=== PATIENT | male | born 1955 | race Caucasian/White ===

== ENCOUNTER 2018-11-05 06:09 | Day surgery (SDC) | payer MEDICARE ==
[2018-11-05] MEDS ORDERED: Ketamine HCl 50 MG/ML IJ ONE (06:10)
[2018-11-05] MEDS ORDERED: DIPRIVAN 200 MG/20 ML IV ONE (06:10)
[2018-11-05] MEDS ORDERED: Lactated Ringers 1,000 ML IV SCH (06:30)
--- NOTE | 2018-11-05 09:03 | OP ---
SURGERY DATE/TIME: 11/05/2018 0800 PREOPERATIVE DIAGNOSIS: Positive Cologuard and intermittent rectal bleeding. POSTOPERATIVE DIAGNOSIS: Normal colon. PROCEDURE: Colonoscopy. SURGEON: Dr. Gomez. ANESTHESIA: MAC. Medications given by anesthesia department. HISTORY: The patient is a 63 year-old white male patient presenting now for colonoscopy. He was appraised of the risks of the procedure including the risk of perforation, phlebitis, untoward reaction to medication, bleeding and missed lesions. The patient verbalized his understanding and desired to have the procedure performed. DESCRIPTION OF PROCEDURE: The patient was given the medications by the anesthesia department. He had continuous pulse oximetry, ECG monitoring, intermittent blood pressure monitoring and tidal CO2 monitoring during the examination. He was placed in the left lateral decubitus position. A digital rectal examination was performed and revealed normal anal sphincter tone, no masses and normal prostate and absence of hemorrhoids was noted. The flexible Olympus pediatric colonoscope was used to intubate the rectum. A view of the colon was developed sequentially to the cecum. Upon insertion and withdrawal, including a retroflex view in the rectum, no mucosal lesions were encountered. The scope was removed from the patient who tolerated the procedure well and was sent back to OP recovery in good condition. The prep was noted to be fair to good.
[2018-11-05 09:15] VITALS: PULSE 69
[2018-11-05 09:27] VITALS: BP 128/78; O2SAT 94
== END 2018-11-05 09:45 | disposition home or self-care (01) ==
LOC: SDC 06:09
PROVIDERS: ATTEND Family Medicine
DX: K62.5 Hemorrhage of anus and rectum (principal); R19.5 Other fecal abnormalities
CPT/HCPCS: J2704

== ENCOUNTER 2018-11-23 10:30 | Emergency (ER) | payer MEDICARE ==
[2018-11-23] MEDS ORDERED: Adacel Vial IM ONE ×2 (11:00→11:02)
[2018-11-23] MEDS ORDERED: KEFLEX 500 MG PO ONE (11:01)
[2018-11-23] MEDS ORDERED: KEFLEX 500 MG ONE (11:05)
--- NOTE | 2018-11-23 11:19 | ERPHSYRPT ---
- History of Present Illness Time Seen by Provider: 11/23/18 10:50 Source: patient, family Exam Limitations: clinical condition Patient Subjective Stated Complaint: tripped and hit right pinky toe on a box with an air fryer in it, thinks he broke his toe Triage Nursing Assessment: Pt c/o of getting out of bed and tripping on a box and his right pinky toe was bent outward, son wrapped foot and placed in an ankle brace, toe now appears to be straight but has an abrasion to it and also to the right great toe, has an open wound to the right mitchell but stated that was all ready there, reports that he has neuropathy in his feet so he does not feel any pain Physician History: PATIENT WITH A HISTORY OF PERIPHERAL NEUROPATHY, ATRIAL FIBRILLATION, CONGESTIVE HEART FAILURE, COPD, HYPERTENSION, WHILE GETTING OUT OF BED TRIPPED OVER A BOX CONTAINING A AIR FRYER THIS MORNING SUSTAINED INJURY TO SMALL TOE OF HIS RIGHT FOOT. DENIES PAIN BUT SUSTAINED ABRASIONS TO SMALL TOE. Method of Injury: direct blow Occurred: this morning Quality: other (DENIES PAIN DISCOMFORT) Severity of Pain-Max: none Severity of Pain-Current: none Lower Extremities Pain: 5th toe: right Modifying Factors: Improves With: nothing Associated Symptoms: none Allergies/Adverse Reactions: pregabalin [From Lyrica] Allergy (Verified 11/23/18 10:47) zinc Allergy (Verified 11/23/18 10:47) Blisters moxifloxacin HCl [From Avelox] Adverse Reaction (Mild, Verified 11/23/18 10:47) vancomycin Adverse Reaction (Verified 11/23/18 10:47) Elevated Levels / Increased CRCL patient had significant increase in Serum CR and decreased creatinine clearence. Wetch Closely Home Medications: Magnesium Oxide 400 mg [Mag-Ox 400] 400 mg PO BID 01/02/15 [History] Metoprolol Succinate 25 mg Xl* [Toprol-Xl 25MG Tablets] 25 mg PO BID [History] Omeprazole 20 MG [Prilosec 20 mg] 1 tab PO DAILY 11/30/15 [History] Atorvastatin Calcium [Lipitor 40Mg] 40 mg PO DAILY 04/08/16 [History] Cholecalciferol (Vitamin D3) [Vitamin D3] 50,000 unit PO WEEKLY 04/08/16 [ History] Potassium Chloride 20 meq PO 5XD 04/08/16 [History] Bumetanide [Bumex] 2 mg PO BID 01/19/17 [History] Colchicine [Colcrys] 0.6 mg PO BID 01/19/17 [History] Famotidine [Pepcid] 40 mg PO DAILY 01/19/17 [History] Gabapentin [Neurontin] 800 mg PO QID 01/19/17 [History] Spironolactone 25 mg [Aldactone 25 MG] 25 mg PO DAILY 01/19/17 [History] Oxycodone HCl/Acetaminophen [Oxycodon-Acetaminophen 7.5-325] 1 each PO Q6H PRN PRN 02/05/18 [History] Amitriptyline HCl 25 mg PO HS 11/23/18 [History] Apixaban [Eliquis] 5 mg PO BID 11/23/18 [History] Hx Tetanus, Diphtheria Vaccination/Date Given: Yes (unknown) Hx Influenza Vaccination/Date Given: Yes (unknown) Hx Pneumococcal Vaccination/Date Given: Yes (unknown) - Review of Systems Constitutional: No Symptoms Ears, Nose, & Throat: No Symptoms Respiratory: No Symptoms Abdominal/Gastrointestinal: No Symptoms Genitourinary Symptoms: No Symptoms Musculoskeletal: Injury, Other (ABRASIONS SMALL TOE) Neurological: Other (NEUROPATHY LOWER EXTREMITIES) Endocrine: No Symptoms Hematologic/Lymphatic: No Symptoms Immunological/Allergic: Pollen Allergy - Past Medical History Pertinent Past Medical History: Yes Neurological History: Peripheral Neuropathy ENT History: No Pertinent History Cardiac History: Arrhythmia, Congenital Heart Disease, Congestive Heart Failure , Hypertension Respiratory History: COPD, Pneumonia, Tuberculosis, Other Endocrine Medical History: Liver Disease Musculoskeletal History: Arthritis GI Medical History: GERD History: Renal Disease Psycho-Social History: Depression Male Reproductive Disorders: No Pertinent History Other Medical History: Partial R lung removal - Past Surgical History Past Surgical History: Yes Neuro Surgical History: No Pertinent History Cardiac: No Pertinent History Respiratory: Lobectomy Gastrointestinal: No Pertinent History Genitourinary: No Pertinent History Musculoskeletal: No Pertinent History Male Surgical History: Vasectomy Other Surgical History: RIGHT UPPER LOBECTOMY, leg vein cautery with skin graft - Social History Smoking Status: Former smoker How long have you smoked: 38 yrs Exposure to second hand smoke: Yes Drug Use: none Patient Lives Alone: Yes - Nursing Vital Signs Nursing Vital Signs: Initial Vital Signs Temperature 97.2 F 02/01/19 10:35 Pulse Rate 68 11/23/18 10:35 Blood Pressure 142/85 11/23/18 10:35 O2 Sat by Pulse Oximetry 92 L 11/23/18 10:35 Pain Scale Pain Intensity 0 - Physical Exam General Appearance: alert Neck Exam: normal inspection Cardiovascular/Respiratory Exam: chest non-tender Gastrointestinal/Abdominal Exam: non-tender Legs Exam: right leg: soft tissue tenderness (THERE IS A 1.5CM LACERATION DORSUM SMALL TOE EXTEND TO RADIAL ASPECT NO EVIDENCE OF TENDON LACERATION OR FOREIGN BODY. FULL RANGE OF MOTION ALL DIGITS.), swelling (BILATERAL PRETIBIAL EDEMA 1+, THERE IS A 2CM X 1CM ABRASION MID RIGHT MITCHELL, NONTENDER, NO SURROUNDING SWELLING OR ECCHYMOSIS) Foot Exam: right foot: soft tissue tenderness (ABRASIONS DISTAL PHALANGX OF SMALL TOE OF RIGHT FOOT) Neuro/Tendon Exam: normal sensation, normal motor functions Mental Status Exam: alert, oriented x 3, cooperative Skin Exam: normal color, warm, dry SpO2 Interpretation: normal SpO2: 92 Procedures - Laceration/Wound Repair Right Toe Wound Location: Right (5TH TOE) Wound Length (cm): 1.5 Wound's Depth, Shape: linear Wound Explored: clean Irrigated: Yes Hibiclens Prep: Yes Anesthesia: 2% Lidocaine Volume Anesthetic (ccs): 5 Suture Size/Type: 4-0 Number of Sutures: 9 Layer Closure?: No Sterile Dressing Applied?: Yes - Radiology Exams Right Foot X-ray Interpretation: Discussed w/ radiologist (NEW NONDISPLACED HEAD OF THE 5TH PROXIMAL PHALANX WITH SOFT TISSUES SWELLING. STABLE OSTEOPENIA) Ordered Tests: Active Orders 24 hr Category Date Time Status Wound Care STAT Care 11/23/18 11:19 Active FOOT (MINIMUM 3 VIEWS) Stat Exams 11/23/18 11:00 Completed Medication Summary Discontinued Medications Generic Name Dose Route Start Last Admin Trade Name Christy PRN Reason Stop Dose Admin Cephalexin HCl 500 mg 11/23/18 11:01 11/23/18 11:11 Keflex 500 Mg PO 11/23/18 11:02 500 mg STAT ONE Administration Cephalexin HCl Confirm 11/23/18 11:05 Keflex 500 Mg Administered 11/23/18 11:06 Dose 500 mg .ROUTE .STK-MED ONE Diphtheria/Tetanus/Acell Pertussis 0.5 ml 11/23/18 11:00 11/23/18 11:04 Adacel Vial IM 11/23/18 11:01 0.5 ml .ONCE ONE Administration Diphtheria/Tetanus/Acell Pertussis Confirm 11/23/18 11:02 Adacel Vial Administered 11/23/18 11:03 Dose 0.5 ml IM .STK-MED ONE Lidocaine HCl Confirm 11/23/18 11:58 Xylocaine 2% Hcl 20 Ml Mdv Administered 11/23/18 11:59 Dose 1 ml .ROUTE .STK-MED ONE - Progress Progress Note: 11/23/18 11:52 KAREEM TAPE RIGHT 4TH-5TH TOE Counseled pt/family regarding: diagnosis, rad results - Departure Time of Disposition: 12:40 Departure Disposition: Home Clinical Impression: FRACTURE RIGHT 5TH TOE, LACERATION RIGHT 5TH TOE Condition: Stable Critical Care Time: No Referrals: KRIS PADGETT [Primary Care Provider] - Additional Instructions: ANTIBIOTIC KEFLEX 500MG EVERY 6 HOURS FOR 10 DAYS. HAVE STITCHES REMOVED AT 10 DAYS. WATCH FOR SIGNS OF INFECTION, REDNESS, SWELLING OR DRAINAGE. CLEANSE WOUND SOAP AND WATER TWICE DAILY FOLLOWED BY APPLICATION OF BACITRACIN OINTMENT. Prescriptions: Cephalexin Mh 500 mg [Keflex 500 mg] 500 mg PO QID #40 capsule
--- NOTE | 2018-11-23 11:37 | XRAY ---
Indication: Fifth toe pain. Comparison: April 08, 2016. 3 nonweightbearing views of the right foot demonstrates new nondisplaced corner fracture head of the 5th proximal phalanx with soft tissue swelling. Stable osteopenia, midfoot degenerative changes, chronic 5th metatarsal head deformity, and plantar metallic foreign body adjacent to 2nd MTP.
[2018-11-23] MEDS ORDERED: XYLOCAINE 2% HCL 20 ML MDV ONE (11:58)
[2018-11-23 13:49] VITALS: BP 130/63; PULSE 67; O2SAT 95
== END 2018-11-23 13:25 | disposition home or self-care (01) ==
LOC: ED 10:30
DX: S92.501A Displaced unspecified fracture of right lesser toe(s), initial encounter for closed fracture (principal); S91.114A Laceration without foreign body of right lesser toe(s) without damage to nail, initial encounter; S90.414A Abrasion, right lesser toe(s), initial encounter; S91.101A Unspecified open wound of right great toe without damage to nail, initial encounter; W22.8XXA Striking against or struck by other objects, initial encounter; G62.9 Polyneuropathy, unspecified; I48.91 Unspecified atrial fibrillation; I50.9 Heart failure, unspecified; J44.9 Chronic obstructive pulmonary disease, unspecified; I10 Essential (primary) hypertension; K76.9 Liver disease, unspecified; M85.871 Other specified disorders of bone density and structure, right ankle and foot; Z79.899 Other long term (current) drug therapy
CPT/HCPCS: 12001; 73630; 90471; 90715; 99284; A9270-GY

== ENCOUNTER 2018-12-03 13:15 | Emergency (ER) | payer MEDICARE ==
[2018-12-03 13:27] VITALS: PULSE 71; O2SAT 92
--- NOTE | 2018-12-03 13:44 | ERPHSYRPT ---
- History of Present Illness Time Seen by Provider: 12/03/18 13:36 Source: patient Exam Limitations: no limitations Patient Subjective Stated Complaint: suture removal Triage Nursing Assessment: Pt is here for suture removal of the right little toe Physician History: The patient is a 63-year-old male with a friend coming in wanting suture removal from his right toe after having it repaired in this ER on 11/23/18. He is not having any problems with the wound healing Occurred: days ago (11) Allergies/Adverse Reactions: pregabalin [From Lyrica] Allergy (Verified 12/03/18 13:27) zinc Allergy (Verified 12/03/18 13:27) Blisters moxifloxacin HCl [From Avelox] Adverse Reaction (Mild, Verified 12/03/18 13:27) vancomycin Adverse Reaction (Verified 12/03/18 13:27) Elevated Levels / Increased CRCL patient had significant increase in Serum CR and decreased creatinine clearence. Wetch Closely Home Medications: Magnesium Oxide 400 mg [Mag-Ox 400] 400 mg PO BID 01/02/15 [History] Metoprolol Succinate 25 mg Xl* [Toprol-Xl 25MG Tablets] 25 mg PO BID [History] Omeprazole 20 MG [Prilosec 20 mg] 1 tab PO DAILY 11/30/15 [History] Atorvastatin Calcium [Lipitor 40Mg] 40 mg PO DAILY 04/08/16 [History] Cholecalciferol (Vitamin D3) [Vitamin D3] 50,000 unit PO WEEKLY 04/08/16 [ History] Potassium Chloride 20 meq PO 5XD 04/08/16 [History] Bumetanide [Bumex] 2 mg PO BID 01/19/17 [History] Colchicine [Colcrys] 0.6 mg PO BID 01/19/17 [History] Famotidine [Pepcid] 40 mg PO DAILY 01/19/17 [History] Gabapentin [Neurontin] 800 mg PO QID 01/19/17 [History] Spironolactone 25 mg [Aldactone 25 MG] 25 mg PO DAILY 01/19/17 [History] Oxycodone HCl/Acetaminophen [Oxycodon-Acetaminophen 7.5-325] 1 each PO Q6H PRN PRN 02/05/18 [History] Amitriptyline HCl 25 mg PO HS 11/23/18 [History] Apixaban [Eliquis] 5 mg PO BID 11/23/18 [History] Hx Tetanus, Diphtheria Vaccination/Date Given: Yes (unknown) Hx Influenza Vaccination/Date Given: Yes (unknown) Hx Pneumococcal Vaccination/Date Given: Yes (unknown) - Past Medical History Pertinent Past Medical History: Yes Neurological History: Peripheral Neuropathy ENT History: No Pertinent History Cardiac History: Arrhythmia, Congenital Heart Disease, Congestive Heart Failure , Hypertension Respiratory History: COPD, Pneumonia, Tuberculosis, Other Endocrine Medical History: Liver Disease Musculoskeletal History: Arthritis GI Medical History: GERD History: Renal Disease Psycho-Social History: Depression Male Reproductive Disorders: No Pertinent History Other Medical History: Partial R lung removal - Past Surgical History Past Surgical History: Yes Neuro Surgical History: No Pertinent History Cardiac: No Pertinent History Respiratory: Lobectomy Gastrointestinal: No Pertinent History Genitourinary: No Pertinent History Musculoskeletal: No Pertinent History Male Surgical History: Vasectomy Other Surgical History: RIGHT UPPER LOBECTOMY, leg vein cautery with skin graft - Social History Smoking Status: Former smoker How long have you smoked: 38 yrs Exposure to second hand smoke: Yes Drug Use: none Patient Lives Alone: Yes - Nursing Vital Signs Nursing Vital Signs: Initial Vital Signs Temperature 97.5 F 12/03/18 13:19 Pulse Rate 71 12/03/18 13:19 O2 Sat by Pulse Oximetry 92 L 12/03/18 13:19 Pain Scale Pain Intensity 0 - Physical Exam SpO2: 92 - Departure Referrals: KRIS PADGETT [Primary Care Provider] -
--- NOTE | 2018-12-03 13:59 | ERPHSYRPT ---
- History of Present Illness Time Seen by Provider: 12/03/18 13:36 Source: patient Exam Limitations: no limitations Patient Subjective Stated Complaint: suture removal Triage Nursing Assessment: Pt is here for suture removal of the right little toe Physician History: The patient is a 63-year-old male with a friend complaining of wanting to have his sutures removed on his right little toe that were placed in this ER for laceration on to 119. His past medical history is significant for COPD, renal insufficiency, HTN, GERD, A. fib, and high cholesterol. Timing/Duration: day(s) (11), sudden Severity: mild Location: feet (right) Possible Causes: other (lac) Allergies/Adverse Reactions: pregabalin [From Lyrica] Allergy (Verified 12/03/18 13:27) zinc Allergy (Verified 12/03/18 13:27) Blisters moxifloxacin HCl [From Avelox] Adverse Reaction (Mild, Verified 12/03/18 13:27) vancomycin Adverse Reaction (Verified 12/03/18 13:27) Elevated Levels / Increased CRCL patient had significant increase in Serum CR and decreased creatinine clearence. Wetch Closely Home Medications: Magnesium Oxide 400 mg [Mag-Ox 400] 400 mg PO BID 01/02/15 [History] Metoprolol Succinate 25 mg Xl* [Toprol-Xl 25MG Tablets] 25 mg PO BID [History] Omeprazole 20 MG [Prilosec 20 mg] 1 tab PO DAILY 11/30/15 [History] Atorvastatin Calcium [Lipitor 40Mg] 40 mg PO DAILY 04/08/16 [History] Cholecalciferol (Vitamin D3) [Vitamin D3] 50,000 unit PO WEEKLY 04/08/16 [ History] Potassium Chloride 20 meq PO 5XD 04/08/16 [History] Bumetanide [Bumex] 2 mg PO BID 01/19/17 [History] Colchicine [Colcrys] 0.6 mg PO BID 01/19/17 [History] Famotidine [Pepcid] 40 mg PO DAILY 01/19/17 [History] Gabapentin [Neurontin] 800 mg PO QID 01/19/17 [History] Spironolactone 25 mg [Aldactone 25 MG] 25 mg PO DAILY 01/19/17 [History] Oxycodone HCl/Acetaminophen [Oxycodon-Acetaminophen 7.5-325] 1 each PO Q6H PRN PRN 02/05/18 [History] Amitriptyline HCl 25 mg PO HS 11/23/18 [History] Apixaban [Eliquis] 5 mg PO BID 11/23/18 [History] Hx Tetanus, Diphtheria Vaccination/Date Given: Yes (unknown) Hx Influenza Vaccination/Date Given: Yes (unknown) Hx Pneumococcal Vaccination/Date Given: Yes (unknown) - Review of Systems Constitutional: No Fever, No Chills Eyes: No Symptoms Ears, Nose, & Throat: No Symptoms Respiratory: No Cough, No Dyspnea Cardiac: No Chest Pain, No Edema, No Syncope Abdominal/Gastrointestinal: No Abdominal Pain, No Nausea, No Vomiting, No Diarrhea Genitourinary Symptoms: No Dysuria Musculoskeletal: No Back Pain, No Neck Pain Skin: Other (lac) Neurological: No Dizziness, No Focal Weakness, No Sensory Changes Psychological: No Symptoms Endocrine: No Symptoms Hematologic/Lymphatic: No Symptoms Immunological/Allergic: No Symptoms All Other Systems: Reviewed and Negative - Past Medical History Pertinent Past Medical History: Yes Neurological History: Peripheral Neuropathy ENT History: No Pertinent History Cardiac History: Arrhythmia, Congenital Heart Disease, Congestive Heart Failure , Hypertension Respiratory History: COPD, Pneumonia, Tuberculosis, Other Endocrine Medical History: Liver Disease Musculoskeletal History: Arthritis GI Medical History: GERD History: Renal Disease Psycho-Social History: Depression Male Reproductive Disorders: No Pertinent History Other Medical History: Partial R lung removal - Past Surgical History Past Surgical History: Yes Neuro Surgical History: No Pertinent History Cardiac: No Pertinent History Respiratory: Lobectomy Gastrointestinal: No Pertinent History Genitourinary: No Pertinent History Musculoskeletal: No Pertinent History Male Surgical History: Vasectomy Other Surgical History: RIGHT UPPER LOBECTOMY, leg vein cautery with skin graft - Social History Smoking Status: Former smoker How long have you smoked: 38 yrs Exposure to second hand smoke: Yes Drug Use: none Patient Lives Alone: Yes - Nursing Vital Signs Nursing Vital Signs: Initial Vital Signs Temperature 97.5 F 12/03/18 13:19 Pulse Rate 71 12/03/18 13:19 O2 Sat by Pulse Oximetry 92 L 12/03/18 13:19 Pain Scale Pain Intensity 0 - Physical Exam General Appearance: no apparent distress, alert Eye Exam: PERRL/EOMI, eyes nml inspection Ears, Nose, Throat Exam: normal ENT inspection, pharynx normal, moist mucous membranes Neck Exam: normal inspection, non-tender, supple, full range of motion Respiratory Exam: normal breath sounds, lungs clear, No respiratory distress Cardiovascular Exam: regular rate/rhythm, normal heart sounds Gastrointestinal/Abdomen Exam: soft, mass, No tenderness Rectal Exam: not done Back Exam: normal inspection, normal range of motion, No CVA tenderness, No vertebral tenderness Extremity Exam: normal inspection, normal range of motion Neurologic Exam: alert, oriented x 3, cooperative, normal mood/affect, sensation nml, No motor deficits Skin Exam: laceration (Examination of the wound after the sutures were removed shows friable and macerated tissue on the medial aspect of the right little toe. He has chronic venous stasis and poor circulation of the right lower extremity. The little toe is also red and mildly warm.) SpO2 Interpretation: normal SpO2: 92 O2 Delivery: Room Air - Departure Time of Disposition: 14:01 Departure Disposition: Home Clinical Impression: Visit for suture removal, Cellulitis Condition: Stable Critical Care Time: No Referrals: KRIS PADGETT [Primary Care Provider] - Additional Instructions: You had 9 sutures removed from her right little toe. The toe looks mildly infected. Discontinue Keflex. Begin Augmentin 875 one tablet 2 times a day for 10 days. Follow-up with Dr. Gomez in 2-3 days. Prescriptions: Amoxicillin/Potassium Clav [Augmentin 875-125 Tablet] 875 mg PO BID #20 tablet
== END 2018-12-03 14:19 | disposition home or self-care (01) ==
LOC: ED 13:15
DX: Z48.02 Encounter for removal of sutures (principal); L03.031 Cellulitis of right toe; J44.9 Chronic obstructive pulmonary disease, unspecified; N28.9 Disorder of kidney and ureter, unspecified; I10 Essential (primary) hypertension; K21.9 Gastro-esophageal reflux disease without esophagitis; I48.91 Unspecified atrial fibrillation; E78.00 Pure hypercholesterolemia, unspecified; M19.90 Unspecified osteoarthritis, unspecified site; F32.9 Major depressive disorder, single episode, unspecified
CPT/HCPCS: 99283

== ENCOUNTER 2019-01-14 14:17 | Emergency (ER) | payer MEDICARE ==
[2019-01-14] MEDS ORDERED: BUMEX 1 MG IV ONE (14:51)
[2019-01-14] MEDS ORDERED: Maxipime 2 GM IV ONE (14:54)
[2019-01-14 15:05] LABS: INR 2.92 (0.8-3.0); PROTIME 34.3 SECONDS (8.83-12.87)
--- NOTE | 2019-01-14 15:14 | XRAY ---
Indication: Dyspnea. Comparison: April 08, 2016. Portable chest demonstrates new right mid to lower lung infiltrate versus atelectasis. Elsewhere stable chronic lung markings, calcified granulomas, and cardiomegaly. Bony thorax intact.
[2019-01-14] MEDS ORDERED: BUMEX 1 MG ONE (16:04)
[2019-01-14] MEDS ORDERED: MAXIPIME IV STA (16:14)
[2019-01-14] MEDS ORDERED: SODIUM CHLORIDE 0.9% IV STA (16:14)
[2019-01-14 17:20] VITALS: BP 115/61; PULSE 83; O2SAT 99
--- NOTE | 2019-01-14 17:44 | ERPHSYRPT ---
- History of Present Illness Time Seen by Provider: 01/14/19 14:35 Source: patient, EMS Exam Limitations: clinical condition Patient Subjective Stated Complaint: pt arrives from [facility], staff reports that pt has chronic bilat lower extremity cellulitis but it seems to be worse today. staff also reports pt picc line appears to be infected. staff report skin to picc site shows new bruising as well as being hot to touch. Triage Nursing Assessment: pt is aox3, pupils perrl, pt has low grade temp of 99.8, resps easy and non labored, radial pulses strong and equal, cap refill < 3 seconds, picc line noted to the right upper arm, bruising noted around site, site is hot to touch. pt has severe edema to the upper and lower legs, pt lower legs are covered in honey colored crusts, drainage present, pt bilat upper legs are red, hot to the touch and edematous, that skin is intact. pt is bedridden. Physician History: PATIENT WITH A HISTORY OF COPD, ANASARCA, ATRIA FIBRILLAITION, BILATERAL LOWER EXTREMITY CELLULITIS AND SWELLING, TRANSFERRED FROM THE SENIOR LIVING FOR INCREASING SWELLING IN LOWER EXTREMITIES POSSIBLE INFECTED PICC LINE. HAS BEEN TREATED WITH ANTIBIOTICS MAXIPINE 2GM INRAVENOUS TWICE DAILY. PATIENT DENIES SHORTNESS OF BREATH DIFFICULTY BREATHING OR CHEST PAIN. Timing/Duration: day(s) Severity: severe Allergies/Adverse Reactions: pregabalin [From Lyrica] Allergy (Verified 12/03/18 13:27) zinc Allergy (Verified 12/03/18 13:27) Blisters moxifloxacin HCl [From Avelox] Adverse Reaction (Mild, Verified 12/03/18 13:27) vancomycin Adverse Reaction (Verified 12/03/18 13:27) Elevated Levels / Increased CRCL patient had significant increase in Serum CR and decreased creatinine clearence. [place] Closely Home Medications: Magnesium Oxide 400 mg [Mag-Ox 400] 400 mg PO BID 01/02/15 [History] Metoprolol Succinate 25 mg Xl* [Toprol-Xl 25MG Tablets] 25 mg PO BID [History] Omeprazole 20 MG [Prilosec 20 mg] 1 tab PO DAILY 11/30/15 [History] Atorvastatin Calcium [Lipitor 40Mg] 40 mg PO DAILY 04/08/16 [History] Cholecalciferol (Vitamin D3) [Vitamin D3] 50,000 unit PO WEEKLY 04/08/16 [ History] Potassium Chloride 20 meq PO 5XD 04/08/16 [History] Bumetanide [Bumex] 2 mg PO BID 01/19/17 [History] Colchicine [Colcrys] 0.6 mg PO BID 01/19/17 [History] Famotidine [Pepcid] 40 mg PO DAILY 01/19/17 [History] Gabapentin [Neurontin] 800 mg PO QID 01/19/17 [History] Spironolactone 25 mg [Aldactone 25 MG] 25 mg PO DAILY 01/19/17 [History] Oxycodone HCl/Acetaminophen [Oxycodon-Acetaminophen 7.5-325] 1 each PO Q6H PRN PRN 02/05/18 [History] Amitriptyline HCl 25 mg PO HS 11/23/18 [History] Apixaban [Eliquis] 5 mg PO BID 11/23/18 [History] Hx Tetanus, Diphtheria Vaccination/Date Given: Yes Hx Influenza Vaccination/Date Given: Yes Hx Pneumococcal Vaccination/Date Given: Yes Immunizations Up to Date: Yes - Review of Systems Constitutional: No Fever, No Chills Eyes: No Symptoms Ears, Nose, & Throat: No Symptoms Respiratory: No Symptoms, No Cough, No Dyspnea Cardiac: No Symptoms, No Chest Pain, No Edema, No Syncope Abdominal/Gastrointestinal: No Symptoms, No Abdominal Pain, No Nausea, No Vomiting, No Diarrhea Genitourinary Symptoms: No Symptoms, No Dysuria Musculoskeletal: Other (LOWER EXTREMITY SWELLING), No Back Pain, No Neck Pain Skin: No Rash Neurological: No Symptoms, No Dizziness, No Focal Weakness, No Sensory Changes Psychological: No Symptoms Endocrine: No Symptoms All Other Systems: Reviewed and Negative - Past Medical History Pertinent Past Medical History: Yes Neurological History: Peripheral Neuropathy ENT History: No Pertinent History Cardiac History: Arrhythmia, Congenital Heart Disease, Congestive Heart Failure , Hypertension Respiratory History: COPD, Pneumonia, Tuberculosis, Other Endocrine Medical History: Liver Disease Musculoskeletal History: Arthritis GI Medical History: GERD History: Renal Disease Psycho-Social History: Depression Male Reproductive Disorders: No Pertinent History Other Medical History: Partial R lung removal - Past Surgical History Past Surgical History: Yes Neuro Surgical History: No Pertinent History Cardiac: No Pertinent History Respiratory: Lobectomy Gastrointestinal: No Pertinent History Genitourinary: No Pertinent History Musculoskeletal: No Pertinent History Male Surgical History: Vasectomy Other Surgical History: RIGHT UPPER LOBECTOMY, leg vein cautery with skin graft - Social History Smoking Status: Never smoker How long have you smoked: 38 yrs Exposure to second hand smoke: Yes Drug Use: none Patient Lives Alone: No - Nursing Vital Signs Nursing Vital Signs: Initial Vital Signs Temperature 99.8 F 01/14/19 14:23 Pulse Rate 82 01/14/19 14:23 Respiratory Rate 24 01/14/19 14:23 Blood Pressure 129/56 01/14/19 14:23 O2 Sat by Pulse Oximetry 100 01/14/19 14:23 Pain Scale Pain Intensity 0 - Physical Exam General Appearance: no apparent distress, alert Eye Exam: PERRL/EOMI, eyes nml inspection Ears, Nose, Throat Exam: normal ENT inspection, TMs normal, pharynx normal, moist mucous membranes Neck Exam: normal inspection, non-tender, supple, full range of motion Respiratory Exam: diminished breath sounds, crackles/rales, No respiratory distress Cardiovascular Exam: regular rate/rhythm, normal heart sounds, normal peripheral pulses Gastrointestinal/Abdomen Exam: soft, normal bowel sounds, No tenderness, No mass Back Exam: normal inspection, normal range of motion, No CVA tenderness, No vertebral tenderness Extremity Exam: other (MARKED 3+ PITTING EDEMA ANKLE TO MID ABDOMINAL WALL.) Neurologic Exam: alert, oriented x 3, cooperative, normal mood/affect, nml cerebellar function, nml station & gait, sensation nml, No motor deficits Skin Exam: normal color, warm, dry, No rash Lymphatic Exam: No adenopathy SpO2 Interpretation: normal SpO2: 99 O2 Delivery: Nasal Cannula - Course EKG Interpreted by Me: A-fib, Right [place] Deviation, NORMAL ST-T - Radiology Exams Chest X-ray Interpretation: Discussed w/ radiologist (CARDIOMEGALY, RIGHT MID TO LOWER LOW INFILTRATE) Ordered Tests: Active Orders 24 hr Category Date Time Status Senior Support Engineer STAT Care 01/14/19 14:52 Active EKG-ER Only STAT Care 01/14/19 14:52 Active IV Insertion STAT Care 01/14/19 14:52 Active Oxygen-ED Only Nasal Cannula 2 lpm Care 01/14/19 14:52 Active CHEST 1 VIEW (PORTABLE) Stat Exams 01/14/19 14:52 Completed PROTIME WITH INR Stat Lab 01/14/19 14:56 Completed TROPONIN Q3H Lab 01/14/19 15:45 Completed TROPONIN Q3H Lab 01/14/19 18:00 Ordered TROPONIN Q3H Lab 01/14/19 21:00 Ordered TROPONIN Q3H Lab 01/15/19 00:00 Ordered TROPONIN Q3H Lab 01/15/19 03:00 Ordered Medication Summary Discontinued Medications Generic Name Dose Route Start Last Admin Trade Name Christy PRN Reason Stop Dose Admin Bumetanide 1 mg 01/14/19 14:51 01/14/19 17:06 Bumex 1 Mg IV 01/14/19 14:52 1 mg STAT ONE Administration Bumetanide Confirm 01/14/19 16:04 Bumex 1 Mg Administered 01/14/19 16:05 Dose 1 mg .ROUTE .STK-MED ONE Cefepime HCl 2 g/ Sodium 100 mls @ 200 mls/hr 01/14/19 16:14 01/14/19 17:07 Chloride IV 01/14/19 16:43 200 mls/hr STAT STA Administration Lab/Rad Data: Laboratory Results 01/14/19 01/14/19 Range/Units 15:45 14:56 PT 34.3 H (8.83-12.87) SECONDS INR 2.92 (0.8-3.0) Troponin I 0.020 (0.000-0.034) ng/mL - Progress Progress Note: 01/14/19 17:58 IV MAXIPINE 2GM IVPB, DUONEB AEROSOL [place] Discussed with Dr.: Other (DISCUSSED WITH DR HUGO AT 1800 ACCEPTS TRANSFER TO [facility]IA [facility]) - Departure Time of Disposition: 18:05 Departure Disposition: Transfer Clinical Impression: ANASARCA, LOWER EXTREMITY CELLULITIS, PNEUMONIA Condition: Stable Critical Care Time: No Referrals: RADHA KRISHNAN [Primary Care Provider] -
== END 2019-01-14 18:10 | disposition short-term general hospital (02) ==
LOC: ED 14:17
DX: L03.116 Cellulitis of left lower limb (principal); L03.115 Cellulitis of right lower limb; J44.9 Chronic obstructive pulmonary disease, unspecified; I48.91 Unspecified atrial fibrillation; Z79.899 Other long term (current) drug therapy; G62.9 Polyneuropathy, unspecified; I50.9 Heart failure, unspecified; I10 Essential (primary) hypertension; K76.9 Liver disease, unspecified; M19.90 Unspecified osteoarthritis, unspecified site; K21.9 Gastro-esophageal reflux disease without esophagitis; F32.9 Major depressive disorder, single episode, unspecified
CPT/HCPCS: 36000; 36415; 71045; 80053; 82272; 83605; 83880; 84484; 85025; 85610; 93005; 93041; 96365; 96374; 96375; 99285; J0692

== ENCOUNTER 2019-02-11 08:15 | Inpatient (IN) | payer MEDICARE ==
[2019-02-11] MEDS ORDERED: BUMEX 1 MG ONE (08:22)
[2019-02-11] MEDS ORDERED: BUMEX 1 MG IV ONE (08:26)
--- NOTE | 2019-02-11 08:33 | ERPHSYRPT ---
- History of Present Illness Time Seen by Provider: 02/11/19 08:20 Source: patient Exam Limitations: no limitations Patient Subjective Stated Complaint: PT states "I was released from [facility] a couple of days ago for the same thing and I am I am having a really hard time breathing." Triage Nursing Assessment: Pt presented via scat and placed in room 4. PT is very warm to touch, pt presented with duff in place, a slight pressure ulcer on buttock, audible rhales, able to speak in clear full sentences. Pt tachypniec. weak non productive cough. Physician History: 63-year-old white male with history of peripheral neuropathy, arrhythmia, atrial fibrillation, congenital heart disease, congestive heart failure, high blood pressure, COPD, pneumonia, tuberculosis Patient arrives with complaint of shortness of breath for several days he states he was recently at [facility] for the same he states she's been short of breath for several days he states that he has worse shortness of breath this morning is [facility]. He denies any chest pain he does state that he's had a sore throat. Patient remained received a DuoNeb treatment at the retirement and then another one per medics prior to arrival also received 125 of Solu-Medrol by medics. Past medical history includes peripheral neuropathy, arrhythmia, atrial fibrillation, congenital heart disease, congestive heart failure, high blood pressure, COPD, pneumonia, tuberculosis, liver disease, partial right lung removal. Past surgical history includes right upper lobectomy, leg vein cautery. Timing/Duration: other (short of breath for several days worse past day) Activities at Onset: none Severity of Dyspnea-Max: moderate Severity of Dyspnea-Current: moderate Possible Cause: frequent episodes Modifying Factors: Improves With: other (patient received a DuoNeb treatment at retirement and by medics prior to arrival.) Associated Symptoms: cough, wheezing, No chest pain/discomfort, No edema, No insomnia, No lightheadedness, No weakness, No ankle swelling, No chills, No dizziness, No heaviness, No heart racing, No lightheadedness, No leg swelling, No muscle spasms hands, No painful breathing, No productive cough, No sweating, No tightness, No tingling face International travel in last 2 weeks: No Allergies/Adverse Reactions: pregabalin [From Lyrica] Allergy (Verified 12/03/18 13:27) zinc Allergy (Verified 12/03/18 13:27) Blisters moxifloxacin HCl [From Avelox] Adverse Reaction (Mild, Verified 12/03/18 13:27) vancomycin Adverse Reaction (Verified 12/03/18 13:27) Elevated Levels / Increased CRCL patient had significant increase in Serum CR and decreased creatinine clearence. Wetch Closely Home Medications: Magnesium Oxide 400 mg [Mag-Ox 400] 400 mg PO BID 01/02/15 [History] Metoprolol Succinate 25 mg Xl* [Toprol-Xl 25MG Tablets] 25 mg PO BID [History] Omeprazole 20 MG [Prilosec 20 mg] 1 tab PO DAILY 11/30/15 [History] Atorvastatin Calcium [Lipitor 40Mg] 40 mg PO DAILY 04/08/16 [History] Cholecalciferol (Vitamin D3) [Vitamin D3] 50,000 unit PO WEEKLY 04/08/16 [ History] Potassium Chloride 20 meq PO 5XD 04/08/16 [History] Bumetanide [Bumex] 2 mg PO BID 01/19/17 [History] Colchicine [Colcrys] 0.6 mg PO BID 01/19/17 [History] Famotidine [Pepcid] 40 mg PO DAILY 01/19/17 [History] Gabapentin [Neurontin] 800 mg PO QID 01/19/17 [History] Spironolactone 25 mg [Aldactone 25 MG] 25 mg PO DAILY 01/19/17 [History] Oxycodone HCl/Acetaminophen [Oxycodon-Acetaminophen 7.5-325] 1 each PO Q6H PRN PRN 02/05/18 [History] Amitriptyline HCl 25 mg PO HS 11/23/18 [History] Apixaban [Eliquis] 5 mg PO BID 11/23/18 [History] Hx Tetanus, Diphtheria Vaccination/Date Given: Yes Hx Influenza Vaccination/Date Given: Yes Hx Pneumococcal Vaccination/Date Given: Yes Immunizations Up to Date: Yes - Review of Systems Constitutional: No Fever, No Chills Eyes: No Symptoms Ears, Nose, & Throat: No Symptoms, Throat Pain, No Ear Pain, No Ear Discharge, No Hearing Changes, No Tinnitus, No Nose Pain, No Nose Congestion, No Nose Discharge, No Sinus Drainage, No Epistaxis, No Mouth Swelling, No Loose Teeth, No Throat Swelling, No Hoarse, No Painful Swallowing, No Snoring Respiratory: Cough, Dyspnea, Wheezing Cardiac: No Chest Pain, No Edema, No Syncope Abdominal/Gastrointestinal: No Abdominal Pain, No Nausea, No Vomiting, No Diarrhea Genitourinary Symptoms: No Dysuria Musculoskeletal: No Back Pain, No Neck Pain Skin: No Rash Neurological: No Dizziness, No Focal Weakness, No Sensory Changes Psychological: No Symptoms Endocrine: No Symptoms All Other Systems: Reviewed and Negative - Past Medical History Pertinent Past Medical History: Yes Neurological History: Peripheral Neuropathy ENT History: No Pertinent History Cardiac History: Arrhythmia, Congenital Heart Disease, Congestive Heart Failure , Hypertension Respiratory History: COPD, Pneumonia, Tuberculosis, Other Endocrine Medical History: Liver Disease Musculoskeletal History: Arthritis GI Medical History: GERD History: Renal Disease Psycho-Social History: Depression Male Reproductive Disorders: No Pertinent History Other Medical History: Partial R lung removal - Past Surgical History Past Surgical History: Yes Neuro Surgical History: No Pertinent History Cardiac: No Pertinent History Respiratory: Lobectomy Gastrointestinal: No Pertinent History Genitourinary: No Pertinent History Musculoskeletal: No Pertinent History Male Surgical History: Vasectomy Other Surgical History: RIGHT UPPER LOBECTOMY, leg vein cautery with skin graft - Social History Smoking Status: Former smoker How long have you smoked: 38 yrs Exposure to second hand smoke: Yes Drug Use: none Patient Lives Alone: No - Nursing Vital Signs Nursing Vital Signs: Initial Vital Signs Temperature 103.2 F 02/11/19 08:15 Pulse Rate 107 H 02/11/19 08:15 Respiratory Rate 26 H 02/11/19 08:15 Blood Pressure 117/58 02/11/19 08:15 O2 Sat by Pulse Oximetry 96 02/11/19 08:15 Pain Scale Pain Intensity 4 - Physical Exam General Appearance: moderate distress, alert, other (well-developed well- nourished white male audible rhonchi (wet)) Eye Exam: PERRL/EOMI Ears, Nose, Throat Exam: hearing grossly normal Neck Exam: normal inspection, supple Respiratory Exam: rhonchi (audible wet rhonchi throughout) Cardiovascular/Chest Exam: normal heart sounds, regular rate/rhythm Abdominal/Gastrointestinal Exam: soft, No tenderness, No distention, No mass Extremity Exam: non-tender, normal range of motion, no calf tenderness, no pedal edema, No normal inspection (bilateral lower extremities erythematous) Peripheral Pulses Exam: dorsalis-pedis (R): 1+, dorsalis-pedis (L): 1+ Neurologic Exam: alert, oriented x 3, cooperative, flexographic press set up operator II-XII nml as tested, sensation nml, No motor deficits Skin Exam: dry (what), No normal color (Bilateral lower extremies erythematous) SpO2 Interpretation: borderline oxygenation (%) SpO2: 96 - Course Nursing assessment & vital signs reviewed: Yes EKG Interpreted by Me: RATE (111 bpm), A-fib, Other (EKG: Atrial fibrillation with PVCs, 111 bpm, indeterminate axis,no acute ST or T wave changes) - Radiology Exams Chest X-ray Interpretation: Discussed w/ radiologist (chest x-ray: Right lung base infiltrate/atelectasis with new focus in the left baseand new bibasilar effusions. elsewhere stable cardiomegaly, right mid lung suture material and scattered calcified granulomas.) Ordered Tests: Active Orders 24 hr Category Date Time Status Smoke Control Supervisor STAT Care 02/11/19 08:25 Active EKG-ER Only STAT Care 02/11/19 08:24 Active IV Insertion STAT Care 02/11/19 08:24 Active CHEST 1 VIEW (PORTABLE) Stat Exams 02/11/19 08:25 Completed BLOOD CULTURE Stat Lab 02/11/19 08:35 Received CBC W DIFF Stat Lab 02/11/19 08:35 Completed CMP Stat Lab 02/11/19 08:35 Completed CULTURE,SPUTUM Stat Lab 02/11/19 08:25 Uncollected CULTURE,URINE Stat Lab 02/11/19 08:56 Received D-DIMER QUANTITATION Stat Lab 02/11/19 08:35 Completed Lactic Acid Stat Lab 02/11/19 08:40 Completed Manual Differential NC Stat Lab 02/11/19 08:35 Completed NT PRO BNP Stat Lab 02/11/19 08:35 Completed PROTIME WITH INR Stat Lab 02/11/19 08:35 Completed PTT Stat Lab 02/11/19 08:35 Completed TROPONIN Q3H Lab 02/11/19 08:35 Completed TROPONIN Q3H Lab 02/11/19 11:30 Ordered TROPONIN Q3H Lab 02/11/19 14:30 Ordered TROPONIN Q3H Lab 02/11/19 17:30 Ordered TROPONIN Q3H Lab 02/11/19 20:30 Ordered UA W/RFX UR CULTURE Stat Lab 02/11/19 08:56 Completed VENOUS BLOOD GAS Stat Lab 02/11/19 08:40 Completed Medication Summary Discontinued Medications Generic Name Dose Route Start Last Admin Trade Name Christy PRN Reason Stop Dose Admin Acetaminophen 975 mg 02/11/19 08:47 02/11/19 08:49 Tylenol 325 Mg PO 02/11/19 08:48 975 mg STAT ONE Administration Acetaminophen Confirm 02/11/19 08:48 Tylenol 325 Mg Administered 02/11/19 08:49 Dose 975 mg .ROUTE .STK-MED ONE Acetaminophen Confirm 02/11/19 08:51 Tylenol 325 Mg Administered 02/11/19 08:52 Dose 650 mg .ROUTE .STK-MED ONE Bumetanide Confirm 02/11/19 08:22 Bumex 1 Mg Administered 02/11/19 08:23 Dose 1 mg .ROUTE .STK-MED ONE Bumetanide 1 mg 02/11/19 08:26 02/11/19 08:32 Bumex 1 Mg IV 02/11/19 08:27 1 mg STAT ONE Administration Ceftriaxone Sodium/Dextrose 1 g in 50 mls @ 100 mls/hr 02/11/19 08:38 08:43 Rocephin 1 Gm-D5w 50 Ml Bag IV 02/11/19 09:07 Not Given STAT STA Ampicillin Sodium/Sulbactam Sodium 3 gm in 100 mls @ 200 mls/hr 02/11/19 08: 41 02/11/19 08:42 Unasyn 3gm / Nacl 100ml IV 02/11/19 09:10 Not Given STAT STA Ceftriaxone Sodium/Dextrose 1 g in 50 mls @ 100 mls/hr 02/11/19 08:42 09:23 Rocephin 1 Gm-D5w 50 Ml Bag IV 02/11/19 09:11 Infused STAT STA Infusion Ceftriaxone Sodium/Dextrose Confirm 02/11/19 08:42 Rocephin 1 Gm-D5w 50 Ml Bag Administered 02/11/19 08:43 Dose 1 g in 50 mls @ ud IV .STK-MED ONE Lab/Rad Data: Laboratory Result Diagrams 02/11/19 08:35 02/11/19 08:35 Laboratory Results 02/11/19 02/11/19 02/11/19 Range/Units 08:56 08:40 08:35 WBC (4.0-10.5) K/mm3 RBC (4.1-5.6) M/mm3 Hgb (12.5-18.0) gm/dl Hct (42-50) % MCV (78-100) fl MCH (26-32) pg MCHC (32-36) g/dl RDW (11.5-14.0) % Plt Count (150-450) K/mm3 Segmented Neutrophils (36.-66.) % Band Neutrophils (0.0-2.0) % Lymphocytes (Manual) (24-44) % Eosinophils (Manual) (0.00-3.0) % Platelet Estimate (NORMAL) RBC Morphology PT (8.83-12.87) SECONDS INR (0.8-3.0) APTT (24.1-36.1) SECONDS D-Dimer (215-500) ng/mL pO2/FiO2 Ratio 100.0 % VBG pH 7.40 (7.32-7.42) VBG pCO2 at Pat Temp 60 H (42-55) mm/Hg VBG pO2 at Pat Temp 53 H (25-40) mm/Hg VBG HCO3 37.2 H* (22-28) meq/L VBG O2 Sat (Mike) 90.9 L (95-100) VBG Base Excess 10.4 H (-2.0-2.0) VBG Hemoglobin 11.5 VBG Carboxyhemoglobin 3.2 (0.0-6.9) % T HGB POC Potassium 3.8 (3.5-5.1) Sodium (137-145) mmol/L Potassium (3.5-5.1) mmol/L Chloride (98-107) mmol/L Carbon Dioxide (22-30) mmol/L Anion Gap (5-15) MEQ/L BUN (9-20) mg/dL Creatinine (0.66-1.25) mg/dL Estimated GFR ML/MIN Glucose (74-106) mg/dL Lactic Acid 1.4 (0.4-2.0) Calcium (8.4-10.2) mg/dL Total Bilirubin (0.2-1.3) mg/dL AST (17-59) U/L ALT (0-50) U/L Alkaline Phosphatase (38-126) U/L Troponin I (0.000-0.034) ng/mL NT-Pro-B Natriuret Pep (0-900) pg/mL Serum Total Protein (6.3-8.2) g/dL Albumin (3.5-5.0) g/dL Urine Color CARSON (YELLOW) Urine Appearance SLIGHTLY CLOUDY (CLEAR) Urine pH 6.0 (5-6) Ur Specific [place] 1.015 (1.005-1.025) Urine Protein 100 (Negative) Urine Ketones NEGATIVE (NEGATIVE) Urine Blood LARGE (0-5) Jordan/ul Urine Nitrite POSITIVE (NEGATIVE) Urine Bilirubin NEGATIVE (NEGATIVE) Urine Urobilinogen 2 (0-1) mg/dL Ur Leukocyte Esterase LARGE (NEGATIVE) Urine WBC (Auto) >100 (0-5) /HPF Urine RBC (Auto) >101 (0-2) /HPF U Epithel Cells (Auto) RARE (FEW) /HPF Urine Bacteria (Auto) MODERATE (NEGATIVE) /HPF Urine Mucus (Auto) SLIGHT (NEGATIVE) /HPF Urine Culture Reflexed YES (NO) Urine Glucose NEGATIVE (NEGATIVE) mg/dL Influenza Type A Ag NEGATIVE (NEGATIVE) Influenza Type B Ag NEGATIVE (NEGATIVE) RSV (PCR) NEGATIVE (Negative) Group A Strep Antibody NEGATIVE (NEGATIVE) 02/11/19 02/11/19 02/11/19 Range/Units 08:35 08:35 08:35 WBC (4.0-10.5) K/mm3 RBC (4.1-5.6) M/mm3 Hgb (12.5-18.0) gm/dl Hct (42-50) % MCV (78-100) fl MCH (26-32) pg MCHC (32-36) g/dl RDW (11.5-14.0) % Plt Count (150-450) K/mm3 Segmented Neutrophils (36.-66.) % Band Neutrophils (0.0-2.0) % Lymphocytes (Manual) (24-44) % Eosinophils (Manual) (0.00-3.0) % Platelet Estimate (NORMAL) RBC Morphology PT 23.9 H (8.83-12.87) SECONDS INR 2.04 (0.8-3.0) APTT 34.7 (24.1-36.1) SECONDS D-Dimer 483 (215-500) ng/mL pO2/FiO2 Ratio % VBG pH (7.32-7.42) VBG pCO2 at Pat Temp (42-55) mm/Hg VBG pO2 at Pat Temp (25-40) mm/Hg VBG HCO3 (22-28) meq/L VBG O2 Sat (Mike) (95-100) VBG Base Excess (-2.0-2.0) VBG Hemoglobin VBG Carboxyhemoglobin (0.0-6.9) % T HGB POC Potassium (3.5-5.1) Sodium 139 (137-145) mmol/L Potassium 4.0 (3.5-5.1) mmol/L Chloride 94 L (98-107) mmol/L Carbon Dioxide 35 H (22-30) mmol/L Anion Gap 13.4 (5-15) MEQ/L BUN 8 L (9-20) mg/dL Creatinine 0.62 L (0.66-1.25) mg/dL Estimated GFR > 60.0 ML/MIN Glucose 91 (74-106) mg/dL Lactic Acid (0.4-2.0) Calcium 8.9 (8.4-10.2) mg/dL Total Bilirubin 2.00 H (0.2-1.3) mg/dL AST 32 (17-59) U/L ALT 24 (0-50) U/L Alkaline Phosphatase 274 H (38-126) U/L Troponin I 0.020 (0.000-0.034) ng/mL NT-Pro-B Natriuret Pep 1830 H (0-900) pg/mL Serum Total Protein 7.0 (6.3-8.2) g/dL Albumin 3.7 (3.5-5.0) g/dL Urine Color (YELLOW) Urine Appearance (CLEAR) Urine pH (5-6) Ur Specific [place] (1.005-1.025) Urine Protein (Negative) Urine Ketones (NEGATIVE) Urine Blood (0-5) Jordan/ul Urine Nitrite (NEGATIVE) Urine Bilirubin (NEGATIVE) Urine Urobilinogen (0-1) mg/dL Ur Leukocyte Esterase (NEGATIVE) Urine WBC (Auto) (0-5) /HPF Urine RBC (Auto) (0-2) /HPF U Epithel Cells (Auto) (FEW) /HPF Urine Bacteria (Auto) (NEGATIVE) /HPF Urine Mucus (Auto) (NEGATIVE) /HPF Urine Culture Reflexed (NO) Urine Glucose (NEGATIVE) mg/dL Influenza Type A Ag (NEGATIVE) Influenza Type B Ag (NEGATIVE) RSV (PCR) (Negative) Group A Strep Antibody (NEGATIVE) 02/11/19 Range/Units 08:35 WBC 10.9 H (4.0-10.5) K/mm3 RBC 4.48 (4.1-5.6) M/mm3 Hgb 10.7 L (12.5-18.0) gm/dl Hct 36.9 L (42-50) % MCV 82.4 (78-100) fl MCH 23.8 L (26-32) pg MCHC 29.0 L (32-36) g/dl RDW 26.4 H (11.5-14.0) % Plt Count 148 L (150-450) K/mm3 Segmented Neutrophils 76 H (36.-66.) % Band Neutrophils 2 (0.0-2.0) % Lymphocytes (Manual) 20 L (24-44) % Eosinophils (Manual) 2 (0.00-3.0) % Platelet Estimate NORMAL (NORMAL) RBC Morphology NORMAL PT (8.83-12.87) SECONDS INR (0.8-3.0) APTT (24.1-36.1) SECONDS D-Dimer (215-500) ng/mL pO2/FiO2 Ratio % VBG pH (7.32-7.42) VBG pCO2 at Pat Temp (42-55) mm/Hg VBG pO2 at Pat Temp (25-40) mm/Hg VBG HCO3 (22-28) meq/L VBG O2 Sat (Mike) (95-100) VBG Base Excess (-2.0-2.0) VBG Hemoglobin VBG Carboxyhemoglobin (0.0-6.9) % T HGB POC Potassium (3.5-5.1) Sodium (137-145) mmol/L Potassium (3.5-5.1) mmol/L Chloride (98-107) mmol/L Carbon Dioxide (22-30) mmol/L Anion Gap (5-15) MEQ/L BUN (9-20) mg/dL Creatinine (0.66-1.25) mg/dL Estimated GFR ML/MIN Glucose (74-106) mg/dL Lactic Acid (0.4-2.0) Calcium (8.4-10.2) mg/dL Total Bilirubin (0.2-1.3) mg/dL AST (17-59) U/L ALT (0-50) U/L Alkaline Phosphatase (38-126) U/L Troponin I (0.000-0.034) ng/mL NT-Pro-B Natriuret Pep (0-900) pg/mL Serum Total Protein (6.3-8.2) g/dL Albumin (3.5-5.0) g/dL Urine Color (YELLOW) Urine Appearance (CLEAR) Urine pH (5-6) Ur Specific [place] (1.005-1.025) Urine Protein (Negative) Urine Ketones (NEGATIVE) Urine Blood (0-5) Jordan/ul Urine Nitrite (NEGATIVE) Urine Bilirubin (NEGATIVE) Urine Urobilinogen (0-1) mg/dL Ur Leukocyte Esterase (NEGATIVE) Urine WBC (Auto) (0-5) /HPF Urine RBC (Auto) (0-2) /HPF U Epithel Cells (Auto) (FEW) /HPF Urine Bacteria (Auto) (NEGATIVE) /HPF Urine Mucus (Auto) (NEGATIVE) /HPF Urine Culture Reflexed (NO) Urine Glucose (NEGATIVE) mg/dL Influenza Type A Ag (NEGATIVE) Influenza Type B Ag (NEGATIVE) RSV (PCR) (Negative) Group A Strep Antibody (NEGATIVE) - Progress Progress: improved Air Movement: fair Progress Note: 02/11/19 08:35 63-year-old white male with history of peripheral neuropathy, atrial fibrillation, congenital heart disease, CHF, Patient has recently been admitted to [facility] with complaint of shortness of breath he apparently the last couple of days has been complaining of shortness of breath which is worse this morning he denies any chest pain. On arrival patient has increased temperature he has audible wet rhonchi. His lower extremities are erythematous and somewhat warm to touch. Patient was given DuoNeb treatment at [facility] prior to arrival DuoNeb treatment by medics also Solu-Medrol 125 by medics. Here in the emergency room patient is given Bumex 1 mg IV. He is refusing BiPAP. He does state that he has a sore throat. 02/11/19 09:50 Patient is feeling better after Bumex in the emergency room he had already received DuoNeb treatments 2 and Solu-Medrol Patient does show pneumonia on chest x-ray as well as bilateral effusions. Patient was initially taken off of nonrebreather and placed on 7 L of oxygen nasal cannula his oxygen saturations were dropping down into the 80s he was placed on Oxymizer at 7 L now keeping sats 94% Patient was given Bumex 1 mg and Rocephin 1 g IV in the emergency room. I've discussed the case with Dr. Lafleur will place patient on telemetry observation Diagnosis COPD, congestive heart failure, pneumonia. - Departure Departure Disposition: Observation Clinical Impression: SOB (shortness of breath), Hypoxia Pneumonia Qualifiers: Pneumonia type: due to unspecified organism Laterality: bilateral Lung location : lower lobe of lung Qualified Code(s): J18.1 - Lobar pneumonia, unspecified organism CHF (congestive heart failure) Qualifiers: Heart failure type: unspecified Heart failure chronicity: unspecified Qualified Code(s): I50.9 - Heart failure, unspecified COPD (chronic obstructive pulmonary disease) Qualifiers: COPD type: unspecified COPD Qualified Code(s): J44.9 - Chronic obstructive pulmonary disease, unspecified Condition: Fair Critical Care Time: No Referrals: RADAH KRISHNAN [Primary Care Provider] - Instructions: Heart Failure, Chronic Obstructive Pulmonary Disease
[2019-02-11] MEDS ORDERED: ROCEPHIN 1 Gm-D5w 50 ml Bag** 1 G/50 ML IVPB IV STA ×2 (08:38→08:42)
[2019-02-11] MEDS ORDERED: Unasyn 3GM / NaCl 100ML 3 GM/100 ML IVPB IV STA (08:41)
[2019-02-11] MEDS ORDERED: ROCEPHIN 1 Gm-D5w 50 ml Bag** 1 G/50 ML IVPB IV ONE (08:42)
[2019-02-11 08:44] LABS: Lactic Acid 1.4 (0.4-2.0); VBG BASE EXCESS 10.4 (-2.0-2.0); VBG CARBOXYHEMOGLOBIN 3.2 % T HGB (0.0-6.9); VBG HCO3- 37.2 meq/L (22-28); VBG HEMOGLOBIN 11.5; VBG O2 SATURATION 90.9 (95-100); VBG POTASSIUM 3.8 (3.5-5.1); VBG pH 7.4 (7.32-7.42)
[2019-02-11] MEDS ORDERED: TYLENOL 325 MG PO ONE (08:47)
[2019-02-11] MEDS ORDERED: TYLENOL 325 MG ONE ×2 (08:48→08:51)
[2019-02-11 08:53] LABS: Hematocrit 36.9 % (42-50); Hemoglobin 10.7 gm/dl (12.5-18.0); Mean Cell Volume 82.4 fl (78-100); Platelet Count 148 K/mm3 (150-450); Red Blood Count 4.48 M/mm3 (4.1-5.6); Red Cell Distribution Width 26.4 % (11.5-14.0); White Blood Count 10.9 K/mm3 (4.0-10.5)
[2019-02-11 08:58] LABS: Mean Corpuscular Hemoglobin 23.8 pg (26-32)
--- NOTE | 2019-02-11 08:59 | XRAY ---
Indication: Short of breath. Comparison: January 14, 2019. Portable chest again demonstrates right base lung infiltrate/atelectasis with new focus in the left base and new bibasilar effusions. Elsewhere stable cardiomegaly, right mid lung suture material and scattered calcified granulomas.
[2019-02-11 09:01] LABS: INR 2.04 (0.8-3.0); PROTIME 23.9 SECONDS (8.83-12.87)
[2019-02-11 09:03] LABS: PTT 34.7 SECONDS (24.1-36.1)
[2019-02-11 09:16] LABS: ALBUMIN 3.7 g/dL (3.5-5.0); ALKALINE PHOSPHATASE 274 U/L (38-126); ANION GAP 13.4 MEQ/L (5-15); BLOOD UREA NITROGEN 8 mg/dL (9-20); CHLORIDE 94 mmol/L (98-107); Calcium 8.9 mg/dL (8.4-10.2); Carbon Dioxide 35 mmol/L (22-30); Creatinine 1 0.62 mg/dL (0.66-1.25); Glucose 91 mg/dL (74-106); NT PRO BNP 1830 pg/mL (0-900); SGOT/AST 32 U/L (17-59); SGPT/ALT 24 U/L (0-50); SODIUM 139 mmol/L (137-145)
[2019-02-11 09:19] LABS: BAND 2 % (0.0-2.0); Eosinophil 2 % (0.00-3.0); Lymphocytes 20 % (24-44); Neutrophils 76 % (36.-66.); Platelet Estimate NORMAL (NORMAL); Total Cells Counted 100
[2019-02-11 09:28] LABS: Group A Strep NEGATIVE (NEGATIVE)
[2019-02-11 09:38] LABS: INFLUENZA A NEGATIVE (NEGATIVE); INFLUENZA B NEGATIVE (NEGATIVE); RESPIRATORY SYNCTIAL VIRUS NEGATIVE (Negative)
[2019-02-11 09:42] LABS: Appearance SLIGHTLY CLOUDY (CLEAR); Bacteria MODERATE /HPF (NEGATIVE); Bilirubin NEGATIVE (NEGATIVE); Blood LARGE Ery/ul (0-5); Epithelial Cells RARE /HPF (FEW); Glucose NEGATIVE (NEGATIVE); Ketones NEGATIVE (NEGATIVE); Leukocyte Esterase LARGE (NEGATIVE); Mucus SLIGHT /HPF (NEGATIVE); Nitrite POSITIVE (NEGATIVE); Protein,Urine Dip 100 (Negative); Specific Gravity 1.015 (1.005-1.025); Urobilinogen 2 mg/dL (0-1); WBC >100 /HPF (0-5)
[2019-02-11 09:43] LABS: RBC >101 /HPF (0-2)
[2019-02-11] MEDS ORDERED: DUONEB 0.5-3 MG/3 ml Neb IH PRN (10:38)
[2019-02-11] MEDS ORDERED: TYLENOL 325 MG PO PRN (10:38)
[2019-02-11] MEDS ORDERED: PROVENTIL 2.5 MG/3 ML NEB IH ONE (10:59)
[2019-02-11] MEDS: PROVENTIL 2.5 MG/3 ML NEB IH SCH ×3 (10:59→19:09)
[2019-02-11] MEDS: solu-MEDROL 125 MG IV SCH ×3 (12:08→23:57)
[2019-02-11] MEDS ORDERED: Zofran 4 MG/2 ML VIAL IV PRN (15:55)
--- NOTE | 2019-02-11 15:56 | PCM.HP ---
History of Present Illness - Chief Complaint Chief Complaint: pneumonia History of Present Illness: is a 63 year old male who was recently admitted to [facility], he has a history of chronic lymphedema to lower extremities with recurrent cellulitis and chf. he became very short of breath today and was sent for evaluation. found to have pneumonia and chf exacerbation. - Review of Systems Constitutional: No Fever, No Chills Respiratory: Cough, Short Of Breath Cardiac: Edema Abdominal/Gastrointestinal: No Abdominal Pain, No Nausea, No Vomiting, No Diarrhea Genitourinary Symptoms: No Dysuria Skin: No Rash All Other Systems: Reviewed and Negative Medications & Allergies Home Medications: Home Medication List Magnesium Oxide 400 mg [Mag-Ox 400] 400 mg PO BID 01/02/15 [History Confirmed 02/11/19] Metoprolol Succinate 25 mg Xl* [Toprol-Xl 25MG Tablets] 25 mg PO BID [History Confirmed 02/11/19] Omeprazole 20 MG [Prilosec 20 mg] 1 tab PO DAILY 11/30/15 [History Confirmed ] Atorvastatin Calcium [Lipitor 40Mg] 40 mg PO HS 04/08/16 [History Confirmed ] Potassium Chloride 20 meq PO QID 04/08/16 [History Confirmed 02/11/19] Bumetanide [Bumex] 2 mg PO BID 01/19/17 [History Confirmed 02/11/19] Colchicine [Colcrys] 0.6 mg PO BID 01/19/17 [History Confirmed 02/11/19] Famotidine [Pepcid] 40 mg PO DAILY 01/19/17 [History Confirmed 02/11/19] Gabapentin [Neurontin] 800 mg PO QID 01/19/17 [History Confirmed 02/11/19] Spironolactone 25 mg [Aldactone 25 MG] 25 mg PO DAILY 01/19/17 [History Confirmed 02/11/19] Oxycodone HCl/Acetaminophen [Oxycodon-Acetaminophen 7.5-325] 1 each PO Q4H PRN PRN 02/05/18 [History Confirmed 02/11/19] Amitriptyline HCl 25 mg PO HS 11/23/18 [History Confirmed 02/11/19] Apixaban [Eliquis] 5 mg PO BID 11/23/18 [History Confirmed 02/11/19] Ergocalciferol (Vitamin D2) [Drisdol] 50,000 unit PO UD 02/11/19 [History Confirmed 02/11/19] Levothyroxine Sodium [Synthroid] 50 mcg PO DAILY 02/11/19 [History Confirmed ] Allergies/Adverse Reactions: Allergies Allergy/AdvReac Type Severity Reaction Status Date / Time pregabalin [From Lyrica] Allergy Verified 12/03/18 13:27 zinc Allergy Blisters Verified 12/03/18 13:27 moxifloxacin HCl AdvReac Mild Verified 12/03/18 13:27 [From Avelox] vancomycin AdvReac Elevated Verified 12/03/18 13:27 Levels / Increased CRCL - Past Medical History Past Medical History: Yes Neurological History: Peripheral Neuropathy ENT History: No Pertinent History Cardiac History: Arrhythmia, Congenital Heart Disease, Congestive Heart Failure , Hypertension Respiratory History: COPD, Pneumonia, Tuberculosis, Other Endocrine Medical History: Liver Disease Musculoskelatal History: Arthritis GI Medical History: GERD History: Renal Disease Pyscho-Social History: Depression Male Reproductive Disorders: No Pertinent History Comment: Partial R lung removal. Afib. - Past Surgical History Past Surgical History: Yes Neuro Surgical History: No Pertinent History Cardiac History: No Pertinent History Respiratory Surgery: Lobectomy GI Surgical History: No Pertinent History Genitourinary Surgical Hx: No Pertinent History Musculskeletal Surgical Hx: No Pertinent History Male Surgical History: Vasectomy Other Surgical History: RIGHT UPPER LOBECTOMY, leg vein cautery with skin graft - Social History Smoking Status: Former smoker How long have you smoked: 38 yrs Exposure to second hand smoke: Yes Alcohol: None Drug Use: none - Physical Exam Vital Signs: Vital Signs - 24 hr Temp Pulse Resp BP Pulse Ox 02/11/19 14:24 94 H 22 93 L 02/11/19 11:02 104 H 26 H 94 L 02/11/19 10:41 99.2 F 103 H 27 H 115/57 94 L 02/11/19 09:54 106 H 26 H 113/55 94 L 02/11/19 09:53 96 02/11/19 09:09 111 H 28 H 111/57 96 02/11/19 08:26 26 H 86 L 02/11/19 08:15 103.2 F 107 H 26 H 117/58 96 Oxygen-Last 24 hours O2 Percentage 6 Liters = 44% O2 Percentage 6 Liters = 44% General Appearance: no apparent distress, alert Eye Exam: PERRL/EOMI, eyes nml inspection Respiratory Exam: crackles/rales Cardiovascular Exam: regular rate/rhythm, normal heart sounds, normal peripheral pulses Gastrointestinal/Abdomen Exam: soft, normal bowel sounds, No tenderness, No mass Extremity Exam: pedal edema, other (venous stasis/lymphedema changes. slight redness, no warmth or active drainage) Results - Labs Lab/Micro Results: Lab Results-Last 24 Hours 02/11/19 02/11/19 02/11/19 Range/Units 08:35 08:35 08:35 WBC 10.9 H (4.0-10.5) K/mm3 RBC 4.48 (4.1-5.6) M/mm3 Hgb 10.7 L (12.5-18.0) gm/dl Hct 36.9 L (42-50) % MCV 82.4 (78-100) fl MCH 23.8 L (26-32) pg MCHC 29.0 L (32-36) g/dl RDW 26.4 H (11.5-14.0) % Plt Count 148 L (150-450) K/mm3 Segmented Neutrophils 76 H (36.-66.) % Band Neutrophils 2 (0.0-2.0) % Lymphocytes (Manual) 20 L (24-44) % Eosinophils (Manual) 2 (0.00-3.0) % Platelet Estimate NORMAL (NORMAL) RBC Morphology NORMAL PT 23.9 H (8.83-12.87) SECONDS INR 2.04 (0.8-3.0) APTT 34.7 (24.1-36.1) SECONDS D-Dimer 483 (215-500) ng/mL pO2/FiO2 Ratio % VBG pH (7.32-7.42) VBG pCO2 at Pat Temp (42-55) mm/Hg VBG pO2 at Pat Temp (25-40) mm/Hg VBG HCO3 (22-28) meq/L VBG O2 Sat (Mike) (95-100) VBG Base Excess (-2.0-2.0) VBG Hemoglobin VBG Carboxyhemoglobin (0.0-6.9) % T HGB POC Potassium (3.5-5.1) Sodium 139 (137-145) mmol/L Potassium 4.0 (3.5-5.1) mmol/L Chloride 94 L (98-107) mmol/L Carbon Dioxide 35 H (22-30) mmol/L Anion Gap 13.4 (5-15) MEQ/L BUN 8 L (9-20) mg/dL Creatinine 0.62 L (0.66-1.25) mg/dL Estimated GFR > 60.0 ML/MIN Glucose 91 (74-106) mg/dL Lactic Acid (0.4-2.0) Calcium 8.9 (8.4-10.2) mg/dL Total Bilirubin 2.00 H (0.2-1.3) mg/dL AST 32 (17-59) U/L ALT 24 (0-50) U/L Alkaline Phosphatase 274 H (38-126) U/L Troponin I (0.000-0.034) ng/mL NT-Pro-B Natriuret Pep 1830 H (0-900) pg/mL Serum Total Protein 7.0 (6.3-8.2) g/dL Albumin 3.7 (3.5-5.0) g/dL Urine Color (YELLOW) Urine Appearance (CLEAR) Urine pH (5-6) Ur Specific [place] (1.005-1.025) Urine Protein (Negative) Urine Ketones (NEGATIVE) Urine Blood (0-5) Jordan/ul Urine Nitrite (NEGATIVE) Urine Bilirubin (NEGATIVE) Urine Urobilinogen (0-1) mg/dL Ur Leukocyte Esterase (NEGATIVE) Urine WBC (Auto) (0-5) /HPF Urine RBC (Auto) (0-2) /HPF U Epithel Cells (Auto) (FEW) /HPF Urine Bacteria (Auto) (NEGATIVE) /HPF Urine Mucus (Auto) (NEGATIVE) /HPF Urine Culture Reflexed (NO) Urine Glucose (NEGATIVE) mg/dL Influenza Type A Ag (NEGATIVE) Influenza Type B Ag (NEGATIVE) RSV (PCR) (Negative) Group A Strep Antibody (NEGATIVE) 02/11/19 02/11/19 02/11/19 Range/Units 08:35 08:35 08:40 WBC (4.0-10.5) K/mm3 RBC (4.1-5.6) M/mm3 Hgb (12.5-18.0) gm/dl Hct (42-50) % MCV (78-100) fl MCH (26-32) pg MCHC (32-36) g/dl RDW (11.5-14.0) % Plt Count (150-450) K/mm3 Segmented Neutrophils (36.-66.) % Band Neutrophils (0.0-2.0) % Lymphocytes (Manual) (24-44) % Eosinophils (Manual) (0.00-3.0) % Platelet Estimate (NORMAL) RBC Morphology PT (8.83-12.87) SECONDS INR (0.8-3.0) APTT (24.1-36.1) SECONDS D-Dimer (215-500) ng/mL pO2/FiO2 Ratio 100.0 % VBG pH 7.40 (7.32-7.42) VBG pCO2 at Pat Temp 60 H (42-55) mm/Hg VBG pO2 at Pat Temp 53 H (25-40) mm/Hg VBG HCO3 37.2 H* (22-28) meq/L VBG O2 Sat (Mike) 90.9 L (95-100) VBG Base Excess 10.4 H (-2.0-2.0) VBG Hemoglobin 11.5 VBG Carboxyhemoglobin 3.2 (0.0-6.9) % T HGB POC Potassium 3.8 (3.5-5.1) Sodium (137-145) mmol/L Potassium (3.5-5.1) mmol/L Chloride (98-107) mmol/L Carbon Dioxide (22-30) mmol/L Anion Gap (5-15) MEQ/L BUN (9-20) mg/dL Creatinine (0.66-1.25) mg/dL Estimated GFR ML/MIN Glucose (74-106) mg/dL Lactic Acid 1.4 (0.4-2.0) Calcium (8.4-10.2) mg/dL Total Bilirubin (0.2-1.3) mg/dL AST (17-59) U/L ALT (0-50) U/L Alkaline Phosphatase (38-126) U/L Troponin I 0.020 (0.000-0.034) ng/mL NT-Pro-B Natriuret Pep (0-900) pg/mL Serum Total Protein (6.3-8.2) g/dL Albumin (3.5-5.0) g/dL Urine Color (YELLOW) Urine Appearance (CLEAR) Urine pH (5-6) Ur Specific [place] (1.005-1.025) Urine Protein (Negative) Urine Ketones (NEGATIVE) Urine Blood (0-5) Jordan/ul Urine Nitrite (NEGATIVE) Urine Bilirubin (NEGATIVE) Urine Urobilinogen (0-1) mg/dL Ur Leukocyte Esterase (NEGATIVE) Urine WBC (Auto) (0-5) /HPF Urine RBC (Auto) (0-2) /HPF U Epithel Cells (Auto) (FEW) /HPF Urine Bacteria (Auto) (NEGATIVE) /HPF Urine Mucus (Auto) (NEGATIVE) /HPF Urine Culture Reflexed (NO) Urine Glucose (NEGATIVE) mg/dL Influenza Type A Ag NEGATIVE (NEGATIVE) Influenza Type B Ag NEGATIVE (NEGATIVE) RSV (PCR) NEGATIVE (Negative) Group A Strep Antibody NEGATIVE (NEGATIVE) 02/11/19 02/11/19 02/11/19 Range/Units 08:56 11:23 14:25 WBC (4.0-10.5) K/mm3 RBC (4.1-5.6) M/mm3 Hgb (12.5-18.0) gm/dl Hct (42-50) % MCV (78-100) fl MCH (26-32) pg MCHC (32-36) g/dl RDW (11.5-14.0) % Plt Count (150-450) K/mm3 Segmented Neutrophils (36.-66.) % Band Neutrophils (0.0-2.0) % Lymphocytes (Manual) (24-44) % Eosinophils (Manual) (0.00-3.0) % Platelet Estimate (NORMAL) RBC Morphology PT (8.83-12.87) SECONDS INR (0.8-3.0) APTT (24.1-36.1) SECONDS D-Dimer (215-500) ng/mL pO2/FiO2 Ratio % VBG pH (7.32-7.42) VBG pCO2 at Pat Temp (42-55) mm/Hg VBG pO2 at Pat Temp (25-40) mm/Hg VBG HCO3 (22-28) meq/L VBG O2 Sat (Mike) (95-100) VBG Base Excess (-2.0-2.0) VBG Hemoglobin VBG Carboxyhemoglobin (0.0-6.9) % T HGB POC Potassium (3.5-5.1) Sodium (137-145) mmol/L Potassium (3.5-5.1) mmol/L Chloride (98-107) mmol/L Carbon Dioxide (22-30) mmol/L Anion Gap (5-15) MEQ/L BUN (9-20) mg/dL Creatinine (0.66-1.25) mg/dL Estimated GFR ML/MIN Glucose (74-106) mg/dL Lactic Acid (0.4-2.0) Calcium (8.4-10.2) mg/dL Total Bilirubin (0.2-1.3) mg/dL AST (17-59) U/L ALT (0-50) U/L Alkaline Phosphatase (38-126) U/L Troponin I 0.030 0.022 (0.000-0.034) ng/mL NT-Pro-B Natriuret Pep (0-900) pg/mL Serum Total Protein (6.3-8.2) g/dL Albumin (3.5-5.0) g/dL Urine Color CARSON (YELLOW) Urine Appearance SLIGHTLY CLOUDY (CLEAR) Urine pH 6.0 (5-6) Ur Specific [place] 1.015 (1.005-1.025) Urine Protein 100 (Negative) Urine Ketones NEGATIVE (NEGATIVE) Urine Blood LARGE (0-5) Jordan/ul Urine Nitrite POSITIVE (NEGATIVE) Urine Bilirubin NEGATIVE (NEGATIVE) Urine Urobilinogen 2 (0-1) mg/dL Ur Leukocyte Esterase LARGE (NEGATIVE) Urine WBC (Auto) >100 (0-5) /HPF Urine RBC (Auto) >101 (0-2) /HPF U Epithel Cells (Auto) RARE (FEW) /HPF Urine Bacteria (Auto) MODERATE (NEGATIVE) /HPF Urine Mucus (Auto) SLIGHT (NEGATIVE) /HPF Urine Culture Reflexed YES (NO) Urine Glucose NEGATIVE (NEGATIVE) mg/dL Influenza Type A Ag (NEGATIVE) Influenza Type B Ag (NEGATIVE) RSV (PCR) (Negative) Group A Strep Antibody (NEGATIVE) - Radiology Impressions Radiology Exams & Impressions: Radiology Procedures Category Date Time Status CHEST 1 VIEW (PORTABLE) Stat Exams 02/11/19 08:25 Completed - Other Procedures and Tests Respiratory Therapy 02/11/19 10:38 Oxygen Oxymizer LPM 7% 02/11/19 11:02 Respiratory Therapy Assessment DAILY Assessment/Plan (1) CHF (congestive heart failure) Current Visit: Yes Status: Acute Qualifiers: Heart failure type: unspecified Heart failure chronicity: unspecified Qualified Code(s): I50.9 - Heart failure, unspecified Assessment & Plan: acute on chronic systolic heart failure, will diurese and monitor output closely at this time. bumex 1mg IV bid Code(s): I50.9 - HEART FAILURE, UNSPECIFIED (2) Pneumonia Current Visit: Yes Status: Acute Qualifiers: Pneumonia type: due to unspecified organism Laterality: bilateral Lung location: lower lobe of lung Qualified Code(s): J18.1 - Lobar pneumonia, unspecified organism Assessment & Plan: rocephin and zithromax Code(s): J18.9 - PNEUMONIA, UNSPECIFIED ORGANISM (3) UTI (urinary tract infection) Current Visit: Yes Status: Acute Assessment & Plan: on rocephin, culture pending. Code(s): N39.0 - URINARY TRACT INFECTION, SITE NOT SPECIFIED (4) Lymphedema Current Visit: No Status: Acute Assessment & Plan: stable currently Code(s): I89.0 - LYMPHEDEMA, NOT ELSEWHERE CLASSIFIED
[2019-02-11] MEDS ORDERED: NON-FORMULARY ITEM (Oxycodone Hcl/Acetaminophen [Oxycodon-Acetaminophen 7.5-325] 1 EACH) PO PRN (16:35)
[2019-02-11] MEDS ORDERED: MEDICATION INTERVENTION PO SCH (16:45)
[2019-02-11] MEDS ORDERED: NON-FORMULARY ITEM (Gabapentin [Neurontin] 800 MG) PO SCH (17:00)
[2019-02-11] MEDS ORDERED: NON-FORMULARY ITEM (Potassium Chloride [Potassium Chloride] 20 MEQ) PO SCH (17:00)
[2019-02-11] MEDS: Neurontin 400 MG PO SCH ×2 (17:18→22:08)
[2019-02-11] MEDS: Klor Con 10 MEQ PO SCH ×2 (17:18→22:08)
[2019-02-11] MEDS: Zithromax 500 MG/ 250 ML NaCl Premix 500 MG/250 ML IVPB IV SCH (17:18)
[2019-02-11] MEDS: BUMEX 1 MG IV SCH (17:19)
[2019-02-11] MEDS: PERCOCET TABLET 5/325MG PO PRN ×2 (17:24→22:22)
[2019-02-11] MEDS ORDERED: COLCHICINE 0.6 MG PO SCH (22:00)
[2019-02-11] MEDS ORDERED: NON-FORMULARY ITEM (Apixaban [Eliquis] 5 MG) PO SCH (22:00)
[2019-02-11] MEDS: MAG-OX 400 PO SCH (22:08)
[2019-02-11] MEDS: ELAVIL 25 MG PO SCH (22:08)
[2019-02-11] MEDS: Toprol-Xl 25MG Tablets PO SCH (22:08)
[2019-02-11] MEDS: ELIQUIS 2.5 MG TABLET PO SCH (22:08)
[2019-02-12 06:20] LABS: Basophil (Absolute #) 0 (0-0.4); Eosinophil % 0.2 % (0.00-5.0); Eosinophil (Absolute #) 0.03 (0-0.5); Granulocyte Absolute (ANC) 11.22 (1.4-6.9); Granulocytes % 89.4 % (36.0-66.0); Hematocrit 35.7 % (42-50); Hemoglobin 10.1 gm/dl (12.5-18.0); Lymphocyte (Absolute #) 0.56 (1.0-4.6); Lymphocytes % 4.5 % (24.0-44.0); Mean Cell Volume 85.4 fl (78-100); Mean Corpuscular Hgb Concent. 28.3 g/dl (32-36); Monocyte (Absolute #) 0.74 (0.0-1.3); Monocytes % 5.9 % (0.0-12.0); Platelet Count 133 K/mm3 (150-450); Red Blood Count 4.18 M/mm3 (4.1-5.6); Red Cell Distribution Width 25.9 % (11.5-14.0); White Blood Count 12.6 K/mm3 (4.0-10.5)
[2019-02-12 06:33] LABS: ALBUMIN 3.5 g/dL (3.5-5.0); ALKALINE PHOSPHATASE 190 U/L (38-126); BLOOD UREA NITROGEN 16 mg/dL (9-20); CHLORIDE 93 mmol/L (98-107); Calcium 8.5 mg/dL (8.4-10.2); Carbon Dioxide 32 mmol/L (22-30); Creatinine 1 0.75 mg/dL (0.66-1.25); Glucose 156 mg/dL (74-106); SGOT/AST 36 U/L (17-59); SGPT/ALT 26 U/L (0-50); SODIUM 137 mmol/L (137-145); Total Protein 6.7 g/dL (6.3-8.2)
[2019-02-12 06:34] LABS: Potassium 5.3 mmol/L (3.5-5.1)
[2019-02-12 06:39] LABS: Mean Corpuscular Hemoglobin 24.1 pg (26-32)
[2019-02-12] MEDS: solu-MEDROL 125 MG IV SCH ×3 (06:48→21:53)
[2019-02-12 06:57] LABS: Slide Review 1 YES
[2019-02-12 07:00] LABS: ANION GAP 17.3 MEQ/L (5-15)
[2019-02-12] MEDS: PROVENTIL 2.5 MG/3 ML NEB IH SCH ×4 (07:40→19:29)
[2019-02-12] MEDS: Advair Hfa 115/21 Common canister IH SCH ×2 (07:42→19:30)
--- NOTE | 2019-02-12 09:23 | PCM.NOTE ---
Date and Time: 02/12/19917 Subjective Assessment: Pt coughed up sputum last night and is breathing better, feeling less wheezy. Saúl po well. Legs treated by PT with barrier cream - he thinks they are looking better. Since admission has been afebrile. - Review of Systems Constitutional: No Fever Respiratory: Cough, Short Of Breath Objective Exam General Appearance: no apparent distress, alert Neurologic Exam: oriented x 3, cooperative Skin Exam: normal color, warm, dry, No rash Respiratory Exam: diminished breath sounds, prolonged expirations, wheezing ( faint scattered), No crackles/rales, No rhonchi Cardiovascular Exam: regular rate/rhythm, normal heart sounds, No murmur Gastrointestinal/Abdomen Exam: soft, normal bowel sounds, No tenderness, No distention, No mass, No guarding, No rebound Extremity Exam: other (chronic edema; there is erythema of lower legs throughout with scattered yellow plaqueing.) Back Exam: normal inspection, No rash OBJECTIVE DATA Vital Signs: Vital Signs - 24 hr Temp Pulse Resp BP Pulse Ox 02/12/19 07:44 73 18 93 L 02/12/19 07:21 98.5 F 78 18 118/59 94 L 02/12/19 04:00 98 F 79 17 127/67 96 02/12/19 00:00 98.1 F 83 20 118/57 98 02/11/19 20:00 98.4 F 81 18 117/57 98 02/11/19 19:11 86 20 99 02/11/19 16:52 97 02/11/19 16:00 98.7 F 88 20 110/67 97 02/11/19 14:24 94 H 22 93 L 02/11/19 11:02 104 H 26 H 94 L 02/11/19 10:41 99.2 F 103 H 27 H 115/57 94 L 02/11/19 09:54 106 H 26 H 113/55 94 L 02/11/19 09:53 96 Oxygen-Last 24 hours O2 Percentage 6 Liters = 44% O2 Percentage 6 Liters = 44% O2 Percentage 6 Liters = 44% O2 Percentage 6 Liters = 44% O2 Percentage 6 Liters = 44% Oxygen Flowrate (L/min)-RT 7 Pain Assessment - Last Documented Pain Intensity 6 Pain Scale Used FLACC Intake and Output: Intake & Output 04/02/10/19 02/11/19 02/12/19 11:59 11:59 11:59 11:59 Intake Total 820 Output Total 900 Balance -80 Weight 135.6 kg 137.4 kg Lab Results: Lab Results-Last 24 Hours 02/11/19 02/11/19 02/11/19 Range/Units 08:35 08:35 08:35 WBC (4.0-10.5) K/mm3 RBC (4.1-5.6) M/mm3 Hgb (12.5-18.0) gm/dl Hct (42-50) % MCV (78-100) fl MCH (26-32) pg MCHC (32-36) g/dl RDW (11.5-14.0) % Plt Count (150-450) K/mm3 Gran % (36.0-66.0) % Eos # (Auto) (0-0.5) Absolute Lymphs (auto) (1.0-4.6) Absolute Monos (auto) (0.0-1.3) Lymphocytes % (24.0-44.0) % Monocytes % (0.0-12.0) % Eosinophils % (0.00-5.0) % Basophils % (0.0-0.4) % Absolute Granulocytes (1.4-6.9) Segmented Neutrophils 76 H (36.-66.) % Band Neutrophils 2 (0.0-2.0) % Lymphocytes (Manual) 20 L (24-44) % Eosinophils (Manual) 2 (0.00-3.0) % Basophils # (0-0.4) Platelet Estimate NORMAL (NORMAL) RBC Morphology NORMAL Sodium 139 (137-145) mmol/L Potassium 4.0 (3.5-5.1) mmol/L Chloride 94 L (98-107) mmol/L Carbon Dioxide 35 H (22-30) mmol/L Anion Gap 13.4 (5-15) MEQ/L BUN 8 L (9-20) mg/dL Creatinine 0.62 L (0.66-1.25) mg/dL Estimated GFR > 60.0 ML/MIN Glucose 91 (74-106) mg/dL Calcium 8.9 (8.4-10.2) mg/dL Total Bilirubin 2.00 H (0.2-1.3) mg/dL AST 32 (17-59) U/L ALT 24 (0-50) U/L Alkaline Phosphatase 274 H (38-126) U/L Troponin I 0.020 (0.000-0.034) ng/mL NT-Pro-B Natriuret Pep 1830 H (0-900) pg/mL Serum Total Protein 7.0 (6.3-8.2) g/dL Albumin 3.7 (3.5-5.0) g/dL Urine Color (YELLOW) Urine Appearance (CLEAR) Urine pH (5-6) Ur Specific [place] (1.005-1.025) Urine Protein (Negative) Urine Ketones (NEGATIVE) Urine Blood (0-5) Jordan/ul Urine Nitrite (NEGATIVE) Urine Bilirubin (NEGATIVE) Urine Urobilinogen (0-1) mg/dL Ur Leukocyte Esterase (NEGATIVE) Urine WBC (Auto) (0-5) /HPF Urine RBC (Auto) (0-2) /HPF U Epithel Cells (Auto) (FEW) /HPF Urine Bacteria (Auto) (NEGATIVE) /HPF Urine Mucus (Auto) (NEGATIVE) /HPF Urine Culture Reflexed (NO) Urine Glucose (NEGATIVE) mg/dL Influenza Type A Ag (NEGATIVE) Influenza Type B Ag (NEGATIVE) RSV (PCR) (Negative) Group A Strep Antibody (NEGATIVE) Slides for Path Review 02/11/19 02/11/19 02/11/19 Range/Units 08:35 08:56 11:23 WBC (4.0-10.5) K/mm3 RBC (4.1-5.6) M/mm3 Hgb (12.5-18.0) gm/dl Hct (42-50) % MCV (78-100) fl MCH (26-32) pg MCHC (32-36) g/dl RDW (11.5-14.0) % Plt Count (150-450) K/mm3 Gran % (36.0-66.0) % Eos # (Auto) (0-0.5) Absolute Lymphs (auto) (1.0-4.6) Absolute Monos (auto) (0.0-1.3) Lymphocytes % (24.0-44.0) % Monocytes % (0.0-12.0) % Eosinophils % (0.00-5.0) % Basophils % (0.0-0.4) % Absolute Granulocytes (1.4-6.9) Segmented Neutrophils (36.-66.) % Band Neutrophils (0.0-2.0) % Lymphocytes (Manual) (24-44) % Eosinophils (Manual) (0.00-3.0) % Basophils # (0-0.4) Platelet Estimate (NORMAL) RBC Morphology Sodium (137-145) mmol/L Potassium (3.5-5.1) mmol/L Chloride (98-107) mmol/L Carbon Dioxide (22-30) mmol/L Anion Gap (5-15) MEQ/L BUN (9-20) mg/dL Creatinine (0.66-1.25) mg/dL Estimated GFR ML/MIN Glucose (74-106) mg/dL Calcium (8.4-10.2) mg/dL Total Bilirubin (0.2-1.3) mg/dL AST (17-59) U/L ALT (0-50) U/L Alkaline Phosphatase (38-126) U/L Troponin I 0.030 (0.000-0.034) ng/mL NT-Pro-B Natriuret Pep (0-900) pg/mL Serum Total Protein (6.3-8.2) g/dL Albumin (3.5-5.0) g/dL Urine Color CARSON (YELLOW) Urine Appearance SLIGHTLY CLOUDY (CLEAR) Urine pH 6.0 (5-6) Ur Specific [place] 1.015 (1.005-1.025) Urine Protein 100 (Negative) Urine Ketones NEGATIVE (NEGATIVE) Urine Blood LARGE (0-5) Jordan/ul Urine Nitrite POSITIVE (NEGATIVE) Urine Bilirubin NEGATIVE (NEGATIVE) Urine Urobilinogen 2 (0-1) mg/dL Ur Leukocyte Esterase LARGE (NEGATIVE) Urine WBC (Auto) >100 (0-5) /HPF Urine RBC (Auto) >101 (0-2) /HPF U Epithel Cells (Auto) RARE (FEW) /HPF Urine Bacteria (Auto) MODERATE (NEGATIVE) /HPF Urine Mucus (Auto) SLIGHT (NEGATIVE) /HPF Urine Culture Reflexed YES (NO) Urine Glucose NEGATIVE (NEGATIVE) mg/dL Influenza Type A Ag NEGATIVE (NEGATIVE) Influenza Type B Ag NEGATIVE (NEGATIVE) RSV (PCR) NEGATIVE (Negative) Group A Strep Antibody NEGATIVE (NEGATIVE) Slides for Path Review 02/11/19 02/11/19 02/11/19 Range/Units 14:25 17:53 20:35 WBC (4.0-10.5) K/mm3 RBC (4.1-5.6) M/mm3 Hgb (12.5-18.0) gm/dl Hct (42-50) % MCV (78-100) fl MCH (26-32) pg MCHC (32-36) g/dl RDW (11.5-14.0) % Plt Count (150-450) K/mm3 Gran % (36.0-66.0) % Eos # (Auto) (0-0.5) Absolute Lymphs (auto) (1.0-4.6) Absolute Monos (auto) (0.0-1.3) Lymphocytes % (24.0-44.0) % Monocytes % (0.0-12.0) % Eosinophils % (0.00-5.0) % Basophils % (0.0-0.4) % Absolute Granulocytes (1.4-6.9) Segmented Neutrophils (36.-66.) % Band Neutrophils (0.0-2.0) % Lymphocytes (Manual) (24-44) % Eosinophils (Manual) (0.00-3.0) % Basophils # (0-0.4) Platelet Estimate (NORMAL) RBC Morphology Sodium (137-145) mmol/L Potassium (3.5-5.1) mmol/L Chloride (98-107) mmol/L Carbon Dioxide (22-30) mmol/L Anion Gap (5-15) MEQ/L BUN (9-20) mg/dL Creatinine (0.66-1.25) mg/dL Estimated GFR ML/MIN Glucose (74-106) mg/dL Calcium (8.4-10.2) mg/dL Total Bilirubin (0.2-1.3) mg/dL AST (17-59) U/L ALT (0-50) U/L Alkaline Phosphatase (38-126) U/L Troponin I 0.022 0.015 0.013 (0.000-0.034) ng/mL NT-Pro-B Natriuret Pep (0-900) pg/mL Serum Total Protein (6.3-8.2) g/dL Albumin (3.5-5.0) g/dL Urine Color (YELLOW) Urine Appearance (CLEAR) Urine pH (5-6) Ur Specific [place] (1.005-1.025) Urine Protein (Negative) Urine Ketones (NEGATIVE) Urine Blood (0-5) Jordan/ul Urine Nitrite (NEGATIVE) Urine Bilirubin (NEGATIVE) Urine Urobilinogen (0-1) mg/dL Ur Leukocyte Esterase (NEGATIVE) Urine WBC (Auto) (0-5) /HPF Urine RBC (Auto) (0-2) /HPF U Epithel Cells (Auto) (FEW) /HPF Urine Bacteria (Auto) (NEGATIVE) /HPF Urine Mucus (Auto) (NEGATIVE) /HPF Urine Culture Reflexed (NO) Urine Glucose (NEGATIVE) mg/dL Influenza Type A Ag (NEGATIVE) Influenza Type B Ag (NEGATIVE) RSV (PCR) (Negative) Group A Strep Antibody (NEGATIVE) Slides for Path Review 02/12/19 02/12/19 02/12/19 Range/Units 05:36 05:36 05:36 WBC 12.6 H (4.0-10.5) K/mm3 RBC 4.18 (4.1-5.6) M/mm3 Hgb 10.1 L (12.5-18.0) gm/dl Hct 35.7 L (42-50) % MCV 85.4 (78-100) fl MCH 24.1 L (26-32) pg MCHC 28.3 L (32-36) g/dl RDW 25.9 H (11.5-14.0) % Plt Count 133 L (150-450) K/mm3 Gran % 89.4 H (36.0-66.0) % Eos # (Auto) 0.03 (0-0.5) Absolute Lymphs (auto) 0.56 L (1.0-4.6) Absolute Monos (auto) 0.74 (0.0-1.3) Lymphocytes % 4.5 L (24.0-44.0) % Monocytes % 5.9 (0.0-12.0) % Eosinophils % 0.2 (0.00-5.0) % Basophils % 0.0 (0.0-0.4) % Absolute Granulocytes 11.22 H (1.4-6.9) Segmented Neutrophils (36.-66.) % Band Neutrophils (0.0-2.0) % Lymphocytes (Manual) (24-44) % Eosinophils (Manual) (0.00-3.0) % Basophils # 0 (0-0.4) Platelet Estimate (NORMAL) RBC Morphology Sodium 137 (137-145) mmol/L Potassium 5.3 H D (3.5-5.1) mmol/L Chloride 93 L (98-107) mmol/L Carbon Dioxide 32 H (22-30) mmol/L Anion Gap 17.3 H (5-15) MEQ/L BUN 16 (9-20) mg/dL Creatinine 0.75 (0.66-1.25) mg/dL Estimated GFR > 60.0 ML/MIN Glucose 156 H (74-106) mg/dL Calcium 8.5 (8.4-10.2) mg/dL Total Bilirubin 1.20 (0.2-1.3) mg/dL AST 36 (17-59) U/L ALT 26 (0-50) U/L Alkaline Phosphatase 190 H (38-126) U/L Troponin I (0.000-0.034) ng/mL NT-Pro-B Natriuret Pep 5140 H (0-900) pg/mL Serum Total Protein 6.7 (6.3-8.2) g/dL Albumin 3.5 (3.5-5.0) g/dL Urine Color (YELLOW) Urine Appearance (CLEAR) Urine pH (5-6) Ur Specific [place] (1.005-1.025) Urine Protein (Negative) Urine Ketones (NEGATIVE) Urine Blood (0-5) [place]/ul Urine Nitrite (NEGATIVE) Urine Bilirubin (NEGATIVE) Urine Urobilinogen (0-1) mg/dL Ur Leukocyte Esterase (NEGATIVE) Urine WBC (Auto) (0-5) /HPF Urine RBC (Auto) (0-2) /HPF U Epithel Cells (Auto) (FEW) /HPF Urine Bacteria (Auto) (NEGATIVE) /HPF Urine Mucus (Auto) (NEGATIVE) /HPF Urine Culture Reflexed (NO) Urine Glucose (NEGATIVE) mg/dL Influenza Type A Ag (NEGATIVE) Influenza Type B Ag (NEGATIVE) RSV (PCR) (Negative) Group A Strep Antibody (NEGATIVE) Slides for Path Review YES Radiology Exams: Radiology Procedures Category Date Time Status CHEST 1 VIEW (PORTABLE) Stat Exams 02/11/19 08:25 Completed Assessment/Plan (1) CHF (congestive heart failure) Current Visit: Yes Status: Acute Qualifiers: Heart failure type: unspecified Heart failure chronicity: unspecified Qualified Code(s): I50.9 - Heart failure, unspecified Assessment & Plan: BNP is elevated (5140; was 1830 on admission) but pt is breathing better. Will stay on bumex 1mg IV BID for now. Code(s): I50.9 - HEART FAILURE, UNSPECIFIED (2) Pneumonia Current Visit: Yes Status: Acute Qualifiers: Pneumonia type: due to unspecified organism Laterality: bilateral Lung location: lower lobe of lung Qualified Code(s): J18.1 - Lobar pneumonia, unspecified organism Assessment & Plan: On rocephin and zithromax IV, day #2. Improved. Sputum culture pending. Code(s): J18.9 - PNEUMONIA, UNSPECIFIED ORGANISM (3) COPD (chronic obstructive pulmonary disease) Current Visit: Yes Status: Chronic Qualifiers: COPD type: unspecified COPD Qualified Code(s): J44.9 - Chronic obstructive pulmonary disease, unspecified Assessment & Plan: Sees Dr. Bauer. (4) UTI (urinary tract infection) Current Visit: Yes Status: Acute Qualifiers: Urinary tract infection type: acute cystitis Hematuria presence: without hematuria Qualified Code(s): N30.00 - Acute cystitis without hematuria Assessment & Plan: On IV rocephin. Urine culture pending. Code(s): N39.0 - URINARY TRACT INFECTION, SITE NOT SPECIFIED (5) Atrial fibrillation Current Visit: No Status: Chronic Assessment & Plan: On eliquis. Code(s): I48.91 - UNSPECIFIED ATRIAL FIBRILLATION (6) Cellulitis Current Visit: No Status: Acute Qualifiers: Site of cellulitis: extremity Laterality: unspecified laterality Assessment & Plan: Legs, has chronic issues. Better - whether due to pt having legs elevated, being tx by PT, or on abx, I am unsure. Code(s): L03.90 - CELLULITIS, UNSPECIFIED (7) Hyperkalemia Current Visit: No Status: Acute Assessment & Plan: mild; recheck in a.m. Code(s): E87.5 - HYPERKALEMIA (8) Leukocytosis Current Visit: Yes Status: Acute Qualifiers: Leukocytosis type: unspecified Qualified Code(s): D72.829 - Elevated white blood cell count, unspecified Assessment & Plan: mild, likely due to steroids. Code(s): D72.829 - ELEVATED WHITE BLOOD CELL COUNT, UNSPECIFIED
[2019-02-12] MEDS: Toprol-Xl 25MG Tablets PO SCH ×2 (09:53→21:54)
[2019-02-12] MEDS: Aldactone 25 MG PO SCH (09:53)
[2019-02-12] MEDS: Klor Con 10 MEQ PO SCH ×4 (09:53→21:54)
[2019-02-12] MEDS: BUMEX 1 MG IV SCH ×2 (09:53→16:03)
[2019-02-12] MEDS: Neurontin 400 MG PO SCH ×4 (09:53→21:54)
[2019-02-12] MEDS: Protonix 40MG Tablet PO SCH (09:53)
[2019-02-12] MEDS: SYNTHROID 50 MCG PO SCH (09:53)
[2019-02-12] MEDS: ELIQUIS 2.5 MG TABLET PO SCH ×2 (09:53→21:54)
[2019-02-12] MEDS: Pepcid 20 MG PO SCH (09:53)
[2019-02-12] MEDS: MAG-OX 400 PO SCH ×2 (09:53→21:53)
[2019-02-12] MEDS: Zithromax 500 MG/ 250 ML NaCl Premix 500 MG/250 ML IVPB IV SCH (09:54)
[2019-02-12] MEDS ORDERED: NON-FORMULARY ITEM (Omeprazole 20 Mg [Prilosec 20 Mg] 1 TAB) PO SCH (10:00)
[2019-02-12] MEDS ORDERED: ROCEPHIN 1 Gm-D5w 50 ml Bag** 1 G/50 ML IVPB IV SCH (10:00)
[2019-02-12] MEDS ORDERED: NON-FORMULARY ITEM (Famotidine [Pepcid] 40 MG) PO SCH (10:00)
[2019-02-12] MEDS: PERCOCET TABLET 5/325MG PO PRN ×2 (16:20→22:12)
[2019-02-12] MEDS: ELAVIL 25 MG PO SCH (21:54)
[2019-02-13 05:57] LABS: Hematocrit 35.6 % (42-50); Hemoglobin 9.8 gm/dl (12.5-18.0); Mean Cell Volume 86.8 fl (78-100); Mean Corpuscular Hemoglobin 23.9 pg (26-32); Mean Corpuscular Hgb Concent. 27.5 g/dl (32-36); Platelet Count 116 K/mm3 (150-450); Red Cell Distribution Width 25.6 % (11.5-14.0); White Blood Count 11.3 K/mm3 (4.0-10.5)
[2019-02-13] MEDS: solu-MEDROL 125 MG IV SCH (06:03)
[2019-02-13 06:12] LABS: ANION GAP 15.6 MEQ/L (5-15); BLOOD UREA NITROGEN 23 mg/dL (9-20); CHLORIDE 92 mmol/L (98-107); Calcium 8.8 mg/dL (8.4-10.2); Carbon Dioxide 36 mmol/L (22-30); Creatinine 1 0.62 mg/dL (0.66-1.25); Glucose 159 mg/dL (74-106); SODIUM 137 mmol/L (137-145)
[2019-02-13 06:24] LABS: Potassium 6.2 mmol/L (3.5-5.1)
[2019-02-13] MEDS ORDERED: Kayexylate 15 GM/60 ML PO ONE (06:45)
[2019-02-13] MEDS: PROVENTIL 2.5 MG/3 ML NEB IH SCH ×4 (06:45→19:11)
[2019-02-13] MEDS: Advair Hfa 115/21 Common canister IH SCH ×2 (06:45→19:12)
--- NOTE | 2019-02-13 09:11 | PCM.NOTE ---
Date and Time: 02/13/19905 Subjective Assessment: patient continues to have a productive cough and feels poorly. he is tolerating po intake and currently on oxymizer. Objective Exam General Appearance: no apparent distress Neurologic Exam: alert, oriented x 3, cooperative Skin Exam: normal color, dry Respiratory Exam: rhonchi Cardiovascular Exam: regular rate/rhythm, normal heart sounds Gastrointestinal/Abdomen Exam: soft, No tenderness, No mass Extremity Exam: other (chronic lymphedemia changes present) OBJECTIVE DATA Vital Signs: Vital Signs - 24 hr Temp Pulse Resp BP Pulse Ox 02/13/19 08:00 16 02/13/19 07:46 93 L 02/13/19 07:35 97.8 F 71 16 133/80 98 02/13/19 06:51 71 16 98 02/13/19 04:00 18 02/13/19 03:52 98.3 F 72 19 122/71 98 02/12/19 23:58 17 02/12/19 23:55 98.5 F 97 H 17 130/77 97 02/12/19 20:00 98.3 F 85 20 110/62 98 02/12/19 19:58 97 02/12/19 19:29 92 H 18 97 02/12/19 16:00 99.0 F 77 18 133/62 95 02/12/19 15:10 81 18 98 02/12/19 11:56 98.8 F 83 18 129/68 93 L 02/12/19 11:15 88 18 97 Oxygen-Last 24 hours O2 Percentage 5 Liters = 40% O2 Percentage 5 Liters = 40% O2 Percentage 6 Liters = 44% O2 Percentage 6 Liters = 44% Pain Assessment - Last Documented Pain Intensity 5 Pain Scale Used FLACC Intake and Output: Intake & Output 02/10/19 02/11/19 02/12/19 02/13/19 11:59 11:59 11:59 11:59 Intake Total 820 970 Output Total 900 600 Balance -80 370 Weight 135.6 kg 137.4 kg 137.8 kg Lab Results: Lab Results-Last 24 Hours 02/13/19 02/13/19 Range/Units 05:23 05:23 WBC 11.3 H (4.0-10.5) K/mm3 RBC 4.10 (4.1-5.6) M/mm3 Hgb 9.8 L (12.5-18.0) gm/dl Hct 35.6 L (42-50) % MCV 86.8 (78-100) fl MCH 23.9 L (26-32) pg MCHC 27.5 L (32-36) g/dl RDW 25.6 H (11.5-14.0) % Plt Count 116 L (150-450) K/mm3 Sodium 137 (137-145) mmol/L Potassium 6.2 H* (3.5-5.1) mmol/L Chloride 92 L (98-107) mmol/L Carbon Dioxide 36 H (22-30) mmol/L Anion Gap 15.6 H (5-15) MEQ/L BUN 23 H (9-20) mg/dL Creatinine 0.62 L (0.66-1.25) mg/dL Estimated GFR > 60.0 ML/MIN Glucose 159 H (74-106) mg/dL Calcium 8.8 (8.4-10.2) mg/dL Radiology Exams: Radiology Procedures Category Date Time Status CHEST 1 VIEW (PORTABLE) Stat Exams 02/11/19 08:25 Completed Assessment/Plan (1) Pneumonia Current Visit: Yes Status: Acute Qualifiers: Pneumonia type: due to unspecified organism Laterality: bilateral Lung location: lower lobe of lung Qualified Code(s): J18.1 - Lobar pneumonia, unspecified organism Assessment & Plan: due to severity of illness, recent hospitalization at [facility] and coming from [facility] will change to zosyn at this time to cover nosocomial pathogens and will add aztreonam Code(s): J18.9 - PNEUMONIA, UNSPECIFIED ORGANISM (2) CHF (congestive heart failure) Current Visit: Yes Status: Acute Qualifiers: Heart failure type: unspecified Heart failure chronicity: unspecified Qualified Code(s): I50.9 - Heart failure, unspecified Assessment & Plan: bun increasing, lungs sounds are improved so will decrease bumex to once daily Code(s): I50.9 - HEART FAILURE, UNSPECIFIED (3) UTI (urinary tract infection) Current Visit: Yes Status: Acute Qualifiers: Urinary tract infection type: acute cystitis Hematuria presence: without hematuria Qualified Code(s): N30.00 - Acute cystitis without hematuria Assessment & Plan: pseudomonas sens to zosyn in urine Code(s): N39.0 - URINARY TRACT INFECTION, SITE NOT SPECIFIED (4) Lymphedema Current Visit: No Status: Acute Code(s): I89.0 - LYMPHEDEMA, NOT ELSEWHERE CLASSIFIED
[2019-02-13] MEDS: ELIQUIS 2.5 MG TABLET PO SCH ×2 (09:32→22:54)
[2019-02-13] MEDS: Neurontin 400 MG PO SCH ×4 (09:33→22:53)
[2019-02-13] MEDS: Pepcid 20 MG PO SCH (09:33)
[2019-02-13] MEDS: Protonix 40MG Tablet PO SCH (09:33)
[2019-02-13] MEDS: MAG-OX 400 PO SCH ×2 (09:33→22:54)
[2019-02-13] MEDS: BUMEX 1 MG IV SCH (09:34)
[2019-02-13] MEDS: Toprol-Xl 25MG Tablets PO SCH ×2 (09:34→22:54)
[2019-02-13] MEDS: Aldactone 25 MG PO SCH (09:40)
[2019-02-13] MEDS: SYNTHROID 50 MCG PO SCH (09:40)
[2019-02-13] MEDS: PERCOCET TABLET 5/325MG PO PRN (09:40)
[2019-02-13] MEDS: AZACTAM IV SCH ×2 (09:50→23:38)
[2019-02-13] MEDS: D5W MINI IV SCH ×2 (09:50→23:38)
[2019-02-13] MEDS: Zosyn 3.375GM/100 Ml D5W 3.375 GM/100 ML IVPB IV SCH ×2 (12:00→17:51)
[2019-02-13] MEDS: ELAVIL 25 MG PO SCH (22:54)
[2019-02-14] MEDS: Zosyn 3.375GM/100 Ml D5W 3.375 GM/100 ML IVPB IV SCH ×5 (00:34→23:34)
[2019-02-14 06:10] LABS: Basophil (Absolute #) 0 (0-0.4); Eosinophil % 0.3 % (0.00-5.0); Eosinophil (Absolute #) 0.03 (0-0.5); Granulocyte Absolute (ANC) 7.75 (1.4-6.9); Hematocrit 34.4 % (42-50); Hemoglobin 9.4 gm/dl (12.5-18.0); Lymphocyte (Absolute #) 0.62 (1.0-4.6); Lymphocytes % 6.7 % (24.0-44.0); Mean Cell Volume 86.9 fl (78-100); Mean Corpuscular Hemoglobin 23.7 pg (26-32); Mean Corpuscular Hgb Concent. 27.3 g/dl (32-36); Monocyte (Absolute #) 0.83 (0.0-1.3); Platelet Count 124 K/mm3 (150-450); Red Blood Count 3.96 M/mm3 (4.1-5.6); Red Cell Distribution Width 25.6 % (11.5-14.0); White Blood Count 9.2 K/mm3 (4.0-10.5)
[2019-02-14 06:32] LABS: ANION GAP 14.6 MEQ/L (5-15); BLOOD UREA NITROGEN 23 mg/dL (9-20); CHLORIDE 88 mmol/L (98-107); Calcium 8.8 mg/dL (8.4-10.2); Carbon Dioxide 38 mmol/L (22-30); Creatinine 1 0.66 mg/dL (0.66-1.25); Glucose 153 mg/dL (74-106); MAGNESIUM 2.3 mg/dL (1.6-2.3); NT PRO BNP 2850 pg/mL (0-900); Potassium 4.7 mmol/L (3.5-5.1); SODIUM 136 mmol/L (137-145)
[2019-02-14] MEDS: Advair Hfa 115/21 Common canister IH SCH ×2 (06:35→18:55)
[2019-02-14] MEDS: PROVENTIL 2.5 MG/3 ML NEB IH SCH ×4 (06:35→18:55)
[2019-02-14] MEDS: D5W MINI IV SCH ×3 (06:43→21:09)
[2019-02-14] MEDS: AZACTAM IV SCH ×3 (06:43→21:09)
[2019-02-14] MEDS: PERCOCET TABLET 5/325MG PO PRN ×3 (07:49→17:26)
--- NOTE | 2019-02-14 08:07 | PCM.NOTE ---
Date and Time: 02/14/19805 Subjective Assessment: patient c/o leg pain, thinks his cough is improving. no other complaints today Objective Exam General Appearance: no apparent distress Neurologic Exam: alert, oriented x 3 Skin Exam: normal color, warm, dry Respiratory Exam: crackles/rales Cardiovascular Exam: regular rate/rhythm, normal heart sounds Gastrointestinal/Abdomen Exam: soft, No tenderness, No mass OBJECTIVE DATA Vital Signs: Vital Signs - 24 hr Temp Pulse Resp BP Pulse Ox 02/14/19 07:25 97.8 F 65 20 130/62 95 02/14/19 06:57 54 L 18 99 02/14/19 04:00 97.9 F 109 H 14 135/77 100 02/14/19 00:00 98.0 F 74 18 146/75 96 02/13/19 20:00 97.7 F 66 21 114/64 93 L 02/13/19 19:16 77 20 97 02/13/19 16:00 98.6 F 67 16 127/64 98 02/13/19 15:07 88 20 97 02/13/19 12:00 98.6 F 80 18 137/66 97 02/13/19 10:47 80 24 94 L Oxygen-Last 24 hours O2 Percentage 3 Liters = 32% O2 Percentage 3 Liters = 32% O2 Percentage 3 Liters = 32% Oxygen Flowrate (L/min)-RT 3 Oxygen Flowrate (L/min)-RT 3 Oxygen Flowrate (L/min)-RT 3 Oxygen Flowrate (L/min)-RT 3 Pain Assessment - Last Documented Pain Intensity 3 Pain Scale Used [facility] Intake and Output: Intake & Output 02/11/19 02/12/19 02/13/19 02/14/19 11:59 11:59 11:59 11:59 Intake Total 346 310 3693 Output Total 050 808 6250 Balance -80 370 492 Weight 135.6 kg 137.4 kg 137.8 kg 137.4 kg Lab Results: Lab Results-Last 24 Hours 02/14/19 02/14/19 Range/Units 05:34 05:34 WBC 9.2 (4.0-10.5) K/mm3 RBC 3.96 L (4.1-5.6) M/mm3 Hgb 9.4 L (12.5-18.0) gm/dl Hct 34.4 L (42-50) % MCV 86.9 (78-100) fl MCH 23.7 L (26-32) pg MCHC 27.3 L (32-36) g/dl RDW 25.6 H (11.5-14.0) % Plt Count 124 L (150-450) K/mm3 Gran % 84.0 H (36.0-66.0) % Eos # (Auto) 0.03 (0-0.5) Absolute Lymphs (auto) 0.62 L (1.0-4.6) Absolute Monos (auto) 0.83 (0.0-1.3) Lymphocytes % 6.7 L (24.0-44.0) % Monocytes % 9.0 (0.0-12.0) % Eosinophils % 0.3 (0.00-5.0) % Basophils % 0.0 (0.0-0.4) % Absolute Granulocytes 7.75 H (1.4-6.9) Basophils # 0 (0-0.4) Sodium 136 L (137-145) mmol/L Potassium 4.7 D (3.5-5.1) mmol/L Chloride 88 L (98-107) mmol/L Carbon Dioxide 38 H (22-30) mmol/L Anion Gap 14.6 (5-15) MEQ/L BUN 23 H (9-20) mg/dL Creatinine 0.66 (0.66-1.25) mg/dL Estimated GFR > 60.0 ML/MIN Glucose 153 H (74-106) mg/dL Calcium 8.8 (8.4-10.2) mg/dL Magnesium 2.3 (1.6-2.3) mg/dL NT-Pro-B Natriuret Pep 2850 H (0-900) pg/mL Assessment/Plan (1) Pneumonia Current Visit: Yes Status: Acute Qualifiers: Pneumonia type: due to unspecified organism Laterality: bilateral Lung location: lower lobe of lung Qualified Code(s): J18.1 - Lobar pneumonia, unspecified organism Assessment & Plan: on zosyn/azactam for pseudomonas coverage Code(s): J18.9 - PNEUMONIA, UNSPECIFIED ORGANISM (2) CHF (congestive heart failure) Current Visit: Yes Status: Acute Qualifiers: Heart failure type: unspecified Heart failure chronicity: unspecified Qualified Code(s): I50.9 - Heart failure, unspecified Code(s): I50.9 - HEART FAILURE, UNSPECIFIED (3) UTI (urinary tract infection) Current Visit: Yes Status: Acute Qualifiers: Urinary tract infection type: acute cystitis Hematuria presence: without hematuria Qualified Code(s): N30.00 - Acute cystitis without hematuria Assessment & Plan: pseudomonas sens to zosyn Code(s): N39.0 - URINARY TRACT INFECTION, SITE NOT SPECIFIED (4) Lymphedema Current Visit: No Status: Acute Code(s): I89.0 - LYMPHEDEMA, NOT ELSEWHERE CLASSIFIED
[2019-02-14 08:14] LABS: Slide Review 1 YES
[2019-02-14] MEDS: Protonix 40MG Tablet PO SCH (09:17)
[2019-02-14] MEDS: MAG-OX 400 PO SCH ×2 (09:18→21:09)
[2019-02-14] MEDS: ELIQUIS 2.5 MG TABLET PO SCH ×2 (09:18→21:09)
[2019-02-14] MEDS: SYNTHROID 50 MCG PO SCH (09:19)
[2019-02-14] MEDS: Aldactone 25 MG PO SCH (09:19)
[2019-02-14] MEDS: Pepcid 20 MG PO SCH (09:20)
[2019-02-14] MEDS: Neurontin 400 MG PO SCH ×4 (09:20→21:09)
[2019-02-14] MEDS: Toprol-Xl 25MG Tablets PO SCH ×2 (09:21→21:09)
[2019-02-14] MEDS: BUMEX 1 MG IV SCH (09:22)
[2019-02-14] MEDS: ELAVIL 25 MG PO SCH (21:09)
[2019-02-15] MEDS: PERCOCET TABLET 5/325MG PO PRN ×3 (03:22→17:19)
[2019-02-15] MEDS: AZACTAM IV SCH ×3 (05:16→21:44)
[2019-02-15] MEDS: D5W MINI IV SCH ×3 (05:16→21:44)
[2019-02-15 05:38] LABS: BASOPHIL % 0.1 % (0.0-0.4); Basophil (Absolute #) 0.01 (0-0.4); Eosinophil (Absolute #) 0.08 (0-0.5); Granulocyte Absolute (ANC) 5.85 (1.4-6.9); Hematocrit 34.3 % (42-50); Hemoglobin 9.8 gm/dl (12.5-18.0); Lymphocyte (Absolute #) 1.24 (1.0-4.6); Lymphocytes % 15.3 % (24.0-44.0); Mean Cell Volume 84.5 fl (78-100); Mean Corpuscular Hemoglobin 24.1 pg (26-32); Mean Corpuscular Hgb Concent. 28.6 g/dl (32-36); Monocyte (Absolute #) 0.94 (0.0-1.3); Monocytes % 11.6 % (0.0-12.0); Platelet Count 118 K/mm3 (150-450); Red Blood Count 4.06 M/mm3 (4.1-5.6); Red Cell Distribution Width 25.8 % (11.5-14.0); White Blood Count 8.1 K/mm3 (4.0-10.5)
[2019-02-15] MEDS: Zosyn 3.375GM/100 Ml D5W 3.375 GM/100 ML IVPB IV SCH ×4 (05:51→23:53)
[2019-02-15 05:56] LABS: ANION GAP 14.6 MEQ/L (5-15); BLOOD UREA NITROGEN 24 mg/dL (9-20); CHLORIDE 88 mmol/L (98-107); Calcium 8.8 mg/dL (8.4-10.2); Carbon Dioxide 37 mmol/L (22-30); Creatinine 1 0.65 mg/dL (0.66-1.25); Glucose 115 mg/dL (74-106); Potassium 4.6 mmol/L (3.5-5.1); SODIUM 134 mmol/L (137-145)
[2019-02-15] MEDS: Advair Hfa 115/21 Common canister IH SCH ×2 (06:36→20:32)
[2019-02-15] MEDS: PROVENTIL 2.5 MG/3 ML NEB IH SCH ×4 (06:37→20:13)
--- NOTE | 2019-02-15 08:17 | PCM.NOTE ---
Date and Time: 02/15/19807 Subjective Assessment: patient reports he is improving, he is currently on 2L nasal cannula and tolerating po intake. Objective Exam General Appearance: no apparent distress, obese Neurologic Exam: alert, oriented x 3 Skin Exam: normal color, warm, dry Respiratory Exam: rhonchi (mostly clear, minimal rhonchi in bases, overall much improved), No respiratory distress, No accessory muscle use, No prolonged expirations Cardiovascular Exam: regular rate/rhythm, normal heart sounds Gastrointestinal/Abdomen Exam: soft, No tenderness, No mass Extremity Exam: pedal edema, swelling, other (chronic lymphedema changes) OBJECTIVE DATA Vital Signs: Vital Signs - 24 hr Temp Pulse Resp BP Pulse Ox 02/15/19 07:50 97.6 F 67 20 122/67 95 02/15/19 07:34 18 02/15/19 06:38 69 18 98 02/15/19 05:49 97 02/15/19 04:00 98.5 F 64 20 133/81 95 02/15/19 03:30 16 02/15/19 00:00 16 02/14/19 23:33 97.9 F 70 16 115/63 94 L 02/14/19 20:00 19 02/14/19 19:39 97.7 F 80 19 132/70 94 L 02/14/19 18:56 71 18 95 02/14/19 16:07 98.2 F 80 20 128/70 93 L 02/14/19 16:00 16 02/14/19 14:52 71 20 95 02/14/19 12:00 20 02/14/19 10:51 97.8 F 80 20 136/74 95 02/14/19 10:48 55 L 18 94 L Oxygen-Last 24 hours O2 Percentage 3 Liters = 32% O2 Percentage 3 Liters = 32% O2 Percentage 3 Liters = 32% O2 Percentage 3 Liters = 32% O2 Percentage 2 Liters = 28% O2 Percentage 3 Liters = 32% Pain Assessment - Last Documented Pain Intensity 8 Pain Scale Used 0-10 Pain Scale Intake and Output: Intake & Output 02/12/19 02/13/19 02/14/19 02/15/19 11:59 11:59 11:59 11:59 Intake Total 727 809 7147 600 Output Total 074 609 2340 1200 Balance -80 370 -408 -600 Weight 137.4 kg 137.8 kg 137.4 kg 138.6 kg Lab Results: Lab Results-Last 24 Hours 02/14/19 02/15/19 02/15/19 Range/Units 05:34 05:15 05:15 WBC 8.1 (4.0-10.5) K/mm3 RBC 4.06 L (4.1-5.6) M/mm3 Hgb 9.8 L (12.5-18.0) gm/dl Hct 34.3 L (42-50) % MCV 84.5 (78-100) fl MCH 24.1 L (26-32) pg MCHC 28.6 L (32-36) g/dl RDW 25.8 H (11.5-14.0) % Plt Count 118 L (150-450) K/mm3 Gran % 72.0 H (36.0-66.0) % Eos # (Auto) 0.08 (0-0.5) Absolute Lymphs (auto) 1.24 (1.0-4.6) Absolute Monos (auto) 0.94 (0.0-1.3) Lymphocytes % 15.3 L (24.0-44.0) % Monocytes % 11.6 (0.0-12.0) % Eosinophils % 1.0 (0.00-5.0) % Basophils % 0.1 (0.0-0.4) % Absolute Granulocytes 5.85 (1.4-6.9) Basophils # 0.01 (0-0.4) Sodium 134 L (137-145) mmol/L Potassium 4.6 (3.5-5.1) mmol/L Chloride 88 L (98-107) mmol/L Carbon Dioxide 37 H (22-30) mmol/L Anion Gap 14.6 (5-15) MEQ/L BUN 24 H (9-20) mg/dL Creatinine 0.65 L (0.66-1.25) mg/dL Estimated GFR > 60.0 ML/MIN Glucose 115 H (74-106) mg/dL Calcium 8.8 (8.4-10.2) mg/dL Slides for Path Review YES Assessment/Plan (1) Pneumonia Current Visit: Yes Status: Acute Qualifiers: Pneumonia type: due to unspecified organism Laterality: bilateral Lung location: lower lobe of lung Qualified Code(s): J18.1 - Lobar pneumonia, unspecified organism Assessment & Plan: continue zosyn and aztreonam, day #3 today. plan to keep him here until Monday due to severity of illness and need for IV antibiotics to cover pseudomonas, continue double coverage Code(s): J18.9 - PNEUMONIA, UNSPECIFIED ORGANISM (2) CHF (congestive heart failure) Current Visit: Yes Status: Acute Qualifiers: Heart failure type: unspecified Heart failure chronicity: unspecified Qualified Code(s): I50.9 - Heart failure, unspecified Code(s): I50.9 - HEART FAILURE, UNSPECIFIED (3) UTI (urinary tract infection) Current Visit: Yes Status: Acute Qualifiers: Urinary tract infection type: acute cystitis Hematuria presence: without hematuria Qualified Code(s): N30.00 - Acute cystitis without hematuria Assessment & Plan: pseudomonas, sens to zosyn. day #3 today Code(s): N39.0 - URINARY TRACT INFECTION, SITE NOT SPECIFIED (4) Lymphedema Current Visit: No Status: Acute Code(s): I89.0 - LYMPHEDEMA, NOT ELSEWHERE CLASSIFIED
[2019-02-15] MEDS: BUMEX 1 MG IV SCH (09:43)
[2019-02-15] MEDS: Toprol-Xl 25MG Tablets PO SCH ×2 (09:56→21:45)
[2019-02-15] MEDS: MAG-OX 400 PO SCH ×2 (09:56→21:45)
[2019-02-15] MEDS: Aldactone 25 MG PO SCH (09:57)
[2019-02-15] MEDS: Pepcid 20 MG PO SCH (09:57)
[2019-02-15] MEDS: SYNTHROID 50 MCG PO SCH (09:57)
[2019-02-15] MEDS: Protonix 40MG Tablet PO SCH (09:58)
[2019-02-15] MEDS: Neurontin 400 MG PO SCH ×4 (09:58→23:58)
[2019-02-15] MEDS: ELIQUIS 2.5 MG TABLET PO SCH ×2 (09:58→21:44)
[2019-02-15] MEDS: ELAVIL 25 MG PO SCH (21:44)
[2019-02-16 06:03] LABS: Hematocrit 34.5 % (42-50); Hemoglobin 9.9 gm/dl (12.5-18.0); Mean Cell Volume 84.8 fl (78-100); Mean Corpuscular Hemoglobin 24.3 pg (26-32); Mean Corpuscular Hgb Concent. 28.7 g/dl (32-36); Platelet Count 114 K/mm3 (150-450); Red Blood Count 4.07 M/mm3 (4.1-5.6); Red Cell Distribution Width 25.6 % (11.5-14.0); White Blood Count 6.9 K/mm3 (4.0-10.5)
[2019-02-16 06:09] LABS: A-aADO2 51; ABG HEMOGLOBIN 10.5; ARTERIAL BLD GAS O2 SATURATION 97.8 % (95-100); ARTERIAL BLOOD GAS BASE EXCESS 14.8 (-2.0-2.0); ARTERIAL BLOOD GAS FIO2 32 %; ARTERIAL BLOOD GAS PCO2 70 mmHg (35-45); ARTERIAL BLOOD GAS PO2 90 mmHg (75-100); ARTERIAL BLOOD GAS pH 7.39 (7.35-7.45); CARBOXYHEMOGLOBIN 1.7 % THgb (0.0-6.9); HCO3- 42.4 (22-28); HGB O2 SAT 95.7 g/dF (94-100); Methhemoglobin 0.4 % (1.4-1.5); paO2 pAO1 0.64
[2019-02-16 06:10] LABS: ABG SITE RIGHT RADIAL; ALLEN TEST OK? YES
[2019-02-16 06:18] LABS: ALBUMIN 3.5 g/dL (3.5-5.0); ALKALINE PHOSPHATASE 161 U/L (38-126); BLOOD UREA NITROGEN 21 mg/dL (9-20); CHLORIDE 86 mmol/L (98-107); Calcium 8.9 mg/dL (8.4-10.2); Creatinine 1 0.75 mg/dL (0.66-1.25); Glucose 100 mg/dL (74-106); Potassium 4.2 mmol/L (3.5-5.1); SGOT/AST 42 U/L (17-59); SGPT/ALT 46 U/L (0-50); SODIUM 136 mmol/L (137-145); Total Protein 6.7 g/dL (6.3-8.2)
[2019-02-16 06:24] LABS: Carbon Dioxide 38 mmol/L (22-30)
[2019-02-16 06:44] LABS: ANION GAP 16.2 MEQ/L (5-15)
[2019-02-16] MEDS: PROVENTIL 2.5 MG/3 ML NEB IH SCH ×4 (07:42→19:52)
[2019-02-16] MEDS: Advair Hfa 115/21 Common canister IH SCH ×2 (07:42→19:53)
[2019-02-16 07:48] LABS: Lymphocytes 31 % (24-44); Monocyte 11 % (0.0-12.0); Neutrophils 58 % (36.-66.); Total Cells Counted 100
[2019-02-16 07:49] LABS: ANISOCYTOSIS 1+; Platelet Estimate NORMAL (NORMAL); Poikilocytosis 1+; Polychromasia 1+
[2019-02-16] MEDS: Zosyn 3.375GM/100 Ml D5W 3.375 GM/100 ML IVPB IV SCH ×3 (07:52→17:49)
--- NOTE | 2019-02-16 07:57 | XRAY ---
Indication: Unresponsive. COPD exacerbation. Multiple contiguous axial images obtained through the head without contrast. Comparison: April 08, 2016. Again age-appropriate global atrophy and minimal periventricular degenerative micro-ischemia bilaterally. No acute intracranial hemorrhage, abnormal extra-axial fluid collection, or mass effect. Fourth ventricle is midline without hydrocephalus. Bony calvarium intact. Visualized paranasal sinuses and mastoid air cells are clear. Impression: Normal aging brain. No new or acute intracranial abnormalities. Comment: Preliminary interpretation was made by [facility]. No discrepancy. CTDI 67.00
--- NOTE | 2019-02-16 07:59 | XRAY ---
Indication: Unresponsive. COPD. Bronchitis. Comparison: February 11, 2019. Portable apical lordotic chest underinflated today again with right lung suture material, scattered calcified granulomas, and cardiomegaly. No focal infiltrate, consolidation, large effusion, or new cardiopulmonary abnormalities. Comment: Preliminary interpretation was made by [facility]. No discrepancy.
[2019-02-16] MEDS: AZACTAM IV SCH ×3 (08:49→21:48)
[2019-02-16] MEDS: D5W MINI IV SCH ×3 (08:49→21:48)
[2019-02-16] MEDS: Protonix 40MG Tablet PO SCH (09:31)
[2019-02-16] MEDS: MAG-OX 400 PO SCH ×2 (09:31→21:45)
[2019-02-16] MEDS: Aldactone 25 MG PO SCH (09:31)
[2019-02-16] MEDS: Pepcid 20 MG PO SCH (09:31)
[2019-02-16] MEDS: Toprol-Xl 25MG Tablets PO SCH ×2 (09:32→21:45)
[2019-02-16] MEDS: ELIQUIS 2.5 MG TABLET PO SCH ×2 (09:32→21:44)
[2019-02-16] MEDS: Neurontin 400 MG PO SCH ×4 (09:32→21:45)
[2019-02-16] MEDS: SYNTHROID 50 MCG PO SCH (09:32)
[2019-02-16] MEDS: BUMEX 1 MG IV SCH (09:32)
--- NOTE | 2019-02-16 09:33 | PCM.NOTE ---
Date and Time: 02/16/19927 Subjective Assessment: This morning about 5:50 a.m. RN reported to me that pt was opening his eyes but otherwise unable to respond to her. His vitals were stable, including blood sugar. We did a CT head without contrast which was nonacute, a portable CXR which was nonacute, ABG (with CO2 of 70 but RT noted previous CO2 was 60), EKG ( non acute) and troponin (neg). Ammonia level also negative. By 06:00 or 06:10 when his EKG was done, the RT said the pt was conversant with her. Per [employer], he has had similar episodes multiple times during this hospital stay; however nothing documented in Dr. Lafleur' notes. RN tells me prior to this he was c/o constipation. Pt tells me he "feels fine" compared with yesterday. He remembers some of his episode this morning. He still has a productive cough. He is oriented to place , thinks today is Monday (not Monday) and the month is February. Knows year is 2018. He is tolerating po. - Review of Systems Constitutional: No Fever Neurological: Other (AMS; resolved) Objective Exam General Appearance: no apparent distress, alert Neurologic Exam: cooperative, disoriented (slightly, to month/day) Skin Exam: normal color, warm, dry, No rash Respiratory Exam: diminished breath sounds (good air exchange), prolonged expirations, No crackles/rales, No rhonchi, No wheezing Cardiovascular Exam: regular rate/rhythm, normal heart sounds, No murmur Gastrointestinal/Abdomen Exam: soft, normal bowel sounds, No tenderness, No distention, No mass, No guarding, No rebound Extremity Exam: normal inspection, No pedal edema, No swelling Back Exam: normal inspection, No rash OBJECTIVE DATA Vital Signs: Vital Signs - 24 hr Temp Pulse Resp BP Pulse Ox 02/16/19 08:00 18 02/16/19 07:43 61 18 94 L 02/16/19 07:31 98.6 F 54 L 19 117/68 93 L 02/16/19 03:41 98.2 F 63 18 128/63 98 02/15/19 23:52 98.4 F 76 18 103/57 96 02/15/19 20:20 54 L 18 91 L 02/15/19 20:00 99.0 F 84 18 101/61 85 L 02/15/19 16:00 98 F 61 20 120/62 94 L 02/15/19 14:23 72 18 95 02/15/19 12:00 18 02/15/19 11:33 97.8 F 65 18 122/63 95 Oxygen-Last 24 hours O2 Percentage 3 Liters = 32% O2 Percentage 2 Liters = 28% O2 Percentage 2 Liters = 28% O2 Percentage 3 Liters = 32% O2 Percentage 3 Liters = 32% Pain Assessment - Last Documented Pain Intensity 6 Pain Scale Used 0-10 Pain Scale Intake and Output: Intake & Output 02/13/19 02/14/19 02/15/19 02/16/19 11:59 11:59 11:59 11:59 Intake Total 970 3042 600 2100 Output Total 600 3450 1200 2100 Balance 370 -408 -600 0 Weight 137.8 kg 137.4 kg 138.6 kg 138.6 kg Lab Results: Lab Results-Last 24 Hours 02/16/19 02/16/19 02/16/19 Range/Units 05:39 05:39 05:39 WBC 6.9 (4.0-10.5) K/mm3 RBC 4.07 L (4.1-5.6) M/mm3 Hgb 9.9 L (12.5-18.0) gm/dl Hct 34.5 L (42-50) % MCV 84.8 (78-100) fl MCH 24.3 L (26-32) pg MCHC 28.7 L (32-36) g/dl RDW 25.6 H (11.5-14.0) % Plt Count 114 L (150-450) K/mm3 Segmented Neutrophils 58 (36.-66.) % Lymphocytes (Manual) 31 (24-44) % Monocytes (Manual) 11 (0.0-12.0) % Platelet Estimate NORMAL (NORMAL) RBC Morphology ABNORMAL Polychromasia 1+ Poikilocytosis 1+ Anisocytosis 1+ Puncture Site pCO2 (35-45) mmHg pO2 (75-100) mmHg Base Excess (-2.0-2.0) O2 Saturation (94-100) g/dF ABG pH (7.35-7.45) ABG HCO3 (22-28) ABG O2 Sat (Measured) (95-100) % Jonathan Test A-a Gradient a/A Ratio Hemoglobin Carboxyhemoglobin (0.0-6.9) % THgb Methemoglobin (1.4-1.5) % Temperature C POC O2 Flow Rate % Sodium 136 L (137-145) mmol/L Potassium 4.2 (3.5-5.1) mmol/L Chloride 86 L (98-107) mmol/L Carbon Dioxide 38 H (22-30) mmol/L Anion Gap 16.2 H (5-15) MEQ/L BUN 21 H (9-20) mg/dL Creatinine 0.75 (0.66-1.25) mg/dL Estimated GFR > 60.0 ML/MIN Glucose 100 (74-106) mg/dL Calcium 8.9 (8.4-10.2) mg/dL Magnesium (1.6-2.3) mg/dL Total Bilirubin 1.00 (0.2-1.3) mg/dL AST 42 (17-59) U/L ALT 46 (0-50) U/L Alkaline Phosphatase 161 H (38-126) U/L Ammonia (9-30) umol/L Troponin I 0.012 (0.000-0.034) ng/mL Serum Total Protein 6.7 (6.3-8.2) g/dL Albumin 3.5 (3.5-5.0) g/dL 02/16/19 02/16/19 02/16/19 Range/Units 05:52 05:55 06:49 WBC (4.0-10.5) K/mm3 RBC (4.1-5.6) M/mm3 Hgb (12.5-18.0) gm/dl Hct (42-50) % MCV (78-100) fl MCH (26-32) pg MCHC (32-36) g/dl RDW (11.5-14.0) % Plt Count (150-450) K/mm3 Segmented Neutrophils (36.-66.) % Lymphocytes (Manual) (24-44) % Monocytes (Manual) (0.0-12.0) % Platelet Estimate (NORMAL) RBC Morphology Polychromasia Poikilocytosis Anisocytosis Puncture Site RIGHT RADIAL pCO2 70 H* (35-45) mmHg pO2 90 (75-100) mmHg Base Excess 14.8 H (-2.0-2.0) O2 Saturation 95.7 (94-100) g/dF ABG pH 7.39 (7.35-7.45) ABG HCO3 42.4 H* (22-28) ABG O2 Sat (Measured) 97.8 (95-100) % Jonathan Test YES A-a Gradient 51 a/A Ratio 0.64 Hemoglobin 10.5 Carboxyhemoglobin 1.7 (0.0-6.9) % THgb Methemoglobin 0.4 L (1.4-1.5) % Temperature 37.0 C POC O2 Flow Rate 32 % Sodium (137-145) mmol/L Potassium 4.0 (3.5-5.1) mmol/L Chloride (98-107) mmol/L Carbon Dioxide (22-30) mmol/L Anion Gap (5-15) MEQ/L BUN (9-20) mg/dL Creatinine (0.66-1.25) mg/dL Estimated GFR ML/MIN Glucose (74-106) mg/dL Calcium (8.4-10.2) mg/dL Magnesium 2.0 (1.6-2.3) mg/dL Total Bilirubin (0.2-1.3) mg/dL AST (17-59) U/L ALT (0-50) U/L Alkaline Phosphatase (38-126) U/L Ammonia < 9 L (9-30) umol/L Troponin I (0.000-0.034) ng/mL Serum Total Protein (6.3-8.2) g/dL Albumin (3.5-5.0) g/dL Radiology Exams: Radiology Procedures Category Date Time Status CHEST 1 VIEW (PORTABLE) Stat Exams 02/16/19 05:58 Completed HEAD WITHOUT CONTRAST [CT] Stat Exams 02/16/19 05:56 Completed Assessment/Plan (1) Altered mental status Current Visit: No Status: Resolved Qualifiers: Altered mental status type: unspecified Qualified Code(s): R41.82 - Altered mental status, unspecified Assessment & Plan: If these episodes are recurrent, would consider further workup (possily EEG) but will defer to Dr. Lafleur unless something is needed urgently. Code(s): R41.82 - ALTERED MENTAL STATUS, UNSPECIFIED (2) Pneumonia Current Visit: Yes Status: Acute Qualifiers: Pneumonia type: due to Pseudomonas Laterality: bilateral Lung location: lower lobe of lung Qualified Code(s): J15.1 - Pneumonia due to Pseudomonas Assessment & Plan: On day #4 of zosyn and aztreonam. He has shown improvement. Code(s): J18.9 - PNEUMONIA, UNSPECIFIED ORGANISM (3) CHF (congestive heart failure) Current Visit: Yes Status: Chronic Qualifiers: Heart failure type: unspecified Heart failure chronicity: unspecified Qualified Code(s): I50.9 - Heart failure, unspecified Code(s): I50.9 - HEART FAILURE, UNSPECIFIED (4) COPD (chronic obstructive pulmonary disease) Current Visit: Yes Status: Chronic Qualifiers: COPD type: unspecified COPD Qualified Code(s): J44.9 - Chronic obstructive pulmonary disease, unspecified (5) UTI (urinary tract infection) Current Visit: Yes Status: Acute Qualifiers: Urinary tract infection type: acute cystitis Hematuria presence: without hematuria Qualified Code(s): N30.00 - Acute cystitis without hematuria Code(s): N39.0 - URINARY TRACT INFECTION, SITE NOT SPECIFIED (6) Atrial fibrillation Current Visit: No Status: Chronic Code(s): I48.91 - UNSPECIFIED ATRIAL FIBRILLATION (7) Cellulitis Current Visit: No Status: Acute Qualifiers: Site of cellulitis: extremity Laterality: unspecified laterality Code(s): L03.90 - CELLULITIS, UNSPECIFIED (8) Hyperkalemia Current Visit: No Status: Resolved Code(s): E87.5 - HYPERKALEMIA (9) Leukocytosis Current Visit: Yes Status: Resolved Qualifiers: Leukocytosis type: unspecified Qualified Code(s): D72.829 - Elevated white blood cell count, unspecified Code(s): D72.829 - ELEVATED WHITE BLOOD CELL COUNT, UNSPECIFIED
[2019-02-16] MEDS: MARY'S MOUTHWASH PO SCH ×3 (10:35→21:48)
[2019-02-16] MEDS: PERCOCET TABLET 5/325MG PO PRN (12:41)
[2019-02-16] MEDS: Colace 100 MG PO PRN (14:30)
[2019-02-16] MEDS: ELAVIL 25 MG PO SCH (21:45)
[2019-02-17] MEDS: Zosyn 3.375GM/100 Ml D5W 3.375 GM/100 ML IVPB IV SCH ×4 (00:09→18:03)
[2019-02-17] MEDS: AZACTAM IV SCH ×3 (05:31→21:14)
[2019-02-17] MEDS: D5W MINI IV SCH ×3 (05:31→21:14)
[2019-02-17] MEDS: PROVENTIL 2.5 MG/3 ML NEB IH SCH ×4 (07:32→19:37)
[2019-02-17] MEDS: Advair Hfa 115/21 Common canister IH SCH ×2 (07:33→19:37)
[2019-02-17] MEDS: MARY'S MOUTHWASH PO SCH ×4 (08:15→21:14)
[2019-02-17] MEDS: BUMEX 1 MG IV SCH (11:08)
[2019-02-17] MEDS: SYNTHROID 50 MCG PO SCH (11:08)
[2019-02-17] MEDS: MAG-OX 400 PO SCH ×2 (11:08→21:14)
[2019-02-17] MEDS: Neurontin 400 MG PO SCH ×4 (11:08→21:14)
[2019-02-17] MEDS: ELIQUIS 2.5 MG TABLET PO SCH ×2 (11:08→21:14)
[2019-02-17] MEDS: Pepcid 20 MG PO SCH (11:08)
[2019-02-17] MEDS: Protonix 40MG Tablet PO SCH (11:08)
[2019-02-17] MEDS: Aldactone 25 MG PO SCH (11:08)
[2019-02-17] MEDS: Toprol-Xl 25MG Tablets PO SCH ×2 (11:08→21:15)
--- NOTE | 2019-02-17 12:27 | PCM.NOTE ---
Date and Time: 02/17/19 1222 Subjective Assessment: Pt complains of burning pain inhis legs - takes neurontin 800mg po QID. His percocet order timed out today. Pain currently 07/02. RN notes he slept all morning but was oriented when he woke up. - Review of Systems Constitutional: No Fever Musculoskeletal: Other (leg pain) Objective Exam General Appearance: no apparent distress, alert Neurologic Exam: oriented x 3, cooperative Skin Exam: warm, No rash Ears, Nose, Throat Exam: moist mucous membranes Respiratory Exam: diminished breath sounds (good air exchange), rhonchi (vs transmitted upper airway sounds throughout), No wheezing Cardiovascular Exam: regular rate/rhythm, normal heart sounds, No murmur Gastrointestinal/Abdomen Exam: soft, normal bowel sounds, No tenderness, No distention, No mass, No guarding, No rebound Extremity Exam: other (bilat LE with somewhat dark erythema, 1+ edema througout with mild intermittent yellow plaquing. S/p remote amputations R foot.) OBJECTIVE DATA Vital Signs: Vital Signs - 24 hr Temp Pulse Resp BP Pulse Ox 02/17/19 11:58 97.8 F 70 18 95/54 100 02/17/19 10:56 84 18 99 02/17/19 08:00 19 02/17/19 07:36 98.1 F 59 L 19 104/55 98 02/17/19 07:33 61 18 97 02/17/19 04:00 97.0 F 65 17 124/58 98 02/17/19 01:55 16 02/17/19 00:00 96.5 F 84 16 136/69 98 02/16/19 20:00 98.3 F 72 23 101/53 96 02/16/19 19:54 72 23 96 02/16/19 16:00 97.8 F 66 18 112/52 98 02/16/19 14:59 66 18 98 Oxygen-Last 24 hours O2 Percentage 3 Liters = 32% O2 Percentage 3 Liters = 32% O2 Percentage 3 Liters = 32% O2 Percentage 3 Liters = 32% O2 Percentage 3 Liters = 32% Pain Assessment - Last Documented Pain Intensity 2 Pain Scale Used FLACC Intake and Output: Intake & Output 02/15/19 02/16/19 02/17/19 02/18/19 11:59 11:59 11:59 11:59 Intake Total 600 2100 2083 Output Total 1200 2100 3600 Balance -600 0 -1517 Weight 138.6 kg 138.6 kg 141.3 kg Radiology Exams: Radiology Procedures Category Date Time Status CHEST 1 VIEW (PORTABLE) Stat Exams 02/16/19 05:58 Completed HEAD WITHOUT CONTRAST [CT] Stat Exams 02/16/19 05:56 Completed Assessment/Plan (1) Pneumonia Current Visit: Yes Status: Acute Qualifiers: Pneumonia type: due to Pseudomonas Laterality: bilateral Lung location: lower lobe of lung Qualified Code(s): J15.1 - Pneumonia due to Pseudomonas Assessment & Plan: He said he is getting sputum up. Pseudomonas - On Zosyn and aztreonam day #6. Code(s): J18.9 - PNEUMONIA, UNSPECIFIED ORGANISM (2) CHF (congestive heart failure) Current Visit: Yes Status: Chronic Qualifiers: Heart failure type: unspecified Heart failure chronicity: unspecified Qualified Code(s): I50.9 - Heart failure, unspecified Code(s): I50.9 - HEART FAILURE, UNSPECIFIED (3) COPD (chronic obstructive pulmonary disease) Current Visit: Yes Status: Chronic Qualifiers: COPD type: unspecified COPD Qualified Code(s): J44.9 - Chronic obstructive pulmonary disease, unspecified (4) UTI (urinary tract infection) Current Visit: Yes Status: Acute Qualifiers: Urinary tract infection type: acute cystitis Hematuria presence: without hematuria Qualified Code(s): N30.00 - Acute cystitis without hematuria Assessment & Plan: pseudomonas. Code(s): N39.0 - URINARY TRACT INFECTION, SITE NOT SPECIFIED (5) Atrial fibrillation Current Visit: No Status: Chronic Code(s): I48.91 - UNSPECIFIED ATRIAL FIBRILLATION (6) Cellulitis Current Visit: No Status: Acute Qualifiers: Site of cellulitis: extremity Laterality: unspecified laterality Assessment & Plan: Really looks like chronic changes to me at this point. Code(s): L03.90 - CELLULITIS, UNSPECIFIED (7) Hyperkalemia Current Visit: No Status: Resolved Code(s): E87.5 - HYPERKALEMIA (8) Leukocytosis Current Visit: Yes Status: Resolved Qualifiers: Leukocytosis type: unspecified Qualified Code(s): D72.829 - Elevated white blood cell count, unspecified Assessment & Plan: recheck labs in morning. Code(s): D72.829 - ELEVATED WHITE BLOOD CELL COUNT, UNSPECIFIED (9) Altered mental status Current Visit: No Status: Resolved Qualifiers: Altered mental status type: unspecified Qualified Code(s): R41.82 - Altered mental status, unspecified Assessment & Plan: Unsure if percocet contributed. He didn't have any percocet overnight apparently and has been oriented throughout. Code(s): R41.82 - ALTERED MENTAL STATUS, UNSPECIFIED (10) Peripheral neuropathy Current Visit: Yes Status: Acute Qualifiers: Peripheral neuropathy type: polyneuropathy, unspecified Qualified Code(s): G62.9 - Polyneuropathy, unspecified Assessment & Plan: I have reinstated his percocet. Code(s): G62.9 - POLYNEUROPATHY, UNSPECIFIED
[2019-02-17] MEDS: PERCOCET TABLET 5/325MG PO PRN ×3 (12:31→21:15)
[2019-02-17] MEDS: Colace 100 MG PO PRN (16:09)
[2019-02-17] MEDS: ELAVIL 25 MG PO SCH (21:14)
[2019-02-18] MEDS: Zosyn 3.375GM/100 Ml D5W 3.375 GM/100 ML IVPB IV SCH ×2 (00:07→06:04)
[2019-02-18] MEDS: PERCOCET TABLET 5/325MG PO PRN ×2 (01:04→09:58)
[2019-02-18] MEDS: D5W MINI IV SCH (05:27)
[2019-02-18] MEDS: AZACTAM IV SCH (05:27)
[2019-02-18 06:05] LABS: Hematocrit 33.3 % (42-50); Hemoglobin 9.4 gm/dl (12.5-18.0); Mean Cell Volume 85.6 fl (78-100); Mean Corpuscular Hgb Concent. 28.2 g/dl (32-36); Platelet Count 128 K/mm3 (150-450); Red Blood Count 3.89 M/mm3 (4.1-5.6); Red Cell Distribution Width 25.9 % (11.5-14.0); White Blood Count 7.2 K/mm3 (4.0-10.5)
[2019-02-18 06:15] LABS: Mean Corpuscular Hemoglobin 24.1 pg (26-32)
[2019-02-18 06:40] LABS: ANISOCYTOSIS 1+; BAND 3 % (0.0-2.0); Eosinophil 3 % (0.00-3.0); Hypochromia 1+; Lymphocytes 13 % (24-44); Monocyte 7 % (0.0-12.0); Neutrophils 74 % (36.-66.); Poikilocytosis 1+; Polychromasia 1+; Total Cells Counted 100
[2019-02-18 06:42] LABS: BLOOD UREA NITROGEN 13 mg/dL (9-20); CHLORIDE 85 mmol/L (98-107); Calcium 8.9 mg/dL (8.4-10.2); Glucose 93 mg/dL (74-106); Platelet Estimate NORMAL (NORMAL); SODIUM 135 mmol/L (137-145)
[2019-02-18 07:03] LABS: ANION GAP 13.1 MEQ/L (5-15); Carbon Dioxide 41 mmol/L (22-30)
[2019-02-18] MEDS: PROVENTIL 2.5 MG/3 ML NEB IH SCH (07:08)
[2019-02-18] MEDS: Advair Hfa 115/21 Common canister IH SCH (07:09)
--- NOTE | 2019-02-18 08:07 | PCM.DS ---
Discharge Summary Date of Admission: 02/13/19 09:06 Admitting Physician: EMILY PARADA Primary Care Provider: KOREY Allergies Allergies pregabalin [From Lyrica] Allergy (Verified 12/03/18 13:27) zinc Allergy (Verified 12/03/18 13:27) Blisters moxifloxacin HCl [From Avelox] Adverse Reaction (Mild, Verified 12/03/18 13:27) vancomycin Adverse Reaction (Verified 12/03/18 13:27) Elevated Levels / Increased CRCL patient had significant increase in Serum CR and decreased creatinine clearence. [facility] Summary - Hospital Course Hospital Course: patient was admitted with pneumonia, he is a resident at [facility]. he has multiple medical problems including chronic lymphedema and chf. he was recently released from [facility] to [facility] and became ill and hypoxemic, was treated for pneumonia. found to have uti with pseudomonas and also grew it in his sputum culture. has been on zosyn/azactam due to allergies etc for 7 days now. he has normal wbc, sats are stable on 2-3L NC which is his baseline and he is tolerating po and afebrile. felt to be ready to discharge back to [facility] today. - Vitals & Intake/Output Vital Signs: Vital Signs Temperature 97.4 F 02/18/19 07:47 Pulse Rate 57 L 02/18/19 07:47 Respiratory Rate 19 02/18/19 07:47 Blood Pressure 117/65 02/18/19 07:47 O2 Sat by Pulse Oximetry 97 02/18/19 07:47 Oxygen-Last Documented O2 Percentage 3 Liters = 32% Intake & Output: Intake & Output 02/15/19 02/16/19 02/17/19 02/18/19 11:59 11:59 11:59 11:59 Intake Total 600 2100 2083 2311 Output Total 1200 2100 3600 3000 Balance -600 0 -2569 -190 Weight 138.6 kg 138.6 kg 141.3 kg 143.3 kg - Lab Result Diagrams: 02/18/19 05:30 02/18/19 05:30 Lab Results-Last 24 Hrs: Lab Results-Last 24 Hours 02/18/19 02/18/19 Range/Units 05:30 05:30 WBC 7.2 (4.0-10.5) K/mm3 RBC 3.89 L (4.1-5.6) M/mm3 Hgb 9.4 L (12.5-18.0) gm/dl Hct 33.3 L (42-50) % MCV 85.6 (78-100) fl MCH 24.1 L (26-32) pg MCHC 28.2 L (32-36) g/dl RDW 25.9 H (11.5-14.0) % Plt Count 128 L (150-450) K/mm3 Segmented Neutrophils 74 H (36.-66.) % Band Neutrophils 3 H (0.0-2.0) % Lymphocytes (Manual) 13 L (24-44) % Monocytes (Manual) 7 (0.0-12.0) % Eosinophils (Manual) 3 (0.00-3.0) % Hypochromia 1+ Platelet Estimate NORMAL (NORMAL) RBC Morphology ABNORMAL Polychromasia 1+ Poikilocytosis 1+ Anisocytosis 1+ Sodium 135 L (137-145) mmol/L Potassium 4.0 (3.5-5.1) mmol/L Chloride 85 L (98-107) mmol/L Carbon Dioxide 41 H (22-30) mmol/L Anion Gap 13.1 (5-15) MEQ/L BUN 13 (9-20) mg/dL Creatinine 0.60 L (0.66-1.25) mg/dL Estimated GFR > 60.0 ML/MIN Glucose 93 (74-106) mg/dL Calcium 8.9 (8.4-10.2) mg/dL Micro Results-Entire Visit: Microbiology 02/11/19 08:35 Blood Culture Gram Stain - Final Blood Not Reportable Blood Culture - Final NO GROWTH 02/11/19 08:45 Blood Culture Gram Stain - Final Blood Not Reportable Blood Culture - Final NO GROWTH 02/12/19 10:00 Gram Stain - Final Sputum - Expectorant Sputum Culture - Final Pseudomonas Aeruginosa 02/11/19 08:56 Urine Culture - Final Urine, Catheterized Pseudomonas Aeruginosa 02/11/19 11:30 Urine Culture - Final Catherized Pseudomonas Aeruginosa - Procedures and Test Procedures and Tests throughout Hospitalization: Therapy Orders & Screens 02/11/19 10:38 Oxygen Oxymizer LPM 4% Comment: Respiratory Therapy Consult ROUTINE Comment: Reason For Exam: 02/11/19 11:02 Respiratory Therapy Assessment DAILY Comment: 02/11/19 11:30 OT Screen per Nursing Assess Comment: Protocol Order Physician Instructions: Greater than 3 points order OT Admission Screening Reason For Exam: Triggered on Admission Diagnosis: pneumonia Open Wound/Cellutlitis/Pressure Ulcers: Yes Acute Fx/ORIF/Change in wt bearing status: No Severe MUSCULOSKELETAL pain: No ADL Dysfunction: No Acute CVA w/Hemiparesis/Hemiplegia: No Decreased Functional Mobility/Strength: Yes Sprain/Strain: No Acute Post-op Mobility Dysfunction: No Total Points: 6 PT Screen per Nursing Assess ONCE Comment: Protocol Order Physician Instructions: Greater than 3 points order PT Admission Screenin Reason For Exam: Triggered on Admission Diagnosis: pneumonia Open Wound/Cellutlitis/Pressure Ulcers: Yes Acute Fx/ORIF/Change in wt bearing status: No Severe MUSCULOSKELETAL pain: No ADL Dysfunction: No Acute CVA w/Hemiparesis/Hemiplegia: No Decreased Functional Mobility/Strength: Yes Sprain/Strain: No Acute Post-op Mobility Dysfunction: No Total Points: 6 RT Screen per Nursing Assess ONCE Comment: Protocol Order Physician Instructions: Greater than 3 points order RT Admission Screen Reason For Exam: Triggered on Admission Diagnosis: pneumonia Diagnosis: pneumonia Pneumonia: Yes Home O2: Yes Asthma: No CHF: No Home CPAP/BIPAP: No Home Nebs/MDI: No Total Points: 8 ST Screen per Nursing Assess Comment: Protocol Order Physician Instructions: Greater than [address] Admission Screening Reason For Exam: Triggered on Admission Diagnosis: pneumonia CVA/Dyshpagia/Aphasia: No Cognitive Deficits: No Dehydration/Nutrition Deficit: No Reflux: No Oral-Motor Difficulties: No Pneumonia: Yes Half-Way Resident: Yes Total Points: 10 02/12/19 07:00 Peak Expiratory Flow Rate DAILY Comment: Reason For Exam: Diagnosis: pneumonia 02/12/19 11:52 Flutter Therapy UD Comment: Diagnosis: pneumonia 02/16/19 05:53 EKG STAT Comment: Diagnosis: pneumonia Discharge Exam General Appearance: no apparent distress, obese Neurologic Exam: alert, oriented x 3 Skin Exam: normal color, warm, dry Respiratory Exam: normal breath sounds, lungs clear, No respiratory distress Cardiovascular Exam: regular rate/rhythm, normal heart sounds Gastrointestinal/Abdomen Exam: soft, No tenderness, No mass Extremity Exam: other (chronic venous stasis/lymphedema changes present) Final Diagnosis/Problem List - Final Discharge Diagnosis/Problem (1) Pneumonia Current Visit: Yes Status: Acute Code(s): J18.9 - PNEUMONIA, UNSPECIFIED ORGANISM (2) CHF (congestive heart failure) Current Visit: Yes Status: Chronic Code(s): I50.9 - HEART FAILURE, UNSPECIFIED (3) UTI (urinary tract infection) Current Visit: Yes Status: Acute Code(s): N39.0 - URINARY TRACT INFECTION, SITE NOT SPECIFIED (4) Lymphedema Current Visit: No Status: Acute Code(s): I89.0 - LYMPHEDEMA, NOT ELSEWHERE CLASSIFIED - Discharge Disposition: Skilled Care @ [facility] Condition: Good Prescriptions: Continue Magnesium Oxide 400 mg [Mag-Ox 400] 400 mg PO BID Omeprazole 20 MG [Prilosec 20 mg] 1 tab PO DAILY Metoprolol Succinate 25 mg Xl* [Toprol-Xl 25MG Tablets] 25 mg PO BID Potassium Chloride 20 meq PO QID Atorvastatin Calcium [Lipitor 40Mg] 40 mg PO HS Famotidine [Pepcid] 40 mg PO DAILY Spironolactone 25 mg [Aldactone 25 MG] 25 mg PO DAILY Colchicine [Colcrys] 0.6 mg PO BID Gabapentin [Neurontin] 800 mg PO QID Bumetanide [Bumex] 2 mg PO BID Oxycodone HCl/Acetaminophen [Oxycodon-Acetaminophen 7.5-325] 1 each PO Q4H PRN PRN PRN Reason: Moderate To Severe Pain Apixaban [Eliquis] 5 mg PO BID Amitriptyline HCl 25 mg PO HS Ergocalciferol (Vitamin D2) [Drisdol] 50,000 unit PO UD Levothyroxine Sodium [Synthroid] 50 mcg PO DAILY Follow up with: RADHA KRISHNAN [Primary Care Provider] - 1 Week
[2019-02-18] MEDS: MARY'S MOUTHWASH PO SCH (08:21)
[2019-02-18] MEDS: SYNTHROID 50 MCG PO SCH (09:53)
[2019-02-18] MEDS: Aldactone 25 MG PO SCH (09:53)
[2019-02-18] MEDS: BUMEX 1 MG IV SCH (09:53)
[2019-02-18] MEDS: Toprol-Xl 25MG Tablets PO SCH (09:53)
[2019-02-18] MEDS: Protonix 40MG Tablet PO SCH (09:53)
[2019-02-18] MEDS: ELIQUIS 2.5 MG TABLET PO SCH (09:53)
[2019-02-18] MEDS: Pepcid 20 MG PO SCH (09:53)
[2019-02-18] MEDS: MAG-OX 400 PO SCH (09:53)
[2019-02-18 12:09] VITALS: BP 116/68; PULSE 60; O2SAT 96
== END 2019-02-18 11:45 | DRG 194 ==
LOC: ED 08:15 → MED SURG 10:14 → OBSVTOIN 02-13 09:06
PROVIDERS: ADMIT Family Medicine; ATTEND Family Medicine
DX: J18.9 Pneumonia, unspecified organism (principal); L03.116 Cellulitis of left lower limb; L03.115 Cellulitis of right lower limb; N39.0 Urinary tract infection, site not specified; J44.9 Chronic obstructive pulmonary disease, unspecified; I50.9 Heart failure, unspecified; B96.5 Pseudomonas (aeruginosa) (mallei) (pseudomallei) as the cause of diseases classified elsewhere; I89.0 Lymphedema, not elsewhere classified; Z79.899 Other long term (current) drug therapy; E87.5 Hyperkalemia; D72.829 Elevated white blood cell count, unspecified; R41.82 Altered mental status, unspecified; I48.91 Unspecified atrial fibrillation; G62.9 Polyneuropathy, unspecified; Z79.01 Long term (current) use of anticoagulants
CPT/HCPCS: 36000; 36415; 36600; 70450; 71045; 80048; 80053; 81001; 82140; 82375; 82803; 82805; 83605; 83735; 83880; 84484; 85025; 85027; 85379; 85610; 85730; 87040; 87070; 87077; 87086; 87186; 87631; 87651; 93005; 93041; 93268; 94150; 94640; 94668; 94762; 96365; 96374; 99285; G0378; 94667; 94760; J0456; J0696; J2543; J2930; J7609; A9270-GY

== ENCOUNTER 2019-03-06 09:15 | Inpatient (IN) | payer MEDICARE ==
--- NOTE | 2019-03-06 09:21 | ERPHSYRPT ---
- History of Present Illness Time Seen by Provider: 03/06/19 09:21 Source: patient, family Exam Limitations: no limitations Physician History: 63 y/o morbidly obese white male resident of [facility], pt of Dr. Gomez and Dr. Barbosa, with h/o a fib on Eliquis, copd, morbid obesity, htn and chf presents with increasing soa. began this am. pt was brought into ED by ems. pt arrives improved per his report after nebulizer tx. Timing/Duration: today Activities at Onset: none Severity of Dyspnea-Max: moderate Severity of Dyspnea-Current: mild Possible Cause: frequent episodes Modifying Factors: Improves With: albuterol nebulizer (imporved) Associated Symptoms: cough, ankle swelling, leg swelling, No chest pain/ discomfort, No wheezing, No hemoptysis, No painful breathing Allergies/Adverse Reactions: pregabalin [From Lyrica] Allergy (Verified 12/03/18 13:27) zinc Allergy (Verified 12/03/18 13:27) Blisters moxifloxacin HCl [From Avelox] Adverse Reaction (Mild, Verified 12/03/18 13:27) vancomycin Adverse Reaction (Verified 12/03/18 13:27) Elevated Levels / Increased CRCL patient had significant increase in Serum CR and decreased creatinine clearence. [place] Closely Home Medications: Magnesium Oxide 400 mg [Mag-Ox 400] 400 mg PO BID 01/02/15 [History] Metoprolol Succinate 25 mg Xl* [Toprol-Xl 25MG Tablets] 25 mg PO BID [History] Omeprazole 20 MG [Prilosec 20 mg] 1 tab PO DAILY 11/30/15 [History] Atorvastatin Calcium [Lipitor 40Mg] 40 mg PO HS 04/08/16 [History] Potassium Chloride 20 meq PO QID 04/08/16 [History] Bumetanide [Bumex] 2 mg PO BID 01/19/17 [History] Colchicine [Colcrys] 0.6 mg PO BID 01/19/17 [History] Famotidine [Pepcid] 40 mg PO DAILY 01/19/17 [History] Gabapentin [Neurontin] 800 mg PO QID 01/19/17 [History] Spironolactone 25 mg [Aldactone 25 MG] 25 mg PO DAILY 01/19/17 [History] Oxycodone HCl/Acetaminophen [Oxycodon-Acetaminophen 7.5-325] 1 each PO Q4H PRN PRN 02/05/18 [History] Amitriptyline HCl 25 mg PO HS 11/23/18 [History] Apixaban [Eliquis] 5 mg PO BID 11/23/18 [History] Ergocalciferol (Vitamin D2) [Drisdol] 50,000 unit PO UD 02/11/19 [History] Levothyroxine Sodium [Synthroid] 50 mcg PO DAILY 02/11/19 [History] Hx Tetanus, Diphtheria Vaccination/Date Given: Yes Hx Influenza Vaccination/Date Given: Yes Hx Pneumococcal Vaccination/Date Given: Yes - Review of Systems Constitutional: No Symptoms Eyes: No Symptoms Ears, Nose, & Throat: No Symptoms Respiratory: Cough, Dyspnea Cardiac: No Symptoms Abdominal/Gastrointestinal: No Symptoms Genitourinary Symptoms: No Symptoms Musculoskeletal: No Symptoms Skin: No Symptoms Neurological: No Symptoms Psychological: No Symptoms Endocrine: No Symptoms Hematologic/Lymphatic: No Symptoms Immunological/Allergic: No Symptoms All Other Systems: Reviewed and Negative - Past Medical History Pertinent Past Medical History: Yes Neurological History: Peripheral Neuropathy ENT History: No Pertinent History Cardiac History: Arrhythmia, Congenital Heart Disease, Congestive Heart Failure , Hypertension Respiratory History: COPD, Pneumonia, Tuberculosis, Other Endocrine Medical History: Liver Disease Musculoskeletal History: Arthritis GI Medical History: GERD History: Renal Disease Psycho-Social History: Depression Male Reproductive Disorders: No Pertinent History Other Medical History: Partial R lung removal. Afib. - Past Surgical History Past Surgical History: Yes Neuro Surgical History: No Pertinent History Cardiac: No Pertinent History Respiratory: Lobectomy Gastrointestinal: No Pertinent History Genitourinary: No Pertinent History Musculoskeletal: No Pertinent History Male Surgical History: Vasectomy Other Surgical History: RIGHT UPPER LOBECTOMY, leg vein cautery with skin graft - Social History Smoking Status: Former smoker How long have you smoked: 38 yrs Exposure to second hand smoke: Yes Drug Use: none Patient Lives Alone: No - Nursing Vital Signs Nursing Vital Signs: Initial Vital Signs Temperature 98.7 F 03/06/19 09:21 Pulse Rate 83 03/06/19 09:21 Respiratory Rate 22 03/06/19 09:21 Blood Pressure 132/67 03/06/19 09:21 O2 Sat by Pulse Oximetry 93 L 03/06/19 09:21 Pain Scale Pain Intensity 0 - Physical Exam General Appearance: mild distress, alert, anxiety Eye Exam: PERRL/EOMI, eyes nml inspection Ears, Nose, Throat Exam: hearing grossly normal, normal ENT inspection Neck Exam: normal inspection, non-tender, supple, full range of motion Respiratory Exam: respiratory distress (mild), crackles/rales, rhonchi, No chest tenderness Cardiovascular/Chest Exam: irregular Abdominal/Gastrointestinal Exam: soft, normal bowel sounds, No tenderness Rectal Exam: not done Extremity Exam: non-tender, normal range of motion, normal inspection Neurologic Exam: alert, oriented x 3, cooperative, citizenship instructor II-XII nml as tested, normal mood/affect Skin Exam: other (bilat lower ext lymphedema) Lymphatic Exam: No adenopathy SpO2 Interpretation: normal O2 Delivery: Nasal Cannula - Course Nursing assessment & vital signs reviewed: Yes EKG Interpreted by Me: RATE (79), A-fib, Left [place] Deviation, NORMAL QRS, Other (possible left ant fascicular block is new compared to ekg dated 02/16/19) Ordered Tests: Active Orders 24 hr Category Date Time Status Foundry Tender STAT Care 03/06/19 09:42 Active Discontinue Nielsen Cath STAT Care 03/06/19 11:09 Active EKG-ER Only STAT Care 03/06/19 09:41 Active Nielsen [Catheter-[place] Nielsen] STAT Care 03/06/19 11:09 Active IV Insertion STAT Care 03/06/19 09:41 Active Pulse Oximetry (ED) STAT Care 03/06/19 09:41 Active CHEST 1 VIEW (PORTABLE) Stat Exams 03/06/19 10:04 Completed ARTERIAL BLOOD GASES Stat Lab 03/06/19 09:43 Completed CBC W DIFF Stat Lab 03/06/19 10:04 Completed CMP Stat Lab 03/06/19 10:04 Completed NT PRO BNP Stat Lab 03/06/19 10:04 Completed TROPONIN Q3H Lab 03/06/19 10:04 Completed TROPONIN Q3H Lab 03/06/19 12:45 Ordered TROPONIN Q3H Lab 03/06/19 15:45 Ordered TROPONIN Q3H Lab 03/06/19 18:45 Ordered TROPONIN Q3H Lab 03/06/19 21:45 Ordered Transfer Order Routine Transfer 05/15/19 Ordered Medication Summary Discontinued Medications Generic Name Dose Route Start Last Admin Trade Name Christy PRN Reason Stop Dose Admin Furosemide 40 mg 03/06/19 10:54 03/06/19 11:00 Lasix 40 Mg/4 Ml IV 03/06/19 10:55 40 mg STAT ONE Administration Furosemide Confirm 03/06/19 10:59 Lasix 40 Mg/4 Ml Administered 03/06/19 11:00 Dose 40 mg .ROUTE .STK-MED ONE Lab/Rad Data: Laboratory Result Diagrams 03/06/19 10:04 03/06/19 10:04 Laboratory Results 03/06/19 03/06/19 03/06/19 Range/Units 10:04 10:04 10:04 WBC 5.0 (4.0-10.5) K/mm3 RBC 3.77 L (4.1-5.6) M/mm3 Hgb 9.4 L (12.5-18.0) gm/dl Hct 32.7 L (42-50) % MCV 86.7 (78-100) fl MCH 24.9 L (26-32) pg MCHC 28.7 L (32-36) g/dl RDW 25.2 H (11.5-14.0) % Plt Count 123 L (150-450) K/mm3 Gran % 55.7 (36.0-66.0) % Eos # (Auto) 0.10 (0-0.5) Absolute Lymphs (auto) 0.77 L (1.0-4.6) Absolute Monos (auto) 1.30 (0.0-1.3) Lymphocytes % 15.5 L (24.0-44.0) % Monocytes % 26.2 H (0.0-12.0) % Eosinophils % 2.0 (0.00-5.0) % Basophils % 0.6 (0.0-0.4) % Absolute Granulocytes 2.76 (1.4-6.9) Basophils # 0.03 (0-0.4) Puncture Site pCO2 (35-45) mmHg pO2 (75-100) mmHg Base Excess (-2.0-2.0) O2 Saturation (94-100) g/dF ABG pH (7.35-7.45) ABG HCO3 (22-28) ABG O2 Sat (Measured) (95-100) % Jonathan Test A-a Gradient a/A Ratio Hemoglobin Carboxyhemoglobin (0.0-6.9) % THgb Methemoglobin (1.4-1.5) % Potassium 4.0 (3.5-5.1) Temperature C POC O2 Flow Rate % Sodium 138 (137-145) mmol/L Chloride 90 L (98-107) mmol/L Carbon Dioxide 37 H (22-30) mmol/L Anion Gap 15.4 H (5-15) MEQ/L BUN 8 L (9-20) mg/dL Creatinine 0.48 L (0.66-1.25) mg/dL Estimated GFR > 60.0 ML/MIN Glucose 133 H (74-106) mg/dL Calcium 8.4 (8.4-10.2) mg/dL Total Bilirubin 1.40 H (0.2-1.3) mg/dL AST 35 (17-59) U/L ALT 16 (0-50) U/L Alkaline Phosphatase 233 H (38-126) U/L Troponin I < 0.012 (0.000-0.034) ng/mL NT-Pro-B Natriuret Pep 2390 H (0-900) pg/mL Serum Total Protein 6.8 (6.3-8.2) g/dL Albumin 3.3 L (3.5-5.0) g/dL 03/06/19 Range/Units 09:43 WBC (4.0-10.5) K/mm3 RBC (4.1-5.6) M/mm3 Hgb (12.5-18.0) gm/dl Hct (42-50) % MCV (78-100) fl MCH (26-32) pg MCHC (32-36) g/dl RDW (11.5-14.0) % Plt Count (150-450) K/mm3 Gran % (36.0-66.0) % Eos # (Auto) (0-0.5) Absolute Lymphs (auto) (1.0-4.6) Absolute Monos (auto) (0.0-1.3) Lymphocytes % (24.0-44.0) % Monocytes % (0.0-12.0) % Eosinophils % (0.00-5.0) % Basophils % (0.0-0.4) % Absolute Granulocytes (1.4-6.9) Basophils # (0-0.4) Puncture Site LEFT RADIAL pCO2 75 H* (35-45) mmHg pO2 71 L (75-100) mmHg Base Excess 17.5 H (-2.0-2.0) O2 Saturation 92.8 L (94-100) g/dF ABG pH 7.39 (7.35-7.45) ABG HCO3 45.4 H* (22-28) ABG O2 Sat (Measured) 96.2 (95-100) % Jonathan Test YES A-a Gradient -15 a/A Ratio 1.27 Hemoglobin 10.2 Carboxyhemoglobin 2.4 (0.0-6.9) % THgb Methemoglobin 1.2 L (1.4-1.5) % Potassium 3.6 (3.5-5.1) Temperature 37.0 C POC O2 Flow Rate 21 % Sodium (137-145) mmol/L Chloride (98-107) mmol/L Carbon Dioxide (22-30) mmol/L Anion Gap (5-15) MEQ/L BUN (9-20) mg/dL Creatinine (0.66-1.25) mg/dL Estimated GFR ML/MIN Glucose (74-106) mg/dL Calcium (8.4-10.2) mg/dL Total Bilirubin (0.2-1.3) mg/dL AST (17-59) U/L ALT (0-50) U/L Alkaline Phosphatase (38-126) U/L Troponin I (0.000-0.034) ng/mL NT-Pro-B Natriuret Pep (0-900) pg/mL Serum Total Protein (6.3-8.2) g/dL Albumin (3.5-5.0) g/dL - Progress Progress: improved, re-examined Air Movement: fair Progress Note: 03/06/19 10:55 cxr-nonacute chest with chronic features. no infiltrate. 03/06/19 11:[address] rios. i reviewed pt hx, condition, lab, ekg and xray results with him. he accepts pt for observation 03/06/19 11:19 it was recommended pt be placed on bipap. both respiratory and myself reviewed with pt the benefits of this tx modality in his condition. pt however, refuses. he had a bad experience at [facility]. Blood Culture(s) Obtained: No Antibiotics given: No Discussed with : Miquel Counseled pt/family regarding: lab results, diagnosis, need for follow-up - Departure Departure Disposition: Observation Clinical Impression: CHF (congestive heart failure), Hypercarbia, Hypoxia Condition: Fair Critical Care Time: Yes Critical Care Time(excluding separately billable procedures): 30-74 minutes Referrals: RADHA KRISHNAN [Primary Care Provider] - Instructions: Heart Failure
[2019-03-06 10:11] LABS: BASOPHIL % 0.6 % (0.0-0.4); Basophil (Absolute #) 0.03 (0-0.4); Granulocyte Absolute (ANC) 2.76 (1.4-6.9); Granulocytes % 55.7 % (36.0-66.0); Hematocrit 32.7 % (42-50); Hemoglobin 9.4 gm/dl (12.5-18.0); Lymphocyte (Absolute #) 0.77 (1.0-4.6); Lymphocytes % 15.5 % (24.0-44.0); Mean Cell Volume 86.7 fl (78-100); Mean Corpuscular Hemoglobin 24.9 pg (26-32); Mean Corpuscular Hgb Concent. 28.7 g/dl (32-36); Monocytes % 26.2 % (0.0-12.0); Platelet Count 123 K/mm3 (150-450); Red Blood Count 3.77 M/mm3 (4.1-5.6); Red Cell Distribution Width 25.2 % (11.5-14.0)
--- NOTE | 2019-03-06 10:16 | XRAY ---
Indication: Short of breath. Cough. Comparison: February 16, 2019. Portable chest better inflated again with chronic interstitial lung markings and a few incidental calcified granulomas. No focal infiltrate, consolidation, or large effusion. Heart borderline enlarged. Bony thorax intact again with mild osteopenia and degenerative changes. Impression: Nonacute chest with chronic features.
[2019-03-06 10:25] LABS: A-aADO2 -15; ABG HEMOGLOBIN 10.2; ABG POTASSIUM 3.6 (3.5-5.1); ARTERIAL BLD GAS O2 SATURATION 96.2 % (95-100); ARTERIAL BLOOD GAS BASE EXCESS 17.5 (-2.0-2.0); ARTERIAL BLOOD GAS FIO2 21 %; ARTERIAL BLOOD GAS PO2 71 mmHg (75-100); ARTERIAL BLOOD GAS pH 7.39 (7.35-7.45); CARBOXYHEMOGLOBIN 2.4 % THgb (0.0-6.9); HCO3- 45.4 (22-28); HGB O2 SAT 92.8 g/dF (94-100); Methhemoglobin 1.2 % (1.4-1.5); paO2 pAO1 1.27
[2019-03-06 10:26] LABS: ABG SITE LEFT RADIAL; ALLEN TEST OK? YES; ARTERIAL BLOOD GAS PCO2 75 mmHg (35-45)
[2019-03-06 10:35] LABS: ALBUMIN 3.3 g/dL (3.5-5.0); ALKALINE PHOSPHATASE 233 U/L (38-126); BLOOD UREA NITROGEN 8 mg/dL (9-20); CHLORIDE 90 mmol/L (98-107); Calcium 8.4 mg/dL (8.4-10.2); Creatinine 1 0.48 mg/dL (0.66-1.25); Glucose 133 mg/dL (74-106); NT PRO BNP 2390 pg/mL (0-900); SGOT/AST 35 U/L (17-59); SGPT/ALT 16 U/L (0-50); SODIUM 138 mmol/L (137-145); Total Protein 6.8 g/dL (6.3-8.2)
[2019-03-06 10:45] LABS: Carbon Dioxide 37 mmol/L (22-30)
[2019-03-06 10:46] LABS: ANION GAP 15.4 MEQ/L (5-15)
[2019-03-06] MEDS ORDERED: Lasix 40 MG/4 ML IV ONE (10:54)
[2019-03-06] MEDS ORDERED: Lasix 40 MG/4 ML ONE (10:59)
[2019-03-06] MEDS ORDERED: Zofran 4 MG/2 ML VIAL IV PRN (12:17)
[2019-03-06] MEDS ORDERED: TYLENOL 325 MG PO PRN (12:17)
[2019-03-06 12:18] LABS: Slide Review 1 YES
[2019-03-06] MEDS ORDERED: Lasix 40 MG/4 ML IV SCH (14:00)
[2019-03-06] MEDS: PROVENTIL 2.5 MG/3 ML NEB IH SCH ×2 (14:21→19:32)
[2019-03-06] MEDS ORDERED: DUONEB 0.5-3 MG/3 ml Neb IH PRN (14:27)
[2019-03-06] MEDS ORDERED: PERCOCET TABLET 5/325MG PO PRN (15:49)
[2019-03-06] MEDS ORDERED: MEDICATION INTERVENTION PO SCH (17:30)
[2019-03-06] MEDS: Neurontin 400 MG PO SCH ×2 (17:45→21:41)
[2019-03-06] MEDS: Klor Con 10 MEQ PO SCH ×2 (17:45→21:42)
[2019-03-06] MEDS: PERCOCET TABLET 5/325MG PO PRN ×2 (17:46→21:37)
[2019-03-06] MEDS ORDERED: BUMEX 1 MG PO SCH (19:00)
[2019-03-06] MEDS: Advair Hfa 115/21 Common canister IH SCH (19:32)
[2019-03-06] MEDS: ELAVIL 25 MG PO SCH (21:39)
[2019-03-06] MEDS: MAG-OX 400 PO SCH (21:39)
[2019-03-06] MEDS: ELIQUIS 2.5 MG TABLET PO SCH (21:41)
[2019-03-06] MEDS: Toprol-Xl 25MG Tablets PO SCH (21:41)
[2019-03-06] MEDS: ZOCOR 20MG PO SCH (21:43)
[2019-03-06] MEDS: Pepcid 20 MG PO SCH (21:48)
[2019-03-06] MEDS ORDERED: NON-FORMULARY ITEM (Bumetanide [Bumex] 2 MG) PO SCH (22:00)
[2019-03-06] MEDS ORDERED: NON-FORMULARY ITEM (Gabapentin [Neurontin] 800 MG) PO SCH (22:00)
[2019-03-06] MEDS ORDERED: NON-FORMULARY ITEM (Famotidine [Pepcid] 40 MG) PO SCH (22:00)
[2019-03-06] MEDS ORDERED: COLCHICINE 0.6 MG PO SCH (22:00)
[2019-03-06] MEDS ORDERED: ATORVASTATIN CALCIUM 40 MG PO SCH (22:00)
[2019-03-06] MEDS ORDERED: NON-FORMULARY ITEM (Potassium Chloride [Potassium Chloride] 20 MEQ) PO SCH (22:00)
[2019-03-06] MEDS ORDERED: NON-FORMULARY ITEM (Apixaban [Eliquis] 5 MG) PO SCH (22:00)
[2019-03-07] MEDS: PERCOCET TABLET 5/325MG PO PRN ×4 (03:00→20:40)
[2019-03-07 05:28] LABS: ALBUMIN 3.4 g/dL (3.5-5.0); ALKALINE PHOSPHATASE 209 U/L (38-126); BLOOD UREA NITROGEN 11 mg/dL (9-20); CHLORIDE 87 mmol/L (98-107); Calcium 8.5 mg/dL (8.4-10.2); Creatinine 1 0.49 mg/dL (0.66-1.25); Glucose 173 mg/dL (74-106); NT PRO BNP 3290 pg/mL (0-900); SGOT/AST 37 U/L (17-59); SGPT/ALT 19 U/L (0-50); SODIUM 138 mmol/L (137-145); Total Protein 6.8 g/dL (6.3-8.2)
[2019-03-07 05:42] LABS: Carbon Dioxide 40 mmol/L (22-30)
[2019-03-07 05:43] LABS: ANION GAP 95 MEQ/L (5-15)
[2019-03-07] MEDS: PROVENTIL 2.5 MG/3 ML NEB IH SCH ×4 (07:07→17:30)
[2019-03-07] MEDS: Advair Hfa 115/21 Common canister IH SCH ×2 (07:07→17:30)
--- NOTE | 2019-03-07 08:56 | PCM.HP ---
History of Present Illness - Chief Complaint Chief Complaint: Hypercarbia History of Present Illness: is a 63 year old male who was sent for evaluation from [place], apparently his mental status was altered and breathing was labored, he states he sleeps very deeply and is difficult to arouse when sleeping and it scared staff at [facility], he does admit he is more short of breath and has some gurgling respirations. No fever. - Review of Systems Constitutional: No Fever, No Chills Respiratory: Short Of Breath Cardiac: Edema, No Chest Pain Abdominal/Gastrointestinal: No Abdominal Pain, No Nausea, No Vomiting, No Diarrhea Skin: No Rash All Other Systems: Reviewed and Negative Medications & Allergies Home Medications: Home Medication List Magnesium Oxide 400 mg [Mag-Ox 400] 400 mg PO BID 01/02/15 [History Confirmed 03/06/19] Metoprolol Succinate 25 mg Xl* [Toprol-Xl 25MG Tablets] 25 mg PO BID [History Confirmed 03/06/19] Omeprazole 20 MG [Prilosec 20 mg] 1 tab PO DAILY 11/30/15 [History Confirmed ] Atorvastatin Calcium [Lipitor 40Mg] 40 mg PO HS 04/08/16 [History Confirmed ] Potassium Chloride 20 meq PO QID 04/08/16 [History Confirmed 03/06/19] Bumetanide [Bumex] 2 mg PO BID 01/19/17 [History Confirmed 03/06/19] Colchicine [Colcrys] 0.6 mg PO BID 01/19/17 [History Confirmed 03/06/19] Famotidine [Pepcid] 40 mg PO HS 01/19/17 [History Confirmed 03/06/19] Gabapentin [Neurontin] 800 mg PO QID 01/19/17 [History Confirmed 03/06/19] Spironolactone 25 mg [Aldactone 25 MG] 25 mg PO DAILY 01/19/17 [History Confirmed 03/06/19] Oxycodone HCl/Acetaminophen [Oxycodon-Acetaminophen 7.5-325] 1 each PO Q4H PRN PRN 02/05/18 [History Confirmed 03/06/19] Amitriptyline HCl 25 mg PO HS 11/23/18 [History Confirmed 03/06/19] Apixaban [Eliquis] 5 mg PO BID 11/23/18 [History Confirmed 03/06/19] Ergocalciferol (Vitamin D2) [Drisdol] 50,000 unit PO UD 02/11/19 [History Confirmed 03/06/19] Levothyroxine Sodium [Synthroid] 50 mcg PO DAILY 02/11/19 [History Confirmed ] Allergies/Adverse Reactions: Allergies Allergy/AdvReac Type Severity Reaction Status Date / Time pregabalin [From Lyrica] Allergy Verified 12/03/18 13:27 zinc Allergy Blisters Verified 12/03/18 13:27 moxifloxacin HCl AdvReac Mild Verified 12/03/18 13:27 [From Avelox] vancomycin AdvReac Elevated Verified 12/03/18 13:27 Levels / Increased CRCL - Past Medical History Past Medical History: Yes Neurological History: Peripheral Neuropathy ENT History: No Pertinent History Cardiac History: Arrhythmia, Congenital Heart Disease, Congestive Heart Failure , Hypertension Respiratory History: COPD, Pneumonia, Tuberculosis, Other Endocrine Medical History: Liver Disease Musculoskelatal History: Arthritis GI Medical History: GERD History: Renal Disease Pyscho-Social History: Depression Male Reproductive Disorders: No Pertinent History Comment: Partial R lung removal. Afib. - Past Surgical History Past Surgical History: Yes Neuro Surgical History: No Pertinent History Cardiac History: No Pertinent History Respiratory Surgery: Lobectomy GI Surgical History: No Pertinent History Genitourinary Surgical Hx: No Pertinent History Musculskeletal Surgical Hx: No Pertinent History Male Surgical History: Vasectomy Other Surgical History: RIGHT UPPER LOBECTOMY, leg vein cautery with skin graft - Social History Smoking Status: Former smoker How long have you smoked: 38 yrs Exposure to second hand smoke: No Alcohol: None Drug Use: none - Physical Exam Vital Signs: Vital Signs - 24 hr Temp Pulse Resp BP Pulse Ox 03/07/19 08:00 98.1 F 55 L 17 118/61 94 L 03/07/19 07:11 64 18 92 L 03/07/19 04:00 98.2 F 60 20 117/61 95 03/07/19 00:10 98.6 F 61 17 122/59 95 03/06/19 20:00 98.4 F 56 L 16 119/82 93 L 03/06/19 19:39 93 L 03/06/19 19:36 56 L 16 93 L 03/06/19 16:35 98 F 78 20 124/68 94 L 03/06/19 14:27 74 18 95 03/06/19 13:19 98.1 F 72 18 121/66 87 L 03/06/19 12:19 98.1 F 72 18 121/66 92 L 03/06/19 12:18 98.1 F 72 18 121/66 92 L 03/06/19 11:21 80 20 130/58 94 L 03/06/19 10:38 90 L 03/06/19 10:05 74 17 121/65 92 L 03/06/19 09:21 98.7 F 83 22 132/67 93 L Oxygen-Last 24 hours O2 Percentage 3 Liters = 32% O2 Percentage 3 Liters = 32% O2 Percentage 3 Liters = 32% O2 Percentage 3 Liters = 32% O2 Percentage 3 Liters = 32% O2 Percentage 2 Liters = 28% O2 Percentage 2 Liters = 28% O2 Percentage 2 Liters = 28% O2 Percentage 2 Liters = 28% O2 Percentage 2 Liters = 28% O2 Percentage 2 Liters = 28% O2 Percentage 2 Liters = 28% General Appearance: no apparent distress, obese Respiratory Exam: crackles/rales Cardiovascular Exam: regular rate/rhythm, normal heart sounds, normal peripheral pulses Gastrointestinal/Abdomen Exam: soft, normal bowel sounds, No tenderness, No mass Extremity Exam: pedal edema, swelling, other (chronic lymphedema changes present ) Skin Exam: normal color, warm, dry, No rash Wound Assessment: Skin/Wound Assessment Wound/Incision Assessment Start: 03/06/19 14: 19 Text: Status: Active Freq: Q6H Protocol: Document 03/07/19 08:00 RDDESNE (Rec: 03/07/19 08:10 RDUHNE [id number]) Wound/Incision Assessment Posterior Coccyx Wound Assessment Shift Assessment Wound Type Pressure Ulcer Wound Stage Stage II Drainage Amount None General Appearance Open to air Surrounding Tissue [place] Comment see photo in chart. Nonblanchable redness surrounding small open pressure area. Skin sloughing around area, moisture barrier ramon applied. Wound Photo Photo Taken Yes Date: 03/06/19 Results - Labs Lab/Micro Results: Lab Results-Last 24 Hours 03/06/19 03/06/1919 Range/Units 09:43 10:04 10:04 WBC 5.0 (4.0-10.5) K/mm3 RBC 3.77 L (4.1-5.6) M/mm3 Hgb 9.4 L (12.5-18.0) gm/dl Hct 32.7 L (42-50) % MCV 86.7 (78-100) fl MCH 24.9 L (26-32) pg MCHC 28.7 L (32-36) g/dl RDW 25.2 H (11.5-14.0) % Plt Count 123 L (150-450) K/mm3 Gran % 55.7 (36.0-66.0) % Eos # (Auto) 0.10 (0-0.5) Absolute Lymphs (auto) 0.77 L (1.0-4.6) Absolute Monos (auto) 1.30 (0.0-1.3) Lymphocytes % 15.5 L (24.0-44.0) % Monocytes % 26.2 H (0.0-12.0) % Eosinophils % 2.0 (0.00-5.0) % Basophils % 0.6 (0.0-0.4) % Absolute Granulocytes 2.76 (1.4-6.9) Basophils # 0.03 (0-0.4) Puncture Site LEFT RADIAL pCO2 75 H* (35-45) mmHg pO2 71 L (75-100) mmHg Base Excess 17.5 H (-2.0-2.0) O2 Saturation 92.8 L (94-100) g/dF ABG pH 7.39 (7.35-7.45) ABG HCO3 45.4 H* (22-28) ABG O2 Sat (Measured) 96.2 (95-100) % Jonathan Test YES A-a Gradient -15 a/A Ratio 1.27 Hemoglobin 10.2 Carboxyhemoglobin 2.4 (0.0-6.9) % THgb Methemoglobin 1.2 L (1.4-1.5) % Potassium 3.6 4.0 (3.5-5.1) Temperature 37.0 C POC O2 Flow Rate 21 % Sodium 138 (137-145) mmol/L Chloride 90 L (98-107) mmol/L Carbon Dioxide 37 H (22-30) mmol/L Anion Gap 15.4 H (5-15) MEQ/L BUN 8 L (9-20) mg/dL Creatinine 0.48 L (0.66-1.25) mg/dL Estimated GFR > 60.0 ML/MIN Glucose 133 H (74-106) mg/dL Calcium 8.4 (8.4-10.2) mg/dL Total Bilirubin 1.40 H (0.2-1.3) mg/dL AST 35 (17-59) U/L ALT 16 (0-50) U/L Alkaline Phosphatase 233 H (38-126) U/L Troponin I (0.000-0.034) ng/mL NT-Pro-B Natriuret Pep 2390 H (0-900) pg/mL Serum Total Protein 6.8 (6.3-8.2) g/dL Albumin 3.3 L (3.5-5.0) g/dL Slides for Path Review YES 03/06/19 03/06/19 03/07/19 Range/Units 10:04 13:03 05:04 WBC (4.0-10.5) K/mm3 RBC (4.1-5.6) M/mm3 Hgb (12.5-18.0) gm/dl Hct (42-50) % MCV (78-100) fl MCH (26-32) pg MCHC (32-36) g/dl RDW (11.5-14.0) % Plt Count (150-450) K/mm3 Gran % (36.0-66.0) % Eos # (Auto) (0-0.5) Absolute Lymphs (auto) (1.0-4.6) Absolute Monos (auto) (0.0-1.3) Lymphocytes % (24.0-44.0) % Monocytes % (0.0-12.0) % Eosinophils % (0.00-5.0) % Basophils % (0.0-0.4) % Absolute Granulocytes (1.4-6.9) Basophils # (0-0.4) Puncture Site pCO2 (35-45) mmHg pO2 (75-100) mmHg Base Excess (-2.0-2.0) O2 Saturation (94-100) g/dF ABG pH (7.35-7.45) ABG HCO3 (22-28) ABG O2 Sat (Measured) (95-100) % Jonathan Test A-a Gradient a/A Ratio Hemoglobin Carboxyhemoglobin (0.0-6.9) % THgb Methemoglobin (1.4-1.5) % Potassium 4.0 (3.5-5.1) Temperature C POC O2 Flow Rate % Sodium 138 (137-145) mmol/L Chloride 87 L (98-107) mmol/L Carbon Dioxide 40 H (22-30) mmol/L Anion Gap 95 H (5-15) MEQ/L BUN 11 (9-20) mg/dL Creatinine 0.49 L (0.66-1.25) mg/dL Estimated GFR > 60.0 ML/MIN Glucose 173 H (74-106) mg/dL Calcium 8.5 (8.4-10.2) mg/dL Total Bilirubin 1.00 (0.2-1.3) mg/dL AST 37 (17-59) U/L ALT 19 (0-50) U/L Alkaline Phosphatase 209 H (38-126) U/L Troponin I < 0.012 < 0.012 (0.000-0.034) ng/mL NT-Pro-B Natriuret Pep 3290 H (0-900) pg/mL Serum Total Protein 6.8 (6.3-8.2) g/dL Albumin 3.4 L (3.5-5.0) g/dL Slides for Path Review - Radiology Impressions Radiology Exams & Impressions: Radiology Procedures Category Date Time Status CHEST 1 VIEW (PORTABLE) Stat Exams 03/06/19 10:04 Completed - Other Procedures and Tests Respiratory Therapy 03/06/19 14:18 Respiratory Therapy Assessment DAILY 03/06/19 14:19 Oxygen Nasal Cannula 3 lpm 03/07/19 07:00 Peak Expiratory Flow Rate ONCE Assessment/Plan (1) CHF (congestive heart failure) Current Visit: Yes Status: Chronic Assessment & Plan: has acute on chronic systolic heart failure Code(s): I50.9 - HEART FAILURE, UNSPECIFIED (2) Hypercarbia Current Visit: Yes Status: Acute Assessment & Plan: pt refused bipap, sats are stable currently. has some copd and with chf exacerbation Code(s): R06.89 - OTHER ABNORMALITIES OF BREATHING (3) Hypoxia Current Visit: Yes Status: Acute Code(s): R09.02 - HYPOXEMIA (4) Lymphedema Current Visit: No Status: Acute Code(s): I89.0 - LYMPHEDEMA, NOT ELSEWHERE CLASSIFIED
[2019-03-07] MEDS: ELIQUIS 2.5 MG TABLET PO SCH ×2 (09:49→21:19)
[2019-03-07] MEDS: MAG-OX 400 PO SCH ×2 (09:50→21:19)
[2019-03-07] MEDS: Toprol-Xl 25MG Tablets PO SCH ×2 (09:50→21:19)
[2019-03-07] MEDS: Neurontin 400 MG PO SCH ×4 (09:50→21:19)
[2019-03-07] MEDS: SYNTHROID 50 MCG PO SCH (09:50)
[2019-03-07] MEDS: Lasix 40 MG/4 ML IV SCH ×2 (09:50→16:26)
[2019-03-07] MEDS: Aldactone 25 MG PO SCH (09:50)
[2019-03-07] MEDS: Klor Con 10 MEQ PO SCH ×4 (09:50→21:19)
[2019-03-07] MEDS: Protonix 40MG Tablet PO SCH (09:50)
[2019-03-07] MEDS ORDERED: NON-FORMULARY ITEM (Omeprazole 20 Mg [Prilosec 20 Mg] 1 TAB) PO SCH (10:00)
[2019-03-07] MEDS: ELAVIL 25 MG PO SCH (21:19)
[2019-03-07] MEDS: Pepcid 20 MG PO SCH (21:19)
[2019-03-07] MEDS: ZOCOR 20MG PO SCH (21:20)
[2019-03-08] MEDS: Lasix 40 MG/4 ML IV SCH ×3 (00:37→17:30)
[2019-03-08] MEDS: PERCOCET TABLET 5/325MG PO PRN ×4 (00:41→22:33)
[2019-03-08] MEDS: Advair Hfa 115/21 Common canister IH SCH ×2 (06:50→18:39)
[2019-03-08 06:58] LABS: BASOPHIL % 0.1 % (0.0-0.4); BLOOD UREA NITROGEN 18 mg/dL (9-20); Basophil (Absolute #) 0.01 (0-0.4); CHLORIDE 85 mmol/L (98-107); Calcium 8.5 mg/dL (8.4-10.2); Creatinine 1 0.59 mg/dL (0.66-1.25); Eosinophil % 0.6 % (0.00-5.0); Eosinophil (Absolute #) 0.04 (0-0.5); Glucose 116 mg/dL (74-106); Granulocyte Absolute (ANC) 4.52 (1.4-6.9); Granulocytes % 67.5 % (36.0-66.0); Hematocrit 32.4 % (42-50); Hemoglobin 9.2 gm/dl (12.5-18.0); Lymphocyte (Absolute #) 1.12 (1.0-4.6); Lymphocytes % 16.7 % (24.0-44.0); Mean Cell Volume 87.3 fl (78-100); Mean Corpuscular Hgb Concent. 28.4 g/dl (32-36); Monocyte (Absolute #) 1.01 (0.0-1.3); Monocytes % 15.1 % (0.0-12.0); NT PRO BNP 1530 pg/mL (0-900); Platelet Count 161 K/mm3 (150-450); Potassium 4.1 mmol/L (3.5-5.1); Red Blood Count 3.71 M/mm3 (4.1-5.6); Red Cell Distribution Width 24.8 % (11.5-14.0); SODIUM 135 mmol/L (137-145); White Blood Count 6.7 K/mm3 (4.0-10.5)
[2019-03-08 06:59] LABS: Mean Corpuscular Hemoglobin 24.7 pg (26-32)
[2019-03-08 07:02] LABS: Carbon Dioxide 38 mmol/L (22-30)
[2019-03-08 07:17] LABS: ANION GAP 16.1 MEQ/L (5-15)
--- NOTE | 2019-03-08 08:22 | PCM.NOTE ---
Date and Time: 03/08/19818 Subjective Assessment: patient is improving, now has a productive cough this morning. his respirations are less labored and overall he feels he is improved. Objective Exam General Appearance: no apparent distress, obese Neurologic Exam: alert, oriented x 3 Wound Assessment: Skin/Wound Assessment Wound/Incision Assessment Start: 03/06/19 14: 19 Text: Status: Active Freq: Q6H Protocol: Document 03/08/19 07:38 RDUHNE (Rec: 03/08/19 07:39 [email or web address] [id number]) Wound/Incision Assessment Posterior Coccyx Wound Assessment Shift Assessment Wound Type Pressure Ulcer Wound Stage Stage II Drainage Amount None General Appearance Open to air Surrounding Tissue [place] Comment see photo in chart. Nonblanchable redness surrounding small open pressure area. Skin sloughing around area, moisture barrier oint applied. Wound Photo Photo Taken Yes Date: 03/06/19 Respiratory Exam: prolonged expirations, wheezing Cardiovascular Exam: regular rate/rhythm, normal heart sounds Gastrointestinal/Abdomen Exam: soft Extremity Exam: pedal edema, swelling (chronic lymphedema changes to BLE) OBJECTIVE DATA Vital Signs: Vital Signs - 24 hr Temp Pulse Resp BP Pulse Ox 03/08/19 07:25 97.8 F 118 H 20 119/78 96 03/08/19 04:10 98.4 F 72 16 112/69 98 03/08/19 00:00 98.2 F 72 18 119/60 97 03/07/19 20:15 97.8 F 76 20 123/66 96 03/07/19 17:32 72 18 96 03/07/19 15:55 97.9 F 77 20 122/62 97 03/07/19 14:19 73 20 95 03/07/19 12:00 98.3 F 77 18 127/60 97 03/07/19 10:29 72 18 94 L Oxygen-Last 24 hours O2 Percentage 3 Liters = 32% O2 Percentage 3 Liters = 32% O2 Percentage 3 Liters = 32% O2 Percentage 3 Liters = 32% O2 Percentage 3 Liters = 32% Oxygen Flowrate (L/min)-RT 3 Pain Assessment - Last Documented Pain Intensity 8 Pain Scale Used 0-10 Pain Scale Intake and Output: Intake & Output 03/05/19 03/06/19 03/07/19 03/08/19 11:59 11:59 11:59 11:59 Intake Total 2110 2280 Output Total 059 421 7362 Balance -100 1260 -970 Weight 137.892 kg 134.5 kg 134 kg Lab Results: Lab Results-Last 24 Hours 03/08/19 03/08/19 Range/Units 06:10 06:10 WBC 6.7 (4.0-10.5) K/mm3 RBC 3.71 L (4.1-5.6) M/mm3 Hgb 9.2 L (12.5-18.0) gm/dl Hct 32.4 L (42-50) % MCV 87.3 (78-100) fl MCH 24.7 L (26-32) pg MCHC 28.4 L (32-36) g/dl RDW 24.8 H (11.5-14.0) % Plt Count 161 (150-450) K/mm3 Gran % 67.5 H (36.0-66.0) % Eos # (Auto) 0.04 (0-0.5) Absolute Lymphs (auto) 1.12 (1.0-4.6) Absolute Monos (auto) 1.01 (0.0-1.3) Lymphocytes % 16.7 L (24.0-44.0) % Monocytes % 15.1 H (0.0-12.0) % Eosinophils % 0.6 (0.00-5.0) % Basophils % 0.1 (0.0-0.4) % Absolute Granulocytes 4.52 (1.4-6.9) Basophils # 0.01 (0-0.4) Sodium 135 L (137-145) mmol/L Potassium 4.1 (3.5-5.1) mmol/L Chloride 85 L (98-107) mmol/L Carbon Dioxide 38 H (22-30) mmol/L Anion Gap 16.1 H (5-15) MEQ/L BUN 18 (9-20) mg/dL Creatinine 0.59 L (0.66-1.25) mg/dL Estimated GFR > 60.0 ML/MIN Glucose 116 H (74-106) mg/dL Calcium 8.5 (8.4-10.2) mg/dL NT-Pro-B Natriuret Pep 1530 H (0-900) pg/mL Slides for Path Review Radiology Exams: Radiology Procedures Category Date Time Status CHEST 1 VIEW (PORTABLE) Stat Exams 03/06/19 10:04 Completed Assessment/Plan (1) CHF (congestive heart failure) Current Visit: Yes Status: Chronic Assessment & Plan: diuresing nicely, daily weight continues to fall and bun/cr are stable. continue lasix 40mg IV q8hrs Code(s): I50.9 - HEART FAILURE, UNSPECIFIED (2) Chronic bronchitis with COPD (chronic obstructive pulmonary disease) Current Visit: No Status: Acute Assessment & Plan: add rocephin and po prednisone today, didn't hear wheezing yesterday but now that fluid is resolving he has more of a component of acute bronchospasm. Code(s): J44.9 - CHRONIC OBSTRUCTIVE PULMONARY DISEASE, UNSPECIFIED (3) Hypercarbia Current Visit: Yes Status: Acute Code(s): R06.89 - OTHER ABNORMALITIES OF BREATHING (4) Hypoxia Current Visit: Yes Status: Acute Code(s): R09.02 - HYPOXEMIA (5) Lymphedema Current Visit: No Status: Acute Code(s): I89.0 - LYMPHEDEMA, NOT ELSEWHERE CLASSIFIED
[2019-03-08] MEDS: PROVENTIL 2.5 MG/3 ML NEB IH SCH ×4 (08:28→18:39)
[2019-03-08] MEDS: MAG-OX 400 PO SCH ×2 (08:54→22:34)
[2019-03-08] MEDS: ROCEPHIN 1 Gm-D5w 50 ml Bag** 1 G/50 ML IVPB IV SCH (08:54)
[2019-03-08] MEDS: Toprol-Xl 25MG Tablets PO SCH ×2 (08:54→22:34)
[2019-03-08] MEDS: Protonix 40MG Tablet PO SCH (08:54)
[2019-03-08] MEDS: SYNTHROID 50 MCG PO SCH (08:55)
[2019-03-08] MEDS: Klor Con 10 MEQ PO SCH ×4 (08:55→22:36)
[2019-03-08] MEDS: ELIQUIS 2.5 MG TABLET PO SCH ×2 (08:55→22:36)
[2019-03-08] MEDS: Aldactone 25 MG PO SCH (08:55)
[2019-03-08] MEDS: Neurontin 400 MG PO SCH ×4 (08:55→22:36)
[2019-03-08] MEDS: DELTASONE 20 MG PO SCH (08:55)
[2019-03-08] MEDS: Pepcid 20 MG PO SCH (22:34)
[2019-03-08] MEDS: ELAVIL 25 MG PO SCH (22:37)
[2019-03-08] MEDS: ZOCOR 20MG PO SCH (22:37)
[2019-03-09] MEDS: Lasix 40 MG/4 ML IV SCH ×3 (01:55→17:33)
[2019-03-09 05:49] LABS: BASOPHIL % 0.3 % (0.0-0.4); Basophil (Absolute #) 0.02 (0-0.4); Eosinophil % 0.6 % (0.00-5.0); Eosinophil (Absolute #) 0.04 (0-0.5); Granulocyte Absolute (ANC) 4.49 (1.4-6.9); Granulocytes % 66.1 % (36.0-66.0); Hematocrit 32.7 % (42-50); Hemoglobin 9.1 gm/dl (12.5-18.0); Lymphocyte (Absolute #) 1.09 (1.0-4.6); Lymphocytes % 16.1 % (24.0-44.0); Mean Cell Volume 87.9 fl (78-100); Mean Corpuscular Hgb Concent. 27.8 g/dl (32-36); Mean Platelet Volume 11.8 fl (6-9.5); Monocyte (Absolute #) 1.15 (0.0-1.3); Monocytes % 16.9 % (0.0-12.0); Platelet Count 148 K/mm3 (150-450); Red Blood Count 3.72 M/mm3 (4.1-5.6); Red Cell Distribution Width 24.7 % (11.5-14.0); White Blood Count 6.8 K/mm3 (4.0-10.5)
[2019-03-09 05:52] LABS: Mean Corpuscular Hemoglobin 24.4 pg (26-32)
[2019-03-09 05:59] LABS: BLOOD UREA NITROGEN 17 mg/dL (9-20); CHLORIDE 84 mmol/L (98-107); Calcium 8.2 mg/dL (8.4-10.2); Creatinine 1 0.64 mg/dL (0.66-1.25); Glucose 113 mg/dL (74-106); NT PRO BNP 1860 pg/mL (0-900); Potassium 4.2 mmol/L (3.5-5.1); SODIUM 136 mmol/L (137-145)
[2019-03-09 06:06] LABS: Carbon Dioxide 41 mmol/L (22-30)
[2019-03-09 06:11] LABS: ANION GAP 15.2 MEQ/L (5-15)
[2019-03-09] MEDS: PROVENTIL 2.5 MG/3 ML NEB IH SCH ×4 (07:20→17:18)
[2019-03-09] MEDS: Advair Hfa 115/21 Common canister IH SCH ×2 (07:20→17:18)
[2019-03-09] MEDS: PERCOCET TABLET 5/325MG PO PRN ×4 (08:33→22:04)
[2019-03-09 08:50] LABS: Slide Review 1 YES
[2019-03-09] MEDS: Toprol-Xl 25MG Tablets PO SCH ×2 (10:59→22:00)
[2019-03-09] MEDS: Klor Con 10 MEQ PO SCH ×4 (10:59→21:58)
[2019-03-09] MEDS: ELIQUIS 2.5 MG TABLET PO SCH ×2 (10:59→21:58)
[2019-03-09] MEDS: ROCEPHIN 1 Gm-D5w 50 ml Bag** 1 G/50 ML IVPB IV SCH (10:59)
[2019-03-09] MEDS: DELTASONE 20 MG PO SCH (11:00)
[2019-03-09] MEDS: Aldactone 25 MG PO SCH (11:00)
[2019-03-09] MEDS: SYNTHROID 50 MCG PO SCH (11:00)
[2019-03-09] MEDS: MAG-OX 400 PO SCH ×2 (11:00→21:58)
[2019-03-09] MEDS: Protonix 40MG Tablet PO SCH (11:00)
[2019-03-09] MEDS: Neurontin 400 MG PO SCH ×4 (11:00→21:59)
--- NOTE | 2019-03-09 14:30 | PCM.NOTE ---
Date and Time: 03/09/191423 Subjective Assessment: Patient reports that the swelling in his lower legs is much better. He reports he usually wears oxygen at rehab at [facility] at 2Liters. He reports he knkows he will always fight his breathing problems and swelling in his legs. - Review of Systems Constitutional: No Symptoms Eyes: No Symptoms Ears, Nose, & Throat: No Symptoms Respiratory: Cough, Other (cough productive of sputum) Cardiac: No Symptoms Abdominal/Gastrointestinal: No Symptoms Genitourinary Symptoms: Other (would like catheter to stay in place due to increased urination.) Objective Exam General Appearance: no apparent distress, obese Neurologic Exam: alert, cooperative Skin Exam: normal color, warm, other (anterior shins with brown/redish chronic discoloration.) Wound Assessment: Skin/Wound Assessment Wound/Incision Assessment Start: 03/06/19 14: 19 Text: Status: Active Freq: Q6H Protocol: Document 03/09/19 08:00 (Rec: 03/09/19 08:19 [id number]) Wound/Incision Assessment Posterior Coccyx Wound Assessment Shift Assessment Wound Type Pressure Ulcer Wound Stage Stage II Drainage Amount None General Appearance Open to air Surrounding Tissue [place] Comment barrier cream PRN Wound Photo Photo Taken Yes Respiratory Exam: other (scattered wheezes throughout, speaking in full sentences, no retractions) Cardiovascular Exam: regular rate/rhythm, normal heart sounds, No murmur, No friction rub, No gallop Gastrointestinal/Abdomen Exam: soft, normal bowel sounds, No tenderness, No distention, No mass, No guarding Extremity Exam: other (+2 edema to mid shins bilat) OBJECTIVE DATA Vital Signs: Vital Signs - 24 hr Temp Pulse Resp BP Pulse Ox 03/09/19 12:00 99.3 F 91 H 18 127/70 94 L 03/09/19 10:40 68 16 98 03/09/19 08:00 98.1 F 130 H 18 115/59 95 03/09/19 07:24 72 16 95 03/09/19 04:00 98.1 F 70 18 121/64 96 03/08/19 23:23 97.7 F 68 18 120/67 98 03/08/19 20:00 98.8 F 68 19 128/62 99 03/08/19 18:40 70 20 97 03/08/19 16:03 98.2 F 68 20 140/74 97 Oxygen-Last 24 hours O2 Percentage 3 Liters = 32% O2 Percentage 3 Liters = 32% O2 Percentage 3 Liters = 32% O2 Percentage 3 Liters = 32% O2 Percentage 3 Liters = 32% Oxygen Flowrate (L/min)-RT 3 Pain Assessment - Last Documented Pain Intensity 5 Pain Scale Used 0-10 Pain Scale Intake and Output: Intake & Output 03/07/19 03/08/19 03/09/19 03/10/19 06:59 06:59 06:59 06:59 Intake Total 1630 2760 3120 480 Output Total 950 3250 4250 1000 Balance 414 -261 -0833 -722 Weight 134.5 kg 138 kg 136.1 kg Lab Results: Lab Results-Last 24 Hours 03/09/19 03/09/19 Range/Units 05:35 05:35 WBC 6.8 (4.0-10.5) K/mm3 RBC 3.72 L (4.1-5.6) M/mm3 Hgb 9.1 L (12.5-18.0) gm/dl Hct 32.7 L (42-50) % MCV 87.9 (78-100) fl MCH 24.4 L (26-32) pg MCHC 27.8 L (32-36) g/dl RDW 24.7 H (11.5-14.0) % Plt Count 148 L (150-450) K/mm3 MPV 11.8 H (6-9.5) fl Gran % 66.1 H (36.0-66.0) % Eos # (Auto) 0.04 (0-0.5) Absolute Lymphs (auto) 1.09 (1.0-4.6) Absolute Monos (auto) 1.15 (0.0-1.3) Lymphocytes % 16.1 L (24.0-44.0) % Monocytes % 16.9 H (0.0-12.0) % Eosinophils % 0.6 (0.00-5.0) % Basophils % 0.3 (0.0-0.4) % Absolute Granulocytes 4.49 (1.4-6.9) Basophils # 0.02 (0-0.4) Sodium 136 L (137-145) mmol/L Potassium 4.2 (3.5-5.1) mmol/L Chloride 84 L (98-107) mmol/L Carbon Dioxide 41 H (22-30) mmol/L Anion Gap 15.2 H (5-15) MEQ/L BUN 17 (9-20) mg/dL Creatinine 0.64 L (0.66-1.25) mg/dL Estimated GFR > 60.0 ML/MIN Glucose 113 H (74-106) mg/dL Calcium 8.2 L (8.4-10.2) mg/dL NT-Pro-B Natriuret Pep 1860 H (0-900) pg/mL Slides for Path Review YES Assessment/Plan (1) CHF (congestive heart failure) Current Visit: Yes Status: Chronic Assessment & Plan: Continue with diuresis; patient encouraged to watch his oral intake and try not to drink more than necessary. Code(s): I50.9 - HEART FAILURE, UNSPECIFIED (2) Acute exacerbation of chronic obstructive airways disease Current Visit: No Status: Acute Assessment & Plan: Continue prednisone and IV antibiotics. Code(s): J44.1 - CHRONIC OBSTRUCTIVE PULMONARY DISEASE W (ACUTE) EXACERBATION (3) Chronic respiratory failure with hypercapnia Current Visit: Yes Status: Acute (4) Lymphedema Current Visit: No Status: Acute Code(s): I89.0 - LYMPHEDEMA, NOT ELSEWHERE CLASSIFIED
[2019-03-09] MEDS: ELAVIL 25 MG PO SCH (21:57)
[2019-03-09] MEDS: Pepcid 20 MG PO SCH (21:59)
[2019-03-09] MEDS: ZOCOR 20MG PO SCH (22:00)
[2019-03-10] MEDS: Lasix 40 MG/4 ML IV SCH ×3 (01:02→17:39)
[2019-03-10] MEDS: PERCOCET TABLET 5/325MG PO PRN ×4 (03:58→21:52)
[2019-03-10] MEDS: PROVENTIL 2.5 MG/3 ML NEB IH SCH ×3 (07:17→19:28)
[2019-03-10] MEDS: Advair Hfa 115/21 Common canister IH SCH ×2 (07:19→19:28)
[2019-03-10] MEDS: ROCEPHIN 1 Gm-D5w 50 ml Bag** 1 G/50 ML IVPB IV SCH (09:02)
[2019-03-10] MEDS: Neurontin 400 MG PO SCH ×4 (09:05→21:53)
[2019-03-10] MEDS: Protonix 40MG Tablet PO SCH (09:05)
[2019-03-10] MEDS: SYNTHROID 50 MCG PO SCH (09:06)
[2019-03-10] MEDS: Aldactone 25 MG PO SCH (09:06)
[2019-03-10] MEDS: DELTASONE 20 MG PO SCH (09:06)
[2019-03-10] MEDS: MAG-OX 400 PO SCH ×2 (09:07→21:54)
[2019-03-10] MEDS: ELIQUIS 2.5 MG TABLET PO SCH ×2 (09:07→21:53)
[2019-03-10] MEDS: Toprol-Xl 25MG Tablets PO SCH ×2 (09:07→21:53)
[2019-03-10] MEDS: Klor Con 10 MEQ PO SCH ×4 (09:07→21:53)
--- NOTE | 2019-03-10 13:00 | PCM.NOTE ---
Date and Time: 03/10/19 1256 Subjective Assessment: Patient states he is feeling a little better today. He continues to have bilat leg swelling and dry skin. The [employer] was able to wash his legs today. He has had a good appetite and thinks his weight is the same because of this. He continues to have good urine output from duff. He reports he is trying not to drink too much fluid. - Review of Systems Constitutional: No Symptoms Respiratory: Short Of Breath, Wheezing Cardiac: No Symptoms Abdominal/Gastrointestinal: No Symptoms Genitourinary Symptoms: No Symptoms, Other (wants to keep duff in) Musculoskeletal: Other (leg swelling) Skin: Other (dry skin) Objective Exam General Appearance: no apparent distress, alert, obese Neurologic Exam: alert, cooperative, normal mood/affect Skin Exam: normal color, warm, other (red/brownish skin on lower extremities bilat with some sloughing) Wound Assessment: Skin/Wound Assessment Wound/Incision Assessment Start: 03/06/19 14: 19 Text: Status: Active Freq: Q6H Protocol: Document 03/10/19 08:00 (Rec: 03/10/19 11:27 [id number]) Wound Photo Photo Taken No Respiratory Exam: airway intact, other (few scattered wheezes, no rhonchi, no crackles), No respiratory distress Cardiovascular Exam: regular rate/rhythm, normal heart sounds, No murmur, No friction rub, No gallop Gastrointestinal/Abdomen Exam: soft, normal bowel sounds, No tenderness, No distention, No mass Extremity Exam: swelling OBJECTIVE DATA Vital Signs: Vital Signs - 24 hr Temp Pulse Resp BP Pulse Ox 03/10/19 11:53 98.0 F 88 18 128/67 95 03/10/19 11:21 72 18 98 03/10/19 07:20 69 18 98 03/10/19 07:08 98.2 F 63 20 115/63 93 L 03/10/19 04:00 98.3 F 63 20 124/72 98 03/09/19 23:51 98.1 F 58 L 18 114/63 97 03/09/19 19:36 98.5 F 83 18 129/60 95 03/09/19 17:18 68 20 97 03/09/19 16:00 96.8 F 68 18 138/71 94 L 05/18/19 14:26 56 L 16 99 Oxygen-Last 24 hours O2 Percentage 3 Liters = 32% O2 Percentage 3 Liters = 32% O2 Percentage 3 Liters = 32% O2 Percentage 3 Liters = 32% O2 Percentage 3 Liters = 32% Oxygen Flowrate (L/min)-RT 3 Pain Assessment - Last Documented Pain Intensity 8 Pain Scale Used 0-10 Pain Scale Intake and Output: Intake & Output 03/08/19 03/09/19 03/10/19 03/11/19 06:59 06:59 06:59 06:59 Intake Total 2760 3120 1800 1300 Output Total 3250 4250 4350 1100 Balance -490 -1130 -2550 200 Weight 138 kg 138.5 kg Assessment/Plan (1) CHF (congestive heart failure) Current Visit: Yes Status: Chronic Assessment & Plan: Continue with diuresis. Slowly improving clinically. Code(s): I50.9 - HEART FAILURE, UNSPECIFIED (2) Acute exacerbation of chronic obstructive airways disease Current Visit: No Status: Acute Assessment & Plan: Continue current treatment with IV antibiotics, oral steriods, breathing treatments and oxygen. Code(s): J44.1 - CHRONIC OBSTRUCTIVE PULMONARY DISEASE W (ACUTE) EXACERBATION (3) Chronic respiratory failure with hypercapnia Current Visit: Yes Status: Acute (4) Lymphedema Current Visit: No Status: Acute Code(s): I89.0 - LYMPHEDEMA, NOT ELSEWHERE CLASSIFIED
[2019-03-10] MEDS: Pepcid 20 MG PO SCH (21:53)
[2019-03-10] MEDS: ZOCOR 20MG PO SCH (21:54)
[2019-03-10] MEDS: ELAVIL 25 MG PO SCH (21:54)
[2019-03-11] MEDS: Lasix 40 MG/4 ML IV SCH ×2 (01:49→09:35)
[2019-03-11] MEDS: PROVENTIL 2.5 MG/3 ML NEB IH SCH ×2 (06:30→10:33)
[2019-03-11] MEDS: Advair Hfa 115/21 Common canister IH SCH (06:30)
[2019-03-11] MEDS: PERCOCET TABLET 5/325MG PO PRN (06:45)
[2019-03-11 07:38] VITALS: BP 119/58
--- NOTE | 2019-03-11 08:29 | PCM.DS ---
Discharge Summary Date of Admission: 03/07/19 08:51 Admitting Physician: EMILY PARADA Primary Care Provider: KOREY Allergies Allergies pregabalin [From Lyrica] Allergy (Verified 12/03/18 13:27) zinc Allergy (Verified 12/03/18 13:27) Blisters moxifloxacin HCl [From Avelox] Adverse Reaction (Mild, Verified 12/03/18 13:27) vancomycin Adverse Reaction (Verified 12/03/18 13:27) Elevated Levels / Increased CRCL patient had significant increase in Serum CR and decreased creatinine clearence. [facility] Summary - Hospital Course Hospital Course: pt was admitted with cough, shortenss of breath. found to have chf exacerbation and copd exacerbation. has been diuresed and received po steroids and IV antibiotics. he is feeling much better and states he is back to his baseline at this time. - Vitals & Intake/Output Vital Signs: Vital Signs Temperature 98.2 F 03/11/19 07:37 Pulse Rate 60 03/11/19 07:37 Respiratory Rate 20 03/11/19 07:37 Blood Pressure 119/58 03/11/19 07:37 O2 Sat by Pulse Oximetry 98 03/11/19 07:37 Oxygen-Last Documented O2 Percentage 3 Liters = 32% Intake & Output: Intake & Output 03/08/19 03/09/19 03/10/19 03/11/19 11:59 11:59 11:59 11:59 Intake Total 3000 2640 2260 1000 Output Total 3250 5250 3350 4275 Balance -550 -2616 -1090 -7859 Weight 134 kg 136.1 kg 138.5 kg 138 kg - Lab Result Diagrams: 03/09/19 05:35 03/09/19 05:35 Micro Results-Entire Visit: Microbiology 03/09/19 14:43 Gram Stain - Final Sputum - Expectorant - Procedures and Test Procedures and Tests throughout Hospitalization: Therapy Orders & Screens 03/06/19 14:18 Respiratory Therapy Assessment DAILY Comment: 03/06/19 14:19 OT Screen per Nursing Assess ONCE Comment: Protocol Order Physician Instructions: Greater than 3 points order OT Admission Screening Reason For Exam: Triggered on Admission Diagnosis: Hypercarbia Open Wound/Cellutlitis/Pressure Ulcers: Yes Acute Fx/ORIF/Change in wt bearing status: No Severe MUSCULOSKELETAL pain: No ADL Dysfunction: Yes Acute CVA w/Hemiparesis/Hemiplegia: No Decreased Functional Mobility/Strength: Yes Sprain/Strain: No Acute Post-op Mobility Dysfunction: No Total Points: 9 PT Screen per Nursing Assess ONCE Comment: Protocol Order Physician Instructions: Greater than 3 points order PT Admission Screenin Reason For Exam: Triggered on Admission Diagnosis: Hypercarbia Open Wound/Cellutlitis/Pressure Ulcers: Yes Acute Fx/ORIF/Change in wt bearing status: No Severe MUSCULOSKELETAL pain: No ADL Dysfunction: Yes Acute CVA w/Hemiparesis/Hemiplegia: No Decreased Functional Mobility/Strength: Yes Sprain/Strain: No Acute Post-op Mobility Dysfunction: No Total Points: 9 Oxygen Nasal Cannula 3 lpm Comment: Diagnosis: Hypercarbia 03/07/19 07:00 Peak Expiratory Flow Rate ONCE Comment: Reason For Exam: Diagnosis: Hypercarbia Discharge Exam General Appearance: no apparent distress, obese Neurologic Exam: alert, oriented x 3 Respiratory Exam: crackles/rales Cardiovascular Exam: regular rate/rhythm, normal heart sounds Gastrointestinal/Abdomen Exam: soft, No tenderness, No mass Extremity Exam: pedal edema (chronic lymphedema changes) Wound Assessment: Skin/Wound Assessment Wound/Incision Assessment Start: 03/06/19 14: 19 Text: Status: Active Freq: Q6H Protocol: Document 03/11/19 01:58 LB (Rec: 03/11/19 02:14 LB [id number]) Wound Photo Photo Taken Yes Final Diagnosis/Problem List - Final Discharge Diagnosis/Problem (1) CHF (congestive heart failure) Current Visit: Yes Status: Chronic Code(s): I50.9 - HEART FAILURE, UNSPECIFIED (2) Chronic bronchitis with COPD (chronic obstructive pulmonary disease) Current Visit: No Status: Acute Code(s): J44.9 - CHRONIC OBSTRUCTIVE PULMONARY DISEASE, UNSPECIFIED (3) Hypercarbia Current Visit: Yes Status: Acute Code(s): R06.89 - OTHER ABNORMALITIES OF BREATHING (4) Hypoxia Current Visit: Yes Status: Acute Code(s): R09.02 - HYPOXEMIA (5) Lymphedema Current Visit: No Status: Acute Code(s): I89.0 - LYMPHEDEMA, NOT ELSEWHERE CLASSIFIED - Discharge Disposition: Skilled Care @ [facility] Condition: Good Prescriptions: New Fluticasone/Salmeterol 115/21 [Advair Hfa 115/21 Common canister*] 2 puff IH BIDRT aer.w.adap Prednisone 20 mg [Deltasone 20 mg] 20 mg PO DAILY #7 tablet Albuterol/Ipratropium 3ml Neb* [DUONEB 0.5-3 MG/3 ml Neb] 3 ml IH Q4HPRN PRN ampul.neb PRN Reason: Shortness Of Breath/Wheezing Doxycycline Hyclate 100 mg [Vibramycin 100 MG] 100 mg PO BID #14 tab Continue Magnesium Oxide 400 mg [Mag-Ox 400] 400 mg PO BID Omeprazole 20 MG [Prilosec 20 mg] 1 tab PO DAILY Metoprolol Succinate 25 mg Xl* [Toprol-Xl 25MG Tablets] 25 mg PO BID Potassium Chloride 20 meq PO QID Atorvastatin Calcium [Lipitor 40Mg] 40 mg PO HS Famotidine [Pepcid] 40 mg PO HS Spironolactone 25 mg [Aldactone 25 MG] 25 mg PO DAILY Colchicine [Colcrys] 0.6 mg PO BID Gabapentin [Neurontin] 800 mg PO QID Bumetanide [Bumex] 2 mg PO BID Oxycodone HCl/Acetaminophen [Oxycodon-Acetaminophen 7.5-325] 1 each PO Q4H PRN PRN PRN Reason: Moderate To Severe Pain Apixaban [Eliquis] 5 mg PO BID Amitriptyline HCl 25 mg PO HS Ergocalciferol (Vitamin D2) [Drisdol] 50,000 unit PO UD Levothyroxine Sodium [Synthroid] 50 mcg PO DAILY Additional Instructions: GIVE MAGNESIUM AND DOXYCYCLINE AT LEAST 2 HOURS APART TWICE DAILY FOR THE NEXT WEEK MAKE PERCOCET ORDER Q4HRS PRN Follow up with: RADHA KRISHNAN [Primary Care Provider] - 1 Week
[2019-03-11] MEDS ORDERED: DULCOLAX 5 MG PO PRN (08:30)
[2019-03-11] MEDS: Neurontin 400 MG PO SCH (08:45)
[2019-03-11] MEDS: DELTASONE 20 MG PO SCH (08:45)
[2019-03-11] MEDS: Toprol-Xl 25MG Tablets PO SCH (08:45)
[2019-03-11] MEDS: Protonix 40MG Tablet PO SCH (08:46)
[2019-03-11] MEDS: Klor Con 10 MEQ PO SCH (08:46)
[2019-03-11] MEDS: ELIQUIS 2.5 MG TABLET PO SCH (08:46)
[2019-03-11] MEDS: MAG-OX 400 PO SCH (08:46)
[2019-03-11] MEDS: Aldactone 25 MG PO SCH (08:46)
[2019-03-11] MEDS: SYNTHROID 50 MCG PO SCH (08:46)
[2019-03-11] MEDS: ROCEPHIN 1 Gm-D5w 50 ml Bag** 1 G/50 ML IVPB IV SCH (09:37)
[2019-03-11 10:36] VITALS: PULSE 75; O2SAT 96
== END 2019-03-11 10:55 | DRG 292 ==
LOC: ED 09:15 → MED SURG 11:38 → OBSVTOIN 03-07 08:51
PROVIDERS: ADMIT Family Medicine; ATTEND Family Medicine
DX: I50.9 Heart failure, unspecified (principal); J96.12 Chronic respiratory failure with hypercapnia; J44.9 Chronic obstructive pulmonary disease, unspecified; I10 Essential (primary) hypertension; I48.91 Unspecified atrial fibrillation; R09.02 Hypoxemia; I89.0 Lymphedema, not elsewhere classified; L89.892 Pressure ulcer of other site, stage 2; Z79.01 Long term (current) use of anticoagulants; Z79.899 Other long term (current) drug therapy
CPT/HCPCS: 36415; 51702; 80048; 80053; 82375; 82803; 83880; 84484; 85025; 87070; 87077; 87186; 93005; 93041; 94150; 94640; 94760; 96374; 99291; G0378; 36000; 36600; 71045; 99284; J0696; J1940; J7609; A9270-GY

== ENCOUNTER 2019-04-15 11:19 | Inpatient (IN) | payer MEDICARE ==
--- NOTE | 2019-04-15 11:42 | ERPHSYRPT ---
- History of Present Illness Time Seen by Provider: 04/15/19 11:38 Source: patient, snf records Exam Limitations: no limitations Physician History: 63-year-old white male with history of peripheral neuropathy, arrhythmia, congenital heart disease, congestive heart failure, COPD, high blood pressure, pneumonia, tuberculosis, liver disease, arthritis, GERD, renal disease, depression, partial right lung removal, A. fib. Patient is brought by his family from sn[facility] with complaints of patient's potassium was low. Patient was noted to have a potassium of 2.2 at the snf this morning family states has been well he is also noted to have a sodium of 120. Patient denies any complaints he states he fell yesterday. He denies chest pain denies shortness of breath he has no nausea no vomiting. Past medical history includes peripheral neuropathy, arrhythmia, congenital heart disease, congestive heart failure, high blood pressure, COPD, pneumonia, tuberculosis, liver disease, arthritis, GERD, renal disease, depression, partial right lung removal, atrial fibrillation. Past surgical history includes lobectomy, mastectomy, right upper lobectomy, leg veins cauteries, skin graft. Social history former smoker Timing/Duration: other (patient has had low potassium for several days noted to be 2.2 this morning) Severity: moderate Modifying Factors: Improves With: nothing Associated Symptoms: No nausea, No vomiting, No abdominal pain, No shortness of breath, No heartburn, No diaphoresis, No cough, No chills, No chest pain, No fever, No headaches, No loss of appetite, No malaise, No rash, No syncope, No seizure, No weakness Allergies/Adverse Reactions: pregabalin [From Lyrica] Allergy (Verified 04/15/19 11:42) zinc Allergy (Verified 04/15/19 11:42) Blisters moxifloxacin HCl [From Avelox] Adverse Reaction (Mild, Verified 04/15/19 11:42) vancomycin Adverse Reaction (Verified 04/15/19 11:42) Elevated Levels / Increased CRCL patient had significant increase in Serum CR and decreased creatinine clearence. [facility] Home Medications: Magnesium Oxide 400 mg [Mag-Ox 400] 400 mg PO BID 01/02/15 [History] Metoprolol Succinate 25 mg Xl* [Toprol-Xl 25MG Tablets] 25 mg PO BID [History] Omeprazole 20 MG [Prilosec 20 mg] 1 tab PO DAILY 11/30/15 [History] Atorvastatin Calcium [Lipitor 40Mg] 40 mg PO HS 04/08/16 [History] Potassium Chloride 20 meq PO QID 04/08/16 [History] Bumetanide [Bumex] 2 mg PO BID 01/19/17 [History] Famotidine [Pepcid] 40 mg PO HS 01/19/17 [History] Gabapentin [Neurontin] 800 mg PO QID 01/19/17 [History] Spironolactone 25 mg [Aldactone 25 MG] 25 mg PO DAILY 01/19/17 [History] Oxycodone HCl/Acetaminophen [Oxycodon-Acetaminophen 7.5-325] 1 each PO Q4H PRN PRN 02/05/18 [History] Amitriptyline HCl 25 mg PO HS 11/23/18 [History] Apixaban [Eliquis] 5 mg PO BID 11/23/18 [History] Ergocalciferol (Vitamin D2) [Drisdol] 50,000 unit PO UD 02/11/19 [History] Levothyroxine Sodium [Synthroid] 50 mcg PO DAILY 02/11/19 [History] Hx Tetanus, Diphtheria Vaccination/Date Given: Yes Hx Influenza Vaccination/Date Given: Yes Hx Pneumococcal Vaccination/Date Given: Yes - Review of Systems Constitutional: No Fever, No Chills Eyes: No Symptoms Ears, Nose, & Throat: No Symptoms Respiratory: No Cough, No Dyspnea Cardiac: No Chest Pain, No Edema, No Syncope Abdominal/Gastrointestinal: No Abdominal Pain, No Nausea, No Vomiting, No Diarrhea Genitourinary Symptoms: No Dysuria Musculoskeletal: No Back Pain, No Neck Pain Skin: No Rash Neurological: No Dizziness, No Focal Weakness, No Sensory Changes Psychological: No Symptoms Endocrine: No Symptoms All Other Systems: Reviewed and Negative - Past Medical History Pertinent Past Medical History: Yes Neurological History: Peripheral Neuropathy ENT History: No Pertinent History Cardiac History: Arrhythmia, Congenital Heart Disease, Congestive Heart Failure , Hypertension Respiratory History: COPD, Pneumonia, Tuberculosis, Other Endocrine Medical History: Liver Disease Musculoskeletal History: Arthritis GI Medical History: GERD History: Renal Disease Psycho-Social History: Depression Male Reproductive Disorders: No Pertinent History Other Medical History: Partial R lung removal. Afib. - Past Surgical History Past Surgical History: Yes Neuro Surgical History: No Pertinent History Cardiac: No Pertinent History Respiratory: Lobectomy Gastrointestinal: No Pertinent History Genitourinary: No Pertinent History Musculoskeletal: No Pertinent History Male Surgical History: Vasectomy Other Surgical History: RIGHT UPPER LOBECTOMY, leg vein cautery with skin graft - Social History Smoking Status: Former smoker How long have you smoked: 38 yrs Exposure to second hand smoke: No Drug Use: none Patient Lives Alone: No - Nursing Vital Signs Nursing Vital Signs: Initial Vital Signs Temperature 97.2 F 04/15/19 11:35 Pulse Rate 62 04/15/19 11:35 Respiratory Rate 22 04/15/19 11:35 Blood Pressure 133/68 04/15/19 11:35 O2 Sat by Pulse Oximetry 100 04/15/19 11:35 Pain Scale Pain Intensity 0 - Physical Exam General Appearance: no apparent distress, alert Eye Exam: PERRL/EOMI, eyes nml inspection Ears, Nose, Throat Exam: normal ENT inspection, TMs normal, pharynx normal, moist mucous membranes Neck Exam: normal inspection, non-tender, supple, full range of motion Respiratory Exam: lungs clear, rhonchi (occasional rhonchi), No respiratory distress Cardiovascular Exam: regular rate/rhythm, normal heart sounds, normal peripheral pulses Gastrointestinal/Abdomen Exam: soft, normal bowel sounds, No tenderness, No mass Back Exam: normal inspection, normal range of motion, No CVA tenderness, No vertebral tenderness Extremity Exam: other (lower extremities chronically erythematous) Neurologic Exam: alert, oriented x 3, cooperative, normal mood/affect, nml cerebellar function, nml station & gait, sensation nml, No motor deficits Skin Exam: warm, dry, other (lower extremitiesdusky erythematous, chronic), No rash SpO2 Interpretation: normal (100%) - Course Nursing assessment & vital signs reviewed: Yes EKG Interpreted by Me: RATE (61 bpm), A-fib, Left [place] Deviation, Other (EKG: Atrial for relation with baseline wander and artifact 61 beats per minute left axis deviation no acute ST or T wave changes compared to March 06, 2019) - Radiology Exams Chest X-ray Interpretation: Discussed w/ radiologist (chest x-ray: Portable chest unchanged with scattered fibrosis/scarring, right lung suture material, tiny calcified granulomas, and borderline cardiomegaly. No new/acute cardiopulmonary abnormalities.) Ordered Tests: Active Orders 24 hr Category Date Time Status EKG-ER Only STAT Care 04/15/19 11:36 Active IV Insertion STAT Care 04/15/19 11:36 Active CHEST 1 VIEW (PORTABLE) Stat Exams 04/15/19 11:37 Completed Potassium Stat Lab 04/15/19 11:37 Completed Medication Summary Generic Name Dose Route Start Last Admin Trade Name Freq PRN Reason Stop Dose Admin Potassium Chloride 100 mls @ 25 mls/hr 04/15/19 13:00 Potassium Chloride 20 Meq In Water 100ml IV 04/15/19 16:59 Q2H ANG Sodium Chloride 1,000 mls @ 50 mls/hr 04/15/19 13:00 Sodium Chloride 0.9% 1000 Ml IV 05/15/19 12:59 .Q20H ANG Lab/Rad Data: Laboratory Result Diagrams 04/15/19 11:37 Laboratory Results 04/15/19 Range/Units 11:37 Potassium 2.8 L* D (3.5-5.1) mmol/L - Progress Progress: improved Progress Note: 04/15/19 12:53 Patient's repeat potassium 2.8 patient did have a sodium of 120 and a chloride of 65 and a bicarbonate of 4100 chemistry drawn this morning. CBC white blood cell 14.8 hemoglobin 12.5 hematocrit 39.2 platelets 185 patient' s EKG atrial fibrillation at 61 beats per minute left axis deviation, no acute ST or T wave changes chest x-ray unchanged with scattered fibrosis/scarring, right lung suture material, tiny calcified granuloma a borderline cardiomegaly no new/acute cardiopulmonary abnormalities. Case is discussed with Dr. Calhoun will place patient on K. rider 40 mEq normal saline at 50 mL per hour telemetry. Dr. Calhoun requested electrolytes magnesium level after K rider's have been infused. - Departure Departure Disposition: Observation Clinical Impression: Hypokalemia, Hyponatremia Condition: Fair Critical Care Time: No Referrals: RADHA KRISHNAN [Primary Care Provider] -
--- NOTE | 2019-04-15 12:46 | XRAY ---
Indication: Low potassium. Comparison: March 06, 2019. Portable chest unchanged again with scattered fibrosis/scarring, right lung suture material, tiny calcified granulomas, and borderline cardiomegaly. No new/acute cardiopulmonary abnormalities.
[2019-04-15] MEDS ORDERED: POTASSIUM CHLORIDE 20 mEq IN WATER 100ML 100 ML IV ONE (12:55)
[2019-04-15] MEDS ORDERED: Sodium Chloride 0.9% 1000 ML 1,000 ML ONE (12:57)
[2019-04-15] MEDS ORDERED: Sodium Chloride 0.9% 1000 ML 1,000 ML IV SCH ×2 (13:00→13:37)
[2019-04-15] MEDS ORDERED: POTASSIUM CHLORIDE 20 mEq IN WATER 100ML 100 ML IV SCH (13:00)
[2019-04-15] MEDS ORDERED: DUONEB 0.5-3 MG/3 ml Neb IH ONE (14:35)
[2019-04-15] MEDS: DUONEB 0.5-3 MG/3 ml Neb IH SCH ×2 (14:38→19:26)
[2019-04-15] MEDS ORDERED: TYLENOL 325 MG PO PRN ×2 (16:41→17:00)
[2019-04-15] MEDS: PERCOCET TABLET 5/325MG PO PRN (16:43)
[2019-04-15] MEDS ORDERED: MEDICATION INTERVENTION PO SCH (16:45)
[2019-04-15] MEDS ORDERED: NON-FORMULARY ITEM (Potassium Chloride [Potassium Chloride] 20 MEQ) PO SCH (16:45)
[2019-04-15] MEDS: BUMEX 1 MG PO SCH (16:49)
[2019-04-15] MEDS: Neurontin 400 MG PO SCH ×2 (16:49→22:47)
[2019-04-15] MEDS ORDERED: NON-FORMULARY ITEM (Gabapentin [Neurontin] 800 MG) PO SCH (17:00)
[2019-04-15 18:40] LABS: BLOOD UREA NITROGEN 14 mg/dL (9-20); CHLORIDE 66 mmol/L (98-107); Calcium 8.1 mg/dL (8.4-10.2); Creatinine 1 0.55 mg/dL (0.66-1.25); Glucose 146 mg/dL (74-106); MAGNESIUM 1.4 mg/dL (1.6-2.3)
[2019-04-15 18:46] LABS: Carbon Dioxide 39 mmol/L (22-30)
[2019-04-15 18:49] LABS: SODIUM 120 mmol/L (137-145)
[2019-04-15 18:51] LABS: ANION GAP 18 MEQ/L (5-15)
[2019-04-15] MEDS: Advair Hfa 115/21 Common canister IH SCH (19:27)
[2019-04-15] MEDS: Klor Con 10 MEQ PO SCH ×2 (20:07→22:50)
[2019-04-15] MEDS: Magnesium 1 Gm / 100 Ml D5W*** 100 ML IV SCH ×2 (20:08→20:39)
[2019-04-15] MEDS: POTASSIUM CHLORIDE 20 mEq IN WATER 100ML 20 MEQ/100 ML BAG IV SCH ×2 (21:18→22:58)
[2019-04-15] MEDS ORDERED: COLCHICINE 0.6 MG PO SCH (22:00)
[2019-04-15] MEDS ORDERED: NON-FORMULARY ITEM (Famotidine [Pepcid] 40 MG) PO SCH (22:00)
[2019-04-15] MEDS ORDERED: NON-FORMULARY ITEM (Apixaban [Eliquis] 5 MG) PO SCH (22:00)
[2019-04-15] MEDS ORDERED: ATORVASTATIN CALCIUM 40 MG PO SCH (22:00)
[2019-04-15] MEDS ORDERED: NON-FORMULARY ITEM (Bumetanide [Bumex] 2 MG) PO SCH (22:00)
[2019-04-15] MEDS: ZOCOR 20MG PO SCH (22:47)
[2019-04-15] MEDS: ELIQUIS 2.5 MG TABLET PO SCH (22:47)
[2019-04-15] MEDS: Toprol-Xl 25MG Tablets PO SCH (22:47)
[2019-04-15] MEDS: Pepcid 20 MG PO SCH (22:47)
[2019-04-15] MEDS: ELAVIL 25 MG PO SCH (22:47)
[2019-04-15] MEDS: MAG-OX 400 PO SCH (22:47)
[2019-04-15] MEDS: LACTULOSE 20 GM/30ML UD CUP PO SCH (22:48)
[2019-04-16] MEDS: DUONEB 0.5-3 MG/3 ml Neb IH SCH ×4 (01:32→19:32)
[2019-04-16] MEDS: PERCOCET TABLET 5/325MG PO PRN ×5 (02:15→22:55)
[2019-04-16 05:46] LABS: Hematocrit 37.8 % (42-50); Mean Cell Volume 77.9 fl (78-100); Mean Corpuscular Hemoglobin 24.7 pg (26-32); Mean Corpuscular Hgb Concent. 31.7 g/dl (32-36); Platelet Count 156 K/mm3 (150-450); Red Blood Count 4.85 M/mm3 (4.1-5.6); Red Cell Distribution Width 18.7 % (11.5-14.0); White Blood Count 11.9 K/mm3 (4.0-10.5)
[2019-04-16 06:24] LABS: ALBUMIN 3.8 g/dL (3.5-5.0); ALKALINE PHOSPHATASE 176 U/L (38-126); BLOOD UREA NITROGEN 14 mg/dL (9-20); CHLORIDE 71 mmol/L (98-107); Calcium 7.8 mg/dL (8.4-10.2); Creatinine 1 0.57 mg/dL (0.66-1.25); Glucose 105 mg/dL (74-106); SGOT/AST 82 U/L (17-59); SGPT/ALT 101 U/L (0-50); SODIUM 122 mmol/L (137-145); Total Protein 6.5 g/dL (6.3-8.2)
[2019-04-16 06:31] LABS: Carbon Dioxide 40 mmol/L (22-30)
[2019-04-16 06:33] LABS: ANION GAP 13.7 MEQ/L (5-15); Potassium 2.7 mmol/L (3.5-5.1)
[2019-04-16] MEDS ORDERED: POTASSIUM CHLORIDE 20 mEq IN WATER 100ML 20 MEQ/100 ML BAG IV ONE (06:50)
[2019-04-16] MEDS: Klor Con 10 MEQ PO SCH ×3 (07:03→14:42)
[2019-04-16] MEDS: Advair Hfa 115/21 Common canister IH SCH ×2 (07:36→19:32)
[2019-04-16 07:45] LABS: ANISOCYTOSIS 1+; BAND 2 % (0.0-2.0); Lymphocytes 14 % (24-44); Monocyte 8 % (0.0-12.0); Neutrophils 76 % (36.-66.); Platelet Estimate NORMAL (NORMAL); Poikilocytosis RARE; Total Cells Counted 100; Toxic Granulation 1+
--- NOTE | 2019-04-16 08:33 | PCM.HP ---
History of Present Illness - Chief Complaint Chief Complaint: hypokalemia, hyponatremia History of Present Illness: is a 63 year old male pt of Dr. Lafleru from [facility] with afib, CHF , chronic renal insufficiency, chronic hypokalemia, venous stasis, gout, COPD, and idiopathic peripheral neuropathy who was admitted from [facility] through the ER with hypokalemia. His potassium was 2.8 on admission. After 40mEq K+ rider it was 3.0 and his Mg was slightly low. Mg 2g given IV and another K+ rider of 40 mEq and f/u potassium was 2.7. Pt denies any dizziness. He has been taking his Kdur 20Meq 5x/day at [facility]. He has continued that here. He denies diarrhea or vomiting. He has seen Dr. Price although he notes not for some time. He fell 2d ago, had a "urine mishap" and was trying to walk to his walker, fell against it then against the wall injuring his R knee. It was wrapped last night at [facility]. Denies LOC. His hyponatremia was reported to me as chronic, but it was normal until . - Review of Systems Respiratory: Cough, Other (had hemoptysis earlier this year) Cardiac: Edema (chronic LE edema, no exacerbation recently) Neurological: Other (chronic neuropathy) Psychological: No Anxiety, No Depression, No Suicidal Ideations Medications & Allergies Home Medications: Home Medication List Magnesium Oxide 400 mg [Mag-Ox 400] 400 mg PO BID 01/02/15 [History Confirmed 04/15/19] Metoprolol Succinate 25 mg Xl* [Toprol-Xl 25MG Tablets] 25 mg PO BID [History Confirmed 04/15/19] Omeprazole 20 MG [Prilosec 20 mg] 1 tab PO DAILY 11/30/15 [History Confirmed ] Atorvastatin Calcium [Lipitor 40Mg] 40 mg PO HS 04/08/16 [History Confirmed ] Potassium Chloride 20 meq PO UD 04/08/16 [History Confirmed 04/15/19] Bumetanide [Bumex] 2 mg PO TID 01/19/17 [History Confirmed 04/15/19] Famotidine [Pepcid] 40 mg PO HS 01/19/17 [History Confirmed 04/15/19] Gabapentin [Neurontin] 800 mg PO QID 01/19/17 [History Confirmed 04/15/19] Spironolactone 25 mg [Aldactone 25 MG] 25 mg PO DAILY 01/19/17 [History Confirmed 04/15/19] Oxycodone HCl/Acetaminophen [Oxycodon-Acetaminophen 7.5-325] 1 each PO Q4H PRN PRN 02/05/18 [History Confirmed 04/15/19] Amitriptyline HCl 25 mg PO HS 11/23/18 [History Confirmed 04/15/19] Apixaban [Eliquis] 5 mg PO BID 11/23/18 [History Confirmed 04/15/19] Ergocalciferol (Vitamin D2) [Drisdol] 50,000 unit PO UD 02/11/19 [History Confirmed 04/15/19] Albuterol/Ipratropium 3ml Neb* [DUONEB 0.5-3 MG/3 ml Neb] 3 ml IH Q4HPRN PRN ampul.neb 03/11/19 [Rx Confirmed 04/15/19] Prednisone 20 mg [Deltasone 20 mg] 20 mg PO DAILY #7 tablet 03/11/19 [Rx Confirmed 04/15/19] Acetaminophen 325 mg [Tylenol 325 mg] 650 mg PO Q4HPRN PRN 04/15/19 [ History Confirmed 04/15/19] Albuterol/Ipratropium 3ml Neb* [DUONEB 0.5-3 MG/3 ml Neb] 3 ml IH Q6HPRN PRN 04/15/19 [History Confirmed 04/15/19] Colchicine [Colcrys] 0.6 mg PO BID 04/15/19 [History Confirmed 04/15/19] Fluticasone/Salmeterol 115/21 [Advair Hfa 115/21 Common canister*] 2 puffs IH BID 04/15/19 [History Confirmed 04/15/19] Lactulose [Lactulose 20 gm/30Ml Ud Cup] 20 mg PO BID 04/15/19 [History Confirmed 04/15/19] Allergies/Adverse Reactions: Allergies Allergy/AdvReac Type Severity Reaction Status Date / Time pregabalin [From Lyrica] Allergy Verified 04/15/19 11:42 zinc Allergy Blisters Verified 04/15/19 11:42 moxifloxacin HCl AdvReac Mild Verified 04/15/19 11:42 [From Avelox] vancomycin AdvReac Elevated Verified 04/15/19 11:42 Levels / Increased CRCL - Past Medical History Past Medical History: Yes Neurological History: Peripheral Neuropathy ENT History: No Pertinent History Cardiac History: Arrhythmia, Congenital Heart Disease, Congestive Heart Failure , Hypertension Respiratory History: CHF, COPD, Pneumonia, Tuberculosis, Other Endocrine Medical History: Liver Disease Musculoskelatal History: Arthritis GI Medical History: GERD History: Renal Disease Pyscho-Social History: Depression Male Reproductive Disorders: No Pertinent History Comment: Partial R lung removal. Afib. - Past Surgical History Past Surgical History: Yes Neuro Surgical History: No Pertinent History Cardiac History: No Pertinent History Respiratory Surgery: Lobectomy GI Surgical History: No Pertinent History Genitourinary Surgical Hx: No Pertinent History Musculskeletal Surgical Hx: No Pertinent History Male Surgical History: Vasectomy Other Surgical History: RIGHT UPPER LOBECTOMY, leg vein cautery with skin graft - Social History Smoking Status: Former smoker How long have you smoked: 38 yrs Exposure to second hand smoke: No Alcohol: None Drug Use: none - Physical Exam Vital Signs: Vital Signs - 24 hr Temp Pulse Resp BP Pulse Ox 04/16/19 07:15 97.8 F 78 22 140/72 95 04/16/19 04:00 97.4 F 61 20 135/61 100 04/16/19 01:32 51 L 16 99 04/16/19 00:00 97.5 F 54 L 16 135/76 100 04/15/19 20:00 97.9 F 60 16 108/55 99 04/15/19 19:27 60 18 99 04/15/19 15:59 98.8 F 100 H 18 128/70 100 04/15/19 14:42 57 L 20 100 04/15/19 14:26 98.4 F 80 22 130/59 100 04/15/19 14:03 98.4 F 80 22 130/59 100 04/15/19 13:37 100 04/15/19 13:23 51 L 22 95/65 97 04/15/19 11:35 97.2 F 62 22 133/68 100 Oxygen-Last 24 hours O2 Percentage 4 Liters = 36% O2 Percentage 4 Liters = 36% O2 Percentage 4 Liters = 36% O2 Percentage 3 Liters = 32% O2 Percentage 4 Liters = 36% O2 Percentage 4 Liters = 36% General Appearance: no apparent distress, alert (wakes to touch; groggy initially then alert and oriented) Neurologic Exam: oriented x 3, cooperative Neck Exam: normal inspection Respiratory Exam: diminished breath sounds (good air exchange), prolonged expirations, No crackles/rales, No rhonchi, No wheezing Cardiovascular Exam: regular rate/rhythm, normal heart sounds, No murmur Gastrointestinal/Abdomen Exam: soft, normal bowel sounds, No tenderness, No distention, No mass, No guarding, No rebound Extremity Exam: other (chronic venous stasis change bilat with mild yellow crusting. R knee with abrasion approx 4x4cm, no exudate) Skin Exam: warm, dry, No rash Wound Assessment: Skin/Wound Assessment Wound/Incision Assessment Start: 04/15/19 14: 24 Text: Status: Active Freq: Q6H Protocol: Document 04/16/19 02:00 AR (Rec: 04/16/19 04:31 AR [id number]) Wound/Incision Assessment Right Anterior Knee Wound Assessment Shift Assessment Wound Type Abrasion Dressing Status Dry & Intact Drainage Amount Minimal Drainage Description Sanguineous General Appearance Bleeding Surrounding Tissue [place] Primary Dressing Non-Adherent Gauze Pads Secondary Dressing foam tape Comment dressing cdi Right Anterior Toe Wound Assessment Shift Assessment Wound Type Abrasion Dressing Status Dry & Intact Drainage Amount Minimal Drainage Description Sanguineous General Appearance Bleeding Surrounding Tissue [place] Primary Dressing Bandaid Comment dressing cdi Left Toe Wound Assessment Shift Assessment Wound Stage Unstageable General Appearance Open to air Necrotic Length (cm) (cm) 1 Comment 2 areas on toe, both necrotic and dry, open to air Right Medial Toe Wound Assessment Shift Assessment Wound Stage Unstageable Drainage Amount None General Appearance Clean/Dry Necrotic Coccyx Wound Assessment Shift Assessment Wound Type Pressure Ulcer Drainage Amount None General Appearance Open to air Length (cm) (cm) 2 Width (cm) (cm) 2 Comment barrier cream applied Wound Photo Photo Taken Yes Date: 04/15/19 Time: 20:30 Results - Labs Lab/Micro Results: Lab Results-Last 24 Hours 04/15/19 04/15/19 04/16/19 Range/Units 11:37 18:30 05:12 WBC 11.9 H (4.0-10.5) K/mm3 RBC 4.85 (4.1-5.6) M/mm3 Hgb 12.0 L (12.5-18.0) gm/dl Hct 37.8 L (42-50) % MCV 77.9 L (78-100) fl MCH 24.7 L (26-32) pg MCHC 31.7 L (32-36) g/dl RDW 18.7 H (11.5-14.0) % Plt Count 156 (150-450) K/mm3 Segmented Neutrophils 76 H (36.-66.) % Band Neutrophils 2 (0.0-2.0) % Lymphocytes (Manual) 14 L (24-44) % Monocytes (Manual) 8 (0.0-12.0) % Toxic Granulation 1+ Platelet Estimate NORMAL (NORMAL) RBC Morphology ABNORMAL Poikilocytosis RARE Anisocytosis 1+ Sodium 120 L* (137-145) mmol/L Potassium 2.8 L* D 3.0 L (3.5-5.1) mmol/L Chloride 66 L (98-107) mmol/L Carbon Dioxide 39 H (22-30) mmol/L Anion Gap 18 H (5-15) MEQ/L BUN 14 (9-20) mg/dL Creatinine 0.55 L (0.66-1.25) mg/dL Estimated GFR > 60.0 ML/MIN Glucose 146 H (74-106) mg/dL Calcium 8.1 L (8.4-10.2) mg/dL Magnesium 1.4 L (1.6-2.3) mg/dL Total Bilirubin (0.2-1.3) mg/dL AST (17-59) U/L ALT (0-50) U/L Alkaline Phosphatase (38-126) U/L Serum Total Protein (6.3-8.2) g/dL Albumin (3.5-5.0) g/dL 04/16/19 04/16/19 Range/Units 05:12 05:12 WBC (4.0-10.5) K/mm3 RBC (4.1-5.6) M/mm3 Hgb (12.5-18.0) gm/dl Hct (42-50) % MCV (78-100) fl MCH (26-32) pg MCHC (32-36) g/dl RDW (11.5-14.0) % Plt Count (150-450) K/mm3 Segmented Neutrophils (36.-66.) % Band Neutrophils (0.0-2.0) % Lymphocytes (Manual) (24-44) % Monocytes (Manual) (0.0-12.0) % Toxic Granulation Platelet Estimate (NORMAL) RBC Morphology Poikilocytosis Anisocytosis Sodium 122 L (137-145) mmol/L Potassium 2.7 L* (3.5-5.1) mmol/L Chloride 71 L (98-107) mmol/L Carbon Dioxide 40 H (22-30) mmol/L Anion Gap 13.7 (5-15) MEQ/L BUN 14 (9-20) mg/dL Creatinine 0.57 L (0.66-1.25) mg/dL Estimated GFR > 60.0 ML/MIN Glucose 105 (74-106) mg/dL Calcium 7.8 L (8.4-10.2) mg/dL Magnesium 1.8 (1.6-2.3) mg/dL Total Bilirubin 0.90 (0.2-1.3) mg/dL AST 82 H (17-59) U/L ALT 101 H (0-50) U/L Alkaline Phosphatase 176 H (38-126) U/L Serum Total Protein 6.5 (6.3-8.2) g/dL Albumin 3.8 (3.5-5.0) g/dL - Radiology Impressions Radiology Exams & Impressions: Radiology Procedures Category Date Time Status CHEST 1 VIEW (PORTABLE) Stat Exams 04/15/19 11:37 Completed - Other Procedures and Tests Respiratory Therapy 04/15/19 14:42 Oxygen NASAL CANNULA 4 lpm Peak Expiratory Flow Rate ONCE Respiratory Therapy Assessment DAILY Assessment/Plan (1) Hypokalemia Current Visit: Yes Status: Acute Assessment & Plan: Potassium is lower than at admission. Will consult Dr. Price. Pt is on bumex and spironolactone and would appreciate nephrology guidance in adjusting those. Code(s): E87.6 - HYPOKALEMIA (2) Hyponatremia Current Visit: Yes Status: Acute Assessment & Plan: Slight improvement since admission, from 120 to 122. Was normal in December, January , and february of 2019 per his chart in [place]. Will hold the IV fluids for now, recheck in a.m. Code(s): E87.1 - HYPO-OSMOLALITY AND HYPONATREMIA (3) Abrasion, right knee, initial encounter Current Visit: Yes Status: Acute Assessment & Plan: Continue dressing, appears to be mild. Code(s): S80.211A - ABRASION, RIGHT KNEE, INITIAL ENCOUNTER (4) Accidental fall Current Visit: No Status: Acute Qualifiers: Encounter type: initial encounter Qualified Code(s): W19.XXXA - Unspecified fall, initial encounter Code(s): W19.XXXA - UNSPECIFIED FALL, INITIAL ENCOUNTER (5) Chronic respiratory failure with hypercapnia Current Visit: No Status: Chronic (6) Atrial fibrillation Current Visit: No Status: Chronic Assessment & Plan: on Eliquis Code(s): I48.91 - UNSPECIFIED ATRIAL FIBRILLATION (7) CHF (congestive heart failure) Current Visit: No Status: Chronic Code(s): I50.9 - HEART FAILURE, UNSPECIFIED (8) COPD (chronic obstructive pulmonary disease) Current Visit: No Status: Chronic Qualifiers: COPD type: unspecified COPD Qualified Code(s): J44.9 - Chronic obstructive pulmonary disease, unspecified
[2019-04-16] MEDS: BUMEX 1 MG PO SCH (09:10)
[2019-04-16] MEDS: Aldactone 25 MG PO SCH (09:10)
[2019-04-16] MEDS: DELTASONE 20 MG PO SCH (09:10)
[2019-04-16] MEDS: Neurontin 400 MG PO SCH ×4 (09:10→22:46)
[2019-04-16] MEDS: Protonix 40MG Tablet PO SCH (09:10)
[2019-04-16] MEDS: MAG-OX 400 PO SCH ×2 (09:10→22:46)
[2019-04-16] MEDS: Toprol-Xl 25MG Tablets PO SCH ×2 (09:10→22:45)
[2019-04-16] MEDS: ELIQUIS 2.5 MG TABLET PO SCH ×2 (09:10→22:46)
[2019-04-16] MEDS: LACTULOSE 20 GM/30ML UD CUP PO SCH (09:11)
[2019-04-16] MEDS ORDERED: NON-FORMULARY ITEM (Omeprazole 20 Mg [Prilosec 20 Mg] 1 TAB) PO SCH (10:00)
[2019-04-16] MEDS ORDERED: LACTULOSE 20 GM/30ML UD CUP PO PRN (17:48)
[2019-04-16] MEDS ORDERED: Lactated Ringers 1,000 ML IV ONE (18:18)
[2019-04-16] MEDS: Lactated Ringers 1,000 ML IV SCH (18:33)
[2019-04-16 20:36] LABS: ANION GAP 15.8 MEQ/L (5-15); BLOOD UREA NITROGEN 10 mg/dL (9-20); CHLORIDE 72 mmol/L (98-107); Carbon Dioxide 37 mmol/L (22-30); Creatinine 1 0.62 mg/dL (0.66-1.25); Glucose 120 mg/dL (74-106); Potassium 3.3 mmol/L (3.5-5.1); SODIUM 121 mmol/L (137-145)
[2019-04-16] MEDS ORDERED: POTASSIUM CHL 40 MEQ/30 ML ORAL SOLUTION PO SCH (22:00)
[2019-04-16] MEDS: Pepcid 20 MG PO SCH (22:45)
[2019-04-16] MEDS: ZOCOR 20MG PO SCH (22:45)
[2019-04-16] MEDS: ELAVIL 25 MG PO SCH (22:46)
[2019-04-16] MEDS ORDERED: Klor Con 10 MEQ PO ONE (23:40)
[2019-04-17] MEDS: DUONEB 0.5-3 MG/3 ml Neb IH SCH ×4 (01:41→20:07)
[2019-04-17] MEDS ORDERED: Lactated Ringers 1,000 ML IV ONE (03:02)
[2019-04-17] MEDS: Lactated Ringers 1,000 ML IV SCH (03:05)
[2019-04-17 05:49] LABS: Hematocrit 35.7 % (42-50); Mean Cell Volume 80.2 fl (78-100); Mean Corpuscular Hemoglobin 24.7 pg (26-32); Mean Corpuscular Hgb Concent. 30.8 g/dl (32-36); Mean Platelet Volume 11.8 fl (6-9.5); Platelet Count 152 K/mm3 (150-450); Red Blood Count 4.45 M/mm3 (4.1-5.6); Red Cell Distribution Width 18.6 % (11.5-14.0); White Blood Count 14.4 K/mm3 (4.0-10.5)
[2019-04-17 06:10] LABS: ALBUMIN 3.6 g/dL (3.5-5.0); ALKALINE PHOSPHATASE 146 U/L (38-126); ANION GAP 13.9 MEQ/L (5-15); BLOOD UREA NITROGEN 10 mg/dL (9-20); CHLORIDE 74 mmol/L (98-107); Calcium 8.4 mg/dL (8.4-10.2); Carbon Dioxide 40 mmol/L (22-30); Creatinine 1 0.48 mg/dL (0.66-1.25); Glucose 106 mg/dL (74-106); Potassium 3.7 mmol/L (3.5-5.1); SGOT/AST 66 U/L (17-59); SGPT/ALT 92 U/L (0-50); SODIUM 124 mmol/L (137-145); Total Protein 6.2 g/dL (6.3-8.2)
[2019-04-17] MEDS: Advair Hfa 115/21 Common canister IH SCH ×2 (07:08→20:07)
--- NOTE | 2019-04-17 09:08 | PCM.NOTE ---
Date and Time: 04/17/19904 Subjective Assessment: patient reports his breathing is doing well at this time, he denies pain or complaints. Objective Exam General Appearance: no apparent distress, alert Wound Assessment: Skin/Wound Assessment Wound/Incision Assessment Start: 04/15/19 14: 24 Text: Status: Active Freq: Q6H Protocol: Document 04/17/19 02:00 AR (Rec: 04/17/19 08:30 AR [id number]) Wound/Incision Assessment Left Buttock Wound Assessment Shift Assessment Wound Type Pressure Ulcer Wound Stage Stage I General Appearance Open to air Comment barrier ointment applied prn Right Anterior Knee Wound Assessment Shift Assessment Wound Type Abrasion Dressing Status Dry & Intact Primary Dressing Non-Adherent Gauze Pads Secondary Dressing foam tape Comment dressing cdi Right Anterior Toe Wound Assessment Shift Assessment Wound Type Abrasion Dressing Status Dry & Intact Surrounding Tissue [place] Primary Dressing Bandaid Comment dressing cdi Left Toe Wound Assessment Shift Assessment Wound Stage Unstageable General Appearance Open to air Necrotic Length (cm) (cm) 1 Comment 2 areas on toe, both necrotic and dry, open to air Right Medial Toe Wound Assessment Shift Assessment Wound Stage Unstageable General Appearance Clean/Dry Necrotic Coccyx Wound Assessment Shift Assessment Wound Type Pressure Ulcer Wound Stage Stage II General Appearance Open to air Length (cm) (cm) 2 Width (cm) (cm) 2 Comment barrier cream applied prn Wound Photo Photo Taken Yes Date: 04/15/19 Time: 20:30 Respiratory Exam: crackles/rales Cardiovascular Exam: regular rate/rhythm, normal heart sounds Gastrointestinal/Abdomen Exam: soft, No tenderness, No mass Extremity Exam: other (chronic venous stasis changes to lower leg) OBJECTIVE DATA Vital Signs: Vital Signs - 24 hr Temp Pulse Resp BP Pulse Ox 04/17/19 08:00 97.5 F 55 L 20 119/57 99 04/17/19 07:10 63 16 92 L 04/17/19 04:00 98.3 F 87 20 130/63 100 04/17/19 01:41 66 19 98 04/17/19 00:22 98.5 F 58 L 16 140/68 98 04/16/19 20:00 98.4 F 72 20 111/56 98 04/16/19 19:34 67 20 98 04/16/19 15:25 98 F 74 20 116/66 96 04/16/19 14:38 74 20 97 04/16/19 13:04 98 F 61 20 112/59 96 Oxygen-Last 24 hours O2 Percentage 4 Liters = 36% O2 Percentage 4 Liters = 36% O2 Percentage 4 Liters = 36% O2 Percentage 4 Liters = 36% O2 Percentage 4 Liters = 36% O2 Percentage 4 Liters = 36% Pain Assessment - Last Documented Pain Intensity 8 Pain Scale Used FLACC Intake and Output: Intake & Output 04/14/19 04/15/19 04/16/19 04/17/19 11:59 11:59 11:59 11:59 Intake Total 2771 7142 Output Total 4200 5500 Balance -1429 1642 Weight 135.171 kg 121.1 kg 123.4 kg Lab Results: Lab Results-Last 24 Hours 04/16/19 04/16/19 04/17/19 Range/Units 11:19 20:21 05:22 WBC 14.4 H (4.0-10.5) K/mm3 RBC 4.45 (4.1-5.6) M/mm3 Hgb 11.0 L (12.5-18.0) gm/dl Hct 35.7 L (42-50) % MCV 80.2 (78-100) fl MCH 24.7 L (26-32) pg MCHC 30.8 L (32-36) g/dl RDW 18.6 H (11.5-14.0) % Plt Count 152 (150-450) K/mm3 MPV 11.8 H (6-9.5) fl Sodium 121 L (137-145) mmol/L Potassium 2.9 L* 3.3 L (3.5-5.1) mmol/L Chloride 72 L (98-107) mmol/L Carbon Dioxide 37 H (22-30) mmol/L Anion Gap 15.8 H (5-15) MEQ/L BUN 10 (9-20) mg/dL Creatinine 0.62 L (0.66-1.25) mg/dL Estimated GFR > 60.0 ML/MIN Glucose 120 H (74-106) mg/dL Calcium 8.0 L (8.4-10.2) mg/dL Total Bilirubin (0.2-1.3) mg/dL AST (17-59) U/L ALT (0-50) U/L Alkaline Phosphatase (38-126) U/L Serum Total Protein (6.3-8.2) g/dL Albumin (3.5-5.0) g/dL Slides for Path Review YES 04/17/19 Range/Units 05:22 WBC (4.0-10.5) K/mm3 RBC (4.1-5.6) M/mm3 Hgb (12.5-18.0) gm/dl Hct (42-50) % MCV (78-100) fl MCH (26-32) pg MCHC (32-36) g/dl RDW (11.5-14.0) % Plt Count (150-450) K/mm3 MPV (6-9.5) fl Sodium 124 L (137-145) mmol/L Potassium 3.7 (3.5-5.1) mmol/L Chloride 74 L (98-107) mmol/L Carbon Dioxide 40 H (22-30) mmol/L Anion Gap 13.9 (5-15) MEQ/L BUN 10 (9-20) mg/dL Creatinine 0.48 L (0.66-1.25) mg/dL Estimated GFR > 60.0 ML/MIN Glucose 106 (74-106) mg/dL Calcium 8.4 (8.4-10.2) mg/dL Total Bilirubin 0.80 (0.2-1.3) mg/dL AST 66 H (17-59) U/L ALT 92 H (0-50) U/L Alkaline Phosphatase 146 H (38-126) U/L Serum Total Protein 6.2 L (6.3-8.2) g/dL Albumin 3.6 (3.5-5.0) g/dL Slides for Path Review Radiology Exams: Radiology Procedures Category Date Time Status CHEST 1 VIEW (PORTABLE) Stat Exams 04/15/19 11:37 Completed Assessment/Plan (1) Hypokalemia Current Visit: Yes Status: Acute Assessment & Plan: improved, continue current management. appreciate nephrology input, will likely need to resume loop diuretic due to significant chf history Code(s): E87.6 - HYPOKALEMIA (2) Hyponatremia Current Visit: Yes Status: Acute Assessment & Plan: slowly improving Code(s): E87.1 - HYPO-OSMOLALITY AND HYPONATREMIA (3) CHF (congestive heart failure) Current Visit: No Status: Chronic Code(s): I50.9 - HEART FAILURE, UNSPECIFIED (4) COPD (chronic obstructive pulmonary disease) Current Visit: No Status: Chronic Qualifiers: COPD type: unspecified COPD Qualified Code(s): J44.9 - Chronic obstructive pulmonary disease, unspecified
[2019-04-17] MEDS: ELIQUIS 2.5 MG TABLET PO SCH ×2 (09:52→21:45)
[2019-04-17] MEDS: MAG-OX 400 PO SCH ×2 (09:52→21:45)
[2019-04-17] MEDS: Aldactone 25 MG PO SCH (09:52)
[2019-04-17] MEDS: Toprol-Xl 25MG Tablets PO SCH ×2 (09:52→21:51)
[2019-04-17] MEDS: NON-FORMULARY ITEM PO SCH ×2 (09:53→21:48)
[2019-04-17] MEDS: PERCOCET TABLET 5/325MG PO PRN ×2 (09:53→15:36)
[2019-04-17] MEDS: DELTASONE 20 MG PO SCH (09:53)
[2019-04-17] MEDS: Neurontin 400 MG PO SCH ×4 (09:53→21:45)
[2019-04-17] MEDS: Protonix 40MG Tablet PO SCH (09:53)
[2019-04-17 14:45] LABS: ANION GAP 12.3 MEQ/L (5-15); BLOOD UREA NITROGEN 10 mg/dL (9-20); CHLORIDE 74 mmol/L (98-107); Calcium 8.6 mg/dL (8.4-10.2); Carbon Dioxide 39 mmol/L (22-30); Creatinine 1 0.54 mg/dL (0.66-1.25); Glucose 133 mg/dL (74-106); Potassium 3.9 mmol/L (3.5-5.1); SODIUM 122 mmol/L (137-145)
[2019-04-17] MEDS: Sodium Chloride 0.9% 1000 ML 1,000 ML IV SCH (15:34)
[2019-04-17] MEDS: ELAVIL 25 MG PO SCH (21:43)
[2019-04-17] MEDS: Pepcid 20 MG PO SCH (21:50)
[2019-04-17] MEDS: ZOCOR 20MG PO SCH (21:51)
[2019-04-17 22:41] LABS: ANION GAP 12.6 MEQ/L (5-15); BLOOD UREA NITROGEN 12 mg/dL (9-20); CHLORIDE 79 mmol/L (98-107); Calcium 8.9 mg/dL (8.4-10.2); Carbon Dioxide 36 mmol/L (22-30); Creatinine 1 0.74 mg/dL (0.66-1.25); Glucose 126 mg/dL (74-106); Potassium 4.8 mmol/L (3.5-5.1); SODIUM 123 mmol/L (137-145)
[2019-04-18] MEDS: Sodium Chloride 0.9% 1000 ML 1,000 ML IV SCH ×3 (01:29→22:19)
[2019-04-18] MEDS: PERCOCET TABLET 5/325MG PO PRN ×5 (04:59→22:16)
[2019-04-18 05:46] LABS: BASOPHIL % 0.2 % (0.0-0.4); Basophil (Absolute #) 0.02 (0-0.4); Eosinophil % 0.5 % (0.00-5.0); Eosinophil (Absolute #) 0.06 (0-0.5); Granulocyte Absolute (ANC) 9.42 (1.4-6.9); Granulocytes % 82.3 % (36.0-66.0); Hematocrit 36.6 % (42-50); Hemoglobin 11.1 gm/dl (12.5-18.0); Lymphocytes % 11.4 % (24.0-44.0); Mean Cell Volume 82.4 fl (78-100); Mean Corpuscular Hgb Concent. 30.3 g/dl (32-36); Mean Platelet Volume 11.7 fl (6-9.5); Monocyte (Absolute #) 0.64 (0.0-1.3); Monocytes % 5.6 % (0.0-12.0); Platelet Count 147 K/mm3 (150-450); Red Blood Count 4.44 M/mm3 (4.1-5.6); White Blood Count 11.4 K/mm3 (4.0-10.5)
[2019-04-18 06:05] LABS: ANION GAP 13.4 MEQ/L (5-15); BLOOD UREA NITROGEN 14 mg/dL (9-20); CHLORIDE 81 mmol/L (98-107); Calcium 9.2 mg/dL (8.4-10.2); Carbon Dioxide 37 mmol/L (22-30); Creatinine 1 0.64 mg/dL (0.66-1.25); Glucose 131 mg/dL (74-106); Potassium 4.9 mmol/L (3.5-5.1); SODIUM 126 mmol/L (137-145)
[2019-04-18] MEDS: DUONEB 0.5-3 MG/3 ml Neb IH SCH ×4 (06:24→17:54)
[2019-04-18] MEDS: Advair Hfa 115/21 Common canister IH SCH ×2 (06:24→17:54)
--- NOTE | 2019-04-18 07:55 | CONS ---
DATE OF CONSULT: 04/17/2019 REASON FOR CONSULT: Hyponatremia. HISTORY: Prasanth Byers was admitted to the hospital for weakness, was noted to have hyponatremia with a sodium of 120. He was seen by Dr. Bolton yesterday. He was given some IV fluids, received 2 liters of lactated Ringer's. However the sodium has not improved much and is up to 124. He reported he was drinking a lot of fluid at home and was also taking diuretic and was thought to have hyponatremia. PAST MEDICAL HISTORY: Remains unchanged. PAST SURGICAL HISTORY: Remains unchanged. FAMILY HISTORY: Remains unchanged. MEDICATIONS: His medications were reviewed. LAB DATA AND TESTS: His lab data was reviewed. PHYSICAL EXAMINATION: Vital signs: Temperature 97.5F, heart rate 55, respirations 20, blood pressure 119/57. GENERAL: The patient is alert, oriented x3. No acute distress noted. HEENT: Head atraumatic, normocephalic. ENT: There is no ear or nose discharge. Oral mucosa is moist. CVS: S1, S2 normal. No murmur or gallop. RESPIRATORY: Clear on auscultation, symmetrical expansion. ABDOMEN: Soft, nontender, nondistended. EXTREMITIES: Evidence of trace edema noted. No cyanosis or clubbing. SKIN: Warm and dry. There are some chronic venous stasis changes noted on the lower extremities bilaterally. NEURO: The patient is alert, awake, has normal speech and normal hearing. ASSESSMENT AND PLAN: 1) HYPONATREMIA: The patient does have hypovolemia, hyponatremia which is likely secondary to the diuretic use and also from water access. I do not have the osmolality results and there could be a component of syndrome of inappropriate antidiuretic hormone. I reviewed his x-ray and showed some evidence of fibrosis which can certainly cause syndrome of inappropriate antidiuretic hormone. I am waiting for osmolality. If osmolality is high the patient may benefit from increasing his solid intake, might be able to try urea or Samsca. I would restart the saline hydration, will repeat the labs every 8 hours and I have spoken with the nurse to report back with the labs. I would advise the patient to limit the fluid intake to 1.5 liters per day. I will follow closely. 2) EDEMA: This has much improved. I recommend to continue with Aldactone. However will hold off on Bumex as the edema has improved and also hyponatremia was suspected to be hypervolemic and therefore will hold the diuretic. 3) HYPOKALEMIA: The patient's potassium was found to be very low. It has improved today, will continue with the potassium supplements and Aldactone for now. The plan of care discussed with the patient and the floor registered nurse.
[2019-04-18] MEDS: Neurontin 400 MG PO SCH ×4 (08:59→22:16)
[2019-04-18] MEDS: Toprol-Xl 25MG Tablets PO SCH ×2 (09:00→22:15)
[2019-04-18] MEDS: NON-FORMULARY ITEM PO SCH ×2 (09:00→23:19)
[2019-04-18] MEDS: DELTASONE 20 MG PO SCH (09:00)
[2019-04-18] MEDS: Protonix 40MG Tablet PO SCH (09:00)
[2019-04-18] MEDS: Aldactone 25 MG PO SCH (09:00)
[2019-04-18] MEDS: MAG-OX 400 PO SCH ×2 (09:00→22:16)
[2019-04-18] MEDS: ELIQUIS 2.5 MG TABLET PO SCH ×2 (09:00→22:16)
--- NOTE | 2019-04-18 13:04 | PCM.NOTE ---
Date and Time: 04/18/19 1303 Subjective Assessment: patient doing well, labs are improving. denies any breathing problems, no swelling issues etc Objective Exam General Appearance: no apparent distress, alert Skin Exam: normal color, warm, dry Respiratory Exam: crackles/rales Cardiovascular Exam: regular rate/rhythm, normal heart sounds Extremity Exam: other (chronic lymphedema changes BLE) OBJECTIVE DATA Vital Signs: Vital Signs - 24 hr Temp Pulse Resp BP Pulse Ox 04/18/19 12:26 67 18 97 04/18/19 12:00 97.9 F 52 L 14 110/56 98 04/18/19 07:39 97.7 F 63 14 112/62 99 04/18/19 06:28 63 18 97 04/18/19 04:23 98.1 F 59 L 19 128/76 100 04/18/19 01:30 52 L 13 100 04/18/19 00:13 98.6 F 64 20 131/79 98 04/17/19 20:08 86 22 97 04/17/19 20:00 98.3 F 85 20 145/87 99 04/17/19 16:00 97.5 F 62 18 118/59 99 04/17/19 13:25 58 L 20 99 Oxygen-Last 24 hours O2 Percentage 4 Liters = 36% O2 Percentage 4 Liters = 36% O2 Percentage 4 Liters = 36% O2 Percentage 4 Liters = 36% O2 Percentage 4 Liters = 36% O2 Percentage 4 Liters = 36% Pain Assessment - Last Documented Pain Intensity 10 Pain Scale Used 0-10 Pain Scale Intake and Output: Intake & Output 04/16/19 04/17/19 04/18/19 04/19/19 11:59 11:59 11:59 11:59 Intake Total 2771 7142 4624 Output Total 4200 6300 3450 Balance -1562 167 2293 Weight 121.1 kg 123.4 kg Lab Results: Lab Results-Last 24 Hours 04/16/19 04/17/19 04/17/19 Range/Units 20:15 05:22 14:15 WBC (4.0-10.5) K/mm3 RBC (4.1-5.6) M/mm3 Hgb (12.5-18.0) gm/dl Hct (42-50) % MCV (78-100) fl MCH (26-32) pg MCHC (32-36) g/dl RDW (11.5-14.0) % Plt Count (150-450) K/mm3 MPV (6-9.5) fl Gran % (36.0-66.0) % Eos # (Auto) (0-0.5) Absolute Lymphs (auto) (1.0-4.6) Absolute Monos (auto) (0.0-1.3) Lymphocytes % (24.0-44.0) % Monocytes % (0.0-12.0) % Eosinophils % (0.00-5.0) % Basophils % (0.0-0.4) % Absolute Granulocytes (1.4-6.9) Basophils # (0-0.4) Sodium 122 L (137-145) mmol/L Potassium 3.9 (3.5-5.1) mmol/L Chloride 74 L (98-107) mmol/L Carbon Dioxide 39 H (22-30) mmol/L Anion Gap 12.3 (5-15) MEQ/L BUN 10 (9-20) mg/dL Creatinine 0.54 L (0.66-1.25) mg/dL Estimated GFR > 60.0 ML/MIN Glucose 133 H (74-106) mg/dL Calcium 8.6 (8.4-10.2) mg/dL TSH 3rd Generation 1.180 (0.47-4.68) mIU/L Urine Osmolality <100 mOsm/kg Slides for Path Review 04/17/19 04/18/19 04/18/19 Range/Units 22:26 05:43 05:43 WBC 11.4 H (4.0-10.5) K/mm3 RBC 4.44 (4.1-5.6) M/mm3 Hgb 11.1 L (12.5-18.0) gm/dl Hct 36.6 L (42-50) % MCV 82.4 (78-100) fl MCH 25.0 L (26-32) pg MCHC 30.3 L (32-36) g/dl RDW 19.0 H (11.5-14.0) % Plt Count 147 L (150-450) K/mm3 MPV 11.7 H (6-9.5) fl Gran % 82.3 H (36.0-66.0) % Eos # (Auto) 0.06 (0-0.5) Absolute Lymphs (auto) 1.30 (1.0-4.6) Absolute Monos (auto) 0.64 (0.0-1.3) Lymphocytes % 11.4 L (24.0-44.0) % Monocytes % 5.6 (0.0-12.0) % Eosinophils % 0.5 (0.00-5.0) % Basophils % 0.2 (0.0-0.4) % Absolute Granulocytes 9.42 H (1.4-6.9) Basophils # 0.02 (0-0.4) Sodium 123 L 126 L (137-145) mmol/L Potassium 4.8 D 4.9 (3.5-5.1) mmol/L Chloride 79 L 81 L (98-107) mmol/L Carbon Dioxide 36 H 37 H (22-30) mmol/L Anion Gap 12.6 13.4 (5-15) MEQ/L BUN 12 14 (9-20) mg/dL Creatinine 0.74 0.64 L (0.66-1.25) mg/dL Estimated GFR > 60.0 > 60.0 ML/MIN Glucose 126 H 131 H (74-106) mg/dL Calcium 8.9 9.2 (8.4-10.2) mg/dL TSH 3rd Generation (0.47-4.68) mIU/L Urine Osmolality mOsm/kg Slides for Path Review YES Assessment/Plan (1) Hypokalemia Current Visit: Yes Status: Acute Assessment & Plan: improved Code(s): E87.6 - HYPOKALEMIA (2) Hyponatremia Current Visit: Yes Status: Acute Assessment & Plan: improving. Code(s): E87.1 - HYPO-OSMOLALITY AND HYPONATREMIA (3) CHF (congestive heart failure) Current Visit: No Status: Chronic Code(s): I50.9 - HEART FAILURE, UNSPECIFIED (4) COPD (chronic obstructive pulmonary disease) Current Visit: No Status: Chronic Qualifiers: COPD type: unspecified COPD Qualified Code(s): J44.9 - Chronic obstructive pulmonary disease, unspecified
[2019-04-18 14:31] LABS: ANION GAP 13.4 MEQ/L (5-15); BLOOD UREA NITROGEN 15 mg/dL (9-20); CHLORIDE 81 mmol/L (98-107); Calcium 8.8 mg/dL (8.4-10.2); Carbon Dioxide 33 mmol/L (22-30); Creatinine 1 0.48 mg/dL (0.66-1.25); Glucose 150 mg/dL (74-106); Potassium 5.5 mmol/L (3.5-5.1); SODIUM 123 mmol/L (137-145)
[2019-04-18] MEDS: ZOCOR 20MG PO SCH (22:15)
[2019-04-18] MEDS: Pepcid 20 MG PO SCH (22:15)
[2019-04-18] MEDS: ELAVIL 25 MG PO SCH (22:16)
[2019-04-18 22:44] LABS: BLOOD UREA NITROGEN 14 mg/dL (9-20); CHLORIDE 84 mmol/L (98-107); Calcium 8.4 mg/dL (8.4-10.2); Carbon Dioxide 31 mmol/L (22-30); Creatinine 1 0.91 mg/dL (0.66-1.25); Glucose 124 mg/dL (74-106); Potassium 5.4 mmol/L (3.5-5.1); SODIUM 125 mmol/L (137-145)
[2019-04-19] MEDS: PERCOCET TABLET 5/325MG PO PRN ×4 (04:23→20:07)
[2019-04-19 06:20] LABS: ANION GAP 14.6 MEQ/L (5-15); BLOOD UREA NITROGEN 13 mg/dL (9-20); CHLORIDE 85 mmol/L (98-107); Calcium 8.8 mg/dL (8.4-10.2); Carbon Dioxide 33 mmol/L (22-30); Creatinine 1 0.62 mg/dL (0.66-1.25); Glucose 103 mg/dL (74-106); SODIUM 128 mmol/L (137-145)
[2019-04-19] MEDS: DUONEB 0.5-3 MG/3 ml Neb IH SCH ×4 (06:26→19:33)
[2019-04-19] MEDS: Advair Hfa 115/21 Common canister IH SCH ×2 (07:33→19:33)
[2019-04-19] MEDS: Sodium Chloride 0.9% 1000 ML 1,000 ML IV SCH (08:22)
--- NOTE | 2019-04-19 08:59 | PCM.NOTE ---
Date and Time: 04/19/19 0856 Subjective Assessment: Labs are better. 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 - Review of Systems Constitutional: No Fever Respiratory: Cough (chronic) Objective Exam General Appearance: no apparent distress, alert Neurologic Exam: oriented x 3, cooperative Skin Exam: normal color, warm, dry, No rash Ears, Nose, Throat Exam: moist mucous membranes Neck Exam: normal inspection Respiratory Exam: lungs clear, diminished breath sounds, No crackles/rales, No rhonchi, No wheezing Cardiovascular Exam: regular rate/rhythm, normal heart sounds, No murmur Gastrointestinal/Abdomen Exam: soft, normal bowel sounds, No tenderness, No distention, No mass, No guarding, No rebound OBJECTIVE DATA Vital Signs: Vital Signs - 24 hr Temp Pulse Resp BP Pulse Ox 04/19/19 07:35 71 18 92 L 04/19/19 07:33 97.9 F 63 16 112/59 95 04/19/19 05:20 99 04/19/19 04:10 98.3 F 79 20 127/58 97 04/19/19 00:00 98.5 F 72 18 137/64 100 04/18/19 20:00 98.3 F 81 20 132/58 97 04/18/19 17:56 90 20 94 L 04/18/19 16:00 97.5 F 66 20 112/60 98 04/18/19 12:26 67 18 97 04/18/19 12:00 97.9 F 52 L 14 110/56 98 Oxygen-Last 24 hours O2 Percentage 4 Liters = 36% O2 Percentage 4 Liters = 36% O2 Percentage 4 Liters = 36% O2 Percentage 4 Liters = 36% O2 Percentage 4 Liters = 36% O2 Percentage 4 Liters = 36% Pain Assessment - Last Documented Pain Intensity 7 Pain Scale Used [facility] Intake and Output: Intake & Output 04/16/19 04/17/19 04/18/19 04/19/19 11:59 11:59 11:59 11:59 Intake Total 3801 4938 4666 5096 Output Total 4202 4770 8040 5499 Balance -1484 837 1807 821 Weight 121.1 kg 123.4 kg 131.6 kg 133.9 kg Lab Results: Lab Results-Last 24 Hours 04/16/19 04/16/19 04/18/19 Range/Units 20:15 20:15 14:00 Sodium 123 L (137-145) mmol/L Potassium 5.5 H (3.5-5.1) mmol/L Chloride 81 L (98-107) mmol/L Carbon Dioxide 33 H (22-30) mmol/L Anion Gap 13.4 (5-15) MEQ/L BUN 15 (9-20) mg/dL Creatinine 0.48 L (0.66-1.25) mg/dL Estimated GFR > 60.0 ML/MIN Glucose 150 H (74-106) mg/dL Calcium 8.8 (8.4-10.2) mg/dL Urine Osmolality <100 mOsm/kg Ur Random Sodium <20 mEq/L 04/18/19 04/19/19 Range/Units 22:28 05:57 Sodium 125 L 128 L (137-145) mmol/L Potassium 5.4 H 5.0 (3.5-5.1) mmol/L Chloride 84 L 85 L (98-107) mmol/L Carbon Dioxide 31 H 33 H (22-30) mmol/L Anion Gap 15.0 14.6 (5-15) MEQ/L BUN 14 13 (9-20) mg/dL Creatinine 0.91 0.62 L (0.66-1.25) mg/dL Estimated GFR > 60.0 > 60.0 ML/MIN Glucose 124 H 103 (74-106) mg/dL Calcium 8.4 8.8 (8.4-10.2) mg/dL Urine Osmolality mOsm/kg Ur Random Sodium mEq/L Assessment/Plan (1) Hypokalemia Current Visit: Yes Status: Acute Assessment & Plan: Improving Code(s): E87.6 - HYPOKALEMIA (2) Hyponatremia Current Visit: Yes Status: Acute Assessment & Plan: Better; Na 128 today. Per nephrology, thank you! Code(s): E87.1 - HYPO-OSMOLALITY AND HYPONATREMIA (3) Abrasion, right knee, initial encounter Current Visit: Yes Status: Acute Assessment & Plan: improved Code(s): S80.211A - ABRASION, RIGHT KNEE, INITIAL ENCOUNTER (4) Chronic respiratory failure with hypercapnia Current Visit: No Status: Chronic (5) Atrial fibrillation Current Visit: No Status: Chronic Code(s): I48.91 - UNSPECIFIED ATRIAL FIBRILLATION (6) CHF (congestive heart failure) Current Visit: No Status: Chronic Code(s): I50.9 - HEART FAILURE, UNSPECIFIED (7) COPD (chronic obstructive pulmonary disease) Current Visit: No Status: Chronic Qualifiers: COPD type: unspecified COPD Qualified Code(s): J44.9 - Chronic obstructive pulmonary disease, unspecified
[2019-04-19] MEDS: DELTASONE 20 MG PO SCH (09:03)
[2019-04-19] MEDS: MAG-OX 400 PO SCH ×2 (09:03→22:28)
[2019-04-19] MEDS: Aldactone 25 MG PO SCH (09:03)
[2019-04-19] MEDS: Neurontin 400 MG PO SCH ×4 (09:03→22:29)
[2019-04-19] MEDS: Toprol-Xl 25MG Tablets PO SCH ×2 (09:04→22:28)
[2019-04-19] MEDS: ELIQUIS 2.5 MG TABLET PO SCH ×2 (09:04→22:29)
[2019-04-19] MEDS: Protonix 40MG Tablet PO SCH (09:04)
[2019-04-19] MEDS: NON-FORMULARY ITEM PO SCH ×3 (11:13→22:29)
[2019-04-19 14:47] LABS: ANION GAP 13.9 MEQ/L (5-15); BLOOD UREA NITROGEN 13 mg/dL (9-20); CHLORIDE 85 mmol/L (98-107); Calcium 8.8 mg/dL (8.4-10.2); Carbon Dioxide 32 mmol/L (22-30); Creatinine 1 0.57 mg/dL (0.66-1.25); Glucose 191 mg/dL (74-106); Potassium 5.5 mmol/L (3.5-5.1); SODIUM 125 mmol/L (137-145)
[2019-04-19] MEDS: Pepcid 20 MG PO SCH (22:28)
[2019-04-19] MEDS: ZOCOR 20MG PO SCH (22:28)
[2019-04-19] MEDS: ELAVIL 25 MG PO SCH (22:29)
[2019-04-20] MEDS: PERCOCET TABLET 5/325MG PO PRN ×2 (04:19→09:57)
[2019-04-20 05:57] LABS: ANION GAP 13.7 MEQ/L (5-15); BLOOD UREA NITROGEN 14 mg/dL (9-20); CHLORIDE 86 mmol/L (98-107); Calcium 9.3 mg/dL (8.4-10.2); Carbon Dioxide 33 mmol/L (22-30); Creatinine 1 0.42 mg/dL (0.66-1.25); Glucose 111 mg/dL (74-106); Potassium 5.4 mmol/L (3.5-5.1); SODIUM 127 mmol/L (137-145)
[2019-04-20 07:34] VITALS: O2SAT 96
[2019-04-20] MEDS: DUONEB 0.5-3 MG/3 ml Neb IH SCH (08:17)
[2019-04-20] MEDS: Advair Hfa 115/21 Common canister IH SCH (08:18)
[2019-04-20] MEDS: MAG-OX 400 PO SCH (09:58)
[2019-04-20] MEDS: Toprol-Xl 25MG Tablets PO SCH (09:58)
[2019-04-20] MEDS: Aldactone 25 MG PO SCH (09:58)
[2019-04-20] MEDS: Protonix 40MG Tablet PO SCH (09:58)
[2019-04-20] MEDS: Neurontin 400 MG PO SCH (09:58)
[2019-04-20] MEDS: DELTASONE 20 MG PO SCH (09:58)
[2019-04-20] MEDS: ELIQUIS 2.5 MG TABLET PO SCH (09:58)
[2019-04-20] MEDS: NON-FORMULARY ITEM PO SCH (09:59)
--- NOTE | 2019-04-20 11:49 | PCM.DS ---
Discharge Summary Date of Admission: 04/16/19 08:28 Admitting Physician: KAREN ARAUJO Consults: Consults on Case 04/16/19 08:40 Consult Nephrology ROUTINE Primary Care Provider: [facility] Allergies Allergies pregabalin [From Lyrica] Allergy (Verified 04/15/19 11:42) zinc Allergy (Verified 04/15/19 11:42) Blisters moxifloxacin HCl [From Avelox] Adverse Reaction (Mild, Verified 04/15/19 11:42) vancomycin Adverse Reaction (Verified 04/15/19 11:42) Elevated Levels / Increased CRCL patient had significant increase in Serum CR and decreased creatinine clearence. [facility] Summary - Hospital Course Hospital Course: is a 63 year old male pt of Dr. Lafleur from [place] with afib, CHF , chronic renal insufficiency, chronic hypokalemia, venous stasis, gout, COPD, and idiopathic peripheral neuropathy who was admitted from [place] through the ER with hypokalemia and hyponatremia. Despite several courses of IV potassium, his potassium remained under 3.0. His bumex was stopped. Nephrology was consulted, thank you. Potassium is actually a bit high now at 5.4. Pt is on fluid restriction and the sodium has been steadily rising; for the last 3d has been 127-128. I spoke with dr. Newton this morning and since the fluid restriction and daily labs are the only interventions, will send pt back to [place] today. Pt has no complaints this morning. - Vitals & Intake/Output Vital Signs: Vital Signs Temperature 98.7 F 04/20/19 07:33 Pulse Rate 86 04/20/19 08:23 Respiratory Rate 20 04/20/19 08:23 Blood Pressure 130/63 04/20/19 07:33 O2 Sat by Pulse Oximetry 96 04/20/19 08:23 Oxygen-Last Documented O2 Percentage 2 Liters = 28% Intake & Output: Intake & Output 04/17/19 04/18/19 04/19/19 04/20/19 11:59 11:59 11:59 11:59 Intake Total 7142 4664 5336 1953 Output Total 6300 3450 4975 2600 Balance 842 1174 361 -647 Weight 123.4 kg 131.6 kg 133.9 kg 131.1 kg - Lab Result Diagrams: 04/18/19 05:43 04/20/19 05:28 Lab Results-Last 24 Hrs: Lab Results-Last 24 Hours 04/19/19 04/20/19 Range/Units 14:20 05:28 Sodium 125 L 127 L (137-145) mmol/L Potassium 5.5 H 5.4 H (3.5-5.1) mmol/L Chloride 85 L 86 L (98-107) mmol/L Carbon Dioxide 32 H 33 H (22-30) mmol/L Anion Gap 13.9 13.7 (5-15) MEQ/L BUN 13 14 (9-20) mg/dL Creatinine 0.57 L 0.42 L (0.66-1.25) mg/dL Estimated GFR > 60.0 > 60.0 ML/MIN Glucose 191 H 111 H (74-106) mg/dL Calcium 8.8 9.3 (8.4-10.2) mg/dL - Procedures and Test Procedures and Tests throughout Hospitalization: Therapy Orders & Screens 04/15/19 13:37 Respiratory Therapy Consult ROUTINE Comment: Reason For Exam: 04/15/19 14:42 Oxygen NASAL CANNULA 4 lpm Comment: Diagnosis: hypokalemia, hyponatremia Peak Expiratory Flow Rate ONCE Comment: Reason For Exam: Diagnosis: hypokalemia, hyponatremia Respiratory Therapy Assessment DAILY Comment: Diagnosis: hypokalemia, hyponatremia 04/15/19 14:45 OT Screen per Nursing Assess ONCE Comment: Protocol Order Physician Instructions: Greater than 3 points order OT Admission Screening Reason For Exam: Triggered on Admission Diagnosis: hypokalemia, hyponatremia Open Wound/Cellutlitis/Pressure Ulcers: Yes Acute Fx/ORIF/Change in wt bearing status: No Severe MUSCULOSKELETAL pain: No ADL Dysfunction: No Acute CVA w/Hemiparesis/Hemiplegia: No Decreased Functional Mobility/Strength: No Sprain/Strain: No Acute Post-op Mobility Dysfunction: No Total Points: 5 PT Screen per Nursing Assess ONCE Comment: Protocol Order Physician Instructions: Greater than 3 points order PT Admission Screenin Reason For Exam: Triggered on Admission Diagnosis: hypokalemia, hyponatremia Open Wound/Cellutlitis/Pressure Ulcers: Yes Acute Fx/ORIF/Change in wt bearing status: No Severe MUSCULOSKELETAL pain: No ADL Dysfunction: No Acute CVA w/Hemiparesis/Hemiplegia: No Decreased Functional Mobility/Strength: No Sprain/Strain: No Acute Post-op Mobility Dysfunction: No Total Points: 5 RT Screen per Nursing Assess ONCE Comment: Protocol Order Physician Instructions: Greater than 3 points order RT Admission Screen Reason For Exam: Triggered on Admission Diagnosis: hypokalemia, hyponatremia Diagnosis: hypokalemia, hyponatremia Pneumonia: No Home O2: Yes Asthma: No CHF: Yes Home CPAP/BIPAP: No Home Nebs/MDI: Yes Total Points: 13 Discharge Exam General Appearance: no apparent distress, alert Neurologic Exam: oriented x 3, cooperative Eye Exam: eyes nml inspection Ears, Nose, Throat Exam: moist mucous membranes Respiratory Exam: diminished breath sounds, prolonged expirations, No crackles/ rales, No rhonchi, No wheezing Cardiovascular Exam: regular rate/rhythm, normal heart sounds, No murmur Gastrointestinal/Abdomen Exam: soft, normal bowel sounds, No tenderness, No mass , No guarding, No rebound Back Exam: normal inspection, No rash Extremity Exam: other (chronic venous stasis change) Final Diagnosis/Problem List - Final Discharge Diagnosis/Problem (1) Hypokalemia Current Visit: Yes Status: Chronic Assessment & Plan: resolved on current med regimen; may need to be adjusted due to some hyperkalemia currently. On lactulose 20mg/d. Code(s): E87.6 - HYPOKALEMIA (2) Hyponatremia Current Visit: Yes Status: Acute Assessment & Plan: improving. on NaCl tabs TID. Per nephrology. Code(s): E87.1 - HYPO-OSMOLALITY AND HYPONATREMIA (3) CHF (congestive heart failure) Current Visit: No Status: Chronic Assessment & Plan: Pt no longer on bumex, so he MUST have strict fluid restriction, 1500mL every 24h. Code(s): I50.9 - HEART FAILURE, UNSPECIFIED (4) Abrasion, right knee, initial encounter Current Visit: Yes Status: Acute Code(s): S80.211A - ABRASION, RIGHT KNEE, INITIAL ENCOUNTER (5) Chronic respiratory failure with hypercapnia Current Visit: No Status: Chronic (6) Atrial fibrillation Current Visit: No Status: Chronic Code(s): I48.91 - UNSPECIFIED ATRIAL FIBRILLATION (7) COPD (chronic obstructive pulmonary disease) Current Visit: No Status: Chronic - Discharge Disposition: Skilled Care @ [facility] Condition: Stable Prescriptions: New Lactulose [Lactulose 20 gm/30Ml Ud Cup] 20 gm PO DAILY PRN #30 udcup PRN Reason: Constipation Sodium Chloride 1 gm PO TID #21 tablet Continue Magnesium Oxide 400 mg [Mag-Ox 400] 400 mg PO BID Omeprazole 20 MG [Prilosec 20 mg] 1 tab PO DAILY Metoprolol Succinate 25 mg Xl* [Toprol-Xl 25MG Tablets] 25 mg PO BID Atorvastatin Calcium [Lipitor 40Mg] 40 mg PO HS Famotidine [Pepcid] 40 mg PO HS Spironolactone 25 mg [Aldactone 25 MG] 25 mg PO DAILY Gabapentin [Neurontin] 800 mg PO QID Oxycodone HCl/Acetaminophen [Oxycodon-Acetaminophen 7.5-325] 1 each PO Q4H PRN PRN PRN Reason: Moderate To Severe Pain Apixaban [Eliquis] 5 mg PO BID Amitriptyline HCl 25 mg PO HS Ergocalciferol (Vitamin D2) [Drisdol] 50,000 unit PO UD Prednisone 20 mg [Deltasone 20 mg] 20 mg PO DAILY #7 tablet Albuterol/Ipratropium 3ml Neb* [DUONEB 0.5-3 MG/3 ml Neb] 3 ml IH Q4HPRN PRN ampul.neb PRN Reason: Shortness Of Breath/Wheezing Acetaminophen 325 mg [Tylenol 325 mg] 650 mg PO Q4HPRN PRN PRN Reason: Pain Colchicine [Colcrys] 0.6 mg PO BID Albuterol/Ipratropium 3ml Neb* [DUONEB 0.5-3 MG/3 ml Neb] 3 ml IH Q6HPRN PRN PRN Reason: copd Fluticasone/Salmeterol 115/21 [Advair Hfa 115/21 Common canister*] 2 puffs IH BID Discontinued Potassium Chloride 20 meq PO UD Bumetanide [Bumex] 2 mg PO TID Lactulose [Lactulose 20 gm/30Ml Ud Cup] 20 mg PO BID Follow up with: JOHNATHON BOYER [CONSULTING PHYSICIAN] - 07/08/19 2:00 pm (at [facility] )
[2019-04-20 12:04] VITALS: BP 125/60; PULSE 69
[2019-04-22] MEDS ORDERED: VITAMIN D2 PO SCH (10:00)
== END 2019-04-20 12:40 | DRG 641 ==
LOC: ED 11:19 → MED SURG 13:34 → OBSVTOIN 04-16 08:28
PROVIDERS: ADMIT Family Medicine; ATTEND Family Medicine
DX: E87.6 Hypokalemia (principal); I13.0 Hypertensive heart and chronic kidney disease with heart failure and stage 1 through stage 4 chronic kidney disease, or unspecified chronic kidney disease; J96.12 Chronic respiratory failure with hypercapnia; E87.1 Hypo-osmolality and hyponatremia; J44.9 Chronic obstructive pulmonary disease, unspecified; N18.9 Chronic kidney disease, unspecified; I48.91 Unspecified atrial fibrillation; E86.1 Hypovolemia; M10.9 Gout, unspecified; G60.9 Hereditary and idiopathic neuropathy, unspecified; S80.211A Abrasion, right knee, initial encounter; Z79.01 Long term (current) use of anticoagulants; Z79.899 Other long term (current) drug therapy; L89.321 Pressure ulcer of left buttock, stage 1; L89.152 Pressure ulcer of sacral region, stage 2
CPT/HCPCS: 36000; 36415; 71045; 80048; 80053; 82530; 83735; 83935; 84132; 84300; 84443; 85025; 85027; 93005; 93268; 94150; 94640; 94760; 94762; 96360; 96365; 96374; 99285; G0378; P9603; J3475; J3480; A9270-GY

== ENCOUNTER 2019-04-26 01:24 | Emergency (ER) | payer MEDICARE ==
--- NOTE | 2019-04-26 01:43 | ERPHSYRPT ---
- History of Present Illness Time Seen by Provider: 04/26/19 01:38 Source: patient, group home records Exam Limitations: no limitations Physician History: 63-year-old white male with history of peripheral neuropathy, arrhythmia, congenital heart disease, congestive heart failure, high blood pressure, COPD, pneumonia, liver disease Who has chronic venous stasis in his lower extremities. He is sent from the group home with complaints that the patient has had increased temperature at the group home they feel like he is having increased facial edema they feel like his lower extremities increased erythema they apparently were worried about sepsis he is noted by the medics to have a wet rhonchi he is given an duo neb treatment en route. Patient has had some shortness of breath at home. No vomiting no diarrhea. Past medical history peripheral neuropathy, arrhythmia, congenital heart disease , congestive heart failure, high blood pressure, COPD, pneumonia, tuberculosis, liver disease, arthritis, GERD, renal disease, depression, partial lung removal on the right, atrial fibrillation. Past surgical history includes right upper lobectomy, leg vein cautery with skin grafts. Patient is a former smoker. . Timing/Duration: today Severity: moderate Associated Symptoms: shortness of breath, fever, other (increasing erythema lower extremities, facial edema), No nausea, No vomiting, No abdominal pain, No heartburn, No diaphoresis, No cough, No chills, No chest pain, No headaches, No loss of appetite, No malaise, No rash, No syncope, No seizure, No weakness Allergies/Adverse Reactions: pregabalin [From Lyrica] Allergy (Verified 04/15/19 11:42) zinc Allergy (Verified 04/15/19 11:42) Blisters moxifloxacin HCl [From Avelox] Adverse Reaction (Mild, Verified 04/15/19 11:42) vancomycin Adverse Reaction (Verified 04/15/19 11:42) Elevated Levels / Increased CRCL patient had significant increase in Serum CR and decreased creatinine clearence. Wetch Closely Home Medications: Magnesium Oxide 400 mg [Mag-Ox 400] 400 mg PO BID 01/02/15 [History] Metoprolol Succinate 25 mg Xl* [Toprol-Xl 25MG Tablets] 25 mg PO BID [History] Omeprazole 20 MG [Prilosec 20 mg] 1 tab PO DAILY 11/30/15 [History] Atorvastatin Calcium [Lipitor 40Mg] 40 mg PO HS 04/08/16 [History] Famotidine [Pepcid] 40 mg PO HS 01/19/17 [History] Gabapentin [Neurontin] 800 mg PO QID 01/19/17 [History] Spironolactone 25 mg [Aldactone 25 MG] 25 mg PO DAILY 01/19/17 [History] Oxycodone HCl/Acetaminophen [Oxycodon-Acetaminophen 7.5-325] 1 each PO Q4H PRN PRN 02/05/18 [History] Amitriptyline HCl 25 mg PO HS 11/23/18 [History] Ergocalciferol (Vitamin D2) [Drisdol] 50,000 unit PO UD 02/11/19 [History] Acetaminophen 325 mg [Tylenol 325 mg] 650 mg PO Q4HPRN PRN 04/15/19 [ History] Albuterol/Ipratropium 3ml Neb* [DUONEB 0.5-3 MG/3 ml Neb] 3 ml IH Q6HPRN PRN 04/15/19 [History] Colchicine [Colcrys] 0.6 mg PO BID 04/15/19 [History] Fluticasone/Salmeterol 115/21 [Advair Hfa 115/21 Common canister*] 2 puffs IH BID 04/15/19 [History] Lactulose [Lactulose 20 gm/30Ml Ud Cup] 20 gm PO DAILY PRN PRN 04/26/19 [ History] Levothyroxine Sodium 50 Mcg [Synthroid 50 Mcg] 50 mcg PO DAILY 04/26/19 [ History] Hx Tetanus, Diphtheria Vaccination/Date Given: Yes Hx Influenza Vaccination/Date Given: Yes Hx Pneumococcal Vaccination/Date Given: Yes - Review of Systems Constitutional: Fever, No Chills, No Fatigue, No Lethargy, No Malaise, No Night Sweats, No Weakness, No Weight Loss Eyes: No Symptoms Ears, Nose, & Throat: No Symptoms Respiratory: Cough, Other (increasing erythema lower extremities) Cardiac: Edema, No Chest Pain Abdominal/Gastrointestinal: No Abdominal Pain, No Nausea, No Vomiting, No Diarrhea Genitourinary Symptoms: No Dysuria Musculoskeletal: Other (increasing erythema lower extremities), No Back Pain, No Neck Pain Skin: Other (increasing erythema lower extremities) Neurological: Other (group home called he was slower to respond than normal), No Dizziness, No Focal Weakness, No Sensory Changes Psychological: No Symptoms Endocrine: No Symptoms All Other Systems: Reviewed and Negative - Past Medical History Pertinent Past Medical History: Yes Neurological History: Peripheral Neuropathy ENT History: No Pertinent History Cardiac History: Arrhythmia, Congenital Heart Disease, Congestive Heart Failure , Hypertension Respiratory History: CHF, COPD, Pneumonia, Tuberculosis, Other Endocrine Medical History: Liver Disease Musculoskeletal History: Arthritis GI Medical History: GERD History: Renal Disease Psycho-Social History: Depression Male Reproductive Disorders: No Pertinent History Other Medical History: Partial R lung removal. Afib. - Past Surgical History Past Surgical History: Yes Neuro Surgical History: No Pertinent History Cardiac: No Pertinent History Respiratory: Lobectomy Gastrointestinal: No Pertinent History Genitourinary: No Pertinent History Musculoskeletal: No Pertinent History Male Surgical History: Vasectomy Other Surgical History: RIGHT UPPER LOBECTOMY, leg vein cautery with skin graft - Social History Smoking Status: Former smoker How long have you smoked: 38 yrs Exposure to second hand smoke: No Drug Use: none Patient Lives Alone: No - Nursing Vital Signs Nursing Vital Signs: Initial Vital Signs Temperature 100.6 F 04/26/19 01:25 Pulse Rate 91 H 04/26/19 01:25 Respiratory Rate 22 04/26/19 01:25 Blood Pressure 107/70 04/26/19 01:25 O2 Sat by Pulse Oximetry 99 04/26/19 01:25 Pain Scale Pain Intensity 9 - Physical Exam General Appearance: moderate distress, alert, other (morbidly obese white male audible wet rhonchi) Eye Exam: PERRL/EOMI, eyes nml inspection Ears, Nose, Throat Exam: normal ENT inspection, TMs normal, pharynx normal, moist mucous membranes Neck Exam: normal inspection, non-tender, supple, full range of motion Respiratory Exam: rhonchi Cardiovascular Exam: regular rate/rhythm, normal heart sounds, normal peripheral pulses Gastrointestinal/Abdomen Exam: soft, normal bowel sounds, No tenderness, No mass Back Exam: normal inspection, normal range of motion, No CVA tenderness, No vertebral tenderness Extremity Exam: other (bilateral lower extremities erythematous and somewhat dusky) Neurologic Exam: alert, oriented x 3, cooperative, normal mood/affect, nml cerebellar function, nml station & gait, sensation nml, No motor deficits Skin Exam: other (bilateral lower extremities erythematous somewhat dusky patient with chronic lower extremity erythema) SpO2 Interpretation: normal (96%) - Course Nursing assessment & vital signs reviewed: Yes EKG Interpreted by Me: RATE (95 bpm), A-fib, Other (EKG: Atrial fibrillation, 95 beats per minute, indeterminate axis, no acute ST or T wave changes noted) - Radiology Exams Chest X-ray Interpretation: Interpreted by me (no new or acute cardiopulmonary abnormalities as compared to 04/15/19) Ordered Tests: Active Orders 24 hr Category Date Time Status EKG-ER Only STAT Care 04/26/19 01:32 Active IV Insertion STAT Care 04/26/19 01:32 Active Oxygen-ED Only Nasal Cannula 4 lpm Care 04/26/19 01:32 Active Pulse Oximetry (ED) STAT Care 04/26/19 01:32 Active CHEST 1 VIEW (PORTABLE) Stat Exams 04/26/19 01:33 Taken BLOOD CULTURE Stat Lab 04/26/19 02:05 Received CBC W DIFF Stat Lab 04/26/19 01:45 Completed CMP Stat Lab 04/26/19 01:45 Completed CULTURE,SPUTUM Stat Lab 04/26/19 01:33 Uncollected CULTURE,URINE Stat Lab 04/26/19 01:30 Received D-DIMER QUANTITATION Stat Lab 04/26/19 01:45 Completed Lactic Acid Stat Lab 04/26/19 02:00 Completed NT PRO BNP Stat Lab 04/26/19 01:45 Completed PROTIME WITH INR Stat Lab 04/26/19 01:45 Completed PTT Stat Lab 04/26/19 01:45 Completed TROPONIN Q3H Lab 04/26/19 01:45 Completed TROPONIN Q3H Lab 04/26/19 04:45 Ordered TROPONIN Q3H Lab 04/26/19 07:45 Ordered TROPONIN Q3H Lab 04/26/19 10:45 Ordered TROPONIN Q3H Lab 04/26/19 13:45 Ordered UA W/RFX UR CULTURE Stat Lab 04/26/19 01:30 Completed VENOUS BLOOD GAS Stat Lab 04/26/19 02:00 Completed Peak Expiratory Flow Rate ONCE RT 04/26/19 02:58 Active Respiratory Therapy Assessment DAILY RT 04/26/19 02:58 Active Medication Summary Generic Name Dose Route Start Last Admin Trade Name Freq PRN Reason Stop Dose Admin Sodium Chloride 1,000 mls @ 70 mls/hr 04/26/19 03:00 04/26/19 02:55 Sodium Chloride 0.9% 1000 Ml IV 05/26/19 02:59 70 mls/hr .[id number] ANG Administration Clindamycin HCl/Dextrose 900 mg in 50 mls @ 100 mls/hr 04/26/19 03:05 Clindamycin-D5w 900 Mg/50 Ml IV 04/26/19 03:34 STAT STA Discontinued Medications Generic Name Dose Route Start Last Admin Trade Name Christy PRN Reason Stop Dose Admin Albuterol Sulfate 2.5 mg 04/26/19 02:50 04/26/19 02:55 Proventil 2.5 Mg/3 Ml Neb IH 04/26/19 02:51 2.5 mg STAT ONE Administration Albuterol Sulfate Confirm 04/26/19 02:54 Proventil 2.5 Mg/3 Ml Neb Administered 04/26/19 02:55 Dose 2.5 mg IH .STK-MED ONE Aspirin 324 mg 04/26/19 02:51 04/26/19 02:55 Baby Aspirin 81 Mg Chew PO 04/26/19 02:52 324 mg STAT ONE Administration Aspirin Confirm 04/26/19 02:52 Baby Aspirin 81 Mg Chew Administered 04/26/19 02:53 Dose 324 mg .ROUTE .STK-MED ONE Ceftriaxone Sodium/Dextrose 1 g in 50 mls @ 100 mls/hr 04/26/19 01:48 02:35 Rocephin 1 Gm-D5w 50 Ml Bag IV 04/26/19 02:17 Infused STAT STA Infusion Ceftriaxone Sodium/Dextrose Confirm 04/26/19 02:04 Rocephin 1 Gm-D5w 50 Ml Bag Administered 04/26/19 02:05 Dose 1 g in 50 mls @ ud IV .STK-MED ONE Lab/Rad Data: Laboratory Result Diagrams 04/26/19 01:45 04/26/19 01:45 Laboratory Results 04/26/19 04/26/19 04/26/19 Range/Units 02:00 01:45 01:45 WBC (4.0-10.5) K/mm3 RBC (4.1-5.6) M/mm3 Hgb (12.5-18.0) gm/dl Hct (42-50) % MCV (78-100) fl MCH (26-32) pg MCHC (32-36) g/dl RDW (11.5-14.0) % Plt Count (150-450) K/mm3 MPV (6-9.5) fl Gran % (36.0-66.0) % Eos # (Auto) (0-0.5) Absolute Lymphs (auto) (1.0-4.6) Absolute Monos (auto) (0.0-1.3) Lymphocytes % (24.0-44.0) % Monocytes % (0.0-12.0) % Eosinophils % (0.00-5.0) % Basophils % (0.0-0.4) % Absolute Granulocytes (1.4-6.9) Basophils # (0-0.4) PT 18.2 H (8.83-12.87) SECONDS INR 1.60 (0.8-3.0) APTT 31.0 (24.1-36.1) SECONDS D-Dimer 413 (215-500) ng/mL pO2/FiO2 Ratio 36.0 % VBG pH 7.40 (7.32-7.42) VBG pCO2 at Pat Temp 56 H (42-55) mm/Hg VBG pO2 at Pat Temp 57 H (25-40) mm/Hg VBG HCO3 34.7 H* (22-28) meq/L VBG O2 Sat (Mike) 92.2 L (95-100) VBG Base Excess 8.6 H (-2.0-2.0) VBG Hemoglobin 9.7 VBG Carboxyhemoglobin 4.3 (0.0-6.9) % T HGB POC Potassium 4.8 (3.5-5.1) Sodium (137-145) mmol/L Potassium (3.5-5.1) mmol/L Chloride (98-107) mmol/L Carbon Dioxide (22-30) mmol/L Anion Gap (5-15) MEQ/L BUN (9-20) mg/dL Creatinine (0.66-1.25) mg/dL Estimated GFR ML/MIN Glucose (74-106) mg/dL Lactic Acid 1.1 (0.4-2.0) Calcium (8.4-10.2) mg/dL Total Bilirubin (0.2-1.3) mg/dL AST (17-59) U/L ALT (0-50) U/L Alkaline Phosphatase (38-126) U/L Troponin I 0.051 H* (0.000-0.034) ng/mL NT-Pro-B Natriuret Pep (0-900) pg/mL Serum Total Protein (6.3-8.2) g/dL Albumin (3.5-5.0) g/dL Urine Color (YELLOW) Urine Appearance (CLEAR) Urine pH (5-6) Ur Specific [place] (1.005-1.025) Urine Protein (Negative) Urine Ketones (NEGATIVE) Urine Blood (0-5) Jordan/ul Urine Nitrite (NEGATIVE) Urine Bilirubin (NEGATIVE) Urine Urobilinogen (0-1) mg/dL Ur Leukocyte Esterase (NEGATIVE) Urine WBC (Auto) (0-5) /HPF Urine RBC (Auto) (0-2) /HPF U Epithel Cells (Auto) (FEW) /HPF Urine Bacteria (Auto) (NEGATIVE) /HPF Urine Mucus (Auto) (NEGATIVE) /HPF Urine Culture Reflexed (NO) Urine Glucose (NEGATIVE) mg/dL Slides for Path Review 04/26/19 04/26/19 04/26/19 Range/Units 01:45 01:45 01:30 WBC 23.8 H (4.0-10.5) K/mm3 RBC 3.60 L (4.1-5.6) M/mm3 Hgb 9.4 L (12.5-18.0) gm/dl Hct 30.9 L (42-50) % MCV 85.8 (78-100) fl MCH 26.1 (26-32) pg MCHC 30.4 L (32-36) g/dl RDW 21.1 H (11.5-14.0) % Plt Count 108 L (150-450) K/mm3 MPV 11.7 H (6-9.5) fl Gran % 87.5 H (36.0-66.0) % Eos # (Auto) 0.08 (0-0.5) Absolute Lymphs (auto) 1.75 (1.0-4.6) Absolute Monos (auto) 1.13 (0.0-1.3) Lymphocytes % 7.4 L (24.0-44.0) % Monocytes % 4.7 (0.0-12.0) % Eosinophils % 0.3 (0.00-5.0) % Basophils % 0.1 (0.0-0.4) % Absolute Granulocytes 20.82 H (1.4-6.9) Basophils # 0.02 (0-0.4) PT (8.83-12.87) SECONDS INR (0.8-3.0) APTT (24.1-36.1) SECONDS D-Dimer (215-500) ng/mL pO2/FiO2 Ratio % VBG pH (7.32-7.42) VBG pCO2 at Pat Temp (42-55) mm/Hg VBG pO2 at Pat Temp (25-40) mm/Hg VBG HCO3 (22-28) meq/L VBG O2 Sat (Mike) (95-100) VBG Base Excess (-2.0-2.0) VBG Hemoglobin VBG Carboxyhemoglobin (0.0-6.9) % T HGB POC Potassium (3.5-5.1) Sodium 131 L (137-145) mmol/L Potassium 4.8 (3.5-5.1) mmol/L Chloride 92 L (98-107) mmol/L Carbon Dioxide 31 H (22-30) mmol/L Anion Gap 13.6 (5-15) MEQ/L BUN 13 (9-20) mg/dL Creatinine 0.55 L (0.66-1.25) mg/dL Estimated GFR > 60.0 ML/MIN Glucose 88 (74-106) mg/dL Lactic Acid (0.4-2.0) Calcium 8.3 L (8.4-10.2) mg/dL Total Bilirubin 1.40 H (0.2-1.3) mg/dL AST 43 (17-59) U/L ALT 95 H (0-50) U/L Alkaline Phosphatase 207 H (38-126) U/L Troponin I (0.000-0.034) ng/mL NT-Pro-B Natriuret Pep 4110 H (0-900) pg/mL Serum Total Protein 6.4 (6.3-8.2) g/dL Albumin 3.5 (3.5-5.0) g/dL Urine Color CARSON (YELLOW) Urine Appearance SLIGHTLY CLOUDY (CLEAR) Urine pH 5.0 (5-6) Ur Specific [place] 1.023 (1.005-1.025) Urine Protein 100 (Negative) Urine Ketones NEGATIVE (NEGATIVE) Urine Blood NEGATIVE (0-5) Jordan/ul Urine Nitrite NEGATIVE (NEGATIVE) Urine Bilirubin NEGATIVE (NEGATIVE) Urine Urobilinogen 2 (0-1) mg/dL Ur Leukocyte Esterase TRACE (NEGATIVE) Urine WBC (Auto) 11-15 (0-5) /HPF Urine RBC (Auto) 3-5 (0-2) /HPF U Epithel Cells (Auto) NONE (FEW) /HPF Urine Bacteria (Auto) RARE (NEGATIVE) /HPF Urine Mucus (Auto) SLIGHT (NEGATIVE) /HPF Urine Culture Reflexed ORDERED SEPARATELY (NO) Urine Glucose NEGATIVE (NEGATIVE) mg/dL Slides for Path Review YES - Progress Progress: improved Progress Note: 04/26/19 01:45 63-year-old white male with history of peripheral neuropathy, arrhythmia, congenital heart disease, congestive heart failure, high blood pressure, COPD, pneumonia, tuberculosis, liver disease, arthritis, GERD, renal disease, depression who has had a partial lung removal on the right and has had atrial fibrillation. Patient has chronic lower extremity erythema. Patient is noted the group home to have increased temperature at the group home they feel like he is not responding as well as he normally is. He was also noted to have increased erythema to his lower extremities. Patient is noted by medics to have some shortness of breath they have given him a DuoNeb treatment prior to arrival. On my and review patient is noted to have audible wet rhonchi occasional cough lung sounds remarkable for a wet rhonchi, He is alert he is oriented he is speaking to nurses and to myself. He has chronic bilateral lower extremity erythema and today it it appears to be somewhat worse. I have asked the patient to consider BiPAP however he refuses this at this time. Patient is finishing a DuoNeb treatment which was initially begun by the medics. 04/26/19 02:57 Patient legs reexamined. Patient has draining lesions on his right to the lower leg both legs are erythematous left leg shows some dark spots in addition to the erythema on the lower leg. . Patient's lactate is within normal limits patient's white count is 23.5 hemoglobin 9.6 hematocrit 30.9. Patient does have a rattle when he breathes. Patient unfortunately has a troponin which is elevated at 0.05 one Patient's labs sodium 131 potassium 4.8 chloride 9 92 bicarbonate 31 BUN 13 creatinine 0.55 glucose 88 GFR is greater than 60 total bilirubin 1.4 AST 43 ALT 95 BNP 4110. Patient's pH 7.4 PCO2 is 56 patient refuses BiPAP Patient . , 99% oxygenation on 5 L Patient's EKG atrial fibrillation 95 beats per minute indeterminate axis no acute ST or T wave changes are noted. Impression fever, cellulitis bilateral lower extremities, shortness of breath, elevated troponin. I have started the patient is normal saline at 70 mL per hour patient does have a history of congestive heart failure he has a rattle in some wet rales I have not given the patient a large fluid bolus because of this, Rocephin 1 g IV has been given 04/26/19 03:05 I've discussed the patient's case with Lorenzo, ER physician at [facility]. He has requested that I give the patient clindamycin 900 mg IV. This has been ordered. Dr. Ventura has accepted the patient for transfer. Diagnosis 1 cellulitis bilateral legs. 2 fever 3. Elevated troponin 4. shortness of breath. - Departure Departure Disposition: Transfer ([facility]) Clinical Impression: Bilateral lower leg cellulitis, Shortness of breath, Elevated troponin Fever Qualifiers: Fever type: unspecified Qualified Code(s): R50.9 - Fever, unspecified Condition: Fair Critical Care Time: No Referrals: RADHA KRISHNAN [Primary Care Provider] -
[2019-04-26] MEDS ORDERED: ROCEPHIN 1 Gm-D5w 50 ml Bag** 1 G/50 ML IVPB IV STA (01:48)
[2019-04-26] MEDS ORDERED: ROCEPHIN 1 Gm-D5w 50 ml Bag** 1 G/50 ML IVPB IV ONE (02:04)
[2019-04-26 02:08] LABS: BASOPHIL % 0.1 % (0.0-0.4); Basophil (Absolute #) 0.02 (0-0.4); Eosinophil % 0.3 % (0.00-5.0); Eosinophil (Absolute #) 0.08 (0-0.5); Granulocyte Absolute (ANC) 20.82 (1.4-6.9); Granulocytes % 87.5 % (36.0-66.0); Hematocrit 30.9 % (42-50); Hemoglobin 9.4 gm/dl (12.5-18.0); Lymphocyte (Absolute #) 1.75 (1.0-4.6); Lymphocytes % 7.4 % (24.0-44.0); Mean Cell Volume 85.8 fl (78-100); Mean Corpuscular Hemoglobin 26.1 pg (26-32); Mean Corpuscular Hgb Concent. 30.4 g/dl (32-36); Mean Platelet Volume 11.7 fl (6-9.5); Monocyte (Absolute #) 1.13 (0.0-1.3); Monocytes % 4.7 % (0.0-12.0); Platelet Count 108 K/mm3 (150-450); Red Cell Distribution Width 21.1 % (11.5-14.0); White Blood Count 23.8 K/mm3 (4.0-10.5)
[2019-04-26 02:17] LABS: INR 1.6 (0.8-3.0); PROTIME 18.2 SECONDS (8.83-12.87)
[2019-04-26 02:22] LABS: Lactic Acid 1.1 (0.4-2.0); VBG BASE EXCESS 8.6 (-2.0-2.0); VBG CARBOXYHEMOGLOBIN 4.3 % T HGB (0.0-6.9); VBG HCO3- 34.7 meq/L (22-28); VBG HEMOGLOBIN 9.7; VBG O2 SATURATION 92.2 (95-100); VBG POTASSIUM 4.8 (3.5-5.1); VBG pH 7.4 (7.32-7.42)
[2019-04-26 02:24] LABS: Appearance SLIGHTLY CLOUDY (CLEAR); Bacteria RARE /HPF (NEGATIVE); Bilirubin NEGATIVE (NEGATIVE); Blood NEGATIVE Ery/ul (0-5); Glucose NEGATIVE (NEGATIVE); Ketones NEGATIVE (NEGATIVE); Leukocyte Esterase TRACE (NEGATIVE); Mucus SLIGHT /HPF (NEGATIVE); Nitrite NEGATIVE (NEGATIVE); Protein,Urine Dip 100 (Negative); Specific Gravity 1.023 (1.005-1.025); Urobilinogen 2 mg/dL (0-1)
[2019-04-26 02:30] LABS: ALBUMIN 3.5 g/dL (3.5-5.0); ALKALINE PHOSPHATASE 207 U/L (38-126); ANION GAP 13.6 MEQ/L (5-15); BLOOD UREA NITROGEN 13 mg/dL (9-20); CHLORIDE 92 mmol/L (98-107); Calcium 8.3 mg/dL (8.4-10.2); Carbon Dioxide 31 mmol/L (22-30); Creatinine 1 0.55 mg/dL (0.66-1.25); Glucose 88 mg/dL (74-106); NT PRO BNP 4110 pg/mL (0-900); Potassium 4.8 mmol/L (3.5-5.1); SGOT/AST 43 U/L (17-59); SGPT/ALT 95 U/L (0-50); SODIUM 131 mmol/L (137-145); Total Protein 6.4 g/dL (6.3-8.2)
[2019-04-26] MEDS ORDERED: PROVENTIL 2.5 MG/3 ML NEB IH ONE ×2 (02:50→02:54)
[2019-04-26] MEDS ORDERED: BABY ASPIRIN 81 MG CHEW PO ONE (02:51)
[2019-04-26] MEDS ORDERED: BABY ASPIRIN 81 MG CHEW ONE (02:52)
[2019-04-26] MEDS ORDERED: Sodium Chloride 0.9% 1000 ML 1,000 ML ONE (02:52)
[2019-04-26] MEDS ORDERED: Sodium Chloride 0.9% 1000 ML 1,000 ML IV SCH (03:00)
[2019-04-26] MEDS ORDERED: CLINDAMYCIN-D5W 900 MG/50 ML*** 900 MG/50 ML BAG IV STA (03:05)
[2019-04-26 03:48] VITALS: BP 110/78; PULSE 91; O2SAT 99
--- NOTE | 2019-04-26 09:31 | XRAY ---
Indication: Short of breath and fever. Comparison: April 15, 2019. Portable chest again demonstrates scattered fibrosis/scarring, calcified granulomas, cardiomegaly, osteopenia, and bony degenerative changes. No new/acute abnormalities.
== END 2019-04-26 03:45 | disposition short-term general hospital (02) ==
LOC: ED 01:24
DX: L03.116 Cellulitis of left lower limb (principal); L03.115 Cellulitis of right lower limb; R06.02 Shortness of breath; R74.8 Abnormal levels of other serum enzymes; R50.9 Fever, unspecified
CPT/HCPCS: 36000; 36415; 71045; 80053; 81001; 82805; 83605; 83880; 84484; 85025; 85379; 85610; 85730; 87040; 87070; 87077; 87086; 87186; 93005; 94150; 94640; 94760; 96360; 96365; 99285; J0696; J7609; A9270-GY

== ENCOUNTER 2019-06-26 12:36 | Day surgery (SDC) | payer MEDICARE ==
[2019-06-26] MEDS ORDERED: Xylocaine 1% Vial 30 ML PF IJ ONE (12:37)
[2019-06-26] MEDS ORDERED: Depo-Medrol 40 MG/ML IM ONE (12:37)
[2019-06-26] MEDS ORDERED: Xylocaine-Mpf 2% 5 Ml Vial IJ ONE (12:37)
[2019-06-26] MEDS ORDERED: Ketamine HCl 50 MG/ML ONE (13:41)
[2019-06-26] MEDS ORDERED: DIPRIVAN 200 MG/20 ML IV ONE (13:41)
--- NOTE | 2019-06-26 14:48 | XRAY ---
Indication: Bilateral L4-S1 MBB. Intraoperative fluoroscopy was provided for 13 seconds. Single digital spot image submitted for interpretation demonstrates posterior needle tips projecting over the expected course of the left and right L4-S1 nerve roots. Correlate with intraoperative findings/report.
--- NOTE | 2019-06-26 14:52 | XRAY ---
13 seconds fluoroscopy time in surgery for bilateral L4-S1 MBB.
[2019-06-26] MEDS ORDERED: Lactated Ringers 1,000 ML IV ONE (15:55)
== END 2019-06-26 14:05 | disposition home or self-care (01) ==
LOC: SDC-PAIN 12:36
PROVIDERS: ATTEND Psychiatry & Neurology Pain Medicine
DX: M47.816 Spondylosis without myelopathy or radiculopathy, lumbar region (principal); I10 Essential (primary) hypertension; I48.91 Unspecified atrial fibrillation; Z79.01 Long term (current) use of anticoagulants; I73.9 Peripheral vascular disease, unspecified; M06.9 Rheumatoid arthritis, unspecified; J44.9 Chronic obstructive pulmonary disease, unspecified; Z79.899 Other long term (current) drug therapy
CPT/HCPCS: 72020; 77002; J1030; J2001; J2704

== ENCOUNTER 2019-07-13 09:23 | Inpatient (IN) | payer MEDICARE ==
--- NOTE | 2019-07-13 09:35 | ERPHSYRPT ---
- History of Present Illness Time Seen by Provider: 07/13/19 09:35 Source: patient Exam Limitations: no limitations Physician History: patient has been coughing up blood since yesterday. The patient says it's a moderate amount. Also complains of shortness of breath patient is a known case of COPD on home oxygen. Patient has a history of tuberculosis the 10 years ago. Had a partial pneumonectomy done. patient received 1 L of 5 TB treatment. Patient has been symptom-free since then. Timing/Duration: yesterday Cough Quality/Degree: moderate, productive cough, blood streaked sputum Possible Cause: frequent episodes Modifying Factors: Improves With: nothing Associated Symptoms: shortness of breath, No fever, No chills, No chest pain/ soreness, No headache, No lightheadedness, No nasal congestion, No nasal drainage International travel in last 2 weeks: No Allergies/Adverse Reactions: pregabalin [From Lyrica] Allergy (Verified 07/13/19 09:46) zinc Allergy (Verified 07/13/19 09:46) Blisters moxifloxacin HCl [From Avelox] Adverse Reaction (Mild, Verified 07/13/19 09:46) vancomycin Adverse Reaction (Verified 07/13/19 09:46) Elevated Levels / Increased CRCL patient had significant increase in Serum CR and decreased creatinine clearence. Wetch Closely Home Medications: Magnesium Oxide 400 mg [Mag-Ox 400] 400 mg PO BID 01/02/15 [History] Metoprolol Succinate 25 mg Xl* [Toprol-Xl 25MG Tablets] 25 mg PO DAILY [History] Omeprazole 20 MG [Prilosec 20 mg] 1 tab PO DAILY 11/30/15 [History] Atorvastatin Calcium [Lipitor 40Mg] 40 mg PO HS 04/08/16 [History] Famotidine [Pepcid] 40 mg PO HS 01/19/17 [History] Gabapentin [Neurontin] 800 mg PO QID 01/19/17 [History] Spironolactone 25 mg [Aldactone 25 MG] 25 mg PO DAILY 01/19/17 [History] Oxycodone HCl/Acetaminophen [Oxycodon-Acetaminophen 7.5-325] 1 each PO Q4H PRN PRN 02/05/18 [History] Amitriptyline HCl 50 mg PO HS 11/23/18 [History] Ergocalciferol (Vitamin D2) [Drisdol] 50,000 unit PO UD 02/11/19 [History] Acetaminophen 325 mg [Tylenol 325 mg] 650 mg PO Q4HPRN PRN 04/15/19 [ History] Albuterol/Ipratropium 3ml Neb* [DUONEB 0.5-3 MG/3 ml Neb] 3 ml IH Q6HPRN PRN 04/15/19 [History] Colchicine [Colcrys] 0.6 mg PO BID 04/15/19 [History] Fluticasone/Salmeterol / [Advair Hfa Common canister*] 2 puffs IH BID 04/15/19 [History] Levothyroxine Sodium 50 Mcg [Synthroid 50 Mcg] 50 mcg PO DAILY 04/26/19 [ History] Bumetanide [Bumex] 2 mg PO BID 07/13/19 [History] Ferrous Sulfate [Iron] 325 mg PO BID 07/13/19 [History] Potassium Chloride 10 Meq Tab* [Klor Con 10 MEQ] 20 meq PO BID 07/13/19 [ History] Hx Tetanus, Diphtheria Vaccination/Date Given: Yes Hx Influenza Vaccination/Date Given: Yes Hx Pneumococcal Vaccination/Date Given: Yes - Review of Systems Constitutional: No Fever, No Chills Eyes: No Symptoms Ears, Nose, & Throat: No Symptoms Respiratory: Cough, Dyspnea, Other (hemoptysis) Cardiac: No Chest Pain, No Edema, No Syncope Abdominal/Gastrointestinal: No Abdominal Pain, No Nausea, No Vomiting, No Diarrhea Genitourinary Symptoms: No Dysuria Musculoskeletal: No Back Pain, No Neck Pain Skin: No Rash Neurological: No Dizziness, No Focal Weakness, No Sensory Changes Psychological: No Symptoms Endocrine: No Symptoms All Other Systems: Reviewed and Negative - Past Medical History Pertinent Past Medical History: Yes Neurological History: Peripheral Neuropathy ENT History: No Pertinent History Cardiac History: Arrhythmia, Congenital Heart Disease, Congestive Heart Failure , Hypertension Respiratory History: CHF, COPD, Pneumonia, Tuberculosis, Other Endocrine Medical History: Liver Disease Musculoskeletal History: Arthritis GI Medical History: GERD History: Renal Disease Psycho-Social History: Depression Male Reproductive Disorders: No Pertinent History Other Medical History: Partial R lung removal. Afib. - Past Surgical History Past Surgical History: Yes Neuro Surgical History: No Pertinent History Cardiac: No Pertinent History Respiratory: Lobectomy Gastrointestinal: No Pertinent History Genitourinary: No Pertinent History Musculoskeletal: No Pertinent History Male Surgical History: Vasectomy Other Surgical History: RIGHT UPPER LOBECTOMY, leg vein cautery with skin graft - Social History Smoking Status: Former smoker How long have you smoked: 38 yrs Exposure to second hand smoke: No Drug Use: none Patient Lives Alone: No - Nursing Vital Signs Nursing Vital Signs: Initial Vital Signs Temperature 98.0 F 07/13/19 09:35 Pulse Rate 87 07/13/19 09:35 Respiratory Rate 91 H 07/13/19 09:35 Blood Pressure 128/77 07/13/19 09:35 O2 Sat by Pulse Oximetry 91 L 07/13/19 09:35 Pain Scale Pain Intensity 0 - Physical Exam General Appearance: no apparent distress, alert Eye Exam: PERRL/EOMI, eyes nml inspection Ears, Nose, Throat Exam: normal ENT inspection, TMs normal, pharynx normal, moist mucous membranes Neck Exam: normal inspection, non-tender, supple, full range of motion Respiratory Exam: normal breath sounds, lungs clear, prolonged expirations, wheezing, No respiratory distress Cardiovascular Exam: regular rate/rhythm, normal heart sounds Gastrointestinal/Abdomen Exam: soft, No tenderness Back Exam: normal inspection, No CVA tenderness, No vertebral tenderness Extremity Exam: normal inspection, normal range of motion Neurologic Exam: alert, oriented x 3, cooperative, normal mood/affect, sensation nml, No motor deficits Skin Exam: normal color, warm, dry, other (chronic stasis on both lower extremity with edema.), No rash Lymphatic Exam: No adenopathy - Course Nursing assessment & vital signs reviewed: Yes EKG Interpreted by Me: Sinus Tach, NORMAL AXIS, NORMAL INTERVALS, Non-specific ST Changes - CT Exams Chest CT Interpretation: Other (right upper lobe pneumonia, possible carcinoma.) Ordered Tests: Active Orders 24 hr Category Date Time Status Molding Fitter STAT Care 07/13/19 09:52 Active EKG-ER Only STAT Care 07/13/19 09:50 Active IV Insertion STAT Care 07/13/19 09:50 Active Oxygen-ED Only Nasal Cannula 2 lpm Care 07/13/19 09:50 Active CHEST WITH CONTRAST [CT] Stat Exams 07/13/19 09:52 Taken BLOOD CULTURE Stat Lab 07/13/19 11:30 Ordered CBC W DIFF Stat Lab 07/13/19 11:30 Completed CMP Stat Lab 07/13/19 11:30 Completed D-DIMER QUANTITATION Stat Lab 07/13/19 11:30 Completed Lactic Acid Stat Lab 07/13/19 12:20 Completed NT PRO BNP Stat Lab 07/13/19 11:30 Completed PROTIME WITH INR Stat Lab 07/13/19 11:30 Completed PTT Stat Lab 07/13/19 11:30 Completed TROPONIN Stat Lab 07/13/19 11:30 Completed Peak Expiratory Flow Rate ONCE RT 07/13/19 10:12 Active Respiratory Therapy Assessment DAILY RT 07/13/19 10:12 Active Medication Summary Discontinued Medications Generic Name Dose Route Start Last Admin Trade Name Freq PRN Reason Stop Dose Admin Albuterol/Ipratropium 3 ml 07/13/19 09:54 07/13/19 10:08 Duoneb 0.5-3 Mg/3 Ml Neb IH 07/13/19 09:55 3 ml STAT ONE Administration Albuterol/Ipratropium Confirm 07/13/19 10:03 Duoneb 0.5-3 Mg/3 Ml Neb Administered 07/13/19 10:04 Dose 3 ml IH .STK-MED ONE Ceftriaxone Sodium/Dextrose 1 g in 50 mls @ 100 mls/hr 07/13/19 09:55 11:47 Rocephin 1 Gm-D5w 50 Ml Bag IV 07/13/19 10:24 Infused STAT STA Infusion Azithromycin 500 mg in 250 mls @ 250 mls/hr 07/13/19 09:55 07/13/19 11:00 Zithromax 500 Mg/ 250 Ml Nacl Premix IV 07/13/19 10:54 250 mls/hr STAT STA 250 mls/hr Administration Azithromycin Confirm 07/13/19 10:07 Zithromax 500 Mg/ 250 Ml Nacl Premix Administered 07/13/19 10:08 Dose 500 mg in 250 mls @ ud IV .STK-MED ONE Ceftriaxone Sodium/Dextrose Confirm 07/13/19 10:07 Rocephin 1 Gm-D5w 50 Ml Bag Administered 07/13/19 10:08 Dose 1 g in 50 mls @ ud IV .STK-MED ONE Lab/Rad Data: Laboratory Result Diagrams 07/13/19 11:30 07/13/19 11:30 Laboratory Results 07/13/19 07/13/19 07/13/19 Range/Units 12:20 11:30 11:30 WBC (4.0-10.5) K/mm3 RBC (4.1-5.6) M/mm3 Hgb (12.5-18.0) gm/dl Hct (42-50) % MCV (78-100) fl MCH (26-32) pg MCHC (32-36) g/dl RDW (11.5-14.0) % Plt Count (150-450) K/mm3 MPV (6-9.5) fl Gran % (36.0-66.0) % Eos # (Auto) (0-0.5) Absolute Lymphs (auto) (1.0-4.6) Absolute Monos (auto) (0.0-1.3) Lymphocytes % (24.0-44.0) % Monocytes % (0.0-12.0) % Eosinophils % (0.00-5.0) % Basophils % (0.0-0.4) % Absolute Granulocytes (1.4-6.9) Basophils # (0-0.4) PT 20.4 H (8.83-12.87) SECONDS INR 1.78 (0.8-3.0) APTT 34.6 (24.1-36.1) SECONDS D-Dimer 258 (215-500) ng/mL Sodium 137 (137-145) mmol/L Potassium 3.5 (3.5-5.1) mmol/L Chloride 85 L (98-107) mmol/L Carbon Dioxide 42 H (22-30) mmol/L Anion Gap 13.5 (5-15) MEQ/L BUN 15 (9-20) mg/dL Creatinine 0.63 L (0.66-1.25) mg/dL Estimated GFR > 60.0 ML/MIN Glucose 188 H (74-106) mg/dL Lactic Acid 1.3 (0.4-2.0) Calcium 8.6 (8.4-10.2) mg/dL Total Bilirubin 2.30 H (0.2-1.3) mg/dL AST 34 (17-59) U/L ALT 33 (0-50) U/L Alkaline Phosphatase 117 (38-126) U/L Troponin I 0.055 H* (0.000-0.034) ng/mL NT-Pro-B Natriuret Pep 908 H (0-900) pg/mL Serum Total Protein 6.6 (6.3-8.2) g/dL Albumin 3.9 (3.5-5.0) g/dL 07/13/19 Range/Units 11:30 WBC 18.5 H (4.0-10.5) K/mm3 RBC 4.32 (4.1-5.6) M/mm3 Hgb 11.4 L (12.5-18.0) gm/dl Hct 40.1 L (42-50) % MCV 92.8 (78-100) fl MCH 26.3 (26-32) pg MCHC 28.4 L (32-36) g/dl RDW 20.3 H (11.5-14.0) % Plt Count 116 L (150-450) K/mm3 MPV 12.5 H (6-9.5) fl Gran % 89.3 H (36.0-66.0) % Eos # (Auto) 0.08 (0-0.5) Absolute Lymphs (auto) 0.56 L (1.0-4.6) Absolute Monos (auto) 1.32 H (0.0-1.3) Lymphocytes % 3.0 L (24.0-44.0) % Monocytes % 7.1 (0.0-12.0) % Eosinophils % 0.4 (0.00-5.0) % Basophils % 0.2 (0.0-0.4) % Absolute Granulocytes 16.50 H (1.4-6.9) Basophils # 0.03 (0-0.4) PT (8.83-12.87) SECONDS INR (0.8-3.0) APTT (24.1-36.1) SECONDS D-Dimer (215-500) ng/mL Sodium (137-145) mmol/L Potassium (3.5-5.1) mmol/L Chloride (98-107) mmol/L Carbon Dioxide (22-30) mmol/L Anion Gap (5-15) MEQ/L BUN (9-20) mg/dL Creatinine (0.66-1.25) mg/dL Estimated GFR ML/MIN Glucose (74-106) mg/dL Lactic Acid (0.4-2.0) Calcium (8.4-10.2) mg/dL Total Bilirubin (0.2-1.3) mg/dL AST (17-59) U/L ALT (0-50) U/L Alkaline Phosphatase (38-126) U/L Troponin I (0.000-0.034) ng/mL NT-Pro-B Natriuret Pep (0-900) pg/mL Serum Total Protein (6.3-8.2) g/dL Albumin (3.5-5.0) g/dL - Progress Progress: improved Air Movement: good Progress Note: 07/13/19 09:45 notified the infection control nurse about potential for TB 07/13/19 09:45 house repairer told him that as she is coming down in the ER 07/13/19 11:32 waiting for the lab results. 07/13/19 12:34 still waiting for the lab tests Blood Culture(s) Obtained: Yes Antibiotics given: Yes Discussed with .: Cirilo Will see patient in: hospital (full admit) Counseled pt/family regarding: lab results, diagnosis, rad results - Departure Departure Disposition: In-patient Admission Clinical Impression: Hemoptysis Pneumonia Qualifiers: Pneumonia type: due to unspecified organism Laterality: right Lung location: upper lobe of lung Qualified Code(s): J18.1 - Lobar pneumonia, unspecified organism Condition: Stable Critical Care Time: No Referrals: EMILY PARADA MD [Primary Care Provider] - Instructions: Pneumonia, Adult (DC) Additional Instructions: Patient admitted in the hospital after discussing it with Dr. Gomez
[2019-07-13] MEDS ORDERED: DUONEB 0.5-3 MG/3 ml Neb IH ONE ×2 (09:54→10:03)
[2019-07-13] MEDS ORDERED: Zithromax 500 MG/ 250 ML NaCl Premix 500 MG/250 ML IVPB IV STA (09:55)
[2019-07-13] MEDS ORDERED: ROCEPHIN 1 Gm-D5w 50 ml Bag** 1 G/50 ML IVPB IV STA (09:55)
[2019-07-13] MEDS ORDERED: Zithromax 500 MG/ 250 ML NaCl Premix 500 MG/250 ML IVPB IV ONE (10:07)
[2019-07-13] MEDS ORDERED: ROCEPHIN 1 Gm-D5w 50 ml Bag** 1 G/50 ML IVPB IV ONE (10:07)
[2019-07-13 11:49] LABS: BASOPHIL % 0.2 % (0.0-0.4); Basophil (Absolute #) 0.03 (0-0.4); Eosinophil % 0.4 % (0.00-5.0); Eosinophil (Absolute #) 0.08 (0-0.5); Granulocytes % 89.3 % (36.0-66.0); Hematocrit 40.1 % (42-50); Hemoglobin 11.4 gm/dl (12.5-18.0); Lymphocyte (Absolute #) 0.56 (1.0-4.6); Mean Cell Volume 92.8 fl (78-100); Mean Corpuscular Hgb Concent. 28.4 g/dl (32-36); Mean Platelet Volume 12.5 fl (6-9.5); Monocyte (Absolute #) 1.32 (0.0-1.3); Monocytes % 7.1 % (0.0-12.0); Platelet Count 116 K/mm3 (150-450); Red Blood Count 4.32 M/mm3 (4.1-5.6); Red Cell Distribution Width 20.3 % (11.5-14.0); White Blood Count 18.5 K/mm3 (4.0-10.5)
[2019-07-13 11:50] LABS: INR 1.78 (0.8-3.0); PROTIME 20.4 SECONDS (8.83-12.87)
[2019-07-13 11:53] LABS: PTT 34.6 SECONDS (24.1-36.1)
[2019-07-13 11:59] LABS: Mean Corpuscular Hemoglobin 26.3 pg (26-32)
[2019-07-13 12:06] LABS: ALBUMIN 3.9 g/dL (3.5-5.0); ALKALINE PHOSPHATASE 117 U/L (38-126); BLOOD UREA NITROGEN 15 mg/dL (9-20); CHLORIDE 85 mmol/L (98-107); Calcium 8.6 mg/dL (8.4-10.2); Creatinine 1 0.63 mg/dL (0.66-1.25); Glucose 188 mg/dL (74-106); NT PRO BNP 908 pg/mL (0-900); Potassium 3.5 mmol/L (3.5-5.1); SGOT/AST 34 U/L (17-59); SGPT/ALT 33 U/L (0-50); SODIUM 137 mmol/L (137-145); Total Protein 6.6 g/dL (6.3-8.2)
[2019-07-13 12:34] LABS: TROPONIN 0.055 ng/mL (0.000-0.034)
[2019-07-13 12:35] LABS: ANION GAP 13.5 MEQ/L (5-15); Carbon Dioxide 42 mmol/L (22-30)
[2019-07-13] MEDS ORDERED: Sodium Chloride 0.9% 10 ML FLUSH Syringe IV PRN (13:45)
[2019-07-13] MEDS: DUONEB 0.5-3 MG/3 ml Neb IH SCH ×3 (14:21→23:11)
[2019-07-13] MEDS: Sodium Chloride 0.9% 10 ML FLUSH Syringe IV SCH ×2 (14:46→20:53)
[2019-07-13 14:54] LABS: Slide Review 1 YES
[2019-07-13] MEDS: Neurontin 400 MG PO SCH ×2 (16:13→20:53)
[2019-07-13] MEDS: BUMEX 1 MG PO SCH (16:13)
[2019-07-13] MEDS: PERCOCET TABLET 5/325MG PO PRN (16:18)
[2019-07-13] MEDS: ADVAIR 250-50 DISKUS 14 DOSE IH SCH ×2 (19:00→20:06)
[2019-07-13] MEDS ORDERED: Advair Hfa 115/21 Common canister IH SCH (19:00)
[2019-07-13] MEDS ORDERED: ZOCOR 20MG ONE (19:45)
[2019-07-13] MEDS ORDERED: FEOSOL 325 MG ONE (19:45)
[2019-07-13] MEDS ORDERED: Pepcid 20 MG ONE (19:45)
[2019-07-13] MEDS ORDERED: MAG-OX 400 ONE (19:45)
[2019-07-13] MEDS ORDERED: Neurontin 400 MG ONE (19:45)
--- NOTE | 2019-07-13 20:13 | XRAY ---
Indication: Hemoptysis. Short of breath. Multiple contiguous axial images obtained through the chest using 100 cc Isovue 370 contrast. Comparison: Made 2011. Lungs demonstrate new bilateral mid to lower lung alveolar opacities with multifocal areas of patchy consolidation in both lower lobes. Stable scattered fibrosis/scarring with a few calcified granulomas. Heart is not enlarged. Aorta is normal in course and caliber. Stable tiny right hilar calcified nodes. No pathologic mediastinal/hilar adenopathy. Bony thorax intact with mild degenerative changes throughout the spine. Limited upper abdomen unremarkable. Impression: 1. New bilateral airspace disease with multifocal areas of consolidation. 2. Again scattered fibrosis/scarring and evidence for old granulomatous disease. Comment: Preliminary interpretation was made by [facility]. No critical discrepancy. CTDI 17.76
[2019-07-13] MEDS: ZOCOR 20MG PO SCH (20:53)
[2019-07-13] MEDS: MAG-OX 400 PO SCH (20:53)
[2019-07-13] MEDS: FEOSOL 325 MG PO SCH (20:53)
[2019-07-13] MEDS: Klor Con 10 MEQ PO SCH (21:09)
[2019-07-13] MEDS: PATIENT OWN MEDICATION PO SCH (21:15)
[2019-07-13] MEDS ORDERED: Pepcid 20 MG PO SCH (22:00)
[2019-07-14] MEDS: PERCOCET TABLET 5/325MG PO PRN ×4 (04:42→21:02)
[2019-07-14] MEDS: DUONEB 0.5-3 MG/3 ml Neb IH SCH ×5 (04:52→19:14)
[2019-07-14] MEDS: Sodium Chloride 0.9% 10 ML FLUSH Syringe IV SCH ×3 (05:04→21:04)
[2019-07-14] MEDS: ADVAIR 250-50 DISKUS 14 DOSE IH SCH (07:50)
[2019-07-14] MEDS: BUMEX 1 MG PO SCH ×2 (09:24→16:40)
[2019-07-14] MEDS: Klor Con 10 MEQ PO SCH ×2 (09:25→21:03)
[2019-07-14] MEDS: MAG-OX 400 PO SCH ×2 (09:25→21:02)
[2019-07-14] MEDS: FEOSOL 325 MG PO SCH ×2 (09:25→21:03)
[2019-07-14] MEDS: Neurontin 400 MG PO SCH ×4 (09:25→21:03)
[2019-07-14] MEDS: Zithromax 500 MG/ 250 ML NaCl Premix 500 MG/250 ML IVPB IV SCH (09:25)
[2019-07-14] MEDS: ROCEPHIN 1 Gm-D5w 50 ml Bag** 1 G/50 ML IVPB IV SCH (09:25)
[2019-07-14] MEDS ORDERED: TYLENOL 325 MG PO PRN (10:20)
[2019-07-14] MEDS: PATIENT OWN MEDICATION PO SCH ×2 (10:26→21:04)
[2019-07-14] MEDS: DELTASONE 20 MG PO SCH (11:14)
[2019-07-14] MEDS: Aldactone 25 MG PO SCH (11:14)
[2019-07-14] MEDS: Toprol-Xl 25MG Tablets PO SCH (11:14)
[2019-07-14] MEDS: Protonix 40MG Tablet PO SCH (11:14)
[2019-07-14] MEDS: SYNTHROID 50 MCG PO SCH (11:14)
[2019-07-14] MEDS: PATIENT OWN MEDICATION IH SCH (19:15)
[2019-07-14] MEDS: ZOCOR 20MG PO SCH (21:02)
[2019-07-14] MEDS: Pepcid 20 MG PO SCH (21:04)
[2019-07-15] MEDS: PERCOCET TABLET 5/325MG PO PRN ×5 (02:08→21:34)
[2019-07-15] MEDS: DUONEB 0.5-3 MG/3 ml Neb IH SCH ×7 (04:15→22:54)
[2019-07-15 05:59] LABS: Hematocrit 36.5 % (42-50); Mean Cell Volume 95.8 fl (78-100); Mean Corpuscular Hemoglobin 26.2 pg (26-32); Mean Corpuscular Hgb Concent. 27.4 g/dl (32-36); Mean Platelet Volume 12.6 fl (6-9.5); Platelet Count 105 K/mm3 (150-450); Red Blood Count 3.81 M/mm3 (4.1-5.6); Red Cell Distribution Width 19.6 % (11.5-14.0)
[2019-07-15] MEDS: Sodium Chloride 0.9% 10 ML FLUSH Syringe IV SCH ×3 (05:59→21:45)
[2019-07-15 06:17] LABS: ALBUMIN 3.6 g/dL (3.5-5.0); ALKALINE PHOSPHATASE 96 U/L (38-126); BLOOD UREA NITROGEN 15 mg/dL (9-20); CHLORIDE 84 mmol/L (98-107); Calcium 8.5 mg/dL (8.4-10.2); Creatinine 1 0.58 mg/dL (0.66-1.25); Glucose 149 mg/dL (74-106); Potassium 3.6 mmol/L (3.5-5.1); SGOT/AST 26 U/L (17-59); SGPT/ALT 28 U/L (0-50); SODIUM 137 mmol/L (137-145); Total Protein 6.4 g/dL (6.3-8.2)
[2019-07-15 06:29] LABS: Carbon Dioxide 44 mmol/L (22-30)
[2019-07-15 06:30] LABS: ANION GAP 12.6 MEQ/L (5-15)
[2019-07-15 06:35] LABS: Slide Review YES
[2019-07-15] MEDS: PATIENT OWN MEDICATION IH SCH ×2 (07:01→19:00)
--- NOTE | 2019-07-15 08:22 | PCM.NOTE ---
Date and Time: 07/15/19819 Subjective Assessment: patient still having some hemoptysis but improving, cough present. no other complaints Objective Exam General Appearance: no apparent distress, obese Neurologic Exam: alert, oriented x 3 Skin Exam: other (chronic lymphedema changes to BLE) Respiratory Exam: rhonchi Cardiovascular Exam: regular rate/rhythm, normal heart sounds Gastrointestinal/Abdomen Exam: soft, No tenderness, No mass OBJECTIVE DATA Vital Signs: Vital Signs - 24 hr Temp Pulse Resp BP Pulse Ox 07/15/19 07:22 84 18 99 07/15/19 07:18 98.4 F 80 18 141/63 96 07/15/19 04:30 70 16 96 07/15/19 04:00 97.9 F 78 20 133/72 94 L 07/14/19 23:39 98.6 F 79 19 164/97 100 07/14/19 20:00 98.5 F 91 H 24 146/74 97 07/14/19 19:57 89 18 97 07/14/19 16:00 98.3 F 101 H 18 148/65 95 07/14/19 15:12 96 H 18 99 07/14/19 12:00 98.1 F 94 H 18 134/72 98 07/14/19 11:35 84 18 99 Oxygen-Last 24 hours O2 Percentage 3 Liters = 32% O2 Percentage 4 Liters = 36% O2 Percentage 4 Liters = 36% O2 Percentage 4 Liters = 36% O2 Percentage 2 Liters = 28% O2 Percentage 2 Liters = 28% Pain Assessment - Last Documented Pain Intensity 4 Pain Scale Used 0-10 Pain Scale Intake and Output: Intake & Output 07/12/19 07/13/19 07/14/19 07/15/19 11:59 11:59 11:59 11:59 Intake Total 3220 2820 Output Total 2225 4295 Balance 995 -1475 Weight 135.171 kg 134.7 kg 135.6 kg Lab Results: Lab Results-Last 24 Hours 07/15/19 07/15/19 Range/Units 05:20 05:20 WBC 11.0 H (4.0-10.5) K/mm3 RBC 3.81 L (4.1-5.6) M/mm3 Hgb 10.0 L (12.5-18.0) gm/dl Hct 36.5 L (42-50) % MCV 95.8 (78-100) fl MCH 26.2 (26-32) pg MCHC 27.4 L (32-36) g/dl RDW 19.6 H (11.5-14.0) % Plt Count 105 L (150-450) K/mm3 MPV 12.6 H (6-9.5) fl Sodium 137 (137-145) mmol/L Potassium 3.6 (3.5-5.1) mmol/L Chloride 84 L (98-107) mmol/L Carbon Dioxide 44 H (22-30) mmol/L Anion Gap 12.6 (5-15) MEQ/L BUN 15 (9-20) mg/dL Creatinine 0.58 L (0.66-1.25) mg/dL Estimated GFR > 60.0 ML/MIN Glucose 149 H (74-106) mg/dL Calcium 8.5 (8.4-10.2) mg/dL Total Bilirubin 1.00 (0.2-1.3) mg/dL AST 26 (17-59) U/L ALT 28 (0-50) U/L Alkaline Phosphatase 96 (38-126) U/L Serum Total Protein 6.4 (6.3-8.2) g/dL Albumin 3.6 (3.5-5.0) g/dL Slides for Path Review YES Radiology Exams: Radiology Procedures Category Date Time Status CHEST WITH CONTRAST [CT] Stat Exams 07/13/19 09:52 Completed Assessment/Plan (1) Pneumonia Current Visit: Yes Status: Acute Qualifiers: Pneumonia type: due to unspecified organism Laterality: right Lung location: upper lobe of lung Qualified Code(s): J18.1 - Lobar pneumonia, unspecified organism Assessment & Plan: on rocephin/zithromax. sputum growing Serratia sens to rocephin, pulm consult pending. hx of TB per records, currently in respiratory isolation. Code(s): J18.9 - PNEUMONIA, UNSPECIFIED ORGANISM (2) Hemoptysis Current Visit: Yes Status: Acute Code(s): R04.2 - HEMOPTYSIS (3) Lymphedema Current Visit: No Status: Acute Code(s): I89.0 - LYMPHEDEMA, NOT ELSEWHERE CLASSIFIED (4) Atrial fibrillation Current Visit: No Status: Chronic Assessment & Plan: eliquis on hold secondary to hemoptysis Code(s): I48.91 - UNSPECIFIED ATRIAL FIBRILLATION (5) COPD (chronic obstructive pulmonary disease) Current Visit: No Status: Chronic (6) Chronic respiratory failure with hypercapnia Current Visit: No Status: Chronic
--- NOTE | 2019-07-15 09:24 | HP ---
CHIEF COMPLAINT: Coughing up blood. HISTORY OF PRESENT ILLNESS: The patient is a 63 year-old white male patient who has history of tuberculosis. He reports that he has not much left of his right upper lobe from previous infection. He was also treated for pneumonia. His apparent history of tuberculosis is 10 years remote. The patient has reported cough to Dr. Lafleur recently and was treated with some oral antibiotics which he reported kind of made it somewhat better but it came back with a vengeance in the last couple of days. PAST MEDICAL/SURGICAL HISTORY: Otherwise significant for chronic back problems and chronic venous stasis changes in the lower extremities for which he takes chronic pain medications of Percocet every four hours on a PRN basis. The patient otherwise has chronic obstructive pulmonary disease, hypothyroidism, hyperlipidemia. He has previously had vasectomy. He had some skin grafts. HOME MEDICATIONS: Currently are magnesium, metoprolol, omeprazole, atorvastatin, Pepcid, Neurontin, Aldactone, the above mentioned Percocet, amitriptyline, vitamin D, Tylenol, Albuterol, colchicine, Advair, levothyroxine, Bumex, iron, potassium. ALLERGIES: LYRICA. ZINC. AVALOX. VANCOMYCIN. PHYSICAL EXAMINATION: The patient's vital signs on admission showed a temperature of 98.0F, pulse 87, respiratory rate of 18, pulse 91, blood pressure 128/77. O2 saturation 91%. HEENT: Normocephalic, atraumatic. Pupils equal round reactive to light. Extraocular movements intact. Oropharynx is pink and moist. NECK: Supple. No lymphadenopathy, thyromegaly or JVD. CHEST: Reveals diminished air movement in the right upper chest, few rales were heard. HEART: Regular rate and rhythm. ABDOMEN: Protuberant. No palpable masses. EXTREMITIES: With chronic venous stasis changes with some rubor present bilaterally. There is no significant clubbing or edema otherwise noted. NEUROLOGIC: He is alert and oriented x3. LAB DATA AND TESTS: Otherwise showed the white count to be 18,500, hemoglobin 11.4, PLT count 116,000. Lactic acid was 1.3. Nonfasting sugar 188, BUN 15, creatinine 0.63. His electrolytes showed his chloride to be 85 and CO2 to be 42. Total bilirubin is 2.30. Troponin was slightly elevated at 0.055. ProBNP 908. His international normalized ratio was 1.78. He had CT scan of the chest showing changes that appear to be infectious in nature possible early neoplastic changes in his right upper lobe. He has a known history of tuberculosis. ASSESSMENT: A patient with probable pneumonia, remote history of tuberculosis. He has been placed in respiratory isolation. We will obtain consultation from pulmonary. He has been placed on IV antibiotics. We have obtained smears for tuberculosis and he will be held on his blood thinners due to his hemoptysis but the patient does have atrial fibrillation and we did discuss with him the possibility of problems with holding his blood thinner versus continuing it with his current hemoptysis. The patient reports that his coughing up the blood has improved since we have held his blood thinner overnight.
[2019-07-15] MEDS ORDERED: NON-FORMULARY ITEM (Omeprazole 20 Mg [Prilosec 20 Mg] 1 TAB) PO SCH (10:00)
[2019-07-15] MEDS: Klor Con 10 MEQ PO SCH ×2 (10:00→21:35)
[2019-07-15] MEDS: Neurontin 400 MG PO SCH ×4 (10:00→21:35)
[2019-07-15] MEDS: Toprol-Xl 25MG Tablets PO SCH (10:00)
[2019-07-15] MEDS: SYNTHROID 50 MCG PO SCH (10:00)
[2019-07-15] MEDS: MAG-OX 400 PO SCH ×2 (10:00→21:35)
[2019-07-15] MEDS: Aldactone 25 MG PO SCH (10:01)
[2019-07-15] MEDS: BUMEX 1 MG PO SCH ×2 (10:01→17:23)
[2019-07-15] MEDS: DELTASONE 20 MG PO SCH (10:01)
[2019-07-15] MEDS: Protonix 40MG Tablet PO SCH (10:01)
[2019-07-15] MEDS: FEOSOL 325 MG PO SCH ×2 (10:01→21:35)
[2019-07-15] MEDS: ROCEPHIN 1 Gm-D5w 50 ml Bag** 1 G/50 ML IVPB IV SCH (10:02)
[2019-07-15] MEDS: Zithromax 500 MG/ 250 ML NaCl Premix 500 MG/250 ML IVPB IV SCH (10:02)
[2019-07-15] MEDS: PATIENT OWN MEDICATION PO SCH ×2 (10:03→21:36)
[2019-07-15] MEDS ORDERED: AQUAPHOR OINTMENT 50 GM TP PRN (18:28)
[2019-07-15] MEDS: Pepcid 20 MG PO SCH (21:35)
[2019-07-15] MEDS: ZOCOR 20MG PO SCH (21:35)
[2019-07-16 05:03] LABS: BASOPHIL % 0.2 % (0.0-0.4); Basophil (Absolute #) 0.02 (0-0.4); Eosinophil % 1.1 % (0.00-5.0); Granulocyte Absolute (ANC) 7.01 (1.4-6.9); Granulocytes % 78.5 % (36.0-66.0); Hematocrit 38.1 % (42-50); Hemoglobin 10.5 gm/dl (12.5-18.0); Lymphocyte (Absolute #) 1.15 (1.0-4.6); Lymphocytes % 12.9 % (24.0-44.0); Mean Corpuscular Hgb Concent. 27.6 g/dl (32-36); Mean Platelet Volume 11.6 fl (6-9.5); Monocyte (Absolute #) 0.65 (0.0-1.3); Monocytes % 7.3 % (0.0-12.0); Platelet Count 95 K/mm3 (150-450); Red Blood Count 4.01 M/mm3 (4.1-5.6); Red Cell Distribution Width 19.3 % (11.5-14.0); White Blood Count 8.9 K/mm3 (4.0-10.5)
[2019-07-16] MEDS: PERCOCET TABLET 5/325MG PO PRN ×4 (05:03→23:57)
[2019-07-16] MEDS: Sodium Chloride 0.9% 10 ML FLUSH Syringe IV SCH ×3 (05:04→21:18)
[2019-07-16] MEDS: DUONEB 0.5-3 MG/3 ml Neb IH SCH ×6 (05:12→23:18)
[2019-07-16 05:15] LABS: Mean Corpuscular Hemoglobin 26.1 pg (26-32)
[2019-07-16 05:28] LABS: BLOOD UREA NITROGEN 14 mg/dL (9-20); CHLORIDE 85 mmol/L (98-107); Creatinine 1 0.67 mg/dL (0.66-1.25); Glucose 144 mg/dL (74-106); Potassium 3.5 mmol/L (3.5-5.1); SODIUM 139 mmol/L (137-145)
[2019-07-16 05:53] LABS: Carbon Dioxide 44 mmol/L (22-30)
[2019-07-16 05:54] LABS: ANION GAP 13.5 MEQ/L (5-15)
[2019-07-16 07:25] LABS: Slide Review 1 YES
[2019-07-16] MEDS: PATIENT OWN MEDICATION IH SCH ×2 (08:05→19:01)
--- NOTE | 2019-07-16 08:48 | CONS ---
CONSULT DATE: 07/15/2019 REASON FOR CONSULT: Evaluation of hemoptysis and abnormal chest CT. HISTORY: Prasanth Byers is a 63 year-old male with prior history of chronic obstructive pulmonary disease and pulmonary tuberculosis in 2008, seen and followed by me until 2015, who has been hospitalized with complaints of hemoptysis. The patient had a chest x-ray and CT chest that revealed patchy infiltrates bilaterally suspicious for pneumonia. He has been treated for the same with Rocephin and Zithromax. The patient's sputum culture has grown Serratia. He was on anticoagulation with Eliquis for atrial fibrillation which has been placed on hold. His hemoptysis seems to be improving and now he has more of jaimie-colored sputum than kenny hemoptysis. The patient reports hemoptysis on prior occasions as well. PAST MEDICAL HISTORY: Positive for chronic obstructive pulmonary disease, chronic bronchitis, chronic hypoxemia on home oxygen therapy, history of tuberculosis for which he underwent resection of the right lung followed by directly observed therapy per family for seven months. He has history of hypertension, hyperlipidemia, gastroesophageal reflux along with chronic neuropathic pain. He also has gout and hypothyroidism. PAST SURGICAL HISTORY: As above. PERSONAL AND SOCIAL HISTORY: He lives with family. Former smoker. MEDICATIONS: Home and current medications are reviewed. ALLERGIES: ALLERGIES NOTED. PHYSICAL EXAMINATION: This is a middle aged male who appears comfortable, able to speak without any difficulty. Vital signs noted. HEENT: Normocephalic. Oral exam is limited. NECK: Supple. CVS: First and second heart sounds are normal, regular, rhythmic with some irregularity. RESPIRATORY: Shows diminished breath sounds, fairly clear. ABDOMEN: Obese. EXTREMITIES: Lower extremities show significant discoloration with chronic dermatitis changes below knee. LABORATORY DATA AND TESTS: X-rays, CT were all reviewed. ASSESSMENT: This is a 63 year old male admitted with: 1) Hemoptysis likely from being on anticoagulation with underlying lung problems. 2) Chronic obstructive pulmonary disease with mild exacerbation. 3) Bilateral patchy pneumonia with sputum growing Serratia on antibiotics, improving clinically. 4) Chronic hypoxic respiratory failure. 5) Prior history of tuberculosis unlikely to be of recurrence given patient's lack of symptoms of weight loss, night sweats. Sputum AFB preliminary smear has been negative and QuantiFERON TB is pending. RECOMMENDATIONS: 1) The patient has done well being taken off of Eliquis. 2) Complete oral antibiotic therapy. 3) I have discussed with patient role of bronchoscopy prior to re-initiation of Eliquis to minimize risk of recurrence of symptoms. He is in agreement. I will follow with him in two weeks upon discharge at which point outpatient endoscopy will be scheduled. 4) Further recommendations pending clinical improvement. I discussed this plan of care with patient. Thank you, Dr. Lafleur, for allowing me to participate in the care of Prasanth Byers.
--- NOTE | 2019-07-16 09:28 | PCM.NOTE ---
Date and Time: 07/16/19922 Subjective Assessment: patient reports hemoptysis is improved, still has some dark sputum but he reports this is his normal. he still has some rattling in his chest but improved. Objective Exam General Appearance: no apparent distress, alert, obese Neurologic Exam: alert, oriented x 3 Respiratory Exam: rhonchi Cardiovascular Exam: regular rate/rhythm, normal heart sounds Gastrointestinal/Abdomen Exam: soft, No tenderness, No mass Extremity Exam: normal inspection, normal range of motion, pedal edema OBJECTIVE DATA Vital Signs: Vital Signs - 24 hr Temp Pulse Resp BP Pulse Ox 07/16/19 08:15 76 20 98 07/16/19 08:00 97.0 F 66 18 176/81 95 07/16/19 05:12 66 18 95 07/16/19 04:00 99.5 F 66 18 134/70 95 07/15/19 23:29 98.6 F 87 21 135/75 99 07/15/19 22:54 87 21 99 07/15/19 20:00 98.9 F 79 19 165/93 98 07/15/19 18:56 79 19 98 07/15/19 16:00 98.6 F 87 18 126/80 96 07/15/19 15:42 86 18 99 07/15/19 12:00 98.3 F 88 18 127/80 97 07/15/19 10:57 88 18 100 Oxygen-Last 24 hours O2 Percentage 4 Liters = 36% O2 Percentage 4 Liters = 36% O2 Percentage 3 Liters = 32% O2 Percentage 3 Liters = 32% Pain Assessment - Last Documented Pain Intensity 3 Pain Scale Used 0-10 Pain Scale Intake and Output: Intake & Output 07/13/19 07/14/19 07/15/19 07/16/19 11:59 11:59 11:59 11:59 Intake Total 3220 3700 2460 Output Total 2225 5755 3600 Balance 995 -1245 -1140 Weight 135.171 kg 134.7 kg 135.6 kg 135.4 kg Lab Results: Lab Results-Last 24 Hours 07/16/19 07/16/19 Range/Units 04:40 04:40 WBC 8.9 (4.0-10.5) K/mm3 RBC 4.01 L (4.1-5.6) M/mm3 Hgb 10.5 L (12.5-18.0) gm/dl Hct 38.1 L (42-50) % MCV 95.0 (78-100) fl MCH 26.1 (26-32) pg MCHC 27.6 L (32-36) g/dl RDW 19.3 H (11.5-14.0) % Plt Count 95 L (150-450) K/mm3 MPV 11.6 H (6-9.5) fl Gran % 78.5 H (36.0-66.0) % Eos # (Auto) 0.10 (0-0.5) Absolute Lymphs (auto) 1.15 (1.0-4.6) Absolute Monos (auto) 0.65 (0.0-1.3) Lymphocytes % 12.9 L (24.0-44.0) % Monocytes % 7.3 (0.0-12.0) % Eosinophils % 1.1 (0.00-5.0) % Basophils % 0.2 (0.0-0.4) % Absolute Granulocytes 7.01 H (1.4-6.9) Basophils # 0.02 (0-0.4) Sodium 139 (137-145) mmol/L Potassium 3.5 (3.5-5.1) mmol/L Chloride 85 L (98-107) mmol/L Carbon Dioxide 44 H (22-30) mmol/L Anion Gap 13.5 (5-15) MEQ/L BUN 14 (9-20) mg/dL Creatinine 0.67 (0.66-1.25) mg/dL Estimated GFR > 60.0 ML/MIN Glucose 144 H (74-106) mg/dL Calcium 9.0 (8.4-10.2) mg/dL Slides for Path Review YES Assessment/Plan (1) Pneumonia Current Visit: Yes Status: Acute Qualifiers: Pneumonia type: due to unspecified organism Laterality: right Lung location: upper lobe of lung Qualified Code(s): J18.1 - Lobar pneumonia, unspecified organism Assessment & Plan: culture +serratia and MRSA, continue rocephin, stop zithromax and add po bactrim based on culture and sensitivity. patient improved clinically Code(s): J18.9 - PNEUMONIA, UNSPECIFIED ORGANISM (2) Hemoptysis Current Visit: Yes Status: Acute Assessment & Plan: initial AFB smear negative, quantiferon gold pending. will d/c isolation if results are negative. plan to hold eliquis and aspirin as Dr Bauer plans to bronch as outpatient after resolution of current illness Code(s): R04.2 - HEMOPTYSIS (3) Lymphedema Current Visit: No Status: Acute Code(s): I89.0 - LYMPHEDEMA, NOT ELSEWHERE CLASSIFIED (4) Atrial fibrillation Current Visit: No Status: Chronic Code(s): I48.91 - UNSPECIFIED ATRIAL FIBRILLATION (5) COPD (chronic obstructive pulmonary disease) Current Visit: No Status: Chronic (6) Chronic respiratory failure with hypercapnia Current Visit: No Status: Chronic
[2019-07-16] MEDS: Neurontin 400 MG PO SCH ×4 (09:37→21:06)
[2019-07-16] MEDS: BUMEX 1 MG PO SCH ×2 (09:38→17:18)
[2019-07-16] MEDS: Protonix 40MG Tablet PO SCH (09:38)
[2019-07-16] MEDS: DELTASONE 20 MG PO SCH (09:38)
[2019-07-16] MEDS: FEOSOL 325 MG PO SCH ×2 (09:38→21:06)
[2019-07-16] MEDS: Toprol-Xl 25MG Tablets PO SCH (09:38)
[2019-07-16] MEDS: SYNTHROID 50 MCG PO SCH (09:38)
[2019-07-16] MEDS: MAG-OX 400 PO SCH ×2 (09:38→21:06)
[2019-07-16] MEDS: Aldactone 25 MG PO SCH (09:38)
[2019-07-16] MEDS: Klor Con 10 MEQ PO SCH ×2 (09:38→21:06)
[2019-07-16] MEDS: ROCEPHIN 1 Gm-D5w 50 ml Bag** 1 G/50 ML IVPB IV SCH (09:40)
[2019-07-16] MEDS: BACTRIM DS TABLET PO SCH ×2 (09:51→21:06)
[2019-07-16] MEDS: PATIENT OWN MEDICATION PO SCH ×2 (17:07→21:19)
[2019-07-16] MEDS: Pepcid 20 MG PO SCH (21:05)
[2019-07-16] MEDS: ZOCOR 20MG PO SCH (21:05)
[2019-07-17 05:04] LABS: BASOPHIL % 0.3 % (0.0-0.4); Basophil (Absolute #) 0.02 (0-0.4); Eosinophil % 1.3 % (0.00-5.0); Granulocyte Absolute (ANC) 6.05 (1.4-6.9); Granulocytes % 77.1 % (36.0-66.0); Hematocrit 38.3 % (42-50); Hemoglobin 10.6 gm/dl (12.5-18.0); Lymphocyte (Absolute #) 0.93 (1.0-4.6); Lymphocytes % 11.9 % (24.0-44.0); Mean Cell Volume 94.8 fl (78-100); Mean Corpuscular Hemoglobin 26.2 pg (26-32); Mean Corpuscular Hgb Concent. 27.7 g/dl (32-36); Mean Platelet Volume 12.5 fl (6-9.5); Monocyte (Absolute #) 0.74 (0.0-1.3); Monocytes % 9.4 % (0.0-12.0); Platelet Count 105 K/mm3 (150-450); Red Blood Count 4.04 M/mm3 (4.1-5.6); Red Cell Distribution Width 19.4 % (11.5-14.0); White Blood Count 7.8 K/mm3 (4.0-10.5)
[2019-07-17 05:31] LABS: BLOOD UREA NITROGEN 16 mg/dL (9-20); CHLORIDE 84 mmol/L (98-107); Creatinine 1 0.65 mg/dL (0.66-1.25); Glucose 114 mg/dL (74-106); MAGNESIUM 1.8 mg/dL (1.6-2.3); Potassium 3.7 mmol/L (3.5-5.1); SODIUM 139 mmol/L (137-145)
[2019-07-17 05:43] LABS: Carbon Dioxide 45 mmol/L (22-30)
[2019-07-17 05:44] LABS: ANION GAP 13.7 MEQ/L (5-15)
[2019-07-17] MEDS: DUONEB 0.5-3 MG/3 ml Neb IH SCH ×6 (06:08→23:03)
[2019-07-17] MEDS: PATIENT OWN MEDICATION IH SCH ×2 (06:30→18:46)
[2019-07-17 06:43] LABS: Slide Review 1 YES
[2019-07-17] MEDS: Sodium Chloride 0.9% 10 ML FLUSH Syringe IV SCH ×3 (06:53→21:52)
[2019-07-17] MEDS: PERCOCET TABLET 5/325MG PO PRN ×3 (08:25→21:48)
--- NOTE | 2019-07-17 09:14 | PCM.NOTE ---
Date and Time: 07/17/19910 Subjective Assessment: cough is improving, sputum is clearing. overall feeling much better, still has some cough with sputum but he has this chronically and looks back to normal Objective Exam General Appearance: no apparent distress, obese Neurologic Exam: alert, oriented x 3 Respiratory Exam: rhonchi, wheezing Cardiovascular Exam: regular rate/rhythm, normal heart sounds Gastrointestinal/Abdomen Exam: soft, No tenderness, No mass Extremity Exam: normal inspection, normal range of motion OBJECTIVE DATA Vital Signs: Vital Signs - 24 hr Temp Pulse Resp BP Pulse Ox 07/17/19 07:13 78 16 93 L 07/17/19 07:09 98.6 F 78 16 144/73 93 L 07/17/19 04:00 65 18 07/16/19 23:48 98.8 F 78 20 125/82 94 L 07/16/19 23:31 78 20 94 L 07/16/19 20:00 98.4 F 77 23 163/86 99 07/16/19 19:06 83 23 100 07/16/19 16:00 98.7 F 81 22 124/73 98 07/16/19 15:00 22 07/16/19 12:00 98.5 F 88 20 130/85 94 L 07/16/19 11:00 88 20 94 L Oxygen-Last 24 hours O2 Percentage 3 Liters = 32% O2 Percentage 3 Liters = 32% O2 Percentage 3 Liters = 32% Pain Assessment - Last Documented Pain Intensity 9 Pain Scale Used 0-10 Pain Scale Intake and Output: Intake & Output 07/14/19 07/15/19 07/16/19 07/17/19 11:59 11:59 11:59 11:59 Intake Total 3220 3700 3000 3378 Output Total 2229 4655 3608 4900 Balance 537 -7383 -852 -8204 Weight 134.7 kg 135.6 kg 135.4 kg 135.6 kg Lab Results: Lab Results-Last 24 Hours 07/17/19 07/17/19 Range/Units 04:20 04:20 WBC 7.8 (4.0-10.5) K/mm3 RBC 4.04 L (4.1-5.6) M/mm3 Hgb 10.6 L (12.5-18.0) gm/dl Hct 38.3 L (42-50) % MCV 94.8 (78-100) fl MCH 26.2 (26-32) pg MCHC 27.7 L (32-36) g/dl RDW 19.4 H (11.5-14.0) % Plt Count 105 L (150-450) K/mm3 MPV 12.5 H (6-9.5) fl Gran % 77.1 H (36.0-66.0) % Eos # (Auto) 0.10 (0-0.5) Absolute Lymphs (auto) 0.93 L (1.0-4.6) Absolute Monos (auto) 0.74 (0.0-1.3) Lymphocytes % 11.9 L (24.0-44.0) % Monocytes % 9.4 (0.0-12.0) % Eosinophils % 1.3 (0.00-5.0) % Basophils % 0.3 (0.0-0.4) % Absolute Granulocytes 6.05 (1.4-6.9) Basophils # 0.02 (0-0.4) Sodium 139 (137-145) mmol/L Potassium 3.7 (3.5-5.1) mmol/L Chloride 84 L (98-107) mmol/L Carbon Dioxide 45 H (22-30) mmol/L Anion Gap 13.7 (5-15) MEQ/L BUN 16 (9-20) mg/dL Creatinine 0.65 L (0.66-1.25) mg/dL Estimated GFR > 60.0 ML/MIN Glucose 114 H (74-106) mg/dL Calcium 9.0 (8.4-10.2) mg/dL Magnesium 1.8 (1.6-2.3) mg/dL Slides for Path Review YES Assessment/Plan (1) Pneumonia Current Visit: Yes Status: Acute Qualifiers: Pneumonia type: due to unspecified organism Laterality: right Lung location: upper lobe of lung Qualified Code(s): J18.1 - Lobar pneumonia, unspecified organism Assessment & Plan: continue rocephin/bactrim with serratia and MRSA in sputum culture, improving clinically Code(s): J18.9 - PNEUMONIA, UNSPECIFIED ORGANISM (2) Hemoptysis Current Visit: Yes Status: Acute Assessment & Plan: resolving, hold anticoagulants and Dr Bauer to bronch as outpatient. AFB negative, quantiferon gold pending, if negative can d/c respiratory isolation Code(s): R04.2 - HEMOPTYSIS (3) Lymphedema Current Visit: Yes Status: Acute Code(s): I89.0 - LYMPHEDEMA, NOT ELSEWHERE CLASSIFIED (4) Atrial fibrillation Current Visit: No Status: Chronic Code(s): I48.91 - UNSPECIFIED ATRIAL FIBRILLATION (5) COPD (chronic obstructive pulmonary disease) Current Visit: No Status: Chronic (6) Chronic respiratory failure with hypercapnia Current Visit: No Status: Chronic
[2019-07-17] MEDS ORDERED: VITAMIN D2 PO SCH (10:00)
[2019-07-17] MEDS: SYNTHROID 50 MCG PO SCH (10:27)
[2019-07-17] MEDS: Klor Con 10 MEQ PO SCH ×2 (10:27→21:48)
[2019-07-17] MEDS: Toprol-Xl 25MG Tablets PO SCH (10:27)
[2019-07-17] MEDS: Aldactone 25 MG PO SCH (10:27)
[2019-07-17] MEDS: BACTRIM DS TABLET PO SCH ×2 (10:27→21:51)
[2019-07-17] MEDS: MAG-OX 400 PO SCH ×2 (10:27→21:51)
[2019-07-17] MEDS: Protonix 40MG Tablet PO SCH (10:27)
[2019-07-17] MEDS: BUMEX 1 MG PO SCH ×2 (10:27→16:19)
[2019-07-17] MEDS: ROCEPHIN 1 Gm-D5w 50 ml Bag** 1 G/50 ML IVPB IV SCH (10:27)
[2019-07-17] MEDS: Neurontin 400 MG PO SCH ×4 (10:27→21:49)
[2019-07-17] MEDS: FEOSOL 325 MG PO SCH ×2 (10:28→21:48)
[2019-07-17] MEDS: DELTASONE 20 MG PO SCH (10:29)
[2019-07-17] MEDS: PATIENT OWN MEDICATION PO SCH ×2 (10:30→23:36)
[2019-07-17 12:00] LABS: Mitogen 8.49 IU/mL; TB1-NIL 0.34 IU/mL (<=0.34); TB2-NIL 0.36 IU/mL (<=0.34)
[2019-07-17 12:52] LABS: Quantiferon Gold TB Positive (Negative)
[2019-07-17] MEDS: Pepcid 20 MG PO SCH (21:50)
[2019-07-17] MEDS: ZOCOR 20MG PO SCH (21:52)
[2019-07-18] MEDS: PERCOCET TABLET 5/325MG PO PRN ×2 (02:57→08:24)
[2019-07-18] MEDS: DUONEB 0.5-3 MG/3 ml Neb IH SCH ×2 (03:18→07:16)
[2019-07-18 04:55] LABS: Hematocrit 37.4 % (42-50); Hemoglobin 10.3 gm/dl (12.5-18.0); Mean Cell Volume 94.9 fl (78-100); Mean Corpuscular Hemoglobin 26.1 pg (26-32); Mean Corpuscular Hgb Concent. 27.5 g/dl (32-36); Mean Platelet Volume 12.2 fl (6-9.5); Platelet Count 115 K/mm3 (150-450); Red Blood Count 3.94 M/mm3 (4.1-5.6); Red Cell Distribution Width 19.5 % (11.5-14.0); White Blood Count 8.9 K/mm3 (4.0-10.5)
[2019-07-18 05:15] LABS: BLOOD UREA NITROGEN 19 mg/dL (9-20); CHLORIDE 83 mmol/L (98-107); Calcium 9.1 mg/dL (8.4-10.2); Creatinine 1 0.77 mg/dL (0.66-1.25); Glucose 190 mg/dL (74-106); Potassium 4.1 mmol/L (3.5-5.1); SODIUM 136 mmol/L (137-145)
[2019-07-18 05:25] LABS: Carbon Dioxide 45 mmol/L (22-30)
[2019-07-18 05:26] LABS: ANION GAP 12.1 MEQ/L (5-15)
[2019-07-18] MEDS: Sodium Chloride 0.9% 10 ML FLUSH Syringe IV SCH (06:08)
--- NOTE | 2019-07-18 06:45 | PCM.DS ---
Discharge Summary Date of Admission: 07/13/19 13:26 Admitting Physician: ANDERSON MERRITT Consults: Consults on Case 07/13/19 16:46 Consult Pulmonology ROUTINE Primary Care Provider: EMILY PARADA CARLOS Allergies Allergies pregabalin [From Lyrica] Allergy (Verified 07/13/19 13:46) zinc Allergy (Verified 07/13/19 13:46) Blisters moxifloxacin HCl [From Avelox] Adverse Reaction (Mild, Verified 07/13/19 13:46) vancomycin Adverse Reaction (Verified 07/13/19 13:46) Elevated Levels / Increased CRCL patient had significant increase in Serum CR and decreased creatinine clearence. [facility] Summary - Hospital Course Hospital Course: patient was admitted with cough and hemoptysis, hx remote TB. doing better, sputum +serratia/MRSA, afb neg quantiferon gold positive. was seen by pulm who plans outpatient bronch - Vitals & Intake/Output Vital Signs: Vital Signs Temperature 97.4 F 07/18/19 04:00 Pulse Rate 73 07/18/19 04:00 Respiratory Rate 20 07/18/19 04:00 Blood Pressure 135/84 07/18/19 04:00 O2 Sat by Pulse Oximetry 95 07/18/19 04:00 Oxygen-Last Documented O2 Percentage 3 Liters = 32% Intake & Output: Intake & Output 07/15/19 07/16/19 07/17/19 07/18/19 11:59 11:59 11:59 11:59 Intake Total 3700 3000 4158 3338 Output Total 4945 3600 5500 5250 Balance -0930 -449 -2146 -1783 Weight 135.6 kg 135.4 kg 135.6 kg - Lab Result Diagrams: 07/18/19 04:35 07/18/19 04:35 Lab Results-Last 24 Hrs: Lab Results-Last 24 Hours 07/14/19 07/17/19 07/18/19 Range/Units 06:30 04:20 04:35 WBC 8.9 (4.0-10.5) K/mm3 RBC 3.94 L (4.1-5.6) M/mm3 Hgb 10.3 L (12.5-18.0) gm/dl Hct 37.4 L (42-50) % MCV 94.9 (78-100) fl MCH 26.1 (26-32) pg MCHC 27.5 L (32-36) g/dl RDW 19.5 H (11.5-14.0) % Plt Count 115 L (150-450) K/mm3 MPV 12.2 H (6-9.5) fl Sodium (137-145) mmol/L Potassium (3.5-5.1) mmol/L Chloride (98-107) mmol/L Carbon Dioxide (22-30) mmol/L Anion Gap (5-15) MEQ/L BUN (9-20) mg/dL Creatinine (0.66-1.25) mg/dL Estimated GFR ML/MIN Glucose (74-106) mg/dL Calcium (8.4-10.2) mg/dL TB (QFT) Gold In Tube Positive H (Negative) TB Test (QFT) Nil 0.10 IU/mL TB Test (QFT) Mitogen 8.49 IU/mL TB Test Antigen - Nil 0.36 H (<=0.34) IU/mL Slides for Path Review YES 07/18/19 Range/Units 04:35 WBC (4.0-10.5) K/mm3 RBC (4.1-5.6) M/mm3 Hgb (12.5-18.0) gm/dl Hct (42-50) % MCV (78-100) fl MCH (26-32) pg MCHC (32-36) g/dl RDW (11.5-14.0) % Plt Count (150-450) K/mm3 MPV (6-9.5) fl Sodium 136 L (137-145) mmol/L Potassium 4.1 (3.5-5.1) mmol/L Chloride 83 L (98-107) mmol/L Carbon Dioxide 45 H (22-30) mmol/L Anion Gap 12.1 (5-15) MEQ/L BUN 19 (9-20) mg/dL Creatinine 0.77 (0.66-1.25) mg/dL Estimated GFR > 60.0 ML/MIN Glucose 190 H (74-106) mg/dL Calcium 9.1 (8.4-10.2) mg/dL TB (QFT) Gold In Tube (Negative) TB Test (QFT) Nil IU/mL TB Test (QFT) Mitogen IU/mL TB Test Antigen - Nil (<=0.34) IU/mL Slides for Path Review Micro Results-Entire Visit: Microbiology 07/13/19 11:30 Blood Culture Gram Stain - Final Blood Not Reportable Blood Culture - Final NO GROWTH 07/13/19 12:45 Blood Culture Gram Stain - Final Blood Not Reportable Blood Culture - Final NO GROWTH 07/13/19 13:00 Gram Stain - Final Sputum - Expectorant Sputum Culture - Final Serratia Marcescens Methicillin Resist Staph Aur 07/13/19 11:30 AFB Plated Culture - Preliminary Sputum - Expectorant - Radiology Exams Ordered Rad Exams-Entire Visit: Radiology Procedures Category Date Time Status CHEST 1 VIEW (PORTABLE) Routine Exams 07/18/19 05:11 Taken - Procedures and Test Procedures and Tests throughout Hospitalization: Therapy Orders & Screens 07/13/19 10:12 Peak Expiratory Flow Rate ONCE Comment: Reason For Exam: Respiratory Therapy Assessment DAILY Comment: 07/13/19 13:31 Oxygen Nasal Cannula 3 lpm Comment: 07/15/19 07:01 Respiratory MDI BID Comment: Diagnosis: hemoptysis 07/16/19 10:37 PT Eval & Treat (MD Order) ROUTINE Reason for Eval:: Bilateral lower extremity wounds to calves and feet in various stages Diagnosis: hemoptysis Discharge Exam General Appearance: no apparent distress, obese Neurologic Exam: alert, oriented x 3 Respiratory Exam: rhonchi Cardiovascular Exam: regular rate/rhythm, normal heart sounds Gastrointestinal/Abdomen Exam: soft, No tenderness, No mass Extremity Exam: swelling, other (chronic lymphedema changes) Final Diagnosis/Problem List - Final Discharge Diagnosis/Problem (1) Pneumonia Current Visit: Yes Status: Acute Code(s): J18.9 - PNEUMONIA, UNSPECIFIED ORGANISM (2) Hemoptysis Current Visit: Yes Status: Acute Code(s): R04.2 - HEMOPTYSIS (3) Lymphedema Current Visit: Yes Status: Acute Code(s): I89.0 - LYMPHEDEMA, NOT ELSEWHERE CLASSIFIED (4) Atrial fibrillation Current Visit: No Status: Chronic Code(s): I48.91 - UNSPECIFIED ATRIAL FIBRILLATION (5) COPD (chronic obstructive pulmonary disease) Current Visit: No Status: Chronic (6) Chronic respiratory failure with hypercapnia Current Visit: No Status: Chronic - Discharge Disposition: Home, Self-Care Condition: Stable Prescriptions: New Smz/Tmp Ds Tablet [Bactrim Ds Tablet] 1 tab PO BID #20 tablet Continue Magnesium Oxide 400 mg [Mag-Ox 400] 400 mg PO BID Omeprazole 20 MG [Prilosec 20 mg] 1 tab PO DAILY Metoprolol Succinate 25 mg Xl* [Toprol-Xl 25MG Tablets] 25 mg PO DAILY Atorvastatin Calcium [Lipitor 40Mg] 40 mg PO HS Famotidine [Pepcid] 40 mg PO HS Spironolactone 25 mg [Aldactone 25 MG] 25 mg PO DAILY Gabapentin [Neurontin] 800 mg PO QID Oxycodone HCl/Acetaminophen [Oxycodon-Acetaminophen 7.5-325] 1 each PO Q4H PRN PRN PRN Reason: Moderate To Severe Pain Amitriptyline HCl 50 mg PO HS Ergocalciferol (Vitamin D2) [Drisdol] 50,000 unit PO UD Prednisone 20 mg [Deltasone 20 mg] 20 mg PO DAILY #7 tablet Acetaminophen 325 mg [Tylenol 325 mg] 650 mg PO Q4HPRN PRN PRN Reason: Pain Colchicine [Colcrys] 0.6 mg PO BID Albuterol/Ipratropium 3ml Neb* [DUONEB 0.5-3 MG/3 ml Neb] 3 ml IH Q6HPRN PRN PRN Reason: copd Fluticasone/Salmeterol 115/21 [Advair Hfa 115/21 Common canister*] 2 puffs IH BID Levothyroxine Sodium 50 Mcg [Synthroid 50 Mcg] 50 mcg PO DAILY Potassium Chloride 10 Meq Tab* [Klor Con 10 MEQ] 20 meq PO BID Ferrous Sulfate [Iron] 325 mg PO BID Bumetanide [Bumex] 2 mg PO BID Discontinued Apixaban [Eliquis 2.5 mg Tablet] 5 mg PO BID Follow up with: FREDERIC SAUCEDO [ACTIVE STAFF] - 07/24/19 3:00 pm
[2019-07-18] MEDS: PATIENT OWN MEDICATION IH SCH (07:18)
[2019-07-18] MEDS: Protonix 40MG Tablet PO SCH (08:24)
[2019-07-18] MEDS: Neurontin 400 MG PO SCH (08:24)
[2019-07-18] MEDS: SYNTHROID 50 MCG PO SCH (08:24)
[2019-07-18] MEDS: BACTRIM DS TABLET PO SCH (08:24)
[2019-07-18] MEDS: Klor Con 10 MEQ PO SCH (08:24)
[2019-07-18] MEDS: BUMEX 1 MG PO SCH (08:24)
[2019-07-18] MEDS: FEOSOL 325 MG PO SCH (08:24)
[2019-07-18] MEDS: Toprol-Xl 25MG Tablets PO SCH (08:24)
[2019-07-18] MEDS: MAG-OX 400 PO SCH (08:24)
[2019-07-18] MEDS: DELTASONE 20 MG PO SCH (08:25)
[2019-07-18] MEDS: PATIENT OWN MEDICATION PO SCH (08:25)
[2019-07-18] MEDS: Aldactone 25 MG PO SCH (08:25)
--- NOTE | 2019-07-18 08:33 | CONS ---
CONSULT DATE: 07/17/2019 HISTORY: The patient has been feeling "really well". Requests to be discharged home as has not had any more hemoptysis since my visit two days ago. Denies shortness of breath as well. His leg swelling also has remarkably improved. PHYSICAL EXAMINATION: Vital signs noted. HEENT: Normocephalic. Oral exam is limited. Oropharynx is small. NECK: Supple. CVS: First and second heart sounds are normal, regular, rhythmic. RESPIRATORY: Shows diminished breath sounds, fairly clear. ABDOMEN: Obese. EXTREMITIES: Lower extremities show chronic dermatitis changes. LABORATORY DATA AND TESTS: White count 7.8, hemoglobin 10.6, hematocrit 38, PLT count 105,000. Sputum culture is growing Serratia and methicillin resistant staphylococcus aureus pansensitive to Bactrim. AFB, PTR were reported positive. Marginal for TB level of 0.36. ASSESSMENT: This is a 63 year old male admitted with: 1) Shortness of breath, multilobar pneumonia growing Serratia and methicillin resistant staphylococcus aureus in sputum. 2) Chronic obstructive pulmonary disease with exacerbation. 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 4) Obesity. 5) Lower extremity dermatitis changes. RECOMMENDATIONS: 1) The patient clinically has been feeling well. He does not have symptoms of active tuberculosis. The weakly positive QuantiFERON Gold is likely from previous infection. 2) Will send one more sample of sputum AFB by PCR. 3) May discharge home on oral Bactrim for ten days or so which will complete antibiotic therapy. 4) Advise isolation particularly from children until AFB-PCR is back. 5) I will be available to follow up in outpatient setting in a week or earlier if needed. Once again, thank you for allowing me to participate in the care of Prasanth Byers.
[2019-07-18 08:34] VITALS: BP 139/67; PULSE 92; O2SAT 93
--- NOTE | 2019-07-18 08:38 | XRAY ---
Indication: TB exposure. Possible infiltrate. Comparison: April 26, 2019. Portable chest demonstrates new right costophrenic angle blunting suggesting small effusion/atelectasis. Otherwise stable scattered fibrosis/scarring, calcified granulomas, right upper lung suture material, and cardiomegaly.
[2019-07-18] MEDS: ROCEPHIN 1 Gm-D5w 50 ml Bag** 1 G/50 ML IVPB IV SCH (09:49)
[2019-07-18 11:43] LABS: Lymphocytes 10 % (24-44); Monocyte 1 % (0.0-12.0); Neutrophils 89 % (36.-66.); Total Cells Counted 100
[2019-07-18 11:44] LABS: ANISOCYTOSIS 1+; Hypochromia 1+; Platelet Estimate NORMAL (NORMAL); Poikilocytosis 1+
== END 2019-07-18 09:50 | disposition home or self-care (01) | DRG 194 ==
LOC: ED 09:23 → MED SURG 13:26
PROVIDERS: ADMIT Family Medicine; ATTEND Family Medicine
DX: J18.9 Pneumonia, unspecified organism (principal); R04.2 Hemoptysis; J96.12 Chronic respiratory failure with hypercapnia; J44.9 Chronic obstructive pulmonary disease, unspecified; Z99.81 Dependence on supplemental oxygen; Z86.11 Personal history of tuberculosis; M10.9 Gout, unspecified; E03.9 Hypothyroidism, unspecified; I89.0 Lymphedema, not elsewhere classified; I48.91 Unspecified atrial fibrillation; Z79.899 Other long term (current) drug therapy; E78.5 Hyperlipidemia, unspecified
CPT/HCPCS: 36415; 71045; 71260; 80048; 80053; 83036; 83605; 83735; 83880; 84484; 85025; 85027; 85379; 85610; 85730; 86480; 87040; 87070; 87077; 87116; 87186; 87556; 87798; 93005; 93041; 94150; 94640; 94760; 96365; 96368; 99284; 99285; J0456; J0696; A9270-GY

== ENCOUNTER 2019-07-31 09:32 | Day surgery (SDC) | payer MEDICARE ==
[2019-07-31] MEDS ORDERED: Marcaine 0.5% SDV 10 ML IJ ONE (09:33)
[2019-07-31] MEDS ORDERED: Depo-Medrol 40 MG/ML IM ONE (09:33)
[2019-07-31] MEDS ORDERED: Ketamine HCl 50 MG/ML ONE (10:50)
[2019-07-31] MEDS ORDERED: DIPRIVAN 200 MG/20 ML IV ONE (10:50)
--- NOTE | 2019-07-31 12:18 | XRAY ---
11 seconds fluoroscopy time in surgery for bilateral L4-S1 MBB.
--- NOTE | 2019-07-31 12:26 | XRAY ---
Indication: Bilateral L4-S1 MBB. Intraoperative fluoroscopy was provided for 11 seconds. Single digital spot image submitted for interpretation demonstrates posterior needle tips projecting over the expected left and right L4-S1 nerve roots. Correlate with intraoperative findings/report.
[2019-07-31] MEDS ORDERED: Lactated Ringers 1,000 ML IV ONE (12:49)
== END 2019-07-31 11:40 | disposition home or self-care (01) ==
LOC: SDC-PAIN 09:32
PROVIDERS: ATTEND Psychiatry & Neurology Pain Medicine
DX: M47.816 Spondylosis without myelopathy or radiculopathy, lumbar region (principal); I10 Essential (primary) hypertension; I48.91 Unspecified atrial fibrillation; I73.9 Peripheral vascular disease, unspecified; G62.9 Polyneuropathy, unspecified; Z79.01 Long term (current) use of anticoagulants; Z79.899 Other long term (current) drug therapy
CPT/HCPCS: 64493; 64494; 72020; 77002; 93005; J1030; J2704

== ENCOUNTER 2019-08-25 21:28 | Emergency (ER) | payer MEDICARE ==
--- NOTE | 2019-08-25 21:31 | ERPHSYRPT ---
- History of Present Illness Time Seen by Provider: 08/25/19 21:31 Source: patient, family Exam Limitations: no limitations Physician History: 64 y/o diabetic white male presents with redness of left inner knee redness. pt has chronic bilateral lymphedema and recurrent celluliti. noticed redness today. mild increase in pain. no antibiotics and no fevers Method of Injury: other (no injjury) Occurred: this evening Quality: aching Severity of Pain-Max: mild Severity of Pain-Current: mild Lower Extremities Pain: knee: left Modifying Factors: Improves With: nothing Associated Symptoms: none Allergies/Adverse Reactions: pregabalin [From Lyrica] Allergy (Verified 08/25/19 22:27) zinc Allergy (Verified 08/25/19 22:27) Blisters moxifloxacin HCl [From Avelox] Adverse Reaction (Mild, Verified 08/25/19 22:27) vancomycin Adverse Reaction (Verified 08/25/19 22:27) Elevated Levels / Increased CRCL patient had significant increase in Serum CR and decreased creatinine clearence. Wetch Closely Home Medications: Magnesium Oxide 400 mg [Mag-Ox 400] 400 mg PO BID 01/02/15 [History] Metoprolol Succinate 25 mg Xl* [Toprol-Xl 25MG Tablets] 25 mg PO DAILY [History] Omeprazole 20 MG [Prilosec 20 mg] 1 tab PO DAILY 11/30/15 [History] Atorvastatin Calcium [Lipitor 40Mg] 40 mg PO HS 04/08/16 [History] Famotidine [Pepcid] 40 mg PO HS 01/19/17 [History] Gabapentin [Neurontin] 800 mg PO QID 01/19/17 [History] Spironolactone 25 mg [Aldactone 25 MG] 25 mg PO DAILY 01/19/17 [History] Oxycodone HCl/Acetaminophen [Oxycodon-Acetaminophen 7.5-325] 1 each PO Q4H PRN PRN 02/05/18 [History] Amitriptyline HCl 50 mg PO HS 11/23/18 [History] Ergocalciferol (Vitamin D2) [Drisdol] 50,000 unit PO UD 02/11/19 [History] Acetaminophen 325 mg [Tylenol 325 mg] 650 mg PO Q4HPRN PRN 04/15/19 [ History] Albuterol/Ipratropium 3ml Neb* [DUONEB 0.5-3 MG/3 ml Neb] 3 ml IH Q6HPRN PRN 04/15/19 [History] Colchicine [Colcrys] 0.6 mg PO BID 04/15/19 [History] Fluticasone/Salmeterol 115/21 [Advair Hfa 115/21 Common canister*] 2 puffs IH BID 04/15/19 [History] Levothyroxine Sodium 50 Mcg [Synthroid 50 Mcg] 50 mcg PO DAILY 04/26/19 [ History] Bumetanide [Bumex] 2 mg PO BID 07/13/19 [History] Ferrous Sulfate [Iron] 325 mg PO BID 07/13/19 [History] Potassium Chloride 10 Meq Tab* [Klor Con 10 MEQ] 20 meq PO BID 07/13/19 [ History] Hx Tetanus, Diphtheria Vaccination/Date Given: Yes Hx Influenza Vaccination/Date Given: Yes Hx Pneumococcal Vaccination/Date Given: Yes - Review of Systems Constitutional: No Symptoms Eyes: No Symptoms Ears, Nose, & Throat: No Symptoms Respiratory: No Symptoms Cardiac: No Symptoms Abdominal/Gastrointestinal: No Symptoms Genitourinary Symptoms: No Symptoms Musculoskeletal: No Symptoms Skin: Cellulitis (left inner knee) Neurological: No Symptoms Psychological: No Symptoms Endocrine: No Symptoms Hematologic/Lymphatic: No Symptoms Immunological/Allergic: No Symptoms All Other Systems: Reviewed and Negative - Past Medical History Pertinent Past Medical History: Yes Neurological History: Peripheral Neuropathy ENT History: No Pertinent History Cardiac History: Arrhythmia, Congenital Heart Disease, Congestive Heart Failure , Hypertension Respiratory History: CHF, COPD, Pneumonia, Tuberculosis, Other Endocrine Medical History: Liver Disease Musculoskeletal History: Arthritis GI Medical History: GERD History: Renal Disease Psycho-Social History: Depression Male Reproductive Disorders: No Pertinent History Other Medical History: Partial R lung removal. Afib. - Past Surgical History Past Surgical History: Yes Neuro Surgical History: No Pertinent History Cardiac: No Pertinent History Respiratory: Lobectomy Gastrointestinal: No Pertinent History Genitourinary: No Pertinent History Musculoskeletal: No Pertinent History Male Surgical History: Vasectomy Other Surgical History: RIGHT UPPER LOBECTOMY, leg vein cautery with skin graft - Social History Smoking Status: Former smoker How long have you smoked: 38 yrs Exposure to second hand smoke: No Drug Use: none Patient Lives Alone: No - Nursing Vital Signs Nursing Vital Signs: Initial Vital Signs Temperature 99.0 F 08/25/19 22:01 Pulse Rate 98 H 08/25/19 22:01 Respiratory Rate 16 08/25/19 22:01 Blood Pressure 133/63 08/25/19 22:01 O2 Sat by Pulse Oximetry 94 L 08/25/19 22:01 Pain Scale Pain Intensity 9 - Physical Exam General Appearance: no apparent distress, alert Eyes, Ears, Nose, Throat Exam: normal ENT inspection, moist mucous membranes Neck Exam: normal inspection, non-tender, supple, full range of motion Cardiovascular/Respiratory Exam: No chest non-tender Gastrointestinal/Abdominal Exam: No non-tender Back Exam: normal inspection, normal range of motion, No CVA tenderness, No vertebral tenderness Hips Exam: bilateral: non-tender, normal inspection, normal range of motion, no evidence of injury Legs Exam: bilateral leg: non-tender, normal inspection, normal range of motion , no evidence of injury, other (lymphedema) Knees Exam: right knee: non-tender, normal inspection, left knee: soft tissue tenderness, swelling, bilateral knee: normal range of motion, no evidence of injury Ankle Exam: bilateral ankle: other (lymphedema) Foot Exam: bilateral foot: non-tender, normal inspection, normal range of motion , no evidence of injury Neuro/Tendon Exam: normal sensation, normal motor functions, normal tendon functions Mental Status Exam: alert, oriented x 3, cooperative Skin Exam: other (area of cellulitis left inner thigh. no abscess.) SpO2 Interpretation: borderline oxygenation Ordered Tests: Active Orders 24 hr Category Date Time Status IV Insertion STAT Care 08/25/19 22:12 Active BLOOD CULTURE Stat Lab 08/25/19 22:29 Received BMP Stat Lab 08/25/19 22:29 Completed CBC W DIFF Stat Lab 08/25/19 22:29 Completed Medication Summary Discontinued Medications Generic Name Dose Route Start Last Admin Trade Name Freq PRN Reason Stop Dose Admin Ceftriaxone Sodium/Dextrose 1 g in 50 mls @ 100 mls/hr 08/25/19 22:13 22:38 Rocephin 1 Gm-D5w 50 Ml Bag IV 08/25/19 22:42 1 mls/h STAT STA 1 mls/hr Administration Sodium Chloride 500 mls @ 500 mls/hr 08/25/19 22:14 08/25/19 22:37 Sodium Chloride 0.9% 500 Ml IV 08/25/19 23:13 500 mls/hr .Q1H ONE Administration Ceftriaxone Sodium/Dextrose Confirm 08/25/19 22:31 Rocephin 1 Gm-D5w 50 Ml Bag Administered 08/25/19 22:32 Dose 1 g in 50 mls @ ud IV .STK-MED ONE Sodium Chloride Confirm 08/25/19 22:31 Sodium Chloride 0.9% 500 Ml Administered 08/25/19 22:32 Dose 500 mls @ ud IV .STK-MED ONE Morphine Sulfate 4 mg 08/25/19 22:12 08/25/19 22:38 Morphine Sulfate 4 Mg Inj IV 08/25/19 22:13 4 mg STAT ONE Administration Morphine Sulfate Confirm 08/25/19 22:31 Morphine Sulfate 4 Mg Inj Administered 08/25/19 22:32 Dose 4 mg .ROUTE .STK-MED ONE Ondansetron HCl 4 mg 08/25/19 22:12 08/25/19 22:38 Zofran 4 Mg/2 Ml Vial IV 08/25/19 22:13 4 mg STAT ONE Administration Ondansetron HCl Confirm 08/25/19 22:30 Zofran 4 Mg/2 Ml Vial Administered 08/25/19 22:31 Dose 4 mg .ROUTE .STK-MED ONE Lab/Rad Data: Laboratory Result Diagrams 08/25/19 22:29 08/25/19 22:29 Laboratory Results 08/25/19 08/25/19 Range/Units 22:29 22:29 WBC 12.5 H (4.0-10.5) K/mm3 RBC 4.33 (4.1-5.6) M/mm3 Hgb 12.0 L (12.5-18.0) gm/dl Hct 40.1 L (42-50) % MCV 92.6 (78-100) fl MCH 27.7 (26-32) pg MCHC 29.9 L (32-36) g/dl RDW 18.2 H (11.5-14.0) % Plt Count 119 L (150-450) K/mm3 MPV 12.9 H (6-9.5) fl Gran % 81.4 H (36.0-66.0) % Eos # (Auto) 0.17 (0-0.5) Absolute Lymphs (auto) 1.65 (1.0-4.6) Absolute Monos (auto) 0.47 (0.0-1.3) Lymphocytes % 13.2 L (24.0-44.0) % Monocytes % 3.8 (0.0-12.0) % Eosinophils % 1.4 (0.00-5.0) % Basophils % 0.2 (0.0-0.4) % Absolute Granulocytes 10.20 H (1.4-6.9) Basophils # 0.03 (0-0.4) Sodium 134 L (137-145) mmol/L Potassium 3.9 (3.5-5.1) mmol/L Chloride 85 L (98-107) mmol/L Carbon Dioxide 39 H (22-30) mmol/L Anion Gap 13.3 (5-15) MEQ/L BUN 20 (9-20) mg/dL Creatinine 0.71 (0.66-1.25) mg/dL Estimated GFR > 60.0 ML/MIN Glucose 128 H (74-106) mg/dL Calcium 8.4 (8.4-10.2) mg/dL - Progress Progress: unchanged Counseled pt/family regarding: lab results, diagnosis, need for follow-up - Departure Departure Disposition: Home Clinical Impression: Cellulitis of left knee Condition: Stable Critical Care Time: No Referrals: EMILY RIOS MD [Primary Care Provider] - Additional Instructions: keep area clean daily with soap and water. keep left leg elevated. take medications as prescribed. call dr. rios' office tomorrow to arrange follow up appointment. return to ED if symptoms worsen Prescriptions: Cefdinir 300 mg PO BID 7 Days #14 capsule
[2019-08-25] MEDS ORDERED: Zofran 4 MG/2 ML VIAL IV ONE (22:12)
[2019-08-25] MEDS ORDERED: MORPHINE SULFATE 4 MG INJ IV ONE (22:12)
[2019-08-25] MEDS ORDERED: ROCEPHIN 1 Gm-D5w 50 ml Bag** 1 G/50 ML IVPB IV STA (22:13)
[2019-08-25] MEDS ORDERED: Sodium Chloride 0.9% 500 ML 500 ML IV ONE ×2 (22:14→22:31)
[2019-08-25] MEDS ORDERED: Zofran 4 MG/2 ML VIAL ONE (22:30)
[2019-08-25] MEDS ORDERED: MORPHINE SULFATE 4 MG INJ ONE (22:31)
[2019-08-25] MEDS ORDERED: ROCEPHIN 1 Gm-D5w 50 ml Bag** 1 G/50 ML IVPB IV ONE (22:31)
[2019-08-25 22:44] LABS: BASOPHIL % 0.2 % (0.0-0.4); Basophil (Absolute #) 0.03 (0-0.4); Eosinophil % 1.4 % (0.00-5.0); Eosinophil (Absolute #) 0.17 (0-0.5); Hematocrit 40.1 % (42-50); Lymphocyte (Absolute #) 1.65 (1.0-4.6); Lymphocytes % 13.2 % (24.0-44.0); Mean Cell Volume 92.6 fl (78-100); Mean Corpuscular Hemoglobin 27.7 pg (26-32); Mean Corpuscular Hgb Concent. 29.9 g/dl (32-36); Mean Platelet Volume 12.9 fl (6-9.5); Monocyte (Absolute #) 0.47 (0.0-1.3); Monocytes % 3.8 % (0.0-12.0); Neutrophil % 81.4 % (36.0-66.0); Platelet Count 119 K/mm3 (150-450); Red Blood Count 4.33 M/mm3 (4.1-5.6); Red Cell Distribution Width 18.2 % (11.5-14.0); White Blood Count 12.5 K/mm3 (4.0-10.5)
[2019-08-25 22:48] LABS: ANION GAP 13.3 MEQ/L (5-15); BLOOD UREA NITROGEN 20 mg/dL (9-20); CHLORIDE 85 mmol/L (98-107); Calcium 8.4 mg/dL (8.4-10.2); Carbon Dioxide 39 mmol/L (22-30); Creatinine 1 0.71 mg/dL (0.66-1.25); Glucose 128 mg/dL (74-106); Potassium 3.9 mmol/L (3.5-5.1); SODIUM 134 mmol/L (137-145)
[2019-08-26 00:17] VITALS: BP 113/57; PULSE 91; O2SAT 95
== END 2019-08-26 00:05 | disposition home or self-care (01) ==
LOC: ED 21:28
DX: L03.116 Cellulitis of left lower limb (principal); I10 Essential (primary) hypertension; I50.9 Heart failure, unspecified; J44.9 Chronic obstructive pulmonary disease, unspecified; G62.9 Polyneuropathy, unspecified; Z86.79 Personal history of other diseases of the circulatory system; F11.90 Opioid use, unspecified, uncomplicated; Z79.899 Other long term (current) drug therapy; K76.9 Liver disease, unspecified
CPT/HCPCS: 36000; 36415; 80048; 85025; 87040; 96360; 96365; 96374; 96375; 99284; J0696; J2270; J2405

== ENCOUNTER 2019-08-26 09:59 | Emergency (ER) | payer MEDICARE ==
[2019-08-26] MEDS ORDERED: Sodium Chloride 0.9% 1000 ML 1,000 ML ONE ×3 (10:03→11:48)
[2019-08-26 10:11] LABS: A-aADO2 98; ABG HEMOGLOBIN 12.7; ABG POTASSIUM 3.9 (3.5-5.1); ARTERIAL BLD GAS O2 SATURATION 97.8 % (95-100); ARTERIAL BLOOD GAS BASE EXCESS 6.3 (-2.0-2.0); ARTERIAL BLOOD GAS FIO2 40 %; ARTERIAL BLOOD GAS PO2 103 mmHg (75-100); ARTERIAL BLOOD GAS pH 7.32 (7.35-7.45); CARBOXYHEMOGLOBIN 3.5 % THgb (0.0-6.9); HCO3- 34.5 (22-28); HGB O2 SAT 93.9 g/dF (94-100); Methhemoglobin 0.4 % (1.4-1.5); paO2 pAO1 0.51
[2019-08-26 10:12] LABS: ABG SITE RIGHT RADIAL; ALLEN TEST OK? YES; ARTERIAL BLOOD GAS PCO2 67 mmHg (35-45)
[2019-08-26 10:14] LABS: Lactic Acid 3.6 (0.4-2.0)
[2019-08-26] MEDS ORDERED: DUONEB 0.5-3 MG/3 ml Neb IH ONE ×2 (10:17→10:30)
--- NOTE | 2019-08-26 10:18 | ERPHSYRPT ---
- History of Present Illness Time Seen by Provider: 08/26/19 10:05 Source: patient (64 ), EMS Exam Limitations: clinical condition Physician History: 64 y/o diabetic obese white male with chronic bilateral lower ext lymphedema and recurrent bilat lower ext cellulitis seen last pm for eval and tx of a new left inner knee cellulitis of just a few hour duration according to pt and family. pts wbc last pm was 11.5, CO2 was 39, anion gap wnl, blood cx obtained. pt received rocephin iv, and 1mg iv dilaudid. pt given rx for cefdinir. pt decided to give outpt trial of antibx and would contact pcp this am or return to ED if sx worsened. no respiratory complaints last pm. pr family, pt well last pm. this am pt brought into ED by ems for sudden onset respiratory distress and altered mental status. pt arrives to ED in respiratory distress. Timing/Duration: today Severity: moderate, severe Associated Symptoms: shortness of breath Allergies/Adverse Reactions: pregabalin [From Lyrica] Allergy (Verified 08/25/19 22:27) zinc Allergy (Verified 08/25/19 22:27) Blisters moxifloxacin HCl [From Avelox] Adverse Reaction (Mild, Verified 08/25/19 22:27) vancomycin Adverse Reaction (Verified 08/25/19 22:27) Elevated Levels / Increased CRCL patient had significant increase in Serum CR and decreased creatinine clearence. Wetch Closely Home Medications: Magnesium Oxide 400 mg [Mag-Ox 400] 400 mg PO BID 01/02/15 [History] Metoprolol Succinate 25 mg Xl* [Toprol-Xl 25MG Tablets] 25 mg PO DAILY [History] Omeprazole 20 MG [Prilosec 20 mg] 1 tab PO DAILY 11/30/15 [History] Atorvastatin Calcium [Lipitor 40Mg] 40 mg PO HS 04/08/16 [History] Famotidine [Pepcid] 40 mg PO HS 01/19/17 [History] Gabapentin [Neurontin] 800 mg PO QID 01/19/17 [History] Spironolactone 25 mg [Aldactone 25 MG] 25 mg PO DAILY 01/19/17 [History] Oxycodone HCl/Acetaminophen [Oxycodon-Acetaminophen 7.5-325] 1 each PO Q6H PRN PRN 02/05/18 [History] Amitriptyline HCl 25 mg PO HS 11/23/18 [History] Ergocalciferol (Vitamin D2) [Drisdol] 50,000 unit PO UD 02/11/19 [History] Acetaminophen 325 mg [Tylenol 325 mg] 650 mg PO Q4HPRN PRN 04/15/19 [ History] Albuterol/Ipratropium 3ml Neb* [DUONEB 0.5-3 MG/3 ml Neb] 3 ml IH Q6HPRN PRN 04/15/19 [History] Colchicine [Colcrys] 0.6 mg PO BID 04/15/19 [History] Fluticasone/Salmeterol 115/ [Advair Hfa 115 Common canister*] 2 puffs IH BID 04/15/19 [History] Levothyroxine Sodium 50 Mcg [Synthroid 50 Mcg] 50 mcg PO DAILY 04/26/19 [ History] Bumetanide [Bumex] 2 mg PO BID 07/13/19 [History] Ferrous Sulfate [Iron] 65 mg PO BID 07/13/19 [History] Potassium Chloride 10 Meq Tab* [Klor Con 10 MEQ] 20 meq PO BID 07/13/19 [ History] Hx Tetanus, Diphtheria Vaccination/Date Given: Yes Hx Influenza Vaccination/Date Given: Yes Hx Pneumococcal Vaccination/Date Given: Yes - Review of Systems Constitutional: Lethargy Eyes: No Symptoms Ears, Nose, & Throat: No Symptoms Respiratory: Dyspnea Cardiac: No Symptoms Abdominal/Gastrointestinal: No Symptoms Genitourinary Symptoms: No Symptoms Skin: Cellulitis (left inner knee) Neurological: No Symptoms Psychological: No Symptoms Endocrine: No Symptoms Hematologic/Lymphatic: No Symptoms Immunological/Allergic: No Symptoms All Other Systems: Reviewed and Negative - Past Medical History Pertinent Past Medical History: Yes Neurological History: Peripheral Neuropathy ENT History: No Pertinent History Cardiac History: Arrhythmia, Congenital Heart Disease, Congestive Heart Failure , Hypertension Respiratory History: CHF, COPD, Pneumonia, Tuberculosis, Other Endocrine Medical History: Liver Disease Musculoskeletal History: Arthritis GI Medical History: GERD History: Renal Disease Psycho-Social History: Depression Male Reproductive Disorders: No Pertinent History Other Medical History: Partial R lung removal. Afib. - Past Surgical History Past Surgical History: Yes Neuro Surgical History: No Pertinent History Cardiac: No Pertinent History Respiratory: Lobectomy Gastrointestinal: No Pertinent History Genitourinary: No Pertinent History Musculoskeletal: No Pertinent History Male Surgical History: Vasectomy Other Surgical History: RIGHT UPPER LOBECTOMY, leg vein cautery with skin graft - Social History Smoking Status: Former smoker How long have you smoked: 38 yrs Exposure to second hand smoke: No Drug Use: none Patient Lives Alone: No - Nursing Vital Signs Nursing Vital Signs: Initial Vital Signs Pulse Rate 104 H 08/26/19 10:01 Respiratory Rate 12 08/26/19 10:01 Blood Pressure 80/66 08/26/19 10:01 O2 Sat by Pulse Oximetry 87 L 08/26/19 10:01 Pain Scale Pain Intensity 0 - Physical Exam General Appearance: severe distress, lethargy, obese Eye Exam: PERRL/EOMI, eyes nml inspection Ears, Nose, Throat Exam: normal ENT inspection, moist mucous membranes Neck Exam: normal inspection, non-tender, supple, carotid bruit Respiratory Exam: respiratory distress, airway intact, crackles/rales, rhonchi Cardiovascular Exam: tachycardia Gastrointestinal/Abdomen Exam: soft, normal bowel sounds, No tenderness Rectal Exam: not done Back Exam: normal inspection Extremity Exam: pedal edema, other (bilat chronic venous stasis dz and lymphedema.cellulitis left inner knee improved) Neurologic Exam: other (answers a few questions only) Skin Exam: other (see above) Lymphatic Exam: No adenopathy SpO2 Interpretation: hypoxic O2 Delivery: BiPap/CPAP Procedures - Intubation Intubation Indications: respiratory distress Intubation Method: orotracheal Tube Size (cm): 7.0 Medications: Midazolam (Versed), Succinylcholine, Nimbex C-Spine: maintained Endotracheal Tube Confirmation: positive end tidal CO2, good rise & fall of chest Intubation Complications: no complications Performed By: Respiratory Therapy Post Intubation Xray: Yes - Course Nursing assessment & vital signs reviewed: Yes EKG Interpreted by Me: RATE (102), A-fib, Left [place] Deviation, Other (left ant fascicular block) Ordered Tests: Active Orders 24 hr Category Date Time Status Certified Orthotic Fitter STAT Care 08/26/19 10:23 Active Catheter-Mercer Nielsen STAT Care 08/26/19 10:22 Active EKG-ER Only STAT Care 08/26/19 10:22 Active IV Insertion STAT Care 08/26/19 10:22 Active CHEST 1 VIEW (PORTABLE) Routine Exams 08/26/19 11:59 Taken CHEST 1 VIEW (PORTABLE) Stat Exams 08/26/19 12:33 Completed HEAD WITHOUT CONTRAST [CT] Stat Exams 08/26/19 10:24 Completed ABG [ARTERIAL BLOOD GASES] Stat Lab 08/26/19 10:03 Completed ABG [ARTERIAL BLOOD GASES] Urgent Lab 08/26/19 11:38 Completed CBC W DIFF Stat Lab 08/26/19 10:15 Completed CMP Stat Lab 08/26/19 10:15 Completed CULTURE,URINE Stat Lab 08/26/19 10:31 Received Lactic Acid Stat Lab 08/26/19 10:03 Completed Lactic Acid Stat Lab 08/26/19 11:35 Completed MAGNESIUM Stat Lab 08/26/19 10:15 Completed Manual Differential NC Stat Lab 08/26/19 10:15 Completed NT PRO BNP Stat Lab 08/26/19 10:15 Completed TROPONIN Q3H Lab 08/26/19 10:15 Completed TROPONIN Q3H Lab 08/26/19 13:30 Ordered TROPONIN Q3H Lab 08/26/19 16:30 Ordered TROPONIN Q3H Lab 08/26/19 19:30 Ordered TROPONIN Q3H Lab 08/26/19 22:30 Ordered UA W/RFX UR CULTURE Stat Lab 08/26/19 10:30 Completed BiPap/CPAP STAT RT 08/26/19 13:09 Completed Intubate Patient STAT RT 08/26/19 12:51 Completed Intubation [Ventilator Management] Q4H RT 08/26/19 12:51 Completed Respiratory Nebulizer STAT RT 08/26/19 12:52 Completed Respiratory Therapy Assessment DAILY RT 08/26/19 12:52 Active Medication Summary Generic Name Dose Route Start Last Admin Trade Name Freq PRN Reason Stop Dose Admin Cisatracurium Besylate 200 mg/ 200 mls @ 26.13 mls/hr 08/26/19 12:15 12:30 Dextrose IV 09/25/19 12:14 3 mcg/kg/min .Q7H40M ANG 26.13 mls/hr Administration Protocol 3 MCG/KG/MIN Midazolam HCl 50 mg/ Sodium 250 mls @ 25 mls/hr 08/26/19 12:14 08/26/19 12:31 Chloride IV 09/25/19 12:13 5 mg/hr .Q10H PRN 25 mls/hr SEDATION Administration Protocol 5 MG/HR Sodium Chloride 1,000 mls @ 100 mls/hr 08/26/19 12:30 08/26/19 12:26 Sodium Chloride 0.9% 1000 Ml IV 09/25/19 12:29 100 mls/hr .Q10H ANG Administration Norepinephrine 4,000 mcg/ 504 mls @ 37.8 mls/hr 08/26/19 12:58 08/26/19 13:03 Dextrose IV 09/25/19 12:57 5 mcg/min .[id number] PRN 37.8 mls/hr SEVERE HYPOTENSION Administration Protocol 5 MCG/MIN Discontinued Medications Generic Name Dose Route Start Last Admin Trade Name Freq PRN Reason Stop Dose Admin Albuterol/Ipratropium Confirm 08/26/19 10:17 Duoneb 0.5-3 Mg/3 Ml Neb Administered 08/26/19 10:18 Dose 3 ml IH .STK-MED ONE Albuterol/Ipratropium 3 ml 08/26/19 10:30 08/26/19 10:30 Duoneb 0.5-3 Mg/3 Ml Neb IH 08/26/19 10:31 3 ml STAT ONE Administration Cisatracurium Besylate 20 mg 08/26/19 12:09 08/26/19 12:30 Nimbex 20mg/10 Ml Vial (High Risk Med) IV 08/26/19 12:10 20 mg STAT ONE Administration Furosemide 40 mg 08/26/19 11:28 08/26/19 12:24 Lasix 40 Mg/4 Ml IV 08/26/19 11:29 40 mg STAT ONE Administration Furosemide Confirm 08/26/19 11:42 Lasix 40 Mg/4 Ml Administered 08/26/19 11:43 Dose 40 mg .ROUTE .STK-MED ONE Sodium Chloride Confirm 08/26/19 10:03 Sodium Chloride 0.9% 1000 Ml Administered 08/26/19 10:04 Dose 1,000 mls @ ud .ROUTE .STK-MED ONE Meropenem 1 g/ Sodium Chloride 100 mls @ 200 mls/hr 08/26/19 10:24 08/26/19 11:18 IV 08/26/19 10:53 Infused STAT STA Infusion Sodium Chloride 1,000 mls @ 999 mls/hr 08/26/19 10:22 08/26/19 11:18 Sodium Chloride 0.9% 1000 Ml IV 08/26/19 11:22 Infused .Q1H1M STA Infusion Sodium Chloride Confirm 08/26/19 10:32 Sodium Chloride 0.9% 100 Ml Ivpb Administered 08/26/19 10:33 Dose 100 mls @ ud IV .STK-MED ONE Sodium Chloride Confirm 08/26/19 11:12 Sodium Chloride 0.9% 1000 Ml Administered 08/26/19 11:13 Dose 1,000 mls @ ud .ROUTE .STK-MED ONE Sodium Chloride 1,000 mls @ 999 mls/hr 08/26/19 11:15 08/26/19 12:22 Sodium Chloride 0.9% 1000 Ml IV 08/26/19 12:15 Infused .Q1H1M STA Infusion Sodium Chloride Confirm 08/26/19 11:48 Sodium Chloride 0.9% 1000 Ml Administered 08/26/19 11:49 Dose 1,000 mls @ ud .ROUTE .STK-MED ONE Meropenem Confirm 08/26/19 10:31 Merrem 1 Gm Administered 08/26/19 10:32 Dose 1 g IV .STK-MED ONE Midazolam HCl 5 mg 08/26/19 11:58 08/26/19 12:24 Versed 5 Mg/5 Ml IV 08/26/19 11:59 5 mg STAT ONE Administration Midazolam HCl 3 mg 08/26/19 12:08 08/26/19 12:24 Versed 5 Mg/5 Ml IV 08/26/19 12:09 3 mg STAT ONE Administration Succinylcholine Chloride 200 mg 08/26/19 11:58 08/26/19 12:29 Quelicin Fliptop 200 Mg/10 Ml IV 08/26/19 11:59 200 mg STAT ONE Administration Lab/Rad Data: Laboratory Result Diagrams 08/26/19 10:15 08/26/19 10:15 Laboratory Results 08/26/19 08/26/19 08/26/19 Range/Units 11:38 11:35 10:30 WBC (4.0-10.5) K/mm3 RBC (4.1-5.6) M/mm3 Hgb (12.5-18.0) gm/dl Hct (42-50) % MCV (78-100) fl MCH (26-32) pg MCHC (32-36) g/dl RDW (11.5-14.0) % Plt Count (150-450) K/mm3 MPV (6-9.5) fl Gran % Eos # (Auto) (0-0.5) Absolute Lymphs (auto) (1.0-4.6) Absolute Monos (auto) (0.0-1.3) Lymphocytes % Monocytes % (0.0-12.0) % Eosinophils % (0.00-5.0) % Basophils % (0.0-0.4) % Absolute Granulocytes (1.4-6.9) Segmented Neutrophils (36.-66.) % Band Neutrophils (0.0-2.0) % Lymphocytes (Manual) (24-44) % Monocytes (Manual) (0.0-12.0) % Eosinophils (Manual) (0.00-3.0) % Basophils # (0-0.4) Platelet Estimate (NORMAL) RBC Morphology Puncture Site lr pCO2 75 H* (35-45) mmHg pO2 134 H* (75-100) mmHg Base Excess 5.3 H (-2.0-2.0) O2 Saturation 95.0 (94-100) g/dF ABG pH 7.27 L (7.35-7.45) ABG HCO3 34.4 H* (22-28) ABG O2 Sat (Measured) 98.1 (95-100) % Jonathan Test na A-a Gradient 485 a/A Ratio 0.22 Hemoglobin 12.1 Carboxyhemoglobin 2.8 (0.0-6.9) % THgb Methemoglobin 0.4 L (1.4-1.5) % Potassium 3.7 (3.5-5.1) Temperature 37.0 C POC O2 Flow Rate 100 % Vent Mode BiPAP Inspiratory BiPAP 20 Expiratory BiPAP 6 Sodium (137-145) mmol/L Chloride (98-107) mmol/L Carbon Dioxide (22-30) mmol/L Anion Gap (5-15) MEQ/L BUN (9-20) mg/dL Creatinine (0.66-1.25) mg/dL Estimated GFR ML/MIN Glucose (74-106) mg/dL Lactic Acid 1.8 (0.4-2.0) Calcium (8.4-10.2) mg/dL Magnesium (1.6-2.3) mg/dL Total Bilirubin (0.2-1.3) mg/dL AST (17-59) U/L ALT (0-50) U/L Alkaline Phosphatase (38-126) U/L Troponin I (0.000-0.034) ng/mL NT-Pro-B Natriuret Pep (0-900) pg/mL Serum Total Protein (6.3-8.2) g/dL Albumin (3.5-5.0) g/dL Urine Color YELLOW (YELLOW) Urine Appearance CLEAR (CLEAR) Urine pH 6.0 (5-6) Ur Specific [place] 1.010 (1.005-1.025) Urine Protein 30 (Negative) Urine Ketones NEGATIVE (NEGATIVE) Urine Blood SMALL (0-5) Jordan/ul Urine Nitrite NEGATIVE (NEGATIVE) Urine Bilirubin NEGATIVE (NEGATIVE) Urine Urobilinogen NEGATIVE (0-1) mg/dL Ur Leukocyte Esterase NEGATIVE (NEGATIVE) Urine WBC (Auto) NONE (0-5) /HPF Urine RBC (Auto) 3-5 (0-2) /HPF U Epithel Cells (Auto) NONE (FEW) /HPF Urine Bacteria (Auto) NONE (NEGATIVE) /HPF Urine Culture Reflexed ORDERED SEPARATELY (NO) Urine Glucose NEGATIVE (NEGATIVE) mg/dL 08/26/19 08/26/19 08/26/19 Range/Units 10:15 10:15 10:15 WBC 14.5 H (4.0-10.5) K/mm3 RBC 4.83 (4.1-5.6) M/mm3 Hgb 13.3 (12.5-18.0) gm/dl Hct 45.8 (42-50) % MCV 94.8 (78-100) fl MCH 27.5 (26-32) pg MCHC 29.0 L (32-36) g/dl RDW 18.7 H (11.5-14.0) % Plt Count 133 L (150-450) K/mm3 MPV 12.3 H (6-9.5) fl Gran % [employer] Eos # (Auto) 0.10 (0-0.5) Absolute Lymphs (auto) 2.29 (1.0-4.6) Absolute Monos (auto) 0.83 (0.0-1.3) Lymphocytes % [employer]ESE [employer]ER Monocytes % 5.7 (0.0-12.0) % Eosinophils % 0.7 (0.00-5.0) % Basophils % 0.3 (0.0-0.4) % Absolute Granulocytes 11.20 H (1.4-6.9) Segmented Neutrophils 59 (36.-66.) % Band Neutrophils 16 H (0.0-2.0) % Lymphocytes (Manual) 18 L (24-44) % Monocytes (Manual) 6 (0.0-12.0) % Eosinophils (Manual) 1 (0.00-3.0) % Basophils # 0.04 (0-0.4) Platelet Estimate NORMAL (NORMAL) RBC Morphology NORMAL Puncture Site pCO2 (35-45) mmHg pO2 (75-100) mmHg Base Excess (-2.0-2.0) O2 Saturation (94-100) g/dF ABG pH (7.35-7.45) ABG HCO3 (22-28) ABG O2 Sat (Measured) (95-100) % Jonathan Test A-a Gradient a/A Ratio Hemoglobin Carboxyhemoglobin (0.0-6.9) % THgb Methemoglobin (1.4-1.5) % Potassium 4.7 D (3.5-5.1) Temperature C POC O2 Flow Rate % Vent Mode Inspiratory BiPAP Expiratory BiPAP Sodium 134 L (137-145) mmol/L Chloride 85 L (98-107) mmol/L Carbon Dioxide 35 H (22-30) mmol/L Anion Gap 19.1 H (5-15) MEQ/L BUN 29 H (9-20) mg/dL Creatinine 1.89 H (0.66-1.25) mg/dL Estimated GFR 38.5 ML/MIN Glucose 95 (74-106) mg/dL Lactic Acid (0.4-2.0) Calcium 8.6 (8.4-10.2) mg/dL Magnesium 1.5 L (1.6-2.3) mg/dL Total Bilirubin 2.60 H (0.2-1.3) mg/dL AST 49 (17-59) U/L ALT 44 (0-50) U/L Alkaline Phosphatase 131 H (38-126) U/L Troponin I 0.607 H* (0.000-0.034) ng/mL NT-Pro-B Natriuret Pep 1930 H (0-900) pg/mL Serum Total Protein 7.2 (6.3-8.2) g/dL Albumin 4.2 (3.5-5.0) g/dL Urine Color (YELLOW) Urine Appearance (CLEAR) Urine pH (5-6) Ur Specific [place] (1.005-1.025) Urine Protein (Negative) Urine Ketones (NEGATIVE) Urine Blood (0-5) Jordan/ul Urine Nitrite (NEGATIVE) Urine Bilirubin (NEGATIVE) Urine Urobilinogen (0-1) mg/dL Ur Leukocyte Esterase (NEGATIVE) Urine WBC (Auto) (0-5) /HPF Urine RBC (Auto) (0-2) /HPF U Epithel Cells (Auto) (FEW) /HPF Urine Bacteria (Auto) (NEGATIVE) /HPF Urine Culture Reflexed (NO) Urine Glucose (NEGATIVE) mg/dL 08/26/19 08/26/19 Range/Units 10:03 10:03 WBC (4.0-10.5) K/mm3 RBC (4.1-5.6) M/mm3 Hgb (12.5-18.0) gm/dl Hct (42-50) % MCV (78-100) fl MCH (26-32) pg MCHC (32-36) g/dl RDW (11.5-14.0) % Plt Count (150-450) K/mm3 MPV (6-9.5) fl Gran % Eos # (Auto) (0-0.5) Absolute Lymphs (auto) (1.0-4.6) Absolute Monos (auto) (0.0-1.3) Lymphocytes % Monocytes % (0.0-12.0) % Eosinophils % (0.00-5.0) % Basophils % (0.0-0.4) % Absolute Granulocytes (1.4-6.9) Segmented Neutrophils (36.-66.) % Band Neutrophils (0.0-2.0) % Lymphocytes (Manual) (24-44) % Monocytes (Manual) (0.0-12.0) % Eosinophils (Manual) (0.00-3.0) % Basophils # (0-0.4) Platelet Estimate (NORMAL) RBC Morphology Puncture Site RIGHT RADIAL pCO2 67 H* (35-45) mmHg pO2 103 H (75-100) mmHg Base Excess 6.3 H (-2.0-2.0) O2 Saturation 93.9 L (94-100) g/dF ABG pH 7.32 L (7.35-7.45) ABG HCO3 34.5 H* (22-28) ABG O2 Sat (Measured) 97.8 (95-100) % Jonathan Test YES A-a Gradient 98 a/A Ratio 0.51 Hemoglobin 12.7 Carboxyhemoglobin 3.5 (0.0-6.9) % THgb Methemoglobin 0.4 L (1.4-1.5) % Potassium 3.9 (3.5-5.1) Temperature 37.0 C POC O2 Flow Rate 40 % Vent Mode Inspiratory BiPAP Expiratory BiPAP Sodium (137-145) mmol/L Chloride (98-107) mmol/L Carbon Dioxide (22-30) mmol/L Anion Gap (5-15) MEQ/L BUN (9-20) mg/dL Creatinine (0.66-1.25) mg/dL Estimated GFR ML/MIN Glucose (74-106) mg/dL Lactic Acid 3.6 H (0.4-2.0) Calcium (8.4-10.2) mg/dL Magnesium (1.6-2.3) mg/dL Total Bilirubin (0.2-1.3) mg/dL AST (17-59) U/L ALT (0-50) U/L Alkaline Phosphatase (38-126) U/L Troponin I (0.000-0.034) ng/mL NT-Pro-B Natriuret Pep (0-900) pg/mL Serum Total Protein (6.3-8.2) g/dL Albumin (3.5-5.0) g/dL Urine Color (YELLOW) Urine Appearance (CLEAR) Urine pH (5-6) Ur Specific [place] (1.005-1.025) Urine Protein (Negative) Urine Ketones (NEGATIVE) Urine Blood (0-5) Jordan/ul Urine Nitrite (NEGATIVE) Urine Bilirubin (NEGATIVE) Urine Urobilinogen (0-1) mg/dL Ur Leukocyte Esterase (NEGATIVE) Urine WBC (Auto) (0-5) /HPF Urine RBC (Auto) (0-2) /HPF U Epithel Cells (Auto) (FEW) /HPF Urine Bacteria (Auto) (NEGATIVE) /HPF Urine Culture Reflexed (NO) Urine Glucose (NEGATIVE) mg/dL - Progress Progress: improved Progress Note: 08/26/19 11:19 stable nonacute senile brain on ct head 08/26/19 11:49 called massiel souza to give update. no answer. massiel concepcion called he will relay message and update to harley 08/26/19 12:26 pt condition not rapidly improved and sl worse by lab data. we will intubate pt. this was d/w pts massiel concepcion who agrees. intubation was performed without difficulty by myself and resp therapy. 08/26/19 13:[address] rios. he agrees to have [place]. spoke with dr. chowdhury, ed accepting physician at [facility]. i reviewed pt hx. condition, labs ekg and xray findings. Counseled pt/family regarding: lab results, diagnosis, need for follow-up, rad results - Departure Departure Disposition: Transfer Clinical Impression: Aspiration pneumonia, Sepsis associated hypotension, Hypoxia, Atrial fibrillation, Respiratory failure, On mechanically assisted ventilation Condition: Serious Critical Care Time: Yes Critical Care Time(excluding separately billable procedures): Critical 75-104 mins Referrals: EMILY RIOS MD [Primary Care Provider] -
[2019-08-26] MEDS ORDERED: Sodium Chloride 0.9% 1000 ML 1,000 ML IV STA ×2 (10:22→11:15)
[2019-08-26] MEDS ORDERED: Merrem 1 GM 1 G in Sodium Chloride 100ML MINI-BAG PLUS 100 ML IV STA (10:24)
[2019-08-26 10:31] LABS: BASOPHIL % 0.3 % (0.0-0.4); Basophil (Absolute #) 0.04 (0-0.4); Eosinophil % 0.7 % (0.00-5.0); Hematocrit 45.8 % (42-50); Hemoglobin 13.3 gm/dl (12.5-18.0); Lymphocyte (Absolute #) 2.29 (1.0-4.6); Mean Cell Volume 94.8 fl (78-100); Mean Corpuscular Hemoglobin 27.5 pg (26-32); Mean Platelet Volume 12.3 fl (6-9.5); Monocyte (Absolute #) 0.83 (0.0-1.3); Monocytes % 5.7 % (0.0-12.0); Platelet Count 133 K/mm3 (150-450); Red Blood Count 4.83 M/mm3 (4.1-5.6); Red Cell Distribution Width 18.7 % (11.5-14.0); White Blood Count 14.5 K/mm3 (4.0-10.5)
[2019-08-26] MEDS ORDERED: Merrem 1 GM IV ONE (10:31)
[2019-08-26] MEDS ORDERED: Sodium Chloride 0.9% 100 ML IVPB 100 ML IV ONE (10:32)
[2019-08-26 10:41] LABS: Appearance CLEAR (CLEAR); Bilirubin NEGATIVE (NEGATIVE); Blood SMALL Ery/ul (0-5); Glucose NEGATIVE (NEGATIVE); Ketones NEGATIVE (NEGATIVE); Leukocyte Esterase NEGATIVE (NEGATIVE); Nitrite NEGATIVE (NEGATIVE); Protein,Urine Dip 30 (Negative); Urobilinogen NEGATIVE mg/dL (0-1)
[2019-08-26 10:44] LABS: ALBUMIN 4.2 g/dL (3.5-5.0); ANION GAP 19.1 MEQ/L (5-15); BILIRUBIN,TOTAL 2.6 mg/dL (0.2-1.3); Calcium 8.6 mg/dL (8.4-10.2); Creatinine 1 1.89 mg/dL (0.66-1.25); MAGNESIUM 1.5 mg/dL (1.6-2.3); Potassium 4.7 mmol/L (3.5-5.1); Total Protein 7.2 g/dL (6.3-8.2)
[2019-08-26 10:53] LABS: BAND 16 % (0.0-2.0); Eosinophil 1 % (0.00-3.0); Lymphocytes 18 % (24-44); Monocyte 6 % (0.0-12.0); Neutrophils 59 % (36.-66.); Platelet Estimate NORMAL (NORMAL); Total Cells Counted 100
--- NOTE | 2019-08-26 11:17 | XRAY ---
Indication: Altered mental status. Loss of consciousness. Multiple contiguous axial images obtained through the head without contrast. Comparison: February 16, 2019. Stable age-appropriate global atrophy and minimal periventricular degenerative micro-ischemia bilaterally. No acute intracranial hemorrhage, abnormal extra-axial fluid collection, or mass effect. Fourth ventricle is midline without hydrocephalus. Seirra-white matter differentiation preserved. Bony calvarium intact. Visualized paranasal sinuses and mastoid air cells are clear. Impression: Stable nonacute senile brain. CT DI 62.54
[2019-08-26 11:40] LABS: A-aADO2 485; ABG HEMOGLOBIN 12.1; ABG POTASSIUM 3.7 (3.5-5.1); ARTERIAL BLD GAS O2 SATURATION 98.1 % (95-100); ARTERIAL BLOOD GAS BASE EXCESS 5.3 (-2.0-2.0); ARTERIAL BLOOD GAS FIO2 100 %; ARTERIAL BLOOD GAS PO2 134 mmHg (75-100); ARTERIAL BLOOD GAS VENT MODE BiPAP; ARTERIAL BLOOD GAS pH 7.27 (7.35-7.45); CARBOXYHEMOGLOBIN 2.8 % THgb (0.0-6.9); HCO3- 34.4 (22-28); Methhemoglobin 0.4 % (1.4-1.5); paO2 pAO1 0.22
[2019-08-26 11:41] LABS: ABG SITE lr; ARTERIAL BLOOD GAS PCO2 75 mmHg (35-45)
[2019-08-26] MEDS ORDERED: Lasix 40 MG/4 ML ONE (11:42)
[2019-08-26] MEDS: Lasix 40 MG/4 ML IV ONE ×2 (11:43→12:24)
[2019-08-26] MEDS ORDERED: Quelicin Fliptop 200 MG/10 ML IV ONE (11:58)
[2019-08-26] MEDS ORDERED: VERSED 5 MG/5 ML IV ONE ×2 (11:58→12:08)
[2019-08-26] MEDS ORDERED: Nimbex 20MG/10 Ml Vial (HIGH RISK MED) IV ONE (12:09)
[2019-08-26] MEDS ORDERED: Versed 50 MG/ 10 Ml MDV*** 50 MG in Sodium Chloride 0.9% 250 ML 240 ML IV PRN (12:14)
[2019-08-26] MEDS ORDERED: Nimbex 200MG/20 Ml MDV (HIGH RISK MED)** 200 MG in Dextrose 5%/Water IV Soln. 250 ML 18... IV SCH (12:15)
[2019-08-26] MEDS ORDERED: Sodium Chloride 0.9% 1000 ML 1,000 ML IV SCH (12:30)
--- NOTE | 2019-08-26 12:42 | XRAY ---
Indication: ET tube placement. Comparison: Taken earlier in the day. Portable chest demonstrates new endotracheal tube tip 2 cm above the magen and new NG tube traversing the chest with tip presumed in the stomach. Remaining chest unchanged.
[2019-08-26] MEDS ORDERED: LEVOPHED 4 MG/4 ML 4,000 MCG in Dextrose 5%/Water IV Soln. 500 ML 500 ML IV PRN (12:58)
[2019-08-26 13:27] VITALS: PULSE 88; O2SAT 100
[2019-08-26] MEDS ORDERED: Magnesium 1 Gm / 100 Ml D5W*** 100 ML IV ONE ×2 (13:37→13:51)
[2019-08-26 13:54] VITALS: BP 110/74
[2019-08-26 14:08] LABS: A-aADO2 265; ABG HEMOGLOBIN 12.8; ABG POTASSIUM 4.3 (3.5-5.1); ABG SITE LEFT RADIAL; ARTERIAL BLD GAS O2 SATURATION 98.5 % (95-100); ARTERIAL BLOOD GAS BASE EXCESS 3.6 (-2.0-2.0); ARTERIAL BLOOD GAS FIO2 70 %; ARTERIAL BLOOD GAS PCO2 57 mmHg (35-45); ARTERIAL BLOOD GAS PEEP 5 cmH2O; ARTERIAL BLOOD GAS PO2 163 mmHg (75-100); ARTERIAL BLOOD GAS VENT MODE A/C; ARTERIAL BLOOD GAS pH 7.34 (7.35-7.45); CARBOXYHEMOGLOBIN 2.4 % THgb (0.0-6.9); HCO3- 30.8 (22-28); HGB O2 SAT 95.5 g/dF (94-100); Methhemoglobin 0.6 % (1.4-1.5); paO2 pAO1 0.38
== END 2019-08-26 14:31 | disposition short-term general hospital (02) ==
LOC: ED 09:59
DX: J69.0 Pneumonitis due to inhalation of food and vomit (principal); I95.9 Hypotension, unspecified; A41.9 Sepsis, unspecified organism; R09.02 Hypoxemia; I48.91 Unspecified atrial fibrillation; J96.90 Respiratory failure, unspecified, unspecified whether with hypoxia or hypercapnia; F11.90 Opioid use, unspecified, uncomplicated; L03.116 Cellulitis of left lower limb; Z79.899 Other long term (current) drug therapy; G62.9 Polyneuropathy, unspecified; I10 Essential (primary) hypertension; I50.9 Heart failure, unspecified; J44.9 Chronic obstructive pulmonary disease, unspecified; Z90.2 Acquired absence of lung [part of]; K76.9 Liver disease, unspecified; Z86.79 Personal history of other diseases of the circulatory system
CPT/HCPCS: 31500; 36000; 36415; 36600; 51702; 70450; 71045; 80053; 81001; 82375; 82803; 83605; 83735; 83880; 84484; 85025; 87086; 93005; 93041; 94002; 94640; 96360; 96361; 96365; 96367; 96374; 96375; 96376; 99285; 99291; 99292; J0330; J1940; J2250; J3475; A9270-GY

== ENCOUNTER 2019-10-08 12:37 | Emergency (ER) | payer MEDICARE ==
--- NOTE | 2019-10-08 12:50 | ERPHSYRPT ---
- History of Present Illness Time Seen by Provider: 10/08/19 12:50 Source: patient, EMS Physician History: The patient is a 64 y/o male with multiple comorbidities to include COPD, CHF, atrial fibrillation and anticoagulated with apixaban, chronic bilateral lower ext and extremity lymphedema with cellulitis in both extremities has a PICC line in place in his right upper extremity and getting vancomycin infusions presents with a chief complaint of a possible fracture PICC line or displaced PICC line. [facility] and reportedly got the the line caught on an unknown object last night. A nurse today infused his vancomycin and notices his right upper arm appeared swollen and noted clear "fluid" leaking around the PICC line site at the skin. The staff called the on-call physician and was instructed to have the patient transported to the ED for evaluation. There was also concern the patient's cellulitis in both lower extremities was getting worse due to formation of bullae and the on-call wanted this evaluated, too. The patient denies fever, chills, lower extremity pain however he has neuropathy. There was no report of increased SOB and the patient reportedly has been compliant with his apixaban. Timing/Duration: today Associated Symptoms: No vomiting, No shortness of breath Allergies/Adverse Reactions: pregabalin [From Lyrica] Allergy (Verified 10/08/19 13:01) zinc Allergy (Verified 10/08/19 13:01) Blisters moxifloxacin HCl [From Avelox] Adverse Reaction (Mild, Verified 10/08/19 13:01) vancomycin Adverse Reaction (Verified 10/08/19 13:01) Elevated Levels / Increased CRCL patient had significant increase in Serum CR and decreased creatinine clearence. Wetch Closely Home Medications: Magnesium Oxide 400 mg [Mag-Ox 400] 400 mg PO BID 01/02/15 [History] Metoprolol Succinate 25 mg Xl* [Toprol-Xl 25MG Tablets] 25 mg PO DAILY [History] Omeprazole 20 MG [Prilosec 20 mg] 1 tab PO DAILY 11/30/15 [History] Atorvastatin Calcium [Lipitor 40Mg] 40 mg PO HS 04/08/16 [History] Famotidine [Pepcid] 40 mg PO HS 01/19/17 [History] Gabapentin [Neurontin] 600 mg PO BID 01/19/17 [History] Acetaminophen 325 mg [Tylenol 325 mg] 650 mg PO Q4HPRN PRN 04/15/19 [ History] Albuterol/Ipratropium 3ml Neb* [DUONEB 0.5-3 MG/3 ml Neb] 3 ml IH Q6HPRN PRN 04/15/19 [History] Colchicine [Colcrys] 0.6 mg PO BID 04/15/19 [History] Levothyroxine Sodium 50 Mcg [Synthroid 50 Mcg] 50 mcg PO DAILY 04/26/19 [ History] Potassium Chloride 10 Meq Tab* [Klor Con 10 MEQ] 20 meq PO BID 07/13/19 [ History] Apixaban [Eliquis] 5 mg PO BID 10/08/19 [History] Furosemide 40 mg PO BID 10/08/19 [History] Insulin Glargine [Lantus Insulin] 25 unit SQ QAM 10/08/19 [History] Hx Tetanus, Diphtheria Vaccination/Date Given: Yes Hx Influenza Vaccination/Date Given: Yes Hx Pneumococcal Vaccination/Date Given: Yes - Review of Systems Constitutional: No Fever, No Chills, No Weakness Eyes: No Symptoms Ears, Nose, & Throat: No Symptoms Cardiac: Edema, Other (+2 bialteral lower extremity edema with edema extending up to the thighs and with evidence of mild scrotal edema), No Chest Pain Abdominal/Gastrointestinal: No Abdominal Pain, No Nausea, No Vomiting Genitourinary Symptoms: Other (Scrotal edema) Skin: Rash, Skin Lesions, Other (Bullae noted to shins of left lower extremity. erythema with no increased warmth noted to both lower extremities consitent with likely chronic lymphedema and venous stasis. ) Psychological: No Symptoms All Other Systems: Reviewed and Negative - Past Medical History Pertinent Past Medical History: Yes Neurological History: Peripheral Neuropathy ENT History: No Pertinent History Cardiac History: Arrhythmia, Congenital Heart Disease, Congestive Heart Failure , Hypertension Respiratory History: CHF, COPD, Pneumonia, Tuberculosis, Other Endocrine Medical History: Liver Disease Musculoskeletal History: Arthritis GI Medical History: GERD History: Renal Disease Psycho-Social History: Depression Male Reproductive Disorders: No Pertinent History Other Medical History: Partial R lung removal. Afib. - Past Surgical History Past Surgical History: Yes Neuro Surgical History: No Pertinent History Cardiac: No Pertinent History Respiratory: Lobectomy Gastrointestinal: No Pertinent History Genitourinary: No Pertinent History Musculoskeletal: No Pertinent History Male Surgical History: Vasectomy Other Surgical History: RIGHT UPPER LOBECTOMY, leg vein cautery with skin graft - Social History Smoking Status: Former smoker How long have you smoked: 38 yrs Exposure to second hand smoke: No Drug Use: none Patient Lives Alone: No - Nursing Vital Signs Nursing Vital Signs: Initial Vital Signs Temperature 97.0 F 10/08/19 12:43 Pulse Rate 69 10/08/19 12:43 Respiratory Rate 18 10/08/19 12:43 Blood Pressure 128/66 10/08/19 12:43 O2 Sat by Pulse Oximetry 99 10/08/19 12:43 Pain Scale Pain Intensity 0 - Physical Exam General Appearance: no apparent distress, obese Eye Exam: PERRL/EOMI Ears, Nose, Throat Exam: moist mucous membranes, other (Patient wearing a NC supplying supplemental oxygen), No pharyngeal erythema, No tonsillar exudate Neck Exam: supple Respiratory Exam: crackles/rales, wheezing, No chest tenderness, No respiratory distress Cardiovascular Exam: regular rate/rhythm, normal peripheral pulses, capillary refill <2 sec, capillary refill 2-3 sec, edema, other, No murmur, No friction rub Gastrointestinal/Abdomen Exam: distention Male Genitalia Exam: other (Mild scrotal edema with no tenderness or increased warmth) Extremity Exam: inflammation, swelling, other (bilateral lower extremity edema not up to the thighs with what appears to be skin changes consistent with chronic lymphedema noted in both lower extremities), No calf tenderness Neurologic Exam: alert, oriented x 3, cooperative Skin Exam: other (Mild erythema and what appear to be bullae noted to shins bilaterally. PICC line noted in RUE with no signs of surrounding infection and does not appear to be pulled out of position.), No petechiae, No jaundice, No cyanosis, No ecchymosis Lymphatic Exam: other (Chronic bilateral lower extermity lymphedema) SpO2 Interpretation: normal O2 Delivery: Room Air - Course Nursing assessment & vital signs reviewed: Yes - Radiology Exams Humerus X-ray Interpretation: Reviewed by me, Negative (PICC line appears intact, degenerative changes noted. ) Chest X-ray Interpretation: Interpreted by me, Reviewed by me (PICC line appears to be in place and confirmed by radiology) - Progress Progress: unchanged Progress Note: 10/08/19 13:40 I spoke to radiology pertaining to the next test in terms of r/o PICC fracture given high probability of such (swollen right upper arm and nurse reporting extravasation of fluid around PICC site). Radiology recommended fluoroscopy for the next test. 10/08/19 14:15 Radiology confirming PICC intact after fluoroscopy. Dr. Espinal paged to discuss case. Awaiting call back. Discussed with : Jeremy (Discussed PICC line workup and edema in lower extremities. She is ok with having the patient discharged back to ECF and will let Miquel decide if durietics need to be increased when he sees the patient tomorrow.) Counseled pt/family regarding: diagnosis, rad results - Departure Departure Disposition: Extended Care Facility Clinical Impression: Cellulitis, Lymphedema, PICC line infiltration Condition: Stable Critical Care Time: No Referrals: RADHA KRISHNAN [Primary Care Provider] - Instructions: Peripherally-Inserted Central Catheter, Dependent Edema (DC), Lymphedema (DC) Additional Instructions: Please call Dr. Lafleur or Dr. Espinal to inquire about the need to increase your dose or frequency of Lasix given your bilateral lower extremity swelling/edema. You may also benefit from compression stockings or wraps being applied to your lower extremities. Plan of Treatment: Nontoxic in appearance. PICC line appears to be in place with no evidence of fracture of the line. XR reviewed and radiology confirmed line integrity under fluoroscopy by injecting contrast into the line with no sign of infiltration. Lower extremities changes consistent with chronic lymphedema with possible cellulitis for which the patient is already receiving IV abx infusions for as an outpatient.
--- NOTE | 2019-10-08 13:33 | XRAY ---
Indication: MRSA. PICC line integrity. Comparison: None 2 views of the right humerus demonstrates mild AC degenerative arthropathy and intact PICC line. No other bony, articular, or soft tissue abnormalities.
--- NOTE | 2019-10-08 13:33 | XRAY ---
Indication: MRSA. PICC line. Comparison: August 26, 2019. Portable chest again demonstrates diffuse scattered fibrosis/scarring, right costophrenic angle blunting, calcified granulomas, right lung suture material, and borderline cardiomegaly with new right arm PICC line with tip projecting over the SVC. No new/acute cardiopulmonary abnormalities.
--- NOTE | 2019-10-08 14:21 | XRAY ---
Indication: Evaluate PICC line integrity. Isovue 370 contrast was injected through indwelling right arm PICC line under fluoroscopy. Contrast emptied distally into the SVC. No extravasation or leak. PICC line was then flushed with heparinized saline. Patient returned to the ER. Impression: Patent and intact right arm PICC line. Approximately 0.1 minute fluoroscopy used.
[2019-10-08 14:42] VITALS: BP 153/76; PULSE 88; O2SAT 98
== END 2019-10-08 14:48 ==
LOC: ED 12:37
DX: L03.116 Cellulitis of left lower limb (principal); L03.115 Cellulitis of right lower limb; I89.0 Lymphedema, not elsewhere classified; T80.89XA Other complications following infusion, transfusion and therapeutic injection, initial encounter; J44.9 Chronic obstructive pulmonary disease, unspecified; I50.9 Heart failure, unspecified; Z79.899 Other long term (current) drug therapy; I10 Essential (primary) hypertension
CPT/HCPCS: 71045; 73060; 76000; 99284

== ENCOUNTER 2019-11-01 12:57 | Emergency (ER) | payer MEDICARE ==
[2019-11-01] MEDS ORDERED: Zemuron 100 MG/10 ML IV ONE ×2 (12:58→13:29)
[2019-11-01] MEDS ORDERED: VERSED 5 MG/5 ML IV ONE ×2 (12:58→13:28)
[2019-11-01] MEDS ORDERED: Sodium Chloride 0.9% 1000 ML 1,000 ML IV STA ×5 (13:16→15:17)
[2019-11-01 13:28] LABS: Hematocrit 36.3 % (42-50); Hemoglobin 11.4 gm/dl (12.5-18.0); Mean Cell Volume 85.6 fl (78-100); Mean Corpuscular Hemoglobin 26.9 pg (26-32); Mean Corpuscular Hgb Concent. 31.4 g/dl (32-36); Mean Platelet Volume 11.9 fl (7.5-11.0); Platelet Count 287 K/mm3 (150-450); Red Blood Count 4.24 M/mm3 (4.1-5.6); Red Cell Distribution Width 21.1 % (11.5-14.0)
[2019-11-01] MEDS ORDERED: Versed 50 MG/ 10 Ml MDV ONE (13:29)
[2019-11-01] MEDS ORDERED: Sodium Chloride 0.9% 250 ML 250 ML IV ONE (13:29)
[2019-11-01] MEDS ORDERED: Versed 50 MG/ 10 Ml MDV*** 50 MG in Sodium Chloride 0.9% 250 ML 240 ML IV PRN (13:29)
[2019-11-01 13:34] LABS: White Blood Count 37.2 K/mm3 (4.0-10.5)
[2019-11-01 13:35] LABS: PROTIME 60.8 SECONDS (8.83-12.87)
--- NOTE | 2019-11-01 13:35 | ERPHSYRPT ---
- History of Present Illness Time Seen by Provider: 11/01/19 13:10 Source: patient, EMS, group home records Exam Limitations: clinical condition Physician History: 64 y/o morbidly obese male with h/o chf, morbid obesity, chronic afib, chronic venous stasis dz with ulceration, respiratory failure secondary to sepsis requiring mechanical ventilation presents from group home for hypotension, hypoxia, lethargy fever. Fever Severity: mild Associated Symptoms: confusion, cough, shortness of breath, weakness Allergies/Adverse Reactions: pregabalin [From Lyrica] Allergy (Verified 10/08/19 13:01) zinc Allergy (Verified 10/08/19 13:01) Blisters moxifloxacin HCl [From Avelox] Adverse Reaction (Mild, Verified 10/08/19 13:01) vancomycin Adverse Reaction (Verified 10/08/19 13:01) Elevated Levels / Increased CRCL patient had significant increase in Serum CR and decreased creatinine clearence. Wetch Closely Home Medications: Magnesium Oxide 400 mg [Mag-Ox 400] 400 mg PO BID 01/02/15 [History] Metoprolol Succinate 25 mg Xl* [Toprol-Xl 25MG Tablets] 25 mg PO DAILY [History] Omeprazole 20 MG [Prilosec 20 mg] 1 tab PO DAILY 11/30/15 [History] Atorvastatin Calcium [Lipitor 40Mg] 40 mg PO HS 04/08/16 [History] Famotidine [Pepcid] 40 mg PO HS 01/19/17 [History] Gabapentin [Neurontin] 600 mg PO BID 01/19/17 [History] Acetaminophen 325 mg [Tylenol 325 mg] 650 mg PO Q4HPRN PRN 04/15/19 [ History] Albuterol/Ipratropium 3ml Neb* [DUONEB 0.5-3 MG/3 ml Neb] 3 ml IH Q6HPRN PRN 04/15/19 [History] Colchicine [Colcrys] 0.6 mg PO BID 04/15/19 [History] Levothyroxine Sodium 50 Mcg [Synthroid 50 Mcg] 50 mcg PO DAILY 04/26/19 [ History] Potassium Chloride 10 Meq Tab* [Klor Con 10 MEQ] 20 meq PO BID 07/13/19 [ History] Apixaban [Eliquis] 5 mg PO BID 10/08/19 [History] Furosemide 40 mg PO BID 10/08/19 [History] Insulin Glargine [Lantus Insulin] 25 unit SQ QAM 10/08/19 [History] Hx Tetanus, Diphtheria Vaccination/Date Given: Yes Hx Influenza Vaccination/Date Given: Yes Hx Pneumococcal Vaccination/Date Given: Yes - Review of Systems Constitutional: Fever, Lethargy, Weakness Eyes: No Symptoms Ears, Nose, & Throat: No Symptoms Respiratory: Cough, Dyspnea, Wheezing Cardiac: No Symptoms Abdominal/Gastrointestinal: No Symptoms Genitourinary Symptoms: No Symptoms Musculoskeletal: No Symptoms Skin: No Symptoms Neurological: No Symptoms Psychological: No Symptoms Endocrine: No Symptoms Hematologic/Lymphatic: No Symptoms Immunological/Allergic: No Symptoms All Other Systems: Reviewed and Negative - Past Medical History Pertinent Past Medical History: Yes Neurological History: Peripheral Neuropathy ENT History: No Pertinent History Cardiac History: Arrhythmia, Congenital Heart Disease, Congestive Heart Failure , Hypertension Respiratory History: CHF, COPD, Pneumonia, Tuberculosis, Other Endocrine Medical History: Liver Disease Musculoskeletal History: Arthritis GI Medical History: GERD History: Renal Disease Psycho-Social History: Depression Male Reproductive Disorders: No Pertinent History Other Medical History: Partial R lung removal. Afib. - Past Surgical History Past Surgical History: Yes Neuro Surgical History: No Pertinent History Cardiac: No Pertinent History Respiratory: Lobectomy Gastrointestinal: No Pertinent History Genitourinary: No Pertinent History Musculoskeletal: No Pertinent History Male Surgical History: Vasectomy Other Surgical History: RIGHT UPPER LOBECTOMY, leg vein cautery with skin graft - Social History Smoking Status: Former smoker How long have you smoked: 38 yrs Exposure to second hand smoke: No Drug Use: none Patient Lives Alone: No - Nursing Vital Signs Nursing Vital Signs: Initial Vital Signs Temperature 100 F 11/01/19 12:59 Pulse Rate 118 H 11/01/19 12:59 Respiratory Rate 20 11/01/19 12:59 Blood Pressure 64/40 11/01/19 12:59 O2 Sat by Pulse Oximetry 100 11/01/19 12:59 Pain Scale Pain Intensity 7 - Physical Exam General Appearance: moderate distress, lethargy, obese Eye Exam: PERRL/EOMI, eyes nml inspection ENT Exam: normal ENT inspection, TMs normal, pharynx normal Neck Exam: normal inspection, non-tender, supple, full range of motion, trachea midline Respiratory Exam: rhonchi, wheezing Cardiovascular/Chest Exam: tachycardia Gastrointestinal/Abdominal Exam: soft, non tender, hernia (umbilical) Rectal Exam: not done Extremity Exam: pedal edema (bilat lymphedema, chronic venous stasis dz w/ ulceration) Neurologic Exam: oriented x 3, other (pt lethargic but rousable to answers questions ) Skin Exam: other (see above) Lymphatic: No adenopathy SpO2 Interpretation: hypoxic O2 Delivery: Room Air Procedures - Intubation Intubation Indications: respiratory distress, other (sepsis) Intubation Method: orotracheal Tube Size (cm): 7.5 Medications: Midazolam (Versed) (5mg), Rocuronium (100mg) C-Spine: maintained Endotracheal Tube Confirmation: bilateral breath sounds, positive end tidal CO2 Intubation Complications: no complications Performed By: ED Physician Post Intubation Xray: Yes - Course Nursing assessment & vital signs reviewed: Yes EKG Interpreted by Me: RATE (117), A-fib, Non-specific ST Changes, Other (no comparison; indeterminate axis) Ordered Tests: Active Orders 24 hr Category Date Time Status Senior Assistant Manager STAT Care 11/01/19 13:17 Active Catheter-Bryan Nielsen STAT Care 11/01/19 13:16 Active EKG-ER Only STAT Care 11/01/19 13:16 Active IV Insertion STAT Care 11/01/19 13:16 Active IV Insertion-2nd Peripheral STAT Care 11/01/19 14:04 Active Pulse Oximetry (ED) STAT Care 11/01/19 13:16 Active CHEST 1 VIEW (PORTABLE) Stat Exams 11/01/19 13:17 Completed ARTERIAL BLOOD GASES Stat Lab 11/01/19 14:20 Results BLOOD CULTURE Stat Lab 11/01/19 12:50 Received CBC W DIFF Stat Lab 11/01/19 13:00 Completed CMP Stat Lab 11/01/19 12:50 Completed CULTURE,URINE Stat Lab 11/01/19 14:02 Ordered CULTURE,WOUND Stat Lab 11/01/19 14:14 Ordered Lactic Acid Stat Lab 11/01/19 12:50 Results Lactic Acid Stat Lab 11/01/19 14:20 Results Manual Differential NC Stat Lab 11/01/19 13:00 Completed NT PRO BNP Stat Lab 11/01/19 12:50 Completed PROTIME WITH INR Stat Lab 11/01/19 13:00 Completed TROPONIN Q3H Lab 11/01/19 12:50 Completed TROPONIN Q3H Lab 11/01/19 16:30 Ordered TROPONIN Q3H Lab 11/01/19 19:30 Ordered TROPONIN Q3H Lab 11/01/19 22:30 Ordered TROPONIN Q3H Lab 11/02/19 01:30 Ordered UA W/RFX UR CULTURE Stat Lab 11/01/19 14:02 Ordered Intubation [Ventilator Management] STAT RT 11/01/19 14:06 Completed Medication Summary Generic Name Dose Route Start Last Admin Trade Name Freq PRN Reason Stop Dose Admin Midazolam HCl 50 mg/ Sodium 250 mls @ 10 mls/hr 11/01/19 13:29 11/01/19 13:37 Chloride IV 12/01/19 13:28 2 mg/hr .Q24H PRN 10 mls/hr SEDATION Administration Protocol 2 MG/HR Norepinephrine 4,000 mcg/ 504 mls @ 37.8 mls/hr 11/01/19 13:49 11/01/19 14:02 Dextrose IV 12/01/19 13:48 5 mcg/min .[id number] PRN 37.8 mls/hr SEVERE HYPOTENSION Administration Protocol 5 MCG/MIN Potassium Chloride 20 meq in 100 mls @ 50 mls/hr 11/01/19 13:47 11/01/19 13: 55 Potassium Chloride 20 Meq In Water 100ml IV 11/01/19 15:46 50 mls/hr STAT ONE Administration Sodium Chloride 1,000 mls @ 999 mls/hr 11/01/19 14:15 11/01/19 14:18 Sodium Chloride 0.9% 1000 Ml IV 11/01/19 15:15 999 mls/hr .Q1H1M STA Administration Sodium Chloride 1,000 mls @ 999 mls/hr 11/01/19 14:16 11/01/19 14:17 Sodium Chloride 0.9% 1000 Ml IV 11/01/19 15:16 999 mls/hr .Q1H1M STA Administration Sodium Chloride 1,000 mls @ 999 mls/hr 11/01/19 14:45 11/01/19 14:47 Sodium Chloride 0.9% 1000 Ml IV 11/01/19 15:45 999 mls/hr .Q1H1M STA Administration Discontinued Medications Generic Name Dose Route Start Last Admin Trade Name Freq PRN Reason Stop Dose Admin Sodium Chloride 1,000 mls @ 999 mls/hr 11/01/19 13:16 11/01/19 14:46 Sodium Chloride 0.9% 1000 Ml IV 11/01/19 14:16 Infused .Q1H1M STA Infusion Sodium Chloride Confirm 11/01/19 13:29 Sodium Chloride 0.9% 250 Ml Administered 11/01/19 13:30 Dose 250 mls @ ud IV .STK-MED ONE Meropenem 1 g/ Sodium Chloride 100 mls @ 200 mls/hr 11/01/19 13:38 11/01/19 14:23 IV 11/01/19 14:07 200 ml/hr STAT STA 200 mls/hr Administration Potassium Chloride Confirm 11/01/19 13:51 Potassium Chloride 20 Meq In Water 100ml Administered 11/01/19 13:52 Dose 100 mls @ ud IV .STK-MED ONE Potassium Chloride Confirm 11/01/19 13:54 Potassium Chloride 20 Meq In Water 100ml Administered 11/01/19 13:55 Dose 100 mls @ ud IV .STK-MED ONE Sodium Chloride Confirm 11/01/19 14:14 Sodium Chloride 0.9% 100 Ml Ivpb Administered 11/01/19 14:15 Dose 100 mls @ ud IV .STK-MED ONE Sodium Chloride Confirm 11/01/19 14:14 Sodium Chloride 0.9% 1000 Ml Administered 11/01/19 14:15 Dose 1,000 mls @ ud .ROUTE .STK-MED ONE Sodium Chloride Confirm 11/01/19 14:46 Sodium Chloride 0.9% 1000 Ml Administered 11/01/19 14:47 Dose 1,000 mls @ ud .ROUTE .STK-MED ONE Meropenem Confirm 11/01/19 14:13 Merrem 1 Gm Administered 11/01/19 14:14 Dose 1 g IV .STK-MED ONE Midazolam HCl 5 mg 11/01/19 13:28 11/01/19 13:45 Versed 5 Mg/5 Ml IV 11/01/19 13:29 5 mg STAT ONE Administration Midazolam HCl Confirm 11/01/19 13:29 Versed 50 Mg/ 10 Ml Mdv Administered 11/01/19 13:30 Dose 50 mg .ROUTE .STK-MED ONE Rocuronium [place] 100 mg 11/01/19 13:29 11/01/19 13:45 Zemuron 100 Mg/10 Ml IV 11/01/19 13:30 100 mg STAT ONE Administration Lab/Rad Data: Laboratory Result Diagrams 11/01/19 13:00 11/01/19 12:50 Laboratory Results 11/01/19 11/01/19 11/01/19 Range/Units 14:20 13:00 13:00 WBC 37.2 H* (4.0-10.5) K/mm3 RBC 4.24 (4.1-5.6) M/mm3 Hgb 11.4 L (12.5-18.0) gm/dl Hct 36.3 L (42-50) % MCV 85.6 (78-100) fl MCH 26.9 (26-32) pg MCHC 31.4 L (32-36) g/dl RDW 21.1 H (11.5-14.0) % Plt Count 287 D (150-450) K/mm3 MPV 11.9 H (7.5-11.0) fl Absolute Granulocytes 36.4 H (1.4-6.9) Segmented Neutrophils 74 H (36.-66.) % Band Neutrophils 24 H (0.0-2.0) % Lymphocytes (Manual) 1 L (24-44) % Monocytes (Manual) 1 (0.0-12.0) % Platelet Estimate NORMAL (NORMAL) RBC Morphology ABNORMAL Polychromasia 1+ Poikilocytosis 1+ Anisocytosis 1+ PT 60.8 H (8.83-12.87) SECONDS INR 5.06 H* (0.8-3.0) Puncture Site RIGHT BRACHIAL pCO2 46 H (35-45) mmHg pO2 88 (75-100) mmHg Base Excess 11.2 H (-2.0-2.0) O2 Saturation 96.9 (94-100) g/dF ABG pH 7.50 H (7.35-7.45) ABG HCO3 35.9 H* (22-28) ABG O2 Sat (Measured) 98.7 (95-100) % Jonathan Test YES A-a Gradient 211 a/A Ratio 0.29 Hemoglobin 10.4 Carboxyhemoglobin 1.5 (0.0-6.9) % THgb Methemoglobin 0.3 L (1.4-1.5) % Temperature 37.0 C POC O2 Flow Rate 50 % Vent Mode A/C Vent Rate 16 /MIN Tidal Volume 700 cc PEEP 5.0 cmH2O Sodium (137-145) mmol/L Potassium 2.3 L* (3.5-5.1) mmol/L Chloride (98-107) mmol/L Carbon Dioxide (22-30) mmol/L Anion Gap (5-15) MEQ/L BUN (9-20) mg/dL Creatinine (0.66-1.25) mg/dL Estimated GFR ML/MIN Glucose (74-106) mg/dL Lactic Acid 4.7 H (0.4-2.0) Calcium (8.4-10.2) mg/dL Total Bilirubin (0.2-1.3) mg/dL AST (17-59) U/L ALT (0-50) U/L Alkaline Phosphatase (38-126) U/L Troponin I (0.000-0.034) ng/mL NT-Pro-B Natriuret Pep (0-900) pg/mL Serum Total Protein (6.3-8.2) g/dL Albumin (3.5-5.0) g/dL 11/01/19 11/01/19 11/01/19 Range/Units 12:50 12:50 12:50 WBC (4.0-10.5) K/mm3 RBC (4.1-5.6) M/mm3 Hgb (12.5-18.0) gm/dl Hct (42-50) % MCV (78-100) fl MCH (26-32) pg MCHC (32-36) g/dl RDW (11.5-14.0) % Plt Count (150-450) K/mm3 MPV (7.5-11.0) fl Absolute Granulocytes (1.4-6.9) Segmented Neutrophils (36.-66.) % Band Neutrophils (0.0-2.0) % Lymphocytes (Manual) (24-44) % Monocytes (Manual) (0.0-12.0) % Platelet Estimate (NORMAL) RBC Morphology Polychromasia Poikilocytosis Anisocytosis PT (8.83-12.87) SECONDS INR (0.8-3.0) Puncture Site pCO2 (35-45) mmHg pO2 (75-100) mmHg Base Excess (-2.0-2.0) O2 Saturation (94-100) g/dF ABG pH (7.35-7.45) ABG HCO3 (22-28) ABG O2 Sat (Measured) (95-100) % Jonathan Test A-a Gradient a/A Ratio Hemoglobin Carboxyhemoglobin (0.0-6.9) % THgb Methemoglobin (1.4-1.5) % Temperature C POC O2 Flow Rate % Vent Mode Vent Rate /MIN Tidal Volume cc PEEP cmH2O Sodium 135 L (137-145) mmol/L Potassium 2.6 L* (3.5-5.1) mmol/L Chloride 85 L (98-107) mmol/L Carbon Dioxide 40 H (22-30) mmol/L Anion Gap 12.6 (5-15) MEQ/L BUN 5 L (9-20) mg/dL Creatinine 1.00 (0.66-1.25) mg/dL Estimated GFR > 60.0 ML/MIN Glucose 60 L (74-106) mg/dL Lactic Acid 5.2 H (0.4-2.0) Calcium 7.2 L (8.4-10.2) mg/dL Total Bilirubin 2.70 H (0.2-1.3) mg/dL AST 134 H (17-59) U/L ALT 32 (0-50) U/L Alkaline Phosphatase 486 H (38-126) U/L Troponin I 0.067 H* (0.000-0.034) ng/mL NT-Pro-B Natriuret Pep 3250 H (0-900) pg/mL Serum Total Protein 5.7 L (6.3-8.2) g/dL Albumin 2.5 L (3.5-5.0) g/dL - Progress Progress: re-examined Progress Note: 11/01/19 13:50 i had long d/w pt regarding code status. he states ok to mechanically intubate/ ventilator. pt states he is a full code and to try as best we can to keep him alive 11/01/19 14:[address] cayla burns at [facility] ed. he accepts pt in transfer Discussed with Dr.: Other (cayla burns md at [facility] ED) - Departure Departure Disposition: Transfer Clinical Impression: Leukocytosis, Hypoxia, Hypotension, Sepsis, Hypokalemia Condition: Serious Critical Care Time: Yes Critical Care Time(excluding separately billable procedures): Critical 75-104 mins Referrals: RADHA KRISHNAN [Primary Care Provider] -
[2019-11-01 13:38] LABS: INR 5.06 (0.8-3.0)
[2019-11-01] MEDS ORDERED: Merrem 1 GM 1 G in Sodium Chloride 100ML MINI-BAG PLUS 100 ML IV STA (13:38)
[2019-11-01 13:42] LABS: ALBUMIN 2.5 g/dL (3.5-5.0); ALKALINE PHOSPHATASE 486 U/L (38-126); BLOOD UREA NITROGEN 5 mg/dL (9-20); CHLORIDE 85 mmol/L (98-107); Calcium 7.2 mg/dL (8.4-10.2); Glucose 60 mg/dL (74-106); NT PRO BNP 3250 pg/mL (0-900); SGOT/AST 134 U/L (17-59); SODIUM 135 mmol/L (137-145); Total Protein 5.7 g/dL (6.3-8.2)
[2019-11-01] MEDS ORDERED: POTASSIUM CHLORIDE 20 mEq IN WATER 100ML 20 MEQ/100 ML BAG IV ONE (13:47)
[2019-11-01 13:48] LABS: SGPT/ALT 32 U/L (0-50)
[2019-11-01] MEDS ORDERED: LEVOPHED 4 MG/4 ML 4,000 MCG in Dextrose 5%/Water IV Soln. 500 ML 500 ML IV PRN (13:49)
[2019-11-01 13:50] LABS: Lactic Acid 5.2 (0.4-2.0)
[2019-11-01 13:51] LABS: Carbon Dioxide 40 mmol/L (22-30); Potassium 2.6 mmol/L (3.5-5.1)
[2019-11-01] MEDS ORDERED: POTASSIUM CHLORIDE 20 mEq IN WATER 100ML 0 ML IV ONE (13:51)
[2019-11-01 13:53] LABS: ANION GAP 12.6 MEQ/L (5-15)
[2019-11-01] MEDS ORDERED: POTASSIUM CHLORIDE 20 mEq IN WATER 100ML 100 ML IV ONE (13:54)
[2019-11-01 14:04] LABS: BAND 24 % (0.0-2.0); Lymphocytes 1 % (24-44); Monocyte 1 % (0.0-12.0); Neutrophils 74 % (36.-66.); Total Cells Counted 100
[2019-11-01 14:06] LABS: ANISOCYTOSIS 1+; Platelet Estimate NORMAL (NORMAL); Poikilocytosis 1+; Polychromasia 1+
--- NOTE | 2019-11-01 14:06 | XRAY ---
Indication: Fever and hypoxemia. ET tube placement. Comparison: October 08, 2019. Portable chest demonstrates new endotracheal tube tip 5 cm above magen and new NG tube tip at GE junction. Remaining heart and lungs unchanged again demonstrating minimal scattered fibrosis/scarring, right lung suture material, cardiomegaly, and right arm PICC line. No new cardiopulmonary abnormalities.
[2019-11-01 14:07] LABS: Absolute Neutrophil Ct (ANC) 36.4 (1.4-6.9)
[2019-11-01] MEDS ORDERED: Merrem 1 GM IV ONE (14:13)
[2019-11-01] MEDS ORDERED: Sodium Chloride 0.9% 1000 ML 1,000 ML ONE ×3 (14:14→15:10)
[2019-11-01] MEDS ORDERED: Sodium Chloride 0.9% 100 ML IVPB 100 ML IV ONE (14:14)
[2019-11-01 14:29] VITALS: O2SAT 99
[2019-11-01 14:36] LABS: A-aADO2 211; ABG HEMOGLOBIN 10.4; ARTERIAL BLD GAS O2 SATURATION 98.7 % (95-100); ARTERIAL BLOOD GAS BASE EXCESS 11.2 (-2.0-2.0); ARTERIAL BLOOD GAS FIO2 50 %; ARTERIAL BLOOD GAS PCO2 46 mmHg (35-45); ARTERIAL BLOOD GAS PO2 88 mmHg (75-100); CARBOXYHEMOGLOBIN 1.5 % THgb (0.0-6.9); HCO3- 35.9 (22-28); HGB O2 SAT 96.9 g/dF (94-100); Lactic Acid 4.7 (0.4-2.0); Methhemoglobin 0.3 % (1.4-1.5); paO2 pAO1 0.29
[2019-11-01 14:37] LABS: ABG POTASSIUM 2.3 (3.5-5.1)
[2019-11-01 14:38] LABS: ABG SITE RIGHT BRACHIAL; ARTERIAL BLOOD GAS VENT MODE A/C; ARTERIAL BLOOD GAS VENT RATE 16 /MIN
[2019-11-01 14:39] LABS: ALLEN TEST OK? YES
[2019-11-01 15:07] VITALS: BP 82/51; PULSE 128
[2019-11-01 15:28] LABS: Appearance CLEAR (CLEAR); Bacteria RARE /HPF (NEGATIVE); Bilirubin NEGATIVE (NEGATIVE); Blood SMALL Ery/ul (0-5); Glucose NEGATIVE (NEGATIVE); Ketones TRACE (NEGATIVE); Leukocyte Esterase TRACE (NEGATIVE); Nitrite NEGATIVE (NEGATIVE); Protein,Urine Dip NEGATIVE (Negative); Specific Gravity 1.006 (1.005-1.025); Urobilinogen NEGATIVE mg/dL (0-1)
== END 2019-11-01 15:22 | disposition short-term general hospital (02) ==
LOC: ED 12:57
DX: D72.829 Elevated white blood cell count, unspecified (principal); R09.02 Hypoxemia; I95.9 Hypotension, unspecified; A41.9 Sepsis, unspecified organism; J96.90 Respiratory failure, unspecified, unspecified whether with hypoxia or hypercapnia; E87.6 Hypokalemia; I48.20 Chronic atrial fibrillation, unspecified; I50.9 Heart failure, unspecified; Z72.0 Tobacco use; Z79.01 Long term (current) use of anticoagulants; Z79.899 Other long term (current) drug therapy; J44.9 Chronic obstructive pulmonary disease, unspecified; K76.9 Liver disease, unspecified; K21.9 Gastro-esophageal reflux disease without esophagitis; M19.90 Unspecified osteoarthritis, unspecified site; I12.9 Hypertensive chronic kidney disease with stage 1 through stage 4 chronic kidney disease, or unspecified chronic kidney disease; N18.9 Chronic kidney disease, unspecified
CPT/HCPCS: 31500; 36000; 36415; 36600; 51702; 71045; 80053; 81001; 82375; 82803; 83605; 83880; 84484; 85025; 85610; 87040; 87070; 87077; 87086; 87186; 93005; 93041; 94002; 94760; 94799; 96360; 96361; 96367; 96368; 96374; 96375; 99285; 99291; 99292; J2250; J3480